=== PATIENT | male | born 1940 | race Two or more races ===

== ENCOUNTER 2017-07-25 16:54 | Inpatient (IN) | payer MEDICARE, MEDICAID ==
[2017-07-25] VITALS (7 sets, daily range): BP systolic 72–118; BP diastolic 25–70
[~2017-07-25] VITALS: Ht 170.2 cm; Wt 97.1 kg
[2017-07-25] MEDS ORDERED: Vancomycin 1 GM in NS 275 ML IV ONE (17:15)
[2017-07-25] MEDS ORDERED: NS 1000ml 2,200 ML IVLG ONE (17:15)
[2017-07-25] MEDS ORDERED: Cefepime HCl 1 GM in NS 55 ML IV SCH (17:15)
[2017-07-25 17:41] LABS: BASOPHILS % (AUTO) 0.5 % (0.0-2.0); EOSINOPHILS % (AUTO) 5.3 % (0.0-3.0); HEMOGLOBIN 10.1 G/DL (14.2-18.0); LYMPHOCYTES % (AUTO) 15.5 % (20.0-45.0); MEAN CORPUSCULAR VOLUME 90 FL (80-99); MONOCYTES % (AUTO) 3.4 % (1.0-10.0); NEUTROPHILS % (AUTO) 75.3 % (45.0-75.0); PLATELET COUNT 194 K/UL (150-450); RED BLOOD COUNT 3.57 M/UL (4.70-6.10); RED CELL DISTRIBUTION WIDTH 17.4 % (11.6-14.8); WHITE BLOOD COUNT 7.6 K/UL (4.8-10.8)
[2017-07-25 17:58] LABS: ANION GAP 17 mmol/L (5-15); BLOOD UREA NITROGEN 67 mg/dL (7-18); CALCIUM 7.7 MG/DL (8.5-10.1); CARBON DIOXIDE 13 MMOL/L (21-32); CHLORIDE 112 MMOL/L (98-107); CREATININE 1.4 MG/DL (0.55-1.30); POTASSIUM 4.7 MMOL/L (3.5-5.1); SODIUM 142 MMOL/L (136-145)
[2017-07-25 18:11] LABS: ALANINE AMINOTRANSFERASE 26 U/L (12-78); ALBUMIN/GLOBULIN RATIO 0.2 (1.0-2.7); ALKALINE PHOSPHATASE 86 U/L (46-116); ASPARTATE AMINO TRANSFERASE 29 U/L (15-37); BILIRUBIN,TOTAL 0.2 MG/DL (0.2-1.0); CKMB 4.5 NG/ML (0.0-3.6); CREATINE KINASE 34 U/L (26-308)
[2017-07-25] MEDS ORDERED: HEPARIN SO5000 UNIT2 SUBQ (18:48)
[2017-07-25] MEDS ORDERED: PRAVASTATIN SOD20 M1 GT (18:48)
[2017-07-25] MEDS ORDERED: ALBUTEROL2.5 MG/3 M INH (18:48)
[2017-07-25] MEDS ORDERED: PROMOD946 ML GT (18:48)
[2017-07-25] MEDS ORDERED: ACETAMINOP160 MG/54 GT (18:48)
[2017-07-25] MEDS ORDERED: MIDODRINE HCL5 MG GT (18:48)
[2017-07-25] MEDS ORDERED: PROTONIX40 MG GT (18:48)
--- NOTE | 2017-07-25 19:11 | Emergency Room Report ---
History of Present Illness General Chief Complaint: Abnormal Labs Source: Medical Record Present Illness HPI This [facility]. He has a tracheostomy and is ventilator dependent. He is aphasic at baseline. He has a history of cardiac arrest and acute respiratory arrest. He is ventilator dependent. He presents from a [facility] facility for concern of low blood pressure and low heart rate. There is no other history is available. Allergies: Coded Allergies: No Known Allergies (Unverified , 07/25/17) Patient History Past Medical History: see triage record, DM, HTN, CA, CAD, dementia Social History: Denies: smoking, alcohol use, drug use Reviewed Nursing Documentation: PMH: Agreed; PSxH: Agreed Nursing Documentation-PMH Past Medical History: No History, Except For Hx Hypertension: Yes Hx Diabetes: Yes Hx Gastrointestinal Problems: Yes - G-tube History Of Psychiatric Problem: Yes - Dementia Review of Systems All Other Systems: limited Physical Exam Vital Signs Date Time Temp Pulse Resp B/P (MAP) Pulse Ox O2 Delivery O2 Flow Rate FiO2 07/25/17 17:05 70 16 98/58 98 Mechanical Ventilator 07/25/17 17:20 50 Sp02 EP Interpretation: reviewed, normal General Appearance: no apparent distress, GCS 15, cachetic, Chronically Ill Head: normocephalic, atraumatic ENT: other - Tracheostomy in place. Neck: full range of motion, other - See above in ENT Respiratory: no respiratory distress, rales - R. lung, rhonchi - R. lung Cardiovascular #1: no edema, bradycardia Gastrointestinal: soft, non-distended, other - PEG Rectal: deferred Musculoskeletal: back normal, other - at baseline Neurologic: alert, other - At baseline. aphasic, unresponsive Skin: warm/dry, other - See RN skin exam. Medical Decision Making Diagnostic Impression: Primary Impression: Sepsis Additional Impressions: Pneumonia Renal failure Hypoglycemia Hypothermia Bradycardia Hypotension UTI (urinary tract infection) ER Course This patient that is severely and chronically ill presents with sepsis. He also has a pneumonia. He is in renal failure. He is hypoglycemic, hypothermic , bradycardic and hypotensive. Possibly this patient has adrenal insufficiency. Another consideration is profound hypothyroid. The patient was placed on a bear hugger to bring up his temperature. He was given aggressive IV fluids and broad-spectrum antibiotics. He was given D50 and placed on D5 half-normal saline. He was given hydrocortisone IV to treat for possible adrenal insufficiency. He is started on levothyroid for hypotension. The patient is critically ill and has a very poor prognosis. He is admitted to the ICU. This patient is critically ill. This patient required complex medical decision- making, aggressive intervention, extensive laboratory workup and monitoring. Critical care time: 40 minutes. Laboratory Tests Test 07/25/17 17:28 07/25/17 20:20 White Blood Count 7.6 K/UL (4.8-10.8) Red Blood Count 3.57 M/UL (4.70-6.10) L Hemoglobin 10.1 G/DL (14.2-18.0) L Hematocrit 32.0 % (42.0-52.0) L Mean Corpuscular Volume 90 FL (80-99) Mean Corpuscular Hemoglobin 28.3 PG (27.0-31.0) Mean Corpuscular Hemoglobin Concent 31.5 G/DL (32.0-36.0) L Red Cell Distribution Width 17.4 % (11.6-14.8) H Platelet Count 194 K/UL (150-450) Mean Platelet Volume 6.5 FL (6.5-10.1) Neutrophils (%) (Auto) 75.3 % (45.0-75.0) H Lymphocytes (%) (Auto) 15.5 % (20.0-45.0) L Monocytes (%) (Auto) 3.4 % (1.0-10.0) Eosinophils (%) (Auto) 5.3 % (0.0-3.0) H Basophils (%) (Auto) 0.5 % (0.0-2.0) Sodium Level 142 MMOL/L (136-145) Potassium Level 4.7 MMOL/L (3.5-5.1) Chloride Level 112 MMOL/L (98-107) H Carbon Dioxide Level 13 MMOL/L (21-32) L Anion Gap 17 mmol/L (5-15) H Blood Urea Nitrogen 67 mg/dL (7-18) H Creatinine 1.4 MG/DL (0.55-1.30) H Estimate Glomerular Filtration Rate mL/min (>60) Glucose Level 65 MG/DL (74-106) L Lactic Acid Level 1.90 mmol/L (0.66-2.22) Calcium Level 7.7 MG/DL (8.5-10.1) L Total Bilirubin 0.2 MG/DL (0.2-1.0) Aspartate Amino Transferase (AST) 29 U/L (15-37) Alanine Aminotransferase (ALT) 26 U/L (12-78) Alkaline Phosphatase 86 U/L (46-116) Total Creatine Kinase 34 U/L (26-308) Creatine Kinase MB 4.5 NG/ML (0.0-3.6) H Creatine Kinase MB Relative Index 13.2 Troponin I 0.014 ng/mL (0.000-0.056) Total Protein 6.2 G/DL (6.4-8.2) L Albumin 1.0 G/DL (3.4-5.0) L Globulin 5.2 g/dL Albumin/Globulin Ratio 0.2 (1.0-2.7) L Thyroid Stimulating Hormone (TSH) 5.690 uiU/mL (0.358-3.740) Free Thyroxine 0.79 NG/DL (0.76-1.46) Free Triiodothyronine 0.7 pg/mL (2.3-4.2) L Urine Color Yellow Urine Appearance Very cloudy Urine pH 5 (4.5-8.0) Urine Specific Tyler 1.010 (1.005-1.035) Urine Protein 3+ (NEGATIVE) H Urine Glucose (UA) Negative (NEGATIVE) Urine Ketones Negative (NEGATIVE) Urine Occult Blood 3+ (NEGATIVE) H Urine Nitrite Negative (NEGATIVE) Urine Bilirubin Negative (NEGATIVE) Urine Urobilinogen Normal MG/DL (0.0-1.0) Urine Leukocyte Esterase 3+ (NEGATIVE) H Urine RBC 10-15 /HPF (0 - 0) H Urine WBC 15-20 /HPF (0 - 0) H Urine Squamous Epithelial Cells None /LPF (NONE/OCC) Urine Amorphous Sediment Many /LPF (NONE) H Urine Bacteria Many /HPF (NONE) H Microbiology Date/Time Source Procedure Growth Status 07/25/17 19:30 Nasal Nares Influenza Types A,B Antigen (VERO) - Final Complete EKG Diagnostic Results Rate: bradycardiac Rhythm: other - S.manju ST Segments: no acute changes Rhythm Strip Diag. Results EP Interpretation: yes Rate: 40's Rhythm: no PVC's, no ectopy, other - S.manju Chest X-Ray Diagnostic Results Chest X-Ray Diagnostic Results : Chest X-Ray Ordered: Yes # of Views/Limited/Complete: 1 View Indication: Other Interpretation: other - Large pleural effusion R. lung. 75% opacification on R. lung. Impression: Other Electronically Signed by: Adelina Last Vital Signs Date Time Temp Pulse Resp B/P (MAP) Pulse Ox O2 Delivery O2 Flow Rate FiO2 07/25/17 18:55 49 24 83/45 96 Trach Collar 07/25/17 17:20 50 Disposition: ADMITTED INPATIENT Condition: Critical LAWRENCE MCELROY D.O. Jul 25, 2017 19:10
[2017-07-25] MEDS ORDERED: IMODIUM A-D2 M2 PO (19:59)
[2017-07-25] MEDS ORDERED: PRAVASTATIN SOD40 M1 ORAL (19:59)
[2017-07-25] MEDS ORDERED: D5 1/2NS 1,000 ML IV SCH (20:45)
[2017-07-25 20:47] LABS: APPEARANCE,URINE VERY CLOUDY; BILIRUBIN, URINE NEGATIVE (NEGATIVE); GLUCOSE, URINE (UA) NEGATIVE (NEGATIVE); KETONES,URINE NEGATIVE (NEGATIVE); LEUKOCYTE ESTERASE ,URINE 3+ (NEGATIVE); NITRITE,URINE NEGATIVE (NEGATIVE); PH,URINE 5 (4.5-8.0); PROTEIN,URINE 3+ (NEGATIVE); UROBILINOGEN,URINE NORMAL MG/DL (0.0-1.0)
[2017-07-25 20:51] LABS: COLOR,URINE YELLOW
[2017-07-25] MEDS ORDERED: Hydrocortisone 100mg Inj IV ONE (21:00)
[2017-07-25] MEDS ORDERED: Vancomycin 1gm inj IVPB ONE (21:29)
[2017-07-25] MEDS ORDERED: Acetaminophen Soln 160mg/5ml ORAL PRN (21:45)
[2017-07-25] MEDS ORDERED: Albuterol ud Inhalation IN-LINE PRN (21:48)
[2017-07-25] MEDS: Hydrocortisone 100mg Inj IV SCH (22:00)
[2017-07-25] MEDS: Sodium Bicarbonate 50 ML in D5 1/2NS 1,000 ML IV SCH (23:16)
[2017-07-25] MEDS: Piperacillin/Tazobactam 3.375 GM in D5W 110 ML IVPB SCH (23:17)
[2017-07-26] VITALS (65 sets, daily range): BP systolic 71–133; BP diastolic 34–65
[2017-07-26] MEDS: Piperacillin/Tazobactam 3.375 GM in D5W 110 ML IVPB SCH ×3 (05:56→21:59)
[2017-07-26] MEDS: Hydrocortisone 100mg Inj IV SCH ×3 (05:56→22:01)
[2017-07-26 06:18] LABS: HEMATOCRIT 34.1 % (42.0-52.0); MEAN CORPUSCULAR VOLUME 91 FL (80-99); PLATELET COUNT 264 K/UL (150-450); RED BLOOD COUNT 3.77 M/UL (4.70-6.10); RED CELL DISTRIBUTION WIDTH 17.1 % (11.6-14.8); WHITE BLOOD COUNT 14.6 K/UL (4.8-10.8)
[2017-07-26 06:30] LABS: ALANINE AMINOTRANSFERASE 26 U/L (12-78); ALBUMIN/GLOBULIN RATIO 0.2 (1.0-2.7); ALKALINE PHOSPHATASE 84 U/L (46-116); ANION GAP 18 mmol/L (5-15); ASPARTATE AMINO TRANSFERASE 29 U/L (15-37); BILIRUBIN,TOTAL 0.3 MG/DL (0.2-1.0); BLOOD UREA NITROGEN 62 mg/dL (7-18); CALCIUM 7.4 MG/DL (8.5-10.1); CARBON DIOXIDE 11 MMOL/L (21-32); CHLORIDE 109 MMOL/L (98-107); CREATININE 1.5 MG/DL (0.55-1.30); POTASSIUM 5.3 MMOL/L (3.5-5.1); SODIUM 138 MMOL/L (136-145)
[2017-07-26] MEDS ORDERED: Sodium Polystyrene Sulfonate 15gm Powder ORAL SCH (07:30)
[2017-07-26] MEDS: Sodium Bicarbonate 50 ML in D5 1/2NS 1,000 ML IV SCH ×2 (07:49→18:13)
--- NOTE | 2017-07-26 11:46 | Diagnostic Imaging Report ---
Indication: Dyspnea Comparison: None A single view chest radiograph was obtained. Findings: Left PICC line is noted. The distal tip projects into the base of the left jugular vein and ideally may be pulled back slightly. Tracheostomy is noted. There is suspected right pleural effusion. Infiltrate and/or pulmonary edema may be present at the lung bases. Correlate clinically. IMPRESSION: Suspected pulmonary edema. Superimposed pneumonia especially at the right lung base not excluded. Suspected right pleural effusion. PICC line tip ideally should be pulled back 3 cm
[2017-07-26] MEDS ORDERED: Sodium Bicarbonate 50ml Carp IV PRN (14:00)
[2017-07-26] MEDS ORDERED: Vancomycin 1gm in D5W 275ml IVPB SCH (16:00)
[2017-07-26] MEDS ORDERED: Sodium Bicarbonate 50ml Carp IV SCH (16:30)
[2017-07-26] MEDS: Dyna-Hex 2% Top Sol 2oz TOPIC SCH (20:01)
--- NOTE | 2017-07-26 20:30 | History and Physical Report ---
DATE OF ADMISSION: 07/25/2017 CHIEF COMPLAINT: Septic shock. HISTORY OF PRESENT ILLNESS: The patient is an unfortunate 77-year-old male. He has a history of anoxic encephalopathy, anemia, chronic respiratory failure, and sacral osteomyelitis. He was transferred from a custodial facility with complaints of shortness of breath and fevers. He was hypotensive in the emergency room. He was started on IV hydration, broad-spectrum IV antibiotics, and pressors and is now admitted for further evaluation and care. He is unable to provide any history. He was recently hospitalized at an outside hospital. At that time, he had a cardiac arrest. He was eventually stabilized made the patient DNR. PAST MEDICAL HISTORY: As above. PAST SURGICAL HISTORY: Includes a trach and a G-tube. CURRENT MEDICATIONS: Reconciled and reviewed. ALLERGIES: None. SOCIAL HISTORY: Negative for alcohol or drugs. FAMILY HISTORY: None. REVIEW OF SYSTEMS: From the patient is unobtainable. PHYSICAL EXAMINATION: VITAL SIGNS: Temperature 98 degrees, pulse 72, respirations 40, and blood pressure 91/55. GENERAL: The patient is a well-developed, chronically ill male, in no apparent distress. He is poorly responsive. NECK: Supple. No jugular venous distention. HEART: Tachycardiac. LUNGS: Significant for bilateral rhonchi and rales. ABDOMEN: Soft, nontender, and nondistended. EXTREMITIES: Without clubbing or cyanosis. The patient has multiple wounds noted. LABORATORY DATA: Sodium 138, potassium 5.3, chloride 109, bicarbonate 11, BUN 62, and creatinine is 1.5. White count was 14,000, hemoglobin 11, hematocrit 34, and platelet count 264,000. ASSESSMENT: This is an unfortunate male, admitted with complaints of septic shock. 1. Septic shock. 2. Respiratory failure. 3. Pneumonia. 4. Sacral osteomyelitis. 5. Acute renal failure. 6. Severe metabolic acidosis. PLAN: IV hydration, IV pressors. Check renal ultrasound. Pulmonary, Cardiology, and Infectious Disease consultations to be obtained. The patient's status is critical and guarded. His overall prognosis is poor. As per the paramedics meeting done at the outside hospital, the patient will be DNR. South Acosta M.D. DR: Megan JOB#: [id number] CC:
--- NOTE | 2017-07-26 22:00 | Consultation ---
DATE OF CONSULTATION: 07/26/2017 INFECTIOUS DISEASES CONSULTATION CONSULTING PHYSICIAN: Abhishek Boyd M.D. REFERRING PHYSICIAN: [place] M.D. REASON FOR CONSULTATION: Pneumonia. HISTORY OF PRESENT ILLNESS: This is a 77-year-old gentleman with history of respiratory failure, status post tracheostomy as well as cardiac arrest, who comes in from a custodial facility with hypotension and low heart rate. He was seen in [place] emergency room where he was found to have a pleural effusion and a possible pneumonia and an Infectious Diseases consultation has been obtained for antibiotics. PAST MEDICAL HISTORY: 1. History of diabetes. 2. Hypertension. 3. Myocardial infarction. 4. Coronary artery disease. 5. Dementia. 6. History of cardiac arrest. 7. Respiratory failure, status post tracheostomy. 8. Status post G-tube placement. MEDICATIONS: As an inpatient, the patient is on chlorhexidine gluconate, IV vancomycin, Protonix, levothyroxine, Zosyn, sodium bicarbonate, norepinephrine, hydrocortisone, albuterol, Tylenol, and midodrine. ALLERGIES: No known drug allergies. SOCIAL HISTORY: Unknown. FAMILY HISTORY: Unknown. REVIEW OF SYSTEMS: Unable to obtain currently. PHYSICAL EXAMINATION: VITAL SIGNS: T-max of 94.4 degrees, pulse of 76, respiratory rate of 43, blood pressure 91/55, and O2 saturation of 99%. HEENT: Pupils equally reactive to light and accommodation. Mouth appears clean without thrush. NECK: Supple. No adenopathy. No JVD. Tracheostomy site appears clean. CARDIOVASCULAR: Regular rate and rhythm. No murmurs. LUNGS: Clear to auscultation bilaterally. No crackles. No wheezes. ABDOMEN: Soft and nontender. No organomegaly. G-tube site appears clean. EXTREMITIES: No cyanosis. No clubbing. Edema noted bilaterally. Left arm PICC line noted. LABORATORY AND DIAGNOSTIC DATA: White count of 14.6, hemoglobin 11, hematocrit 34.1, MCV 91, and platelet count of 264,000 with neutrophils of 92%. Sodium 138, potassium 5.3, chloride 109, bicarbonate 11, BUN 62, creatinine 1.5, glucose 168, and calcium 7.4. Total bilirubin 0.3. AST 29, ALT 26, and alkaline phosphatase 84. Total protein 6.5. Albumin of 1. UA showing 15 to 20 white cells. Nasal swab was negative for influenza A and B. Blood cultures are pending. Chest x-ray is showing right-sided large pleural effusion with opacification of the right lung. ASSESSMENT: This is a 77-year-old gentleman with history of cardiac arrest, respiratory failure, status post tracheostomy, who comes in with: 1. Possible pneumonia with pleural effusion. 2. We would like to rule out line sepsis as the possibility. 3. We would like to rule out urinary tract infection as the possibility. 4. Leukocytosis. 5. Septic shock. PLAN: 1. Continue vancomycin and Zosyn. 2. We will order urine cultures. 3. We will order sputum for Gram stain and culture. 4. We will follow up cultures and adjust antibiotics accordingly. I would like to thank, Dr. Acosta, for this consultation. Abhishek Boyd M.D. DR: Marlene JOB#: [id number] CC: [place] M.D.
--- NOTE | 2017-07-26 22:15 | Consultation ---
DATE OF CONSULTATION: 07/26/2017 PULMONARY CONSULTATION CONSULTING PHYSICIAN: Kj Blackman M.D. REFERRING PHYSICIAN: [place] M.D. REASON FOR CONSULTATION: Respiratory failure. REASON FOR ADMISSION: Sepsis shock. HISTORY OF PRESENT ILLNESS: This is an unfortunate 77-year-old male, recently discharged from [facility] for possible acute myocardial infarction, status post cardiopulmonary arrest. The patient is poorly responsive at baseline. The patient presented with significant hypotension, respiratory failure, and associated bradycardia. The patient was seen and evaluated in the emergency room requiring ICU admission. The patient is presently on pressors. The patient is still presently bradycardic, unable to give any history. The patient is on a ventilator and also noted to have significant pneumonia on x-ray. The patient admitted and halfway care was reviewed. Chart notes were reviewed. Care discussed with primary physician. [facility] notes reviewed as well from prior recent discharge. The patient is critically ill at present, unable to give any history. The patient is tachypneic to some extent also on the ventilator. PAST MEDICAL HISTORY: Notable for diabetes, hypertension, FL, CAD, dementia, recent cardiopulmonary arrest, G-tube, and tracheostomy. SOCIAL HISTORY: [facility] facility. Nonsmoker and nondrinker at present. FAMILY HISTORY: Unobtainable. There is no family available as well. REVIEW OF SYSTEMS: Unobtainable. PHYSICAL EXAMINATION: GENERAL: This is an ill-appearing male, overall poorly responsive. VITAL SIGNS: Blood pressure 91/55, respiratory rate is 40, and heart rate 73, and saturation is 99%. The patient is currently with temperature 94.4. HEENT: Negative. NECK: Supple. No adenopathy. The patient is difficult to fully assess. Otherwise, the patient's carotids are 2+. LUNGS: Moderate breath sounds. Rhonchi diffusely, greater on the left. CARDIAC: S1 and S2. Regular rate and rhythm without murmurs, rubs, or gallops. ABDOMEN: Soft, nontender, and nondistended. G-tube in place. EXTREMITIES: No cyanosis or clubbing. There is significant mottling. NEUROLOGIC: Poorly responsive at present. SKIN: Noted and reviewed. LABORATORY AND DIAGNOSTIC DATA: Laboratory data reviewed. White count 14.6, hemoglobin 11, hematocrit 34, and platelets 264,000. Chemistries noted and reviewed. Potassium 5.3, BUN 62, creatinine 1.5. Lactic acid 2.3. Albumin is only 1. Blood gases not available at this time. Micro is pending at this time. X-ray noted and notable for evidence of pneumonia. IMPRESSION: 1. Respiratory failure. 2. Probable sepsis. 3. Extensive pneumonia. 4. Tracheostomy and gastrostomy tube. 5. History of cardiopulmonary arrest. 6. Evidence of anoxia. 7. Hypothyroidism. 8. Aspiration. 9. Dementia. RECOMMENDATIONS: Supportive care. Pressors. IV antibiotics. IV hydration. Arterial blood gases to assess acid-base. Monitor respiratory rate and adjust ventilator as needed. Infectious Disease evaluation strongly recommended observation in ICU care. The patient is critical and guarded at this time. We will follow clinically for further changes and assist with ventilatory support. The patient is chronically ventilated and at present would not wean. Kj Blackman M.D. DR: Aurora JOB#: [id number] CC: DANNA
[2017-07-27] VITALS (41 sets, daily range): BP systolic 89–140; BP diastolic 43–65
[2017-07-27] MEDS: Sodium Bicarbonate 50 ML in D5 1/2NS 1,000 ML IV SCH ×3 (00:19→13:12)
--- NOTE | 2017-07-27 04:15 | Consultation ---
DATE OF CONSULTATION: 07/27/2017 CARDIOLOGY CONSULT CONSULTING PHYSICIAN: Keith Reeves M.D. REQUESTING PHYSICIAN: [place] M.D. REASON: Hypotension and relative bradycardia. HISTORY OF PRESENT ILLNESS: This 77-year-old male resides at a [facility] facility and is severely debilitated at baseline due to prior cardiopulmonary arrest with associated anoxic encephalopathy. He has a tracheostomy and is ventilator dependent with baseline aphasia. He was noted to be hypotensive with a low heart rate and transported to the emergency room. Workup was completed and hospitalization in the intensive care unit initiated. I have been asked to assist with hemodynamic care. PAST MEDICAL HISTORY: His past medical history from records include cardiopulmonary arrest, anoxic encephalopathy, advanced dementia, dysphagia with G-tube, tracheostomy with ventilator-dependent respiratory failure, type 2 diabetes mellitus, hypertensive heart disease, coronary atherosclerosis, and history of myocardial infarction. ALLERGIES: None known. MEDICATIONS: At the nursing facility reviewed and reconciled. SOCIAL HISTORY: Cannot be confirmed, but the records do not note any prior smoking, alcohol, or substance abuse. REVIEW OF SYSTEMS: Not obtainable. Pertinent data from records is outlined above. PHYSICAL EXAMINATION: VITAL SIGNS: Blood pressure is 72/40, heart rate 45, respiratory rate 31, and temperature 88 rectally. GENERAL: Ill-appearing. Temporal wasting. Poorly responsive. NECK: Thin trach secretions. LUNGS: Bilateral breath sounds with rhonchi. HEART: Regular rhythm. Slow rate. Normal S1, S2. ABDOMEN: Soft. G-tube intact. EXTREMITIES: Without edema. Muscle atrophy is noted. Poor capillary refill is seen. SKIN: Notable for multiple advanced decubiti as pictured in the chart with bilateral hip stage IV. LABORATORY AND DIAGNOSTIC DATA: White count 7.6, hemoglobin 10. Sodium 142, potassium 4.7, bicarbonate 13, lactic acid 1.9, BUN 67, and creatinine 1.4. Albumin 1.0. Troponin 0.014. Urinalysis with 15 to 20 white cells and many bacteria. IMPRESSION: 1. Hypothermia. 2. Shock. 3. Sepsis. 4. Hypovolemia. 5. Urinary tract infection. 6. Decubiti with secondary cellulitis and possible osteomyelitis. 7. Acute myocardial ischemia. 8. Bradyarrhythmia due to hypothermic state and severe sepsis. 9. Ventilator-dependent respiratory failure. 10. History of diabetes mellitus. 11. History of hypertension. 12. History of coronary artery disease with prior myocardial infarction. 13. Condition is critical and prognosis is guarded. 14. Metabolic acidosis. 15. Acute renal failure. PLAN: 1. Recommend discussion regarding advanced directives. 2. Panculture. 3. Broad-spectrum antibiotics. 4. Volume resuscitation. 5. Pressors if inadequate response to above. 6. Bait hugger for warming measures. 7. Skin care. 8. Comfort measures. Keith Reeves M.D. DR: PILLO JOB#: [id number] CC:
--- NOTE | 2017-07-27 04:15 | Progress Note ---
DATE: 07/26/2017 CARDIOLOGY PROGRESS NOTE SUBJECTIVE: The patient remains in the intensive care unit. Condition remains critical with guarded prognosis. The patient remains on pressor support with marginal blood pressure. He is on ventilator support via tracheostomy. The case was discussed with the ICU staff including wound care. OBJECTIVE: VITAL SIGNS: Blood pressure 107/55, pulse 74, respirations 43, afebrile, and temperature now 98.9. HEENT: Temporal wasting. Dry mucous membranes. LUNGS: Bilateral rhonchi. Thin trach secretions. HEART: Regular rhythm and rate. Normal S1, S2. ABDOMEN: Soft. G-tube intact. EXTREMITIES: Contractures. No edema. Decreased capillary refill. Wounds are dressed and described yesterday in my evaluation. LABORATORY DATA: Labs, ABG, 7.21, 27, and 107. White count 14.6, hemoglobin 11. Lactic acid 2.3. BUN 62, creatinine 1.5. Sodium 138, potassium 5.3, and bicarbonate 11. Albumin 1. TSH 5.6. IMPRESSION: 1. Sepsis with shock. 2. Hypothermia, resolved. 3. Lactic acidosis. 4. Decubiti with cellulitis and possible osteomyelitis. 5. Postanoxic encephalopathy. 6. History of cardiopulmonary arrest. 7. Ischemic and hypertensive heart disease. 8. Severe protein-calorie malnutrition. 9. Hypothyroidism. 10. Probable adrenocortical insufficiency. 11. Condition critical, prognosis guarded. PLAN: 1. Volume resuscitation. 2. Pressor support as able. 3. Ventilator support with hyperventilation. 4. Broad-spectrum antibiotics. 5. Skin care. 6. Protein supplement by feeding tube. 7. Check cortisol level. 8. DVT and stress ulcer prophylaxes. Keith Reeves M.D. DR: PILLO JOB#: [id number] CC:
[2017-07-27 05:38] LABS: HEMATOCRIT 25.1 % (42.0-52.0); HEMOGLOBIN 8.3 G/DL (14.2-18.0); MEAN CORPUSCULAR VOLUME 88 FL (80-99); PLATELET COUNT 188 K/UL (150-450); RED BLOOD COUNT 2.85 M/UL (4.70-6.10); RED CELL DISTRIBUTION WIDTH 17.1 % (11.6-14.8); WHITE BLOOD COUNT 11.7 K/UL (4.8-10.8)
[2017-07-27] MEDS: Hydrocortisone 100mg Inj IV SCH ×3 (05:45→21:56)
[2017-07-27] MEDS: Piperacillin/Tazobactam 3.375 GM in D5W 110 ML IVPB SCH ×3 (05:45→21:56)
[2017-07-27 05:54] LABS: ALANINE AMINOTRANSFERASE 22 U/L (12-78); ALBUMIN 0.9 G/DL (3.4-5.0); ALBUMIN/GLOBULIN RATIO 0.2 (1.0-2.7); ALKALINE PHOSPHATASE 80 U/L (46-116); ANION GAP 15 mmol/L (5-15); ASPARTATE AMINO TRANSFERASE 24 U/L (15-37); BILIRUBIN,TOTAL 0.2 MG/DL (0.2-1.0); BLOOD UREA NITROGEN 64 mg/dL (7-18); CALCIUM 6.7 MG/DL (8.5-10.1); CARBON DIOXIDE 16 MMOL/L (21-32); CHLORIDE 110 MMOL/L (98-107); CREATININE 1.7 MG/DL (0.55-1.30); SODIUM 141 MMOL/L (136-145)
[2017-07-27] MEDS ORDERED: Acetaminophen 650mg/20.3ml ORAL PRN (07:30)
--- NOTE | 2017-07-27 07:38 | Critical Care Progress Note ---
Assessment/Plan Assessment/Plan IMPRESSION: 1. Respiratory failure. 2. Probable sepsis. 3. Extensive pneumonia. 4. Tracheostomy and gastrostomy tube. 5. History of cardiopulmonary arrest. 6. Evidence of anoxia. 7. Hypothyroidism. 8. Aspiration. 9. Dementia. 10. acute renal failure 11. anemia 12. chronic encephalopathy 13. anoxia 14. CAD PLAN care noted IV antibiotics reviewed respiratory care as is Ventilatory support as is SNF meds supportive care and monitor suction as needed no wean planned oxygen therapy reviewed and taper prognosis poor for recovery nutrition position change monitor for skin breakdown pressors as needed medications/laboratory data/nursing notes/ICU care reviewed in detail note reviewed and edited care discussed with RN and RT ICU time spent 40 minutes Critical Care - Subjective Interval Events: poor LOC events noted orders reviewed in detail ICU care reviewed Condition: critical EKG Rhythm: Sinus Rhythm Residuals: minimal Tube Feeding Tolerated: yes I&O: Intake and Output 07/26/17 07/27/17 19:00 07:00 Intake Total 2753.125 ml 1852.4 ml Output Total 715 ml 585 ml Balance 2038.125 ml 1267.4 ml Intake Free Water 150 ml IV Total 2178.125 ml 1567.4 ml Tube Feeding 325 ml 285 ml Other 100 ml Output Urine Total 715 ml 585 ml Critical Care - Objective Last 24 Hour Vital Signs Date Time Temp Pulse Resp B/P (MAP) Pulse Ox O2 Delivery O2 Flow Rate FiO2 07/27/17 07:00 63 30 98/43 100 Mechanical Ventilator 40 07/27/17 06:00 65 30 104/54 100 Mechanical Ventilator 40 07/27/17 05:45 63 31 103/43 100 Mechanical Ventilator 40 07/27/17 05:30 63 33 109/47 100 Mechanical Ventilator 40 07/27/17 05:15 63 34 103/55 100 Mechanical Ventilator 40 07/27/17 05:00 66 35 103/46 99 Mechanical Ventilator 40 07/27/17 04:55 71 37 40 07/27/17 04:30 59 28 99/50 Mechanical Ventilator 07/27/17 04:15 58 35 105/52 Mechanical Ventilator 07/27/17 04:00 99.2 58 34 103/49 Mechanical Ventilator 99.2 07/27/17 04:00 60 07/27/17 04:00 40 07/27/17 03:45 60 29 99/50 Mechanical Ventilator 07/27/17 03:30 67 34 40 07/27/17 03:30 66 27 105/57 Mechanical Ventilator 07/27/17 03:15 65 24 101/53 Mechanical Ventilator 07/27/17 03:00 66 27 105/48 Mechanical Ventilator 07/27/17 02:45 63 30 95/49 Mechanical Ventilator 40 07/27/17 02:30 64 29 89/49 Mechanical Ventilator 40 07/27/17 02:15 63 19 91/45 Mechanical Ventilator 40 07/27/17 02:00 67 30 140/58 07/27/17 02:00 67 30 140/58 Mechanical Ventilator 40 07/27/17 01:45 63 28 120/48 07/27/17 01:45 63 28 120/48 Mechanical Ventilator 40 07/27/17 01:30 64 29 119/60 07/27/17 01:30 64 29 119/60 Mechanical Ventilator 40 07/27/17 01:17 64 33 40 07/27/17 01:15 63 33 119/51 Mechanical Ventilator 40 07/27/17 01:15 63 33 119/51 07/27/17 01:00 63 35 118/47 Mechanical Ventilator 40 07/27/17 01:00 63 35 118/47 07/27/17 00:45 63 34 118/51 Mechanical Ventilator 40 07/27/17 00:45 63 34 118/51 07/27/17 00:30 64 31 121/54 07/27/17 00:30 64 31 121/54 Mechanical Ventilator 40 07/27/17 00:15 64 27 122/54 07/27/17 00:15 64 27 122/54 Mechanical Ventilator 40 07/27/17 00:00 63 29 118/46 Mechanical Ventilator 40 07/27/17 00:00 40 07/27/17 00:00 64 07/27/17 00:00 63 29 118/46 07/26/17 23:45 64 28 115/60 Mechanical Ventilator 40 07/26/17 23:30 65 29 114/61 Mechanical Ventilator 07/26/17 23:15 65 27 112/53 Mechanical Ventilator 07/26/17 23:05 65 31 40 07/26/17 23:00 65 25 102/50 Mechanical Ventilator 07/26/17 22:45 66 29 91/43 Mechanical Ventilator 07/26/17 22:31 71/40 07/26/17 22:30 70 27 71/40 Mechanical Ventilator 07/26/17 22:15 69 31 96/52 Mechanical Ventilator 07/26/17 22:00 71 25 116/45 Mechanical Ventilator 07/26/17 21:45 68 28 120/55 Mechanical Ventilator 07/26/17 21:30 69 25 118/57 Mechanical Ventilator 07/26/17 21:28 68 29 40 07/26/17 21:15 68 30 121/65 Mechanical Ventilator 07/26/17 21:00 71 31 118/56 Mechanical Ventilator 07/26/17 20:45 67 30 117/57 Mechanical Ventilator 07/26/17 20:30 67 30 119/50 98 Mechanical Ventilator 40 07/26/17 20:15 68 34 119/41 98 Mechanical Ventilator 40 07/26/17 20:00 40 07/26/17 20:00 69 07/26/17 20:00 69 31 117/44 98 Mechanical Ventilator 40 07/26/17 19:56 71 31 40 07/26/17 19:45 68 28 111/47 98 Mechanical Ventilator 40 07/26/17 19:30 68 32 107/50 98 Mechanical Ventilator 40 07/26/17 19:15 69 30 100/57 98 Mechanical Ventilator 40 07/26/17 19:00 68 37 102/49 98 Mechanical Ventilator 40 07/26/17 18:45 69 36 95/55 98 Mechanical Ventilator 40 07/26/17 18:30 70 37 106/43 98 Mechanical Ventilator 40 07/26/17 18:15 71 38 111/57 98 Mechanical Ventilator 40 07/26/17 18:00 74 36 119/60 98 Mechanical Ventilator 40 07/26/17 18:00 119/60 07/26/17 17:45 75 39 121/60 99 Mechanical Ventilator 40 07/26/17 17:30 75 39 123/63 99 Mechanical Ventilator 40 07/26/17 17:15 79 39 121/59 99 Mechanical Ventilator 40 07/26/17 17:01 71 38 40 07/26/17 17:00 72 28 121/60 99 Mechanical Ventilator 40 07/26/17 16:45 73 28 121/61 99 Mechanical Ventilator 40 07/26/17 16:30 124/63 07/26/17 16:30 73 39 124/63 98 Mechanical Ventilator 40 07/26/17 16:00 40 07/26/17 16:00 74 07/26/17 16:00 98.6 72 38 116/52 99 Mechanical Ventilator 40 98.6 07/26/17 15:30 73 42 111/57 98 Mechanical Ventilator 40 07/26/17 15:00 74 45 110/59 98 Mechanical Ventilator 40 07/26/17 14:35 78 45 40 07/26/17 14:30 73 43 106/56 98 Mechanical Ventilator 40 07/26/17 14:00 74 43 107/55 98 Mechanical Ventilator 40 07/26/17 13:30 75 41 106/55 98 Mechanical Ventilator 40 07/26/17 13:05 100/55 07/26/17 13:00 78 43 100/55 100 Mechanical Ventilator 40 07/26/17 12:40 76 43 40 07/26/17 12:30 76 42 110/62 100 Mechanical Ventilator 40 07/26/17 12:00 98.9 79 43 96/56 100 Mechanical Ventilator 40 98.9 07/26/17 12:00 76 07/26/17 12:00 40 07/26/17 11:30 73 40 100/53 100 Mechanical Ventilator 40 07/26/17 11:00 74 40 96/36 98 Mechanical Ventilator 40 07/26/17 10:44 74 40 40 07/26/17 10:30 74 40 95/47 98 Mechanical Ventilator 40 07/26/17 10:21 40 07/26/17 10:00 78 40 94/49 99 Mechanical Ventilator 50 07/26/17 09:30 74 38 97/53 99 Mechanical Ventilator 50 07/26/17 09:00 76 41 96/52 99 Mechanical Ventilator 50 07/26/17 08:45 75 40 93/38 99 Mechanical Ventilator 50 07/26/17 08:43 76 43 50 07/26/17 08:30 98.5 74 41 93/37 99 Mechanical Ventilator 50 98.5 07/26/17 08:15 73 40 91/55 99 Mechanical Ventilator 50 07/26/17 08:00 72 07/26/17 08:00 50 07/26/17 08:00 73 41 89/54 99 Mechanical Ventilator 50 07/26/17 07:45 73 40 91/50 99 Mechanical Ventilator 50 Labs: Labs Test 07/25/17 17:28 07/25/17 20:20 07/26/17 05:30 07/26/17 09:51 White Blood Count 7.6 K/UL (4.8-10.8) 14.6 K/UL (4.8-10.8) Red Blood Count 3.57 M/UL (4.70-6.10) 3.77 M/UL (4.70-6.10) Hemoglobin 10.1 G/DL (14.2-18.0) 11.0 G/DL (14.2-18.0) Hematocrit 32.0 % (42.0-52.0) 34.1 % (42.0-52.0) Mean Corpuscular Volume 90 FL (80-99) 91 FL (80-99) Mean Corpuscular Hemoglobin 28.3 PG (27.0-31.0) 29.3 PG (27.0-31.0) Mean Corpuscular Hemoglobin Concent 31.5 G/DL (32.0-36.0) 32.3 G/DL (32.0-36.0) Red Cell Distribution Width 17.4 % (11.6-14.8) 17.1 % (11.6-14.8) Platelet Count 194 K/UL (150-450) 264 K/UL (150-450) Mean Platelet Volume 6.5 FL (6.5-10.1) 7.2 FL (6.5-10.1) Neutrophils (%) (Auto) 75.3 % (45.0-75.0) % (45.0-75.0) Lymphocytes (%) (Auto) 15.5 % (20.0-45.0) % (20.0-45.0) Monocytes (%) (Auto) 3.4 % (1.0-10.0) % (1.0-10.0) Eosinophils (%) (Auto) 5.3 % (0.0-3.0) % (0.0-3.0) Basophils (%) (Auto) 0.5 % (0.0-2.0) % (0.0-2.0) Sodium Level 142 MMOL/L (136-145) 138 MMOL/L (136-145) Potassium Level 4.7 MMOL/L (3.5-5.1) 5.3 MMOL/L (3.5-5.1) Chloride Level 112 MMOL/L (98-107) 109 MMOL/L (98-107) Carbon Dioxide Level 13 MMOL/L (21-32) 11 MMOL/L (21-32) Anion Gap 17 mmol/L (5-15) 18 mmol/L (5-15) Blood Urea Nitrogen 67 mg/dL (7-18) 62 mg/dL (7-18) Creatinine 1.4 MG/DL (0.55-1.30) 1.5 MG/DL (0.55-1.30) Estimat Glomerular Filtration Rate mL/min (>60) mL/min (>60) Glucose Level 65 MG/DL (74-106) 168 MG/DL (74-106) Lactic Acid Level 1.90 mmol/L (0.66-2.22) 2.30 mmol/L (0.66-2.22) Calcium Level 7.7 MG/DL (8.5-10.1) 7.4 MG/DL (8.5-10.1) Total Bilirubin 0.2 MG/DL (0.2-1.0) 0.3 MG/DL (0.2-1.0) Aspartate Amino Transf (AST/SGOT) 29 U/L (15-37) 29 U/L (15-37) Alanine Aminotransferase (ALT/SGPT) 26 U/L (12-78) 26 U/L (12-78) Alkaline Phosphatase 86 U/L (46-116) 84 U/L (46-116) Total Creatine Kinase 34 U/L (26-308) Creatine Kinase MB 4.5 NG/ML (0.0-3.6) Creatine Kinase MB Relative Index 13.2 Troponin I 0.014 ng/mL (0.000-0.056) Total Protein 6.2 G/DL (6.4-8.2) 6.5 G/DL (6.4-8.2) Albumin 1.0 G/DL (3.4-5.0) 1.0 G/DL (3.4-5.0) Globulin 5.2 g/dL 5.5 g/dL Albumin/Globulin Ratio 0.2 (1.0-2.7) 0.2 (1.0-2.7) Thyroid Stimulating Hormone (TSH) 5.690 uiU/mL (0.358-3.740) Free Thyroxine 0.79 NG/DL (0.76-1.46) Free Triiodothyronine 0.7 pg/mL (2.3-4.2) Urine Color Yellow Urine Appearance Very cloudy Urine pH 5 (4.5-8.0) Urine Specific [place] 1.010 (1.005-1.035) Urine Protein 3+ (NEGATIVE) Urine Glucose (UA) Negative (NEGATIVE) Urine Ketones Negative (NEGATIVE) Urine Occult Blood 3+ (NEGATIVE) Urine Nitrite Negative (NEGATIVE) Urine Bilirubin Negative (NEGATIVE) Urine Urobilinogen Normal MG/DL (0.0-1.0) Urine Leukocyte Esterase 3+ (NEGATIVE) Urine RBC 10-15 /HPF (0 - 0) Urine WBC 15-20 /HPF (0 - 0) Urine Squamous Epithelial Cells None /LPF (NONE/OCC) Urine Amorphous Sediment Many /LPF (NONE) Urine Bacteria Many /HPF (NONE) Differential Total Cells Counted 100 Neutrophils % (Manual) 92 % (45-75) Lymphocytes % (Manual) 4 % (20-45) Monocytes % (Manual) 4 % (1-10) Eosinophils % (Manual) 0 % (0-3) Basophils % (Manual) 0 % (0-2) Band Neutrophils 0 % (0-8) Platelet Estimate Adequate Platelet Morphology Normal Hypochromasia 1+ Anisocytosis 1+ Spherocytes 1+ Arterial Blood pH 7.210 (7.350-7.450) Arterial Blood Partial Pressure CO2 27.1 mmHg (35.0-45.0) Arterial Blood Partial Pressure O2 107.6 mmHg (75.0-100.0) Arterial Blood HCO3 10.6 mmol/L (22.0-26.0) Arterial Blood Oxygen Saturation 97.5 % (92.0-98.0) Arterial Blood Base Excess -15.8 Mina Test Positive Test 07/26/17 10:00 07/26/17 12:00 07/27/17 05:20 Lactic Acid Level 2.20 mmol/L (0.66-2.22) 2.10 mmol/L (0.66-2.22) White Blood Count 11.7 K/UL (4.8-10.8) Red Blood Count 2.85 M/UL (4.70-6.10) Hemoglobin 8.3 G/DL (14.2-18.0) Hematocrit 25.1 % (42.0-52.0) Mean Corpuscular Volume 88 FL (80-99) Mean Corpuscular Hemoglobin 29.2 PG (27.0-31.0) Mean Corpuscular Hemoglobin Concent 33.2 G/DL (32.0-36.0) Red Cell Distribution Width 17.1 % (11.6-14.8) Platelet Count 188 K/UL (150-450) Mean Platelet Volume 5.9 FL (6.5-10.1) Neutrophils (%) (Auto) % (45.0-75.0) Lymphocytes (%) (Auto) % (20.0-45.0) Monocytes (%) (Auto) % (1.0-10.0) Eosinophils (%) (Auto) % (0.0-3.0) Basophils (%) (Auto) % (0.0-2.0) Sodium Level 141 MMOL/L (136-145) Potassium Level 4.0 MMOL/L (3.5-5.1) Chloride Level 110 MMOL/L (98-107) Carbon Dioxide Level 16 MMOL/L (21-32) Anion Gap 15 mmol/L (5-15) Blood Urea Nitrogen 64 mg/dL (7-18) Creatinine 1.7 MG/DL (0.55-1.30) Estimat Glomerular Filtration Rate mL/min (>60) Glucose Level 154 MG/DL (74-106) Calcium Level 6.7 MG/DL (8.5-10.1) Total Bilirubin 0.2 MG/DL (0.2-1.0) Aspartate Amino Transf (AST/SGOT) 24 U/L (15-37) Alanine Aminotransferase (ALT/SGPT) 22 U/L (12-78) Alkaline Phosphatase 80 U/L (46-116) Total Protein 6.0 G/DL (6.4-8.2) Albumin 0.9 G/DL (3.4-5.0) Globulin 5.1 g/dL Albumin/Globulin Ratio 0.2 (1.0-2.7) Objective: HEENT: Negative. NECK: Supple. No adenopathy. The patient is difficult to fully assess. Otherwise, the patient's carotids are 2+. trach in place LUNGS: Moderate breath sounds. Rhonchi improved, greater on the left. CARDIAC: S1 and S2. Regular rate and rhythm without murmurs, rubs, or gallops. ABDOMEN: Soft, nontender, and nondistended. G-tube in place. no HSM EXTREMITIES: No cyanosis or clubbing. There is significant mottling. NEUROLOGIC: Poorly responsive at present. SKIN: Noted and reviewed. Micro: Microbiology Date/Time Source Procedure Growth Status 07/25/17 17:40 Blood Blood Culture - Preliminary NO GROWTH AFTER 24 HOURS Resulted 07/25/17 17:28 Blood Blood Culture - Preliminary NO GROWTH AFTER 24 HOURS Resulted 07/25/17 19:30 Nasal Nares Influenza Types A,B Antigen (VERO) - Final Complete 07/25/17 20:20 Urine,Clean Catch Urine Culture - Preliminary Resulted 07/25/17 23:00 Sacral Other Gram Stain - Final Resulted 07/25/17 23:00 Sacral Other Wound Culture Pending Resulted Accucheck: 74 ISHAAN FARRELL Jul 27, 2017 07:38
--- NOTE | 2017-07-27 10:15 | Consultation ---
DATE OF CONSULTATION: 07/27/2017 NEPHROLOGY CONSULTATION CONSULTING PHYSICIAN: Marga Bustos M.D. ATTENDING PHYSICIAN: Kj Blackman M.D. REASON FOR CONSULTATION: Elevated BUN and creatinine. HISTORY OF PRESENT ILLNESS: This is a 77-year-old male from [facility]. The patient was transferred to the hospital due to respiratory distress and altered level of consciousness. The patient is an elderly male, who is a ventilator dependent. I am asked to see the patient for elevation of BUN and creatinine. The patient is nonverbal due to being ventilator dependent and due to organic brain syndrome. PAST MEDICAL HISTORY: 1. 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 3. Hypertensive cardiovascular disease. 4. Type 2 diabetes mellitus. 5. Chronic kidney disease, unclear what stage. MEDICATIONS: detention medications, Tylenol p.r.n., albuterol inhalation, subcutaneous heparin, midodrine p.r.n., Protonix via G tube, pravastatin, and protein supplement liquid. ALLERGIES: None reported. FAMILY HISTORY: Unable to obtain due to mental status. SOCIAL HISTORY: Unable to obtain due to mental status. REVIEW OF SYSTEMS: Unable to obtain due to mental status. PHYSICAL EXAMINATION: GENERAL: This is an elderly male, who is on a ventilator. VITAL SIGNS: Blood pressure 98/43, pulse 63, respirations 30, O2 saturation 100% on FiO2 40, and temperature is 99.2. HEENT: Head is normocephalic and atraumatic. Pupils are equal, round, and reactive to light. NECK: Supple. Trachea midline. There is no lymphadenopathy or thyromegaly. He has a midline tracheostomy. LUNGS: Bilateral rhonchi. HEART: Regular rate and rhythm without rubs, murmurs, or gallops. ABDOMEN: Soft and nontender. Bowel sounds were active. He has a G-tube. EXTREMITIES: No clubbing, cyanosis, or edema. NEUROLOGICAL: He is confused. There were no gross focal findings. LABORATORY AND ANCILLARY DATA: On admission, hematocrit 32, today 25.1. On admission, white count was 7.6, today 11.7, and platelet count 188,000. Chemistry, sodium 141, potassium 4, BUN 64, creatinine 1.7, glucose 154. Urinalysis, urine pH of 5, specific gravity 1.01, 3+ urine protein, sediment shows 10 to 15 rbc's and 15 to 20 white blood cells. Chest x-ray, pulmonary edema with superimposed pneumonia. ASSESSMENT: 1. Most likely pneumonia. 2. Hypotension due to the above. 3. Chronic kidney disease, most likely stage 3 secondary to diabetic nephropathy. PLAN: 1. Continue current therapy. 2. Check renal ultrasound. Thank you, Dr. Blackman, for letting me to participate in the care of this patient. Marga Bustos M.D. DR: TALIA JOB#: [id number] CC: DANNA
--- NOTE | 2017-07-27 10:30 | Infectious Diseases Prog Note ---
Assessment/Plan Assessment/Plan A: Sepsis, shock is resolved Pneumonia Acute renal failure Pressure ulcers Dementia P; Continue Vancomycin & Zosyn will f/u cultures Subjective ROS Limited/Unobtainable: Yes Cardiovascular: Reports: other - off pressor since morning Allergies: Coded Allergies: No Known Allergies (Unverified , 07/25/17) Objective Vital Signs Last 24 Hour Vital Signs Date Time Temp Pulse Resp B/P (MAP) Pulse Ox O2 Delivery O2 Flow Rate FiO2 07/27/17 09:21 67 23 40 07/27/17 08:00 97.6 69 24 95/56 100 Mechanical Ventilator 40 97.6 07/27/17 08:00 40 07/27/17 07:00 63 30 98/43 100 Mechanical Ventilator 40 07/27/17 06:35 67 31 40 07/27/17 06:00 65 30 104/54 100 Mechanical Ventilator 40 07/27/17 05:45 63 31 103/43 100 Mechanical Ventilator 40 07/27/17 05:30 63 33 109/47 100 Mechanical Ventilator 40 07/27/17 05:15 63 34 103/55 100 Mechanical Ventilator 40 07/27/17 05:00 66 35 103/46 99 Mechanical Ventilator 40 07/27/17 04:55 71 37 40 07/27/17 04:30 59 28 99/50 Mechanical Ventilator 07/27/17 04:15 58 35 105/52 Mechanical Ventilator 07/27/17 04:00 99.2 58 34 103/49 Mechanical Ventilator 99.2 07/27/17 04:00 60 07/27/17 04:00 40 07/27/17 03:45 60 29 99/50 Mechanical Ventilator 07/27/17 03:30 67 34 40 07/27/17 03:30 66 27 105/57 Mechanical Ventilator 07/27/17 03:15 65 24 101/53 Mechanical Ventilator 07/27/17 03:00 66 27 105/48 Mechanical Ventilator 07/27/17 02:45 63 30 95/49 Mechanical Ventilator 40 07/27/17 02:30 64 29 89/49 Mechanical Ventilator 40 07/27/17 02:15 63 19 91/45 Mechanical Ventilator 40 07/27/17 02:00 67 30 140/58 07/27/17 02:00 67 30 140/58 Mechanical Ventilator 40 07/27/17 01:45 63 28 120/48 07/27/17 01:45 63 28 120/48 Mechanical Ventilator 40 07/27/17 01:30 64 29 119/60 07/27/17 01:30 64 29 119/60 Mechanical Ventilator 40 07/27/17 01:17 64 33 40 07/27/17 01:15 63 33 119/51 Mechanical Ventilator 40 07/27/17 01:15 63 33 119/51 07/27/17 01:00 63 35 118/47 Mechanical Ventilator 40 07/27/17 01:00 63 35 118/47 07/27/17 00:45 63 34 118/51 Mechanical Ventilator 40 07/27/17 00:45 63 34 118/51 07/27/17 00:30 64 31 121/54 07/27/17 00:30 64 31 121/54 Mechanical Ventilator 40 07/27/17 00:15 64 27 122/54 07/27/17 00:15 64 27 122/54 Mechanical Ventilator 40 07/27/17 00:00 63 29 118/46 Mechanical Ventilator 40 07/27/17 00:00 40 07/27/17 00:00 64 07/27/17 00:00 63 29 118/46 07/26/17 23:45 64 28 115/60 Mechanical Ventilator 40 07/26/17 23:30 65 29 114/61 Mechanical Ventilator 07/26/17 23:15 65 27 112/53 Mechanical Ventilator 07/26/17 23:05 65 31 40 07/26/17 23:00 65 25 102/50 Mechanical Ventilator 07/26/17 22:45 66 29 91/43 Mechanical Ventilator 07/26/17 22:31 71/40 07/26/17 22:30 70 27 71/40 Mechanical Ventilator 07/26/17 22:15 69 31 96/52 Mechanical Ventilator 07/26/17 22:00 71 25 116/45 Mechanical Ventilator 07/26/17 21:45 68 28 120/55 Mechanical Ventilator 07/26/17 21:30 69 25 118/57 Mechanical Ventilator 07/26/17 21:28 68 29 40 07/26/17 21:15 68 30 121/65 Mechanical Ventilator 07/26/17 21:00 71 31 118/56 Mechanical Ventilator 07/26/17 20:45 67 30 117/57 Mechanical Ventilator 07/26/17 20:30 67 30 119/50 98 Mechanical Ventilator 40 07/26/17 20:15 68 34 119/41 98 Mechanical Ventilator 40 07/26/17 20:00 40 07/26/17 20:00 69 07/26/17 20:00 69 31 117/44 98 Mechanical Ventilator 40 07/26/17 19:56 71 31 40 07/26/17 19:45 68 28 111/47 98 Mechanical Ventilator 40 07/26/17 19:30 68 32 107/50 98 Mechanical Ventilator 40 07/26/17 19:15 69 30 100/57 98 Mechanical Ventilator 40 07/26/17 19:00 68 37 102/49 98 Mechanical Ventilator 40 07/26/17 18:45 69 36 95/55 98 Mechanical Ventilator 40 07/26/17 18:30 70 37 106/43 98 Mechanical Ventilator 40 07/26/17 18:15 71 38 111/57 98 Mechanical Ventilator 40 07/26/17 18:00 74 36 119/60 98 Mechanical Ventilator 40 07/26/17 18:00 119/60 07/26/17 17:45 75 39 121/60 99 Mechanical Ventilator 40 07/26/17 17:30 75 39 123/63 99 Mechanical Ventilator 40 07/26/17 17:15 79 39 121/59 99 Mechanical Ventilator 40 07/26/17 17:01 71 38 40 07/26/17 17:00 72 28 121/60 99 Mechanical Ventilator 40 07/26/17 16:45 73 28 121/61 99 Mechanical Ventilator 40 07/26/17 16:30 124/63 07/26/17 16:30 73 39 124/63 98 Mechanical Ventilator 40 07/26/17 16:00 40 07/26/17 16:00 74 07/26/17 16:00 98.6 72 38 116/52 99 Mechanical Ventilator 40 98.6 07/26/17 15:30 73 42 111/57 98 Mechanical Ventilator 40 07/26/17 15:00 74 45 110/59 98 Mechanical Ventilator 40 07/26/17 14:35 78 45 40 07/26/17 14:30 73 43 106/56 98 Mechanical Ventilator 40 07/26/17 14:00 74 43 107/55 98 Mechanical Ventilator 40 07/26/17 13:30 75 41 106/55 98 Mechanical Ventilator 40 07/26/17 13:05 100/55 07/26/17 13:00 78 43 100/55 100 Mechanical Ventilator 40 07/26/17 12:40 76 43 40 07/26/17 12:30 76 42 110/62 100 Mechanical Ventilator 40 07/26/17 12:00 98.9 79 43 96/56 100 Mechanical Ventilator 40 98.9 07/26/17 12:00 76 07/26/17 12:00 40 07/26/17 11:30 73 40 100/53 100 Mechanical Ventilator 40 07/26/17 11:00 74 40 96/36 98 Mechanical Ventilator 40 07/26/17 10:44 74 40 40 07/26/17 10:30 74 40 95/47 98 Mechanical Ventilator 40 Height (Feet): 5 Height (Inches): 7.00 Weight (Pounds): 170 HEENT: normocephalic, status post trach Respiratory/Chest: lungs clear, other - on vrntilator Cardiovascular: normal rate, other - left arm PICC line Abdomen: soft, non tender, other - GT feeding Extremities: no edema Skin: ulcers, other - multiple ulcers wose in sacrum & hips Neurologic/Psychiatric: unresponsiveness Microbiology Date/Time Source Procedure Growth Status 07/25/17 17:40 Blood Blood Culture - Preliminary NO GROWTH AFTER 24 HOURS Resulted 07/25/17 17:28 Blood Blood Culture - Preliminary NO GROWTH AFTER 24 HOURS Resulted 07/25/17 19:30 Nasal Nares Influenza Types A,B Antigen (VERO) - Final Complete 07/25/17 20:20 Urine,Clean Catch Urine Culture - Preliminary Yeast Species Resulted 07/25/17 23:00 Sacral Other Gram Stain - Final Resulted 07/25/17 23:00 Sacral Other Wound Culture Pending Resulted Laboratory Tests Test 07/26/17 12:00 07/27/17 05:20 Lactic Acid Level 2.10 mmol/L (0.66-2.22) White Blood Count 11.7 K/UL (4.8-10.8) H Red Blood Count 2.85 M/UL (4.70-6.10) L Hemoglobin 8.3 G/DL (14.2-18.0) L Hematocrit 25.1 % (42.0-52.0) L Mean Corpuscular Volume 88 FL (80-99) Mean Corpuscular Hemoglobin 29.2 PG (27.0-31.0) Mean Corpuscular Hemoglobin Concent 33.2 G/DL (32.0-36.0) Red Cell Distribution Width 17.1 % (11.6-14.8) H Platelet Count 188 K/UL (150-450) Mean Platelet Volume 5.9 FL (6.5-10.1) L Neutrophils (%) (Auto) % (45.0-75.0) Lymphocytes (%) (Auto) % (20.0-45.0) Monocytes (%) (Auto) % (1.0-10.0) Eosinophils (%) (Auto) % (0.0-3.0) Basophils (%) (Auto) % (0.0-2.0) Differential Total Cells Counted 100 Neutrophils % (Manual) 84 % (45-75) H Lymphocytes % (Manual) 14 % (20-45) L Monocytes % (Manual) 2 % (1-10) Eosinophils % (Manual) 0 % (0-3) Basophils % (Manual) 0 % (0-2) Band Neutrophils 0 % (0-8) Platelet Estimate Adequate Platelet Morphology Normal Anisocytosis 1+ Sodium Level 141 MMOL/L (136-145) Potassium Level 4.0 MMOL/L (3.5-5.1) Chloride Level 110 MMOL/L (98-107) H Carbon Dioxide Level 16 MMOL/L (21-32) L Anion Gap 15 mmol/L (5-15) Blood Urea Nitrogen 64 mg/dL (7-18) H Creatinine 1.7 MG/DL (0.55-1.30) H Estimat Glomerular Filtration Rate mL/min (>60) Glucose Level 154 MG/DL (74-106) H Calcium Level 6.7 MG/DL (8.5-10.1) L Total Bilirubin 0.2 MG/DL (0.2-1.0) Aspartate Amino Transf (AST/SGOT) 24 U/L (15-37) Alanine Aminotransferase (ALT/SGPT) 22 U/L (12-78) Alkaline Phosphatase 80 U/L (46-116) Total Protein 6.0 G/DL (6.4-8.2) L Albumin 0.9 G/DL (3.4-5.0) L Globulin 5.1 g/dL Albumin/Globulin Ratio 0.2 (1.0-2.7) L Cortisol AM Sample Pending Current Medications Medications (Trade) Dose Ordered Sig/Tal Route PRN Reason Start Time Stop Time Status Last Admin Dose Admin Acetaminophen (Tylenol) 650 mg Q6H PRN ORAL Mild Pain/Temp > 100.5 07/27/17 07:30 08/24/17 21:44 Albuterol Sulfate (Proventil) 2.5 mg Q6H PRN IN-LINE Shortness of Breath 07/25/17 21:48 07/30/17 21:47 Chlorhexidine Gluconate (Consuelo-Hex 2%) 1 applic DAILY@2000 TOPIC 07/26/17 20:00 08/25/17 19:59 07/26/17 20:01 Hydrocortisone (Solu-CORTEF) 100 mg EVERY 8 HOURS IV 07/25/17 22:00 08/24/17 21:59 07/27/17 05:45 Levothyroxine Sodium (Synthroid) 100 mcg DAILY@0630 ORAL 07/26/17 06:30 08/25/17 06:29 07/27/17 05:45 Midodrine (Pro-Amatine) 5 mg THREE TIMES A DAY GT 07/25/17 21:45 08/24/17 21:44 07/26/17 17:45 Norepinephrine Bitartrate 8 mg/ Dextrose 250 ml @ 0 mls/hr Q24H IV 07/25/17 22:00 08/24/17 21:59 07/26/17 22:31 Pantoprazole (Protonix) 40 mg DAILY ORAL 07/26/17 09:00 08/25/17 08:59 07/26/17 08:40 Piperacillin Sod/ Tazobactam Sod 3.375 gm/Dextrose 110 ml @ 27.5 mls/hr EVERY 8 HOURS IVPB 07/25/17 23:00 07/30/17 22:59 07/27/17 05:45 Sodium Bicarbonate 50 ml/ Dextrose/Sodium Chloride 1,050 ml @ 125 mls/hr Q8H24M IV 07/25/17 23:00 08/24/17 22:59 07/27/17 00:19 Vancomycin HCl (Vanco rx to dose) 1 ea DAILY PRN MISC Per rx protocol 07/25/17 21:45 08/24/17 21:44 Vancomycin HCl 1 gm/Dextrose 275 ml @ 183.708 mls/hr Q24H IVPB 07/26/17 16:00 07/31/17 15:59 07/26/17 16:08 VANIA DAVIES Jul 27, 2017 10:30
--- NOTE | 2017-07-27 11:44 | General Progress Note ---
Assessment/Plan Problem List: (1) Renal failure ICD Codes: N19 - Unspecified kidney failure SNOMED: 17008723 (2) Sepsis ICD Codes: A41.9 - Sepsis, unspecified organism SNOMED: 59089486 (3) UTI (urinary tract infection) ICD Codes: N39.0 - Urinary tract infection, site not specified SNOMED: 05597277 (4) Hypotension ICD Codes: I95.9 - Hypotension, unspecified SNOMED: 82953045 (5) Pneumonia ICD Codes: J18.9 - Pneumonia, unspecified organism SNOMED: 268834470 (6) GI bleed ICD Codes: K92.2 - Gastrointestinal hemorrhage, unspecified SNOMED: 68196737 Status: stable, progressing Assessment/Plan ivf iv abx follow up cultures gt feeds wound care critical and guarded poor prognosis dnr Subjective ROS Limited/Unobtainable: Yes Constitutional: Reports: malaise, weakness HEENT: Reports: no symptoms Cardiovascular: Reports: no symptoms Respiratory: Reports: cough, sputum Gastrointestinal/Abdominal: Reports: difficulty swallowing Genitourinary: Reports: no symptoms Neurologic/Psychiatric: Reports: pre-existing deficit Endocrine: Reports: no symptoms Hematologic/Lymphatic: Reports: anemia Allergies: Coded Allergies: No Known Allergies (Unverified , 07/25/17) All Systems: reviewed and negative except above Subjective better today. off pressors. improved uop. still on the vent. still with sputum/ secretions. Objective Last 24 Hour Vital Signs Date Time Temp Pulse Resp B/P (MAP) Pulse Ox O2 Delivery O2 Flow Rate FiO2 07/27/17 11:18 61 07/27/17 11:00 30 97/56 100 Mechanical Ventilator 40 07/27/17 10:37 61 27 40 07/27/17 10:00 63 30 94/48 100 Mechanical Ventilator 40 07/27/17 09:21 67 23 40 07/27/17 09:00 62 30 101/43 100 Mechanical Ventilator 40 07/27/17 08:00 97.6 69 24 95/56 100 Mechanical Ventilator 40 97.6 07/27/17 08:00 40 07/27/17 07:00 63 30 98/43 100 Mechanical Ventilator 40 07/27/17 06:35 67 31 40 07/27/17 06:00 65 30 104/54 100 Mechanical Ventilator 40 07/27/17 05:45 63 31 103/43 100 Mechanical Ventilator 40 07/27/17 05:30 63 33 109/47 100 Mechanical Ventilator 40 07/27/17 05:15 63 34 103/55 100 Mechanical Ventilator 40 07/27/17 05:00 66 35 103/46 99 Mechanical Ventilator 40 07/27/17 04:55 71 37 40 07/27/17 04:30 59 28 99/50 Mechanical Ventilator 07/27/17 04:15 58 35 105/52 Mechanical Ventilator 07/27/17 04:00 99.2 58 34 103/49 Mechanical Ventilator 99.2 07/27/17 04:00 60 07/27/17 04:00 40 07/27/17 03:45 60 29 99/50 Mechanical Ventilator 07/27/17 03:30 67 34 40 07/27/17 03:30 66 27 105/57 Mechanical Ventilator 07/27/17 03:15 65 24 101/53 Mechanical Ventilator 07/27/17 03:00 66 27 105/48 Mechanical Ventilator 07/27/17 02:45 63 30 95/49 Mechanical Ventilator 40 07/27/17 02:30 64 29 89/49 Mechanical Ventilator 40 07/27/17 02:15 63 19 91/45 Mechanical Ventilator 40 07/27/17 02:00 67 30 140/58 07/27/17 02:00 67 30 140/58 Mechanical Ventilator 40 07/27/17 01:45 63 28 120/48 07/27/17 01:45 63 28 120/48 Mechanical Ventilator 40 07/27/17 01:30 64 29 119/60 07/27/17 01:30 64 29 119/60 Mechanical Ventilator 40 07/27/17 01:17 64 33 40 07/27/17 01:15 63 33 119/51 Mechanical Ventilator 40 07/27/17 01:15 63 33 119/51 07/27/17 01:00 63 35 118/47 Mechanical Ventilator 40 07/27/17 01:00 63 35 118/47 07/27/17 00:45 63 34 118/51 Mechanical Ventilator 40 07/27/17 00:45 63 34 118/51 07/27/17 00:30 64 31 121/54 07/27/17 00:30 64 31 121/54 Mechanical Ventilator 40 07/27/17 00:15 64 27 122/54 07/27/17 00:15 64 27 122/54 Mechanical Ventilator 40 07/27/17 00:00 63 29 118/46 Mechanical Ventilator 40 07/27/17 00:00 40 07/27/17 00:00 64 07/27/17 00:00 63 29 118/46 07/26/17 23:45 64 28 115/60 Mechanical Ventilator 40 07/26/17 23:30 65 29 114/61 Mechanical Ventilator 07/26/17 23:15 65 27 112/53 Mechanical Ventilator 07/26/17 23:05 65 31 40 07/26/17 23:00 65 25 102/50 Mechanical Ventilator 07/26/17 22:45 66 29 91/43 Mechanical Ventilator 07/26/17 22:31 71/40 07/26/17 22:30 70 27 71/40 Mechanical Ventilator 07/26/17 22:15 69 31 96/52 Mechanical Ventilator 07/26/17 22:00 71 25 116/45 Mechanical Ventilator 07/26/17 21:45 68 28 120/55 Mechanical Ventilator 07/26/17 21:30 69 25 118/57 Mechanical Ventilator 07/26/17 21:28 68 29 40 07/26/17 21:15 68 30 121/65 Mechanical Ventilator 07/26/17 21:00 71 31 118/56 Mechanical Ventilator 07/26/17 20:45 67 30 117/57 Mechanical Ventilator 07/26/17 20:30 67 30 119/50 98 Mechanical Ventilator 40 07/26/17 20:15 68 34 119/41 98 Mechanical Ventilator 40 07/26/17 20:00 40 07/26/17 20:00 69 07/26/17 20:00 69 31 117/44 98 Mechanical Ventilator 40 07/26/17 19:56 71 31 40 07/26/17 19:45 68 28 111/47 98 Mechanical Ventilator 40 07/26/17 19:30 68 32 107/50 98 Mechanical Ventilator 40 07/26/17 19:15 69 30 100/57 98 Mechanical Ventilator 40 07/26/17 19:00 68 37 102/49 98 Mechanical Ventilator 40 07/26/17 18:45 69 36 95/55 98 Mechanical Ventilator 40 07/26/17 18:30 70 37 106/43 98 Mechanical Ventilator 40 07/26/17 18:15 71 38 111/57 98 Mechanical Ventilator 40 07/26/17 18:00 74 36 119/60 98 Mechanical Ventilator 40 07/26/17 18:00 119/60 07/26/17 17:45 75 39 121/60 99 Mechanical Ventilator 40 07/26/17 17:30 75 39 123/63 99 Mechanical Ventilator 40 07/26/17 17:15 79 39 121/59 99 Mechanical Ventilator 40 07/26/17 17:01 71 38 40 07/26/17 17:00 72 28 121/60 99 Mechanical Ventilator 40 07/26/17 16:45 73 28 121/61 99 Mechanical Ventilator 40 07/26/17 16:30 124/63 07/26/17 16:30 73 39 124/63 98 Mechanical Ventilator 40 07/26/17 16:00 40 07/26/17 16:00 74 07/26/17 16:00 98.6 72 38 116/52 99 Mechanical Ventilator 40 98.6 07/26/17 15:30 73 42 111/57 98 Mechanical Ventilator 40 07/26/17 15:00 74 45 110/59 98 Mechanical Ventilator 40 07/26/17 14:35 78 45 40 07/26/17 14:30 73 43 106/56 98 Mechanical Ventilator 40 07/26/17 14:00 74 43 107/55 98 Mechanical Ventilator 40 07/26/17 13:30 75 41 106/55 98 Mechanical Ventilator 40 07/26/17 13:05 100/55 07/26/17 13:00 78 43 100/55 100 Mechanical Ventilator 40 07/26/17 12:40 76 43 40 07/26/17 12:30 76 42 110/62 100 Mechanical Ventilator 40 07/26/17 12:00 98.9 79 43 96/56 100 Mechanical Ventilator 40 98.9 07/26/17 12:00 76 07/26/17 12:00 40 Intake and Output 07/26/17 07/27/17 19:00 07:00 Intake Total 2753.125 ml 1852.4 ml Output Total 715 ml 585 ml Balance 2038.125 ml 1267.4 ml Intake Free Water 150 ml IV Total 2178.125 ml 1567.4 ml Tube Feeding 325 ml 285 ml Other 100 ml Output Urine Total 715 ml 585 ml Laboratory Tests 07/26/17 12:00: Lactic Acid Level 2.10 07/27/17 05:20: White Blood Count 11.7H, Red Blood Count 2.85L, Hemoglobin 8.3L, Hematocrit 25.1L, Mean Corpuscular Volume 88, Mean Corpuscular Hemoglobin 29.2, Mean Corpuscular Hemoglobin Concent 33.2, Red Cell Distribution Width 17.1H, Platelet Count 188, Mean Platelet Volume 5.9L, Neutrophils (%) (Auto) , Lymphocytes (%) (Auto) , Monocytes (%) (Auto) , Eosinophils (%) (Auto) , Basophils (%) (Auto) , Differential Total Cells Counted 100, Neutrophils % ( Manual) 84H, Lymphocytes % (Manual) 14L, Monocytes % (Manual) 2, Eosinophils % ( Manual) 0, Basophils % (Manual) 0, Band Neutrophils 0, Platelet Estimate Adequate, Platelet Morphology Normal, Anisocytosis 1+, Sodium Level 141, Potassium Level 4.0, Chloride Level 110H, Carbon Dioxide Level 16L, Anion Gap 15 , Blood Urea Nitrogen 64H, Creatinine 1.7H, Estimat Glomerular Filtration Rate , Glucose Level 154H, Calcium Level 6.7L, Total Bilirubin 0.2, Aspartate Amino Transf (AST/SGOT) 24, Alanine Aminotransferase (ALT/SGPT) 22, Alkaline Phosphatase 80, Total Protein 6.0L, Albumin 0.9L, Globulin 5.1, Albumin/ Globulin Ratio 0.2L, Cortisol AM Sample [Pending] Height (Feet): 5 Height (Inches): 7.00 Weight (Pounds): 170 General Appearance: WD/WN, alert, confused Neck: supple Cardiovascular: normal peripheral pulses, normal rate Respiratory/Chest: chest wall non-tender, lungs clear, normal breath sounds Abdomen: normal bowel sounds, non tender, soft, no organomegaly Edema: no edema noted Arm (L), no edema noted Arm (R), no edema noted Leg (L), no edema noted Leg (R), no edema noted Pedal (L), no edema noted Pedal (R), no edema noted Generalized YOLIS HARRELL Jul 27, 2017 11:44
[2017-07-27] MEDS ORDERED: Vancomycin 750mg/NS 250ml IVPB SCH (17:00)
[2017-07-27] MEDS: Dyna-Hex 2% Top Sol 2oz TOPIC SCH (20:03)
[2017-07-28] VITALS (17 sets, daily range): BP systolic 110–147; BP diastolic 45–97
[2017-07-28] MEDS: Sodium Bicarbonate 50 ML in D5 1/2NS 1,000 ML IV SCH ×5 (00:45→21:58)
[2017-07-28] MEDS ORDERED: Fluconazole 100mg tab ORAL ONE ×2 (02:15→04:45)
[2017-07-28 04:36] LABS: HEMATOCRIT 24.7 % (42.0-52.0); HEMOGLOBIN 8.3 G/DL (14.2-18.0); MEAN CORPUSCULAR VOLUME 87 FL (80-99); PLATELET COUNT 162 K/UL (150-450); RED BLOOD COUNT 2.85 M/UL (4.70-6.10); RED CELL DISTRIBUTION WIDTH 17.2 % (11.6-14.8); WHITE BLOOD COUNT 10.2 K/UL (4.8-10.8)
[2017-07-28 05:02] LABS: ALANINE AMINOTRANSFERASE 22 U/L (12-78); ALBUMIN 0.9 G/DL (3.4-5.0); ALBUMIN/GLOBULIN RATIO 0.2 (1.0-2.7); ALKALINE PHOSPHATASE 94 U/L (46-116); ANION GAP 14 mmol/L (5-15); ASPARTATE AMINO TRANSFERASE 26 U/L (15-37); BILIRUBIN,TOTAL 0.2 MG/DL (0.2-1.0); BLOOD UREA NITROGEN 66 mg/dL (7-18); CALCIUM 6.5 MG/DL (8.5-10.1); CARBON DIOXIDE 20 MMOL/L (21-32); CHLORIDE 109 MMOL/L (98-107); CREATININE 1.9 MG/DL (0.55-1.30); POTASSIUM 3.3 MMOL/L (3.5-5.1); SODIUM 143 MMOL/L (136-145)
[2017-07-28] MEDS: Piperacillin/Tazobactam 3.375 GM in D5W 110 ML IVPB SCH ×4 (05:42→21:59)
[2017-07-28] MEDS: Hydrocortisone 100mg Inj IV SCH (05:43)
--- NOTE | 2017-07-28 07:00 | Progress Note ---
DATE: 07/27/2017 CARDIOLOGY PROGRESS NOTE SUBJECTIVE: The patient's condition remains critical. Prognosis guarded. He is in the intensive care unit on pressor support. OBJECTIVE: VITAL SIGNS: Blood pressure 97/56, heart rate 61, respiratory rate 30, and temperature max 99.2. LUNGS: Bilateral breath sounds with few rhonchi. HEART: Regular rhythm and rate. Normal S1, S2. ABDOMEN: Soft. G-tube intact. EXTREMITIES: No edema. Contractures noted and wound site with dressing in place. LABORATORY DATA: White count 11.7 and hemoglobin 8.3. BUN 64, creatinine 1.7, and potassium 4. Albumin 0.9. Urine culture positive for yeast. IMPRESSION: 1. Sepsis with shock. 2. Hypothermia, resolving. 3. Urinary tract infection. 4. Pneumonia. 5. Severe protein-calorie malnutrition. 6. History of cardiopulmonary arrest. PLAN: 1. Volume support. 2. Taper off pressors. 3. Continue ventilator. 4. Protein supplement by feeding tube. 5. Follow up results of cortisol level. 6. DVT and stress ulcer prophylaxis. 7. Antimicrobials per Infectious Disease wig sales consultant. Keith Reeves M.D. DR: FAWN JOB#: [id number] CC:
--- NOTE | 2017-07-28 07:55 | Nephrology Progress Note ---
Assessment/Plan Plan CKD stable Sepsis - IV Abx Subjective Subjective Obtunded Objective Objective Last 24 Hour Vital Signs Date Time Temp Pulse Resp B/P (MAP) Pulse Ox O2 Delivery O2 Flow Rate FiO2 07/28/17 07:26 54 32 40 07/28/17 07:00 52 32 118/49 100 Mechanical Ventilator 40 07/28/17 06:00 57 32 118/45 100 Mechanical Ventilator 40 07/28/17 05:16 65 28 40 07/28/17 05:00 66 32 117/45 100 Mechanical Ventilator 40 07/28/17 04:00 97.8 69 38 119/57 99 Mechanical Ventilator 40 97.8 07/28/17 04:00 40 07/28/17 04:00 69 07/28/17 03:00 69 38 119/57 99 Mechanical Ventilator 40 07/28/17 02:58 75 32 40 07/28/17 02:00 69 36 114/63 99 Mechanical Ventilator 40 07/28/17 01:00 70 36 110/58 99 Mechanical Ventilator 40 07/28/17 00:54 67 30 40 07/28/17 00:00 67 07/28/17 00:00 97.2 67 30 110/56 99 Mechanical Ventilator 40 97.2 07/28/17 00:00 40 07/27/17 23:06 69 30 40 07/27/17 23:00 67 32 108/54 99 Mechanical Ventilator 40 07/27/17 22:00 65 32 109/55 99 Mechanical Ventilator 40 07/27/17 21:10 64 32 40 07/27/17 21:00 63 31 108/63 99 Mechanical Ventilator 40 07/27/17 20:00 40 07/27/17 20:00 60 07/27/17 20:00 97.4 60 22 106/52 100 Mechanical Ventilator 40 97.4 07/27/17 19:05 59 27 40 07/27/17 19:00 59 22 114/59 100 Mechanical Ventilator 40 07/27/17 18:00 56 23 109/61 100 Mechanical Ventilator 40 07/27/17 17:00 59 23 40 07/27/17 17:00 67 30 104/57 100 Mechanical Ventilator 40 07/27/17 16:37 67 07/27/17 16:00 40 07/27/17 16:00 97.5 63 30 97/52 100 Mechanical Ventilator 40 97.5 07/27/17 15:00 71 30 97/52 100 Mechanical Ventilator 40 07/27/17 15:00 63 24 40 07/27/17 14:00 65 30 103/59 100 Mechanical Ventilator 40 07/27/17 13:00 97.5 60 30 102/65 100 Mechanical Ventilator 40 97.5 07/27/17 12:40 62 27 40 07/27/17 12:00 67 07/27/17 12:00 40 07/27/17 12:00 67 24 102/57 100 Mechanical Ventilator 40 07/27/17 11:18 61 07/27/17 11:00 30 97/56 100 Mechanical Ventilator 40 07/27/17 10:37 61 27 40 07/27/17 10:00 63 30 94/48 100 Mechanical Ventilator 40 07/27/17 09:21 67 23 40 07/27/17 09:00 62 30 101/43 100 Mechanical Ventilator 40 07/27/17 08:00 97.6 69 24 95/56 100 Mechanical Ventilator 40 97.6 07/27/17 08:00 40 07/27/17 08:00 64 Intake and Output 07/27/17 07/28/17 19:00 07:00 Intake Total 1828.334 ml 1880 ml Output Total 1165 ml 830 ml Balance 663.334 ml 1050 ml Intake Free Water 30 ml IV Total 1098.334 ml 1100 ml Tube Feeding 580 ml 660 ml Blood Product 90 ml Other 150 ml Output Urine Total 1165 ml 830 ml # Bowel Movements 3 4 Laboratory Tests 07/27/17 15:51: Stool Occult Blood [Pending] 07/27/17 16:00: Vancomycin Level Trough 19.2H 07/28/17 04:20: White Blood Count 10.2, Red Blood Count 2.85L, Hemoglobin 8.3L, Hematocrit 24.7L , Mean Corpuscular Volume 87, Mean Corpuscular Hemoglobin 29.0, Mean Corpuscular Hemoglobin Concent 33.5, Red Cell Distribution Width 17.2H, Platelet Count 162, Mean Platelet Volume 6.8, Neutrophils (%) (Auto) , Lymphocytes (%) (Auto) , Monocytes (%) (Auto) , Eosinophils (%) (Auto) , Basophils (%) (Auto) , Neutrophils % (Manual) [Pending], Lymphocytes % (Manual) [Pending], Platelet Estimate [Pending], Platelet Morphology [Pending], Sodium Level 143, Potassium Level 3.3L, Chloride Level 109H, Carbon Dioxide Level 20L, Anion Gap 14, Blood Urea Nitrogen 66H, Creatinine 1.9H, Estimat Glomerular Filtration Rate , Glucose Level 223H, Lactic Acid Level 2.60H, Calcium Level 6.5L, Magnesium Level 1.3L, Total Bilirubin 0.2, Aspartate Amino Transf (AST/ SGOT) 26, Alanine Aminotransferase (ALT/SGPT) 22, Alkaline Phosphatase 94, Total Protein 5.6L, Albumin 0.9L, Globulin 4.7, Albumin/Globulin Ratio 0.2L Height (Feet): 5 Height (Inches): 7.00 Weight (Pounds): 174 Objective CV RR LUngs B ronchi Abd SNT. BS + E no CCE Marga Bustos MD Jul 28, 2017 07:55
--- NOTE | 2017-07-28 08:08 | General Progress Note ---
Assessment/Plan Problem List: (1) Renal failure ICD Codes: N19 - Unspecified kidney failure SNOMED: 25596622 (2) Sepsis ICD Codes: A41.9 - Sepsis, unspecified organism SNOMED: 17255703 (3) UTI (urinary tract infection) ICD Codes: N39.0 - Urinary tract infection, site not specified SNOMED: 49740018 (4) Hypotension ICD Codes: I95.9 - Hypotension, unspecified SNOMED: 42220533 (5) Pneumonia ICD Codes: J18.9 - Pneumonia, unspecified organism SNOMED: 786708441 (6) GI bleed ICD Codes: K92.2 - Gastrointestinal hemorrhage, unspecified SNOMED: 68976436 Status: stable Assessment/Plan ivf iv abx follow up cultures replace lytes GI eval gt feeds wound care critical and guarded poor prognosis dnr Subjective ROS Limited/Unobtainable: Yes Constitutional: Reports: malaise, weakness HEENT: Reports: no symptoms Cardiovascular: Reports: no symptoms Respiratory: Reports: shortness of breath, SOB at rest, sputum Gastrointestinal/Abdominal: Reports: difficulty swallowing Genitourinary: Reports: no symptoms Neurologic/Psychiatric: Reports: pre-existing deficit Endocrine: Reports: no symptoms Hematologic/Lymphatic: Reports: anemia Allergies: Coded Allergies: No Known Allergies (Unverified , 07/25/17) All Systems: reviewed and negative except above Subjective remains off pressors. secretion from trach site and discharge from gt site. no fevers. good uop. labs noted. Objective Last 24 Hour Vital Signs Date Time Temp Pulse Resp B/P (MAP) Pulse Ox O2 Delivery O2 Flow Rate FiO2 07/28/17 07:26 54 32 40 07/28/17 07:00 52 32 118/49 100 Mechanical Ventilator 40 07/28/17 06:00 57 32 118/45 100 Mechanical Ventilator 40 07/28/17 05:16 65 28 40 07/28/17 05:00 66 32 117/45 100 Mechanical Ventilator 40 07/28/17 04:00 97.8 69 38 119/57 99 Mechanical Ventilator 40 97.8 07/28/17 04:00 40 07/28/17 04:00 69 07/28/17 03:00 69 38 119/57 99 Mechanical Ventilator 40 07/28/17 02:58 75 32 40 07/28/17 02:00 69 36 114/63 99 Mechanical Ventilator 40 07/28/17 01:00 70 36 110/58 99 Mechanical Ventilator 40 07/28/17 00:54 67 30 40 07/28/17 00:00 67 07/28/17 00:00 97.2 67 30 110/56 99 Mechanical Ventilator 40 97.2 07/28/17 00:00 40 07/27/17 23:06 69 30 40 07/27/17 23:00 67 32 108/54 99 Mechanical Ventilator 40 07/27/17 22:00 65 32 109/55 99 Mechanical Ventilator 40 07/27/17 21:10 64 32 40 07/27/17 21:00 63 31 108/63 99 Mechanical Ventilator 40 07/27/17 20:00 40 07/27/17 20:00 60 07/27/17 20:00 97.4 60 22 106/52 100 Mechanical Ventilator 40 97.4 07/27/17 19:05 59 27 40 07/27/17 19:00 59 22 114/59 100 Mechanical Ventilator 40 07/27/17 18:00 56 23 109/61 100 Mechanical Ventilator 40 07/27/17 17:00 59 23 40 07/27/17 17:00 67 30 104/57 100 Mechanical Ventilator 40 07/27/17 16:37 67 07/27/17 16:00 40 07/27/17 16:00 97.5 63 30 97/52 100 Mechanical Ventilator 40 97.5 07/27/17 15:00 71 30 97/52 100 Mechanical Ventilator 40 07/27/17 15:00 63 24 40 07/27/17 14:00 65 30 103/59 100 Mechanical Ventilator 40 07/27/17 13:00 97.5 60 30 102/65 100 Mechanical Ventilator 40 97.5 07/27/17 12:40 62 27 40 07/27/17 12:00 67 07/27/17 12:00 40 07/27/17 12:00 67 24 102/57 100 Mechanical Ventilator 40 07/27/17 11:18 61 07/27/17 11:00 30 97/56 100 Mechanical Ventilator 40 07/27/17 10:37 61 27 40 07/27/17 10:00 63 30 94/48 100 Mechanical Ventilator 40 07/27/17 09:21 67 23 40 07/27/17 09:00 62 30 101/43 100 Mechanical Ventilator 40 Intake and Output 07/27/17 07/28/17 19:00 07:00 Intake Total 1828.334 ml 1880 ml Output Total 1165 ml 830 ml Balance 663.334 ml 1050 ml Intake Free Water 30 ml IV Total 1098.334 ml 1100 ml Tube Feeding 580 ml 660 ml Blood Product 90 ml Other 150 ml Output Urine Total 1165 ml 830 ml # Bowel Movements 3 4 Laboratory Tests 07/27/17 15:51: Stool Occult Blood [Pending] 07/27/17 16:00: Vancomycin Level Trough 19.2H 07/28/17 04:20: White Blood Count 10.2, Red Blood Count 2.85L, Hemoglobin 8.3L, Hematocrit 24.7L , Mean Corpuscular Volume 87, Mean Corpuscular Hemoglobin 29.0, Mean Corpuscular Hemoglobin Concent 33.5, Red Cell Distribution Width 17.2H, Platelet Count 162, Mean Platelet Volume 6.8, Neutrophils (%) (Auto) , Lymphocytes (%) (Auto) , Monocytes (%) (Auto) , Eosinophils (%) (Auto) , Basophils (%) (Auto) , Neutrophils % (Manual) [Pending], Lymphocytes % (Manual) [Pending], Platelet Estimate [Pending], Platelet Morphology [Pending], Sodium Level 143, Potassium Level 3.3L, Chloride Level 109H, Carbon Dioxide Level 20L, Anion Gap 14, Blood Urea Nitrogen 66H, Creatinine 1.9H, Estimat Glomerular Filtration Rate , Glucose Level 223H, Lactic Acid Level 2.60H, Calcium Level 6.5L, Magnesium Level 1.3L, Total Bilirubin 0.2, Aspartate Amino Transf (AST/ SGOT) 26, Alanine Aminotransferase (ALT/SGPT) 22, Alkaline Phosphatase 94, Total Protein 5.6L, Albumin 0.9L, Globulin 4.7, Albumin/Globulin Ratio 0.2L Height (Feet): 5 Height (Inches): 7.00 Weight (Pounds): 174 General Appearance: WD/WN, confused Neck: supple Cardiovascular: normal peripheral pulses, normal rate, regular rhythm Respiratory/Chest: chest wall non-tender, rhonchi - bilaterally Abdomen: normal bowel sounds, non tender, soft, no organomegaly Neurologic: unresponsive, aphasia YOLIS HARRELL Jul 28, 2017 08:08
--- NOTE | 2017-07-28 08:39 | Critical Care Progress Note ---
Assessment/Plan Assessment/Plan IMPRESSION: 1. Respiratory failure. 2. Probable sepsis. 3. Extensive pneumonia. 4. Tracheostomy and gastrostomy tube. 5. History of cardiopulmonary arrest. 6. Evidence of anoxia. 7. Hypothyroidism. 8. Aspiration. 9. Dementia. 10. acute renal failure 11. anemia 12. chronic encephalopathy 13. anoxia 14. CAD PLAN care noted IV antibiotics noted respiratory care as is Ventilatory support as is SNF meds supportive care and monitor suction and monitor frequency no wean planned presently oxygen therapy reviewed and taper prognosis poor for recovery nutrition tolerated position change monitor for skin breakdown pressors as needed and monitor hemodynamics medications/laboratory data/nursing notes/ICU care reviewed in detail note reviewed and edited care discussed with RN and RT ICU time spent 38 minutes Critical Care - Subjective Interval Events: unable on vent poor LOC all MD notes reviewed and discussed overnight events discussed ROS Limited/Unobtainable: Yes Condition: critical EKG Rhythm: Sinus Rhythm Residuals: minimal Tube Feeding Tolerated: yes I&O: Intake and Output 07/27/17 07/28/17 19:00 07:00 Intake Total 1828.334 ml 1880 ml Output Total 1165 ml 830 ml Balance 663.334 ml 1050 ml Intake Free Water 30 ml IV Total 1098.334 ml 1100 ml Tube Feeding 580 ml 660 ml Blood Product 90 ml Other 150 ml Output Urine Total 1165 ml 830 ml # Bowel Movements 3 4 Critical Care - Objective Last 24 Hour Vital Signs Date Time Temp Pulse Resp B/P (MAP) Pulse Ox O2 Delivery O2 Flow Rate FiO2 07/28/17 07:26 54 32 40 07/28/17 07:00 52 32 118/49 100 Mechanical Ventilator 40 07/28/17 06:00 57 32 118/45 100 Mechanical Ventilator 40 07/28/17 05:16 65 28 40 07/28/17 05:00 66 32 117/45 100 Mechanical Ventilator 40 07/28/17 04:00 97.8 69 38 119/57 99 Mechanical Ventilator 40 97.8 07/28/17 04:00 40 07/28/17 04:00 69 07/28/17 03:00 69 38 119/57 99 Mechanical Ventilator 40 07/28/17 02:58 75 32 40 07/28/17 02:00 69 36 114/63 99 Mechanical Ventilator 40 07/28/17 01:00 70 36 110/58 99 Mechanical Ventilator 40 07/28/17 00:54 67 30 40 07/28/17 00:00 67 07/28/17 00:00 97.2 67 30 110/56 99 Mechanical Ventilator 40 97.2 07/28/17 00:00 40 07/27/17 23:06 69 30 40 07/27/17 23:00 67 32 108/54 99 Mechanical Ventilator 40 07/27/17 22:00 65 32 109/55 99 Mechanical Ventilator 40 07/27/17 21:10 64 32 40 07/27/17 21:00 63 31 108/63 99 Mechanical Ventilator 40 07/27/17 20:00 40 07/27/17 20:00 60 07/27/17 20:00 97.4 60 22 106/52 100 Mechanical Ventilator 40 97.4 07/27/17 19:05 59 27 40 07/27/17 19:00 59 22 114/59 100 Mechanical Ventilator 40 07/27/17 18:00 56 23 109/61 100 Mechanical Ventilator 40 07/27/17 17:00 59 23 40 07/27/17 17:00 67 30 104/57 100 Mechanical Ventilator 40 07/27/17 16:37 67 07/27/17 16:00 40 07/27/17 16:00 97.5 63 30 97/52 100 Mechanical Ventilator 40 97.5 07/27/17 15:00 71 30 97/52 100 Mechanical Ventilator 40 07/27/17 15:00 63 24 40 07/27/17 14:00 65 30 103/59 100 Mechanical Ventilator 40 07/27/17 13:00 97.5 60 30 102/65 100 Mechanical Ventilator 40 97.5 07/27/17 12:40 62 27 40 07/27/17 12:00 67 07/27/17 12:00 40 07/27/17 12:00 67 24 102/57 100 Mechanical Ventilator 40 07/27/17 11:18 61 07/27/17 11:00 30 97/56 100 Mechanical Ventilator 40 07/27/17 10:37 61 27 40 07/27/17 10:00 63 30 94/48 100 Mechanical Ventilator 40 07/27/17 09:21 67 23 40 07/27/17 09:00 62 30 101/43 100 Mechanical Ventilator 40 Labs: Laboratory Tests Test 07/27/17 15:51 07/27/17 16:00 07/28/17 04:20 Stool Occult Blood Pending Vancomycin Level Trough 19.2 ug/mL (5.0-12.0) H White Blood Count 10.2 K/UL (4.8-10.8) Red Blood Count 2.85 M/UL (4.70-6.10) L Hemoglobin 8.3 G/DL (14.2-18.0) L Hematocrit 24.7 % (42.0-52.0) L Mean Corpuscular Volume 87 FL (80-99) Mean Corpuscular Hemoglobin 29.0 PG (27.0-31.0) Mean Corpuscular Hemoglobin Concent 33.5 G/DL (32.0-36.0) Red Cell Distribution Width 17.2 % (11.6-14.8) H Platelet Count 162 K/UL (150-450) Mean Platelet Volume 6.8 FL (6.5-10.1) Neutrophils (%) (Auto) % (45.0-75.0) Lymphocytes (%) (Auto) % (20.0-45.0) Monocytes (%) (Auto) % (1.0-10.0) Eosinophils (%) (Auto) % (0.0-3.0) Basophils (%) (Auto) % (0.0-2.0) Neutrophils % (Manual) Pending Lymphocytes % (Manual) Pending Platelet Estimate Pending Platelet Morphology Pending Sodium Level 143 MMOL/L (136-145) Potassium Level 3.3 MMOL/L (3.5-5.1) L Chloride Level 109 MMOL/L (98-107) H Carbon Dioxide Level 20 MMOL/L (21-32) L Anion Gap 14 mmol/L (5-15) Blood Urea Nitrogen 66 mg/dL (7-18) H Creatinine 1.9 MG/DL (0.55-1.30) H Estimat Glomerular Filtration Rate mL/min (>60) Glucose Level 223 MG/DL (74-106) H Lactic Acid Level 2.60 mmol/L (0.66-2.22) H Calcium Level 6.5 MG/DL (8.5-10.1) L Magnesium Level 1.3 MG/DL (1.8-2.4) L Total Bilirubin 0.2 MG/DL (0.2-1.0) Aspartate Amino Transf (AST/SGOT) 26 U/L (15-37) Alanine Aminotransferase (ALT/SGPT) 22 U/L (12-78) Alkaline Phosphatase 94 U/L (46-116) Total Protein 5.6 G/DL (6.4-8.2) L Albumin 0.9 G/DL (3.4-5.0) L Globulin 4.7 g/dL Albumin/Globulin Ratio 0.2 (1.0-2.7) L Objective: HEENT: Negative. NECK: Supple. No adenopathy. no JVD Otherwise, the patient's carotids are 2+. trach in place LUNGS: Moderate breath sounds. Rhonchi some CARDIAC: S1 and S2. Regular rate and rhythm without murmurs, rubs, or gallops. ABDOMEN: Soft, nontender, and nondistended. G-tube in place. no HSM EXTREMITIES: No cyanosis or clubbing. There is significant mottling. NEUROLOGIC: Poorly responsive at present. SKIN: Noted and reviewed. reviewed and edited Micro: Microbiology Date/Time Source Procedure Growth Status 07/25/17 17:40 Blood Blood Culture - Preliminary NO GROWTH AFTER 48 HOURS Resulted 07/25/17 17:28 Blood Blood Culture - Preliminary NO GROWTH AFTER 48 HOURS Resulted 07/26/17 14:00 Sputum Gram Stain Pending Resulted 07/26/17 14:00 Sputum Culture - Preliminary Gram Negative Bacillus 1 Resulted 07/25/17 20:20 Nasal Nares MRSA Culture - Final NO METHICILLIN RESISTANT STAPH AUREUS... Complete 07/25/17 19:30 Nasal Nares Influenza Types A,B Antigen (VERO) - Final Complete 07/25/17 20:20 Urine,Clean Catch Urine Culture - Final Tabatha Albicans Complete 07/25/17 23:00 Sacral Other Gram Stain - Final Resulted 07/25/17 23:00 Sacral Other Wound Culture Pending Resulted Accucheck: 74 ISHAAN FARRELL Jul 28, 2017 08:39
[2017-07-28] MEDS ORDERED: Pantoprazole Inj IVP SCH (09:00)
--- NOTE | 2017-07-28 09:25 | General Progress Note ---
Assessment/Plan Assessment/Plan Assessment - Anemia - Likely minor GT site bleeding - Resp failure, s/p trach - sepsis Recommendations - continue TF - Monitor CBC - transfuse PRN - elevagte HOB - abx per ID - GI site care Subjective ROS Limited/Unobtainable: No Allergies: Coded Allergies: No Known Allergies (Unverified , 07/25/17) Objective Last 24 Hour Vital Signs Date Time Temp Pulse Resp B/P (MAP) Pulse Ox O2 Delivery O2 Flow Rate FiO2 07/28/17 07:26 54 32 40 07/28/17 07:00 52 32 118/49 100 Mechanical Ventilator 40 07/28/17 06:00 57 32 118/45 100 Mechanical Ventilator 40 07/28/17 05:16 65 28 40 07/28/17 05:00 66 32 117/45 100 Mechanical Ventilator 40 07/28/17 04:00 97.8 69 38 119/57 99 Mechanical Ventilator 40 97.8 07/28/17 04:00 40 07/28/17 04:00 69 07/28/17 03:00 69 38 119/57 99 Mechanical Ventilator 40 07/28/17 02:58 75 32 40 07/28/17 02:00 69 36 114/63 99 Mechanical Ventilator 40 07/28/17 01:00 70 36 110/58 99 Mechanical Ventilator 40 07/28/17 00:54 67 30 40 07/28/17 00:00 67 07/28/17 00:00 97.2 67 30 110/56 99 Mechanical Ventilator 40 97.2 07/28/17 00:00 40 07/27/17 23:06 69 30 40 07/27/17 23:00 67 32 108/54 99 Mechanical Ventilator 40 07/27/17 22:00 65 32 109/55 99 Mechanical Ventilator 40 07/27/17 21:10 64 32 40 07/27/17 21:00 63 31 108/63 99 Mechanical Ventilator 40 07/27/17 20:00 40 07/27/17 20:00 60 07/27/17 20:00 97.4 60 22 106/52 100 Mechanical Ventilator 40 97.4 07/27/17 19:05 59 27 40 07/27/17 19:00 59 22 114/59 100 Mechanical Ventilator 40 07/27/17 18:00 56 23 109/61 100 Mechanical Ventilator 40 07/27/17 17:00 59 23 40 07/27/17 17:00 67 30 104/57 100 Mechanical Ventilator 40 07/27/17 16:37 67 07/27/17 16:00 40 07/27/17 16:00 97.5 63 30 97/52 100 Mechanical Ventilator 40 97.5 07/27/17 15:00 71 30 97/52 100 Mechanical Ventilator 40 07/27/17 15:00 63 24 40 07/27/17 14:00 65 30 103/59 100 Mechanical Ventilator 40 07/27/17 13:00 97.5 60 30 102/65 100 Mechanical Ventilator 40 97.5 07/27/17 12:40 62 27 40 07/27/17 12:00 67 07/27/17 12:00 40 07/27/17 12:00 67 24 102/57 100 Mechanical Ventilator 40 07/27/17 11:18 61 07/27/17 11:00 30 97/56 100 Mechanical Ventilator 40 07/27/17 10:37 61 27 40 07/27/17 10:00 63 30 94/48 100 Mechanical Ventilator 40 07/27/17 09:21 67 23 40 Intake and Output 07/27/17 07/28/17 19:00 07:00 Intake Total 1828.334 ml 1880 ml Output Total 1165 ml 830 ml Balance 663.334 ml 1050 ml Intake Free Water 30 ml IV Total 1098.334 ml 1100 ml Tube Feeding 580 ml 660 ml Blood Product 90 ml Other 150 ml Output Urine Total 1165 ml 830 ml # Bowel Movements 3 4 Laboratory Tests 07/27/17 15:51: Stool Occult Blood [Pending] 07/27/17 16:00: Vancomycin Level Trough 19.2H 07/28/17 04:20: White Blood Count 10.2, Red Blood Count 2.85L, Hemoglobin 8.3L, Hematocrit 24.7L , Mean Corpuscular Volume 87, Mean Corpuscular Hemoglobin 29.0, Mean Corpuscular Hemoglobin Concent 33.5, Red Cell Distribution Width 17.2H, Platelet Count 162, Mean Platelet Volume 6.8, Neutrophils (%) (Auto) , Lymphocytes (%) (Auto) , Monocytes (%) (Auto) , Eosinophils (%) (Auto) , Basophils (%) (Auto) , Neutrophils % (Manual) [Pending], Lymphocytes % (Manual) [Pending], Platelet Estimate [Pending], Platelet Morphology [Pending], Sodium Level 143, Potassium Level 3.3L, Chloride Level 109H, Carbon Dioxide Level 20L, Anion Gap 14, Blood Urea Nitrogen 66H, Creatinine 1.9H, Estimat Glomerular Filtration Rate , Glucose Level 223H, Lactic Acid Level 2.60H, Calcium Level 6.5L, Magnesium Level 1.3L, Total Bilirubin 0.2, Aspartate Amino Transf (AST/ SGOT) 26, Alanine Aminotransferase (ALT/SGPT) 22, Alkaline Phosphatase 94, Total Protein 5.6L, Albumin 0.9L, Globulin 4.7, Albumin/Globulin Ratio 0.2L Height (Feet): 5 Height (Inches): 7.00 Weight (Pounds): 174 RUIZ GUEVARA Jul 28, 2017 09:25
--- NOTE | 2017-07-28 11:45 | Infectious Diseases Prog Note ---
Assessment/Plan Assessment/Plan antibiotics : vancomycin iv, zosyn A 1. gram negative pneumonia 2. fungal UTI 3. respiratory failure 4. leucocytosis improving 5, renal failure 6. shock resolved 7. decubitus ulcers P 1. continue zosyn 2. d/c iv vancomycin 3. start fluconazole 4. will follow up cultures Subjective ROS Limited/Unobtainable: Yes Allergies: Coded Allergies: No Known Allergies (Unverified , 07/25/17) Objective Vital Signs Last 24 Hour Vital Signs Date Time Temp Pulse Resp B/P (MAP) Pulse Ox O2 Delivery O2 Flow Rate FiO2 07/28/17 11:13 55 33 40 07/28/17 11:00 55 31 124/51 100 Mechanical Ventilator 40 07/28/17 10:00 61 30 123/97 100 Mechanical Ventilator 40 07/28/17 09:29 67 27 40 07/28/17 09:00 51 28 123/48 100 Mechanical Ventilator 40 07/28/17 08:00 40 07/28/17 08:00 97.6 52 28 119/55 100 Mechanical Ventilator 40 97.6 07/28/17 08:00 91 07/28/17 07:26 54 32 40 07/28/17 07:00 52 32 118/49 100 Mechanical Ventilator 40 07/28/17 06:00 57 32 118/45 100 Mechanical Ventilator 40 07/28/17 05:16 65 28 40 07/28/17 05:00 66 32 117/45 100 Mechanical Ventilator 40 07/28/17 04:00 97.8 69 38 119/57 99 Mechanical Ventilator 40 97.8 07/28/17 04:00 40 07/28/17 04:00 69 07/28/17 03:00 69 38 119/57 99 Mechanical Ventilator 40 07/28/17 02:58 75 32 40 07/28/17 02:00 69 36 114/63 99 Mechanical Ventilator 40 07/28/17 01:00 70 36 110/58 99 Mechanical Ventilator 40 07/28/17 00:54 67 30 40 07/28/17 00:00 67 07/28/17 00:00 97.2 67 30 110/56 99 Mechanical Ventilator 40 97.2 07/28/17 00:00 40 07/27/17 23:06 69 30 40 07/27/17 23:00 67 32 108/54 99 Mechanical Ventilator 40 07/27/17 22:00 65 32 109/55 99 Mechanical Ventilator 40 07/27/17 21:10 64 32 40 07/27/17 21:00 63 31 108/63 99 Mechanical Ventilator 40 07/27/17 20:00 40 07/27/17 20:00 60 07/27/17 20:00 97.4 60 22 106/52 100 Mechanical Ventilator 40 97.4 07/27/17 19:05 59 27 40 07/27/17 19:00 59 22 114/59 100 Mechanical Ventilator 40 07/27/17 18:00 56 23 109/61 100 Mechanical Ventilator 40 07/27/17 17:00 59 23 40 07/27/17 17:00 67 30 104/57 100 Mechanical Ventilator 40 07/27/17 16:37 67 07/27/17 16:00 40 07/27/17 16:00 97.5 63 30 97/52 100 Mechanical Ventilator 40 97.5 07/27/17 15:00 71 30 97/52 100 Mechanical Ventilator 40 07/27/17 15:00 63 24 40 07/27/17 14:00 65 30 103/59 100 Mechanical Ventilator 40 07/27/17 13:00 97.5 60 30 102/65 100 Mechanical Ventilator 40 97.5 07/27/17 12:40 62 27 40 07/27/17 12:00 67 07/27/17 12:00 40 07/27/17 12:00 67 24 102/57 100 Mechanical Ventilator 40 Height (Feet): 5 Height (Inches): 7.00 Weight (Pounds): 174 HEENT: status post trach Respiratory/Chest: lungs clear Cardiovascular: normal rate, regular rhythm, no gallop/murmur Abdomen: soft, non tender, other - GT Extremities: other - + edema, left arm PICC Microbiology Date/Time Source Procedure Growth Status 07/25/17 17:40 Blood Blood Culture - Preliminary NO GROWTH AFTER 48 HOURS Resulted 07/25/17 17:28 Blood Blood Culture - Preliminary NO GROWTH AFTER 48 HOURS Resulted 07/26/17 14:00 Sputum Gram Stain - Final Resulted 07/26/17 14:00 Sputum Culture - Preliminary Gram Negative Bacillus 1 Resulted 07/25/17 20:20 Nasal Nares MRSA Culture - Final NO METHICILLIN RESISTANT STAPH AUREUS... Complete 07/25/17 19:30 Nasal Nares Influenza Types A,B Antigen (VERO) - Final Complete 07/25/17 20:20 Urine,Clean Catch Urine Culture - Final Tabatha Albicans Complete 07/25/17 23:00 Sacral Other Gram Stain - Final Resulted 07/25/17 23:00 Wound Culture - Preliminary Gram Negative Bacillus 1 Resulted 07/25/17 20:20 Rectum VRE Culture - Final Enterococcus Faecium - Vre Complete Laboratory Tests Test 07/27/17 15:51 07/27/17 16:00 07/28/17 04:20 07/28/17 09:10 Stool Occult Blood Positive (NEGATIVE) Vancomycin Level Trough 19.2 ug/mL (5.0-12.0) H White Blood Count 10.2 K/UL (4.8-10.8) Red Blood Count 2.85 M/UL (4.70-6.10) L Hemoglobin 8.3 G/DL (14.2-18.0) L Hematocrit 24.7 % (42.0-52.0) L Mean Corpuscular Volume 87 FL (80-99) Mean Corpuscular Hemoglobin 29.0 PG (27.0-31.0) Mean Corpuscular Hemoglobin Concent 33.5 G/DL (32.0-36.0) Red Cell Distribution Width 17.2 % (11.6-14.8) H Platelet Count 162 K/UL (150-450) Mean Platelet Volume 6.8 FL (6.5-10.1) Neutrophils (%) (Auto) % (45.0-75.0) Lymphocytes (%) (Auto) % (20.0-45.0) Monocytes (%) (Auto) % (1.0-10.0) Eosinophils (%) (Auto) % (0.0-3.0) Basophils (%) (Auto) % (0.0-2.0) Differential Total Cells Counted 100 Neutrophils % (Manual) 89 % (45-75) H Lymphocytes % (Manual) 10 % (20-45) L Monocytes % (Manual) 1 % (1-10) Eosinophils % (Manual) 0 % (0-3) Basophils % (Manual) 0 % (0-2) Band Neutrophils 0 % (0-8) Platelet Estimate Adequate Platelet Morphology Normal Hypochromasia 1+ Anisocytosis 1+ Sodium Level 143 MMOL/L (136-145) Potassium Level 3.3 MMOL/L (3.5-5.1) L Chloride Level 109 MMOL/L (98-107) H Carbon Dioxide Level 20 MMOL/L (21-32) L Anion Gap 14 mmol/L (5-15) Blood Urea Nitrogen 66 mg/dL (7-18) H Creatinine 1.9 MG/DL (0.55-1.30) H Estimat Glomerular Filtration Rate mL/min (>60) Glucose Level 223 MG/DL (74-106) H Lactic Acid Level 2.60 mmol/L (0.66-2.22) H Calcium Level 6.5 MG/DL (8.5-10.1) L Magnesium Level 1.3 MG/DL (1.8-2.4) L Total Bilirubin 0.2 MG/DL (0.2-1.0) Aspartate Amino Transf (AST/SGOT) 26 U/L (15-37) Alanine Aminotransferase (ALT/SGPT) 22 U/L (12-78) Alkaline Phosphatase 94 U/L (46-116) Total Protein 5.6 G/DL (6.4-8.2) L Albumin 0.9 G/DL (3.4-5.0) L Globulin 4.7 g/dL Albumin/Globulin Ratio 0.2 (1.0-2.7) L Arterial Blood pH 7.420 (7.350-7.450) Arterial Blood Partial Pressure CO2 33.2 mmHg (35.0-45.0) L Arterial Blood Partial Pressure O2 118.2 mmHg (75.0-100.0) H Arterial Blood HCO3 21.0 mmol/L (22.0-26.0) L Arterial Blood Oxygen Saturation 97.7 % (92.0-98.0) Arterial Blood Base Excess -3.0 Mina Test Positive Current Medications Medications (Trade) Dose Ordered Sig/Tal Route PRN Reason Start Time Stop Time Status Last Admin Dose Admin Acetaminophen (Tylenol) 650 mg Q6H PRN ORAL Mild Pain/Temp > 100.5 07/27/17 07:30 08/24/17 21:44 Albuterol Sulfate (Proventil) 2.5 mg Q6H PRN IN-LINE Shortness of Breath 07/25/17 21:48 07/30/17 21:47 Chlorhexidine Gluconate (Consuelo-Hex 2%) 1 applic DAILY@1999 TOPIC 07/26/17 20:00 08/25/17 19:59 07/27/17 20:03 Hydrocortisone (Solu-CORTEF) 100 mg EVERY 8 HOURS IV 07/25/17 22:00 08/24/17 21:59 07/28/17 05:43 Levothyroxine Sodium (Synthroid) 100 mcg DAILY@0630 ORAL 07/26/17 06:30 08/25/17 06:29 07/28/17 06:13 Midodrine (Pro-Amatine) 5 mg THREE TIMES A DAY GT 07/25/17 21:45 08/24/17 21:44 07/28/17 10:00 Norepinephrine Bitartrate 8 mg/ Dextrose 250 ml @ 0 mls/hr Q24H IV 07/25/17 22:00 08/24/17 21:59 07/26/17 22:31 Pantoprazole (Protonix) 40 mg DAILY IVP 07/28/17 09:00 08/27/17 08:59 07/28/17 10:00 Piperacillin Sod/ Tazobactam Sod 3.375 gm/Dextrose 110 ml @ 27.5 mls/hr EVERY 8 HOURS IVPB 07/25/17 23:00 07/30/17 22:59 07/28/17 05:42 Sodium Bicarbonate 50 ml/ Dextrose/Sodium Chloride 1,050 ml @ 100 mls/hr [id number] IV 07/27/17 12:00 08/26/17 11:59 07/28/17 10:00 Vancomycin HCl (Vanco rx to dose) 1 ea DAILY PRN MISC Per rx protocol 07/25/17 21:45 08/24/17 21:44 Vancomycin/Sodium Chloride 250 ml @ 166.667 mls/hr Q24H IVPB 07/27/17 17:00 08/01/17 16:59 07/27/17 17:44 JOHN REAL Jul 28, 2017 11:45
[2017-07-28] MEDS ORDERED: Fluconazole 100mg tab ORAL SCH (12:30)
[2017-07-28] MEDS ORDERED: Hydrocortisone 100mg Inj IV SCH (14:00)
[2017-07-28] MEDS ORDERED: Acetaminophen 650mg/20.3ml ORAL PRN (14:00)
[2017-07-28] MEDS ORDERED: Albuterol ud Inhalation IN-LINE PRN (14:00)
--- NOTE | 2017-07-28 15:46 | Diagnostic Imaging Report ---
Indication: Abnormal renal function Technique: US Renal Comp Comparison: None Findings: The right kidney measures 11.8 cm in length. The left kidney measures 11.8 cm in length. Both kidneys demonstrate normal parenchymal thickness and echogenicity. Normal color flow to the bilateral kidneys is seen. There is no evidence of hydronephrosis or sonographically appreciable renal stone bilaterally. The bladder is decompressed by Kimbrough catheter, limiting its evaluation. Some mild perihepatic ascites is incidentally identified. IMPRESSION: No evidence of hydronephrosis or sonographically appreciable renal stone. Renal echogenicity within normal limits bilaterally. Mild perihepatic ascites incidentally identified visualized. Correlate clinically. Consider complete abdominal ultrasound.
--- NOTE | 2017-07-28 16:58 | Diagnostic Imaging Report ---
Indication: Dyspnea Technique: XRAY Chest 1v Comparison: 07/25/2017 Findings: Tracheostomy tube again noted. Heart size and mediastinal contours are stable. There is slight improved aeration with slightly decreased hazy opacities in the right mid/upper lung. There is persistent interstitial opacification/edema, bilateral pleural effusions and bibasilar atelectasis/consolidation. There is osteopenia and degenerative change of the spine. IMPRESSION: Persistent interstitial edema, bilateral pleural effusions and bibasilar atelectasis/consolidation. There is slight improved aeration of the right mid lung compared to the prior exam.
--- NOTE | 2017-07-28 17:00 | Consultation ---
DATE OF CONSULTATION: 07/28/2017 GASTROENTEROLOGY CONSULTATION CONSULTING PHYSICIAN: Ambar Choudhary M.D. REFERRING PHYSICIAN: [place] M.D. CHIEF COMPLAINT: I was asked to see this patient by Dr. [place] for evaluation of gastrostomy tube. 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 The patient was admitted to the hospital due to worsening health status with hypotension, respiratory failure, and bradycardia. The patient has been admitted to ICU requiring multidisciplinary care. During the course of his ICU treatment, the nursing staff noted some pink discharge from his gastrostomy in the form of an aspiration. There is also some leakage around his gastrostomy site itself. The stools themselves are loose, mucoid. The patient has received some Kayexalate. The patient himself is unable to provide any history. Most of the information is only available from the chart. PAST MEDICAL HISTORY: History of diabetes, hypertension, coronary artery disease, myocardial infarction, dementia, status cardiopulmonary arrest, status post gastrostomy tube placement, and status post tracheostomy tube placement. FAMILY HISTORY: Unobtainable. SOCIAL HISTORY: The patient resides in a custodial by report and has had no history of smoking or drinking. REVIEW OF SYSTEMS: Otherwise negative. PHYSICAL EXAMINATION: GENERAL: A debilitated elderly white man, seen in ICU. HEENT: Normocephalic and atraumatic. Tracheostomy catheter is in place. CHEST: Exam revealed coarse breath sounds. CARDIOVASCULAR: Revealed a regular rate. ABDOMEN: Soft. Mildly obese with good bowel sounds. There is some clear discharge around the gastrostomy site with some mild erythema, but no actual purulence or fluctuance. EXTREMITIES: Revealed trace edema. NEUROLOGIC: Notable for obtundation. LABORATORY DATA: Laboratory data were noted. ASSESSMENT: This patient presents with multiorgan dysfunction, including respiratory failure and sepsis. The patient does have a significant degree of anemia of unclear etiology. This is due to nonproductive state but some may also be due to gastrointestinal bleeding. The patient has had a significant drop over the last few days in his level, but he has had no melena and I suspect some of this may be due to volume resuscitation and hydration. The patient has very poor health and not a good candidate for aggressive endoscopic intervention. However, should there be a significant upper gastrointestinal bleed, that can be considered. In the meantime, the patient will be monitored closely and transfuse as needed. I will review the gastrostomy tube care with the nursing staff for the time being. Proton pump inhibitors can be given and needs to be be checked for Clostridium difficile given his mucoid stool. RECOMMENDATIONS: Per above discussion and per orders written in the chart. Thank you for asking me to participate in the care of this patient. Ambar Choudhary M.D. DR: THANG JOB#: [id number] CC: DANNA
[2017-07-28] MEDS: Dyna-Hex 2% Top Sol 2oz TOPIC SCH (20:08)
--- NOTE | 2017-07-28 21:20 | Wound Care Consultation ---
Wound Assessment Wound Assessment #1: Wound Number: 1 Wound Present on Admission: Yes New Wound: No Status Change of Wound: No Wound Location Body Site Modif: right Wound Location Body Site: trochanter Wound Type: pressure ulcer Maeve Test: Does not Maeve Pressure Ulcer Stage: Unstageable - IV Wound Thickness: Full Thickness Wound Length: 4.5 Wound Width: 3.0 Wound Depth: utd Percent of Wound Bed Yellow/Wh: 50 Percent of Wound Black/Brown: 50 Wound Drainage Description: Serosanguineous Wound Drainage Amount: Moderate Wound Drainage Odor: None/Absent Tissue Surrounding Wound: Indurated Wound General Appearance: Reddened - yellow,brown, Draining, Necrotic Wound Assessment #2: Wound Number: 2 Wound Present on Admission: Yes New Wound: No Status Change of Wound: No Wound Location Body Site Modif: left Wound Location Body Site: trochanter Wound Type: pressure ulcer Maeve Test: Does not Maeve Pressure Ulcer Stage: Unstageable - IV Wound Thickness: Full Thickness Wound Length: 4.0 Wound Width: 4.0 Wound Depth: utd Percent of Wound [place]/Red: 40 Percent of Wound Bed Yellow/Wh: 60 Wound Drainage Description: Serosanguineous Wound Drainage Amount: Moderate Wound Drainage Odor: None/Absent Tissue Surrounding Wound: Indurated Wound General Appearance: Reddened - yellow, Draining, Bone Palpable, Muscle Visible Wound Assessment #3: Wound Number: 3 Wound Present on Admission: Yes New Wound: No Status Change of Wound: No Wound Location Body Site Modif: mid Wound Location Body Site: other - Sacrococcygeal Wound Type: pressure ulcer Maeve Test: Does not Maeve Pressure Ulcer Stage: Unstageable - IV Wound Thickness: Full Thickness Wound Length: 9.5 Wound Width: 8.0 Wound Depth: utd Percent of Wound Bed Yellow/Wh: 20 Percent of Wound Black/Brown: 80 Wound Drainage Description: Serosanguineous Wound Drainage Amount: Moderate Wound Drainage Odor: None/Absent Tissue Surrounding Wound: Macerated Wound General Appearance: Reddened - yellow/brown, Draining, Necrotic Wound Assessment #4: Wound Number: 4 Wound Present on Admission: Yes New Wound: No Status Change of Wound: No Wound Location Body Site Modif: right Wound Location Body Site: buttocks Wound Type: pressure ulcer Maeve Test: Does not Maeve Pressure Ulcer Stage: Unstageable Wound Thickness: Full Thickness Wound Length: 2.5 Wound Width: 2.0 Wound Depth: utd Percent of Wound Bed Yellow/Wh: 40 Percent of Wound Black/Brown: 60 Wound Drainage Description: Serosanguineous Wound Drainage Amount: Scant Tissue Surrounding Wound: Macerated Wound General Appearance: Reddened - brown,yellow, Draining, Necrotic Wound Assessment #5: Wound Number: 5 Wound Present on Admission: Yes New Wound: No Status Change of Wound: No Wound Location Body Site Modif: left Wound Location Body Site: heel Wound Type: pressure ulcer Maeve Test: Does not Maeve Pressure Ulcer Stage: Deep Tissue Injury Wound Thickness: Full Thickness Wound Length: 2.0 Wound Width: 2.0 Wound Depth: utd Percent of Wound Purple/Maroon: 100 Wound Drainage Amount: None Wound Drainage Odor: None/Absent Tissue Surrounding Wound: Intact Wound General Appearance: Reddened - maroon/purple Wound Assessment #6: Wound Number: 6 Wound Present on Admission: Yes New Wound: No Status Change of Wound: No Wound Location Body Site Modif: left, medial Wound Location Body Site: malleolus/ankle Wound Type: pressure ulcer Maeve Test: Does not Maeve Pressure Ulcer Stage: Deep Tissue Injury Wound Thickness: Full Thickness Wound Length: 1.5 Wound Width: 1.0 Wound Depth: utd Percent of Wound Purple/Maroon: 100 Wound Drainage Amount: None Wound Drainage Odor: None/Absent Tissue Surrounding Wound: Erythemic Wound General Appearance: Reddened - purple/maroon Wound Assessment #7: Wound Number: 7 Wound Present on Admission: Yes New Wound: No Status Change of Wound: No Wound Location Body Site Modif: right, medial Wound Location Body Site: heel Wound Type: pressure ulcer Maeve Test: Does not Maeve Pressure Ulcer Stage: Deep Tissue Injury Wound Thickness: Full Thickness Wound Length: 3.5 Wound Width: 3.5 Wound Depth: utd Percent of Wound Purple/Maroon: 100 Wound Drainage Amount: None Wound Drainage Odor: None/Absent Tissue Surrounding Wound: Erythemic Wound General Appearance: Reddened - purple/maroon Wound Assessment #8: Wound Number: 8 Wound Present on Admission: Yes New Wound: No Status Change of Wound: No Wound Location Body Site Modif: right, lateral Wound Location Body Site: malleolus/ankle Wound Type: pressure ulcer Maeve Test: Does not Maeve Pressure Ulcer Stage: Unstageable Wound Thickness: Full Thickness Wound Length: 2.5 Wound Width: 2.5 Wound Depth: utd Percent of Wound Bed Yellow/Wh: 100 Wound Drainage Amount: None Wound Drainage Odor: None/Absent Tissue Surrounding Wound: Erythemic - indurated Wound General Appearance: Reddened - yellow, Draining Wound Assessment #9: Wound Number: 9 Wound Present on Admission: Yes New Wound: No Status Change of Wound: No Wound Location Body Site Modif: right, lateral Wound Location Body Site: heel Wound Type: pressure ulcer Maeve Test: Does not Maeve Pressure Ulcer Stage: Deep Tissue Injury Wound Thickness: Full Thickness Wound Length: 2.0 Wound Width: 2.0 Wound Depth: utd Percent of Wound Purple/Maroon: 100 Wound Drainage Amount: None Wound Drainage Odor: None/Absent Tissue Surrounding Wound: Erythemic Wound General Appearance: Reddened Wound Assessment #10: Wound Number: 10 Wound Present on Admission: Yes New Wound: No Status Change of Wound: No Wound Location Body Site Modif: right, lateral Wound Location Body Site: metatarsal head - 5th Wound Type: pressure ulcer Maeve Test: Does not Maeve Pressure Ulcer Stage: Deep Tissue Injury Wound Thickness: Full Thickness Wound Length: 1.5 Wound Width: 1.0 Wound Depth: utd Percent of Wound Purple/Maroon: 100 Wound Drainage Amount: None Wound Drainage Odor: None/Absent Tissue Surrounding Wound: Erythemic Wound General Appearance: Reddened - purple/maroon Wound Comment #1 Right trochanter unstageable/IV pressure ulcer #2 Left trochanter IV pressure ulcer #3 Sacrococcygeal unstageable/IV pressure ulcer #4 Right buttock unstageable pressure ulcer #5 Left heel DTI pressure ulcer #6 Left medial malleolus DTI pressure ulcer #7 Right medial heel DTI pressure ulcer #8 Right lateral malleolus unstageable pressure ulcer #9 Right lateral heel DTI pressure ulcer #10 Right lateral 5th metatarsal head DTI pressure ulcer Recommendation -Local wound care per protocol -Keep clean and dry -Optimize nutrition -Turn and reposition -Low air loss mattress -Heel protector on both heels -Offload both heels -Assess and f/u accordingly for any changes TURNER SHEPHERD RN Jul 28, 2017 21:20
[2017-07-28] MEDS ORDERED: Acetaminophen 650mg/20.3ml GT PRN (22:00)
--- NOTE | 2017-07-28 22:15 | Progress Note ---
DATE: 07/28/2017 CARDIOLOGY PROGRESS NOTE SUBJECTIVE: The patient remains in the intensive care unit. Condition remains critical with guarded prognosis. The patient is ventilated via tracheostomy. OBJECTIVE: VITAL SIGNS: Blood pressure 143/86, heart rate 56, respiratory rate 18, and afebrile. HEENT: Thin trach secretions. LUNG: Coarse breath sounds with rhonchi. HEART: Regular rhythm and rate. Normal S1, S2. ABDOMEN: Soft. EXTREMITIES: With trace edema. LABORATORY DATA: White count 10, hemoglobin 8.3. Sodium 143, potassium 3.3, bicarbonate 20, BUN 66, creatinine 1.9. Lactic acid 2.6. Magnesium 1.3. Albumin 0.9. ABG 7.42, 33, 118. Cortisol level is 110. IMPRESSION: 1. Decubiti with sepsis. 2. Recovered shock. 3. Severe protein-calorie malnutrition. 4. Hypomagnesemia. 5. Acute on chronic renal failure. 6. Hypothermia, resolved. 7. Respiratory failure. 8. History of cardiopulmonary arrest. PLAN: 1. No pressors at this time. 2. Adjust IV fluids. 3. Broad-spectrum antibiotics. 4. IV magnesium. 5. Oral potassium. 6. DVT and stress ulcer prophylaxis. 7. Taper off steroids. Keith Reeves M.D. DR: Kayla JOB#: [id number] CC:
[2017-07-29] VITALS (7 sets, daily range): BP systolic 133–156; BP diastolic 72–78
[2017-07-29 05:25] LABS: BASOPHILS % (AUTO) 0.3 % (0.0-2.0); HEMATOCRIT 24.7 % (42.0-52.0); HEMOGLOBIN 8.2 G/DL (14.2-18.0); LYMPHOCYTES % (AUTO) 8.9 % (20.0-45.0); MEAN CORPUSCULAR VOLUME 87 FL (80-99); MONOCYTES % (AUTO) 6.5 % (1.0-10.0); NEUTROPHILS % (AUTO) 84.3 % (45.0-75.0); PLATELET COUNT 152 K/UL (150-450); RED BLOOD COUNT 2.85 M/UL (4.70-6.10); RED CELL DISTRIBUTION WIDTH 17.2 % (11.6-14.8); WHITE BLOOD COUNT 9.4 K/UL (4.8-10.8)
[2017-07-29 05:30] LABS: ANION GAP 15 mmol/L (5-15); BLOOD UREA NITROGEN 68 mg/dL (7-18); CALCIUM 6.6 MG/DL (8.5-10.1); CARBON DIOXIDE 21 MMOL/L (21-32); CHLORIDE 108 MMOL/L (98-107); CREATININE 1.8 MG/DL (0.55-1.30); SODIUM 144 MMOL/L (136-145)
[2017-07-29] MEDS: Piperacillin/Tazobactam 3.375 GM in D5W 110 ML IVPB SCH ×3 (05:58→22:15)
[2017-07-29 06:19] LABS: POTASSIUM 2.7 MMOL/L (3.5-5.1)
--- NOTE | 2017-07-29 08:24 | General Progress Note ---
Assessment/Plan Problem List: (1) Renal failure ICD Codes: N19 - Unspecified kidney failure SNOMED: 09690254 (2) Sepsis ICD Codes: A41.9 - Sepsis, unspecified organism SNOMED: 80891958 (3) UTI (urinary tract infection) ICD Codes: N39.0 - Urinary tract infection, site not specified SNOMED: 24400208 (4) Hypotension ICD Codes: I95.9 - Hypotension, unspecified SNOMED: 44188300 (5) Pneumonia ICD Codes: J18.9 - Pneumonia, unspecified organism SNOMED: 216422759 (6) GI bleed ICD Codes: K92.2 - Gastrointestinal hemorrhage, unspecified SNOMED: 67519200 Status: stable, progressing Assessment/Plan ivf replace lytes iv abx follow up cultures gt feeds wound care monitor h/h critical and guarded poor prognosis dnr Subjective ROS Limited/Unobtainable: Yes Constitutional: Reports: malaise, weakness HEENT: Reports: no symptoms Cardiovascular: Reports: no symptoms Respiratory: Reports: shortness of breath, sputum Gastrointestinal/Abdominal: Reports: difficulty swallowing Genitourinary: Reports: no symptoms Neurologic/Psychiatric: Reports: pre-existing deficit Endocrine: Reports: no symptoms Hematologic/Lymphatic: Reports: no symptoms Allergies: Coded Allergies: No Known Allergies (Unverified , 07/25/17) All Systems: reviewed and negative except above Subjective off pressors. still with some congestion. on the vent. poorly responsive at baseline. fevers better. labs reviewed. no bleeding noted. Objective Last 24 Hour Vital Signs Date Time Temp Pulse Resp B/P (MAP) Pulse Ox O2 Delivery O2 Flow Rate FiO2 07/29/17 06:55 66 34 40 07/29/17 05:10 53 28 40 07/29/17 04:00 97.7 51 18 144/76 99 Mechanical Ventilator 40 97.7 07/29/17 04:00 53 07/29/17 04:00 40 07/29/17 03:02 54 30 40 07/29/17 01:02 52 28 40 07/29/17 00:00 97.6 62 18 140/75 100 Mechanical Ventilator 40 97.6 07/29/17 00:00 52 07/29/17 00:00 40 07/28/17 23:06 65 36 40 07/28/17 21:18 50 29 40 07/28/17 20:00 97.3 55 18 110/86 100 Mechanical Ventilator 40 97.3 07/28/17 20:00 57 07/28/17 20:00 40 07/28/17 19:26 56 31 40 07/28/17 17:11 53 28 40 07/28/17 16:05 55 07/28/17 16:00 97.0 56 18 143/86 98 Mechanical Ventilator 40 97.0 07/28/17 16:00 40 07/28/17 15:20 55 33 40 07/28/17 13:30 97.7 55 20 147/87 100 Mechanical Ventilator 40 97.7 07/28/17 13:00 56 30 125/50 100 Mechanical Ventilator 40 07/28/17 12:53 53 30 40 07/28/17 12:00 97.8 59 25 125/47 100 Mechanical Ventilator 40 97.8 07/28/17 12:00 55 07/28/17 12:00 40 07/28/17 11:13 55 33 40 07/28/17 11:00 55 31 124/51 100 Mechanical Ventilator 40 07/28/17 10:00 61 30 123/97 100 Mechanical Ventilator 40 07/28/17 09:29 67 27 40 07/28/17 09:00 51 28 123/48 100 Mechanical Ventilator 40 Intake and Output 07/28/17 07/29/17 19:00 07:00 Intake Total 1480.0 ml 1642.5 ml Output Total 1470 ml 1750 ml Balance 10.0 ml -107.5 ml Intake Free Water 60 ml IV Total 610.0 ml 1037.5 ml Tube Feeding 660 ml 605 ml Other 150 ml Output Urine Total 1470 ml 1750 ml # Bowel Movements 3 4 Laboratory Tests 07/28/17 09:10: Arterial Blood pH 7.420, Arterial Blood Partial Pressure CO2 33.2L, Arterial Blood Partial Pressure O2 118.2H, Arterial Blood HCO3 21.0L, Arterial Blood Oxygen Saturation 97.7, Arterial Blood Base Excess -3.0, Mina Test Positive 07/29/17 04:00: White Blood Count 9.4, Red Blood Count 2.85L, Hemoglobin 8.2L, Hematocrit 24.7L , Mean Corpuscular Volume 87, Mean Corpuscular Hemoglobin 28.7, Mean Corpuscular Hemoglobin Concent 33.1, Red Cell Distribution Width 17.2H, Platelet Count 152, Mean Platelet Volume 7.4, Neutrophils (%) (Auto) 84.3H, Lymphocytes (%) (Auto) 8.9L, Monocytes (%) (Auto) 6.5, Eosinophils (%) (Auto) 0.0, Basophils (%) (Auto) 0.3, Sodium Level 144, Potassium Level 2.7*L, Chloride Level 108H, Carbon Dioxide Level 21, Anion Gap 15, Blood Urea Nitrogen 68H, Creatinine 1.8H, Estimat Glomerular Filtration Rate , Glucose Level 267H, Calcium Level 6.6L, Magnesium Level 1.6L Height (Feet): 5 Height (Inches): 7.00 Weight (Pounds): 180 Objective General Appearance: WD/WN, confused Neck: supple Cardiovascular: normal peripheral pulses, normal rate, regular rhythm Respiratory/Chest: chest wall non-tender, rhonchi - bilaterally Abdomen: normal bowel sounds, non tender, soft, no organomegaly Neurologic: unresponsive, aphasia YOLIS HARRELL July 29, 2017 08:23
[2017-07-29] MEDS: Hydrocortisone 100mg Inj IV SCH (09:14)
[2017-07-29] MEDS: Fluconazole 100mg tab ORAL SCH (09:15)
[2017-07-29] MEDS: Pantoprazole Inj IVP SCH (09:15)
[2017-07-29] MEDS ORDERED: NS 275ml ONE (09:25)
[2017-07-29] MEDS ORDERED: NS 500ML ONE (09:25)
--- NOTE | 2017-07-29 09:27 | Cardiology Report ---
APPROVED REPORT EXAM: Two-dimensional and M-mode echocardiogram with Doppler and color Doppler. INDICATION Arrhythmia M-Mode DIMENSIONS IVSd1.1 (0.7-1.1cm)Left Atrium (MM)4.0 (1.6-4.0cm) LVDd4.9 (3.5-5.6cm)Aortic Root3.1 (2.0-3.7cm) PWd0.9 (0.7-1.1cm)Aortic Cusp Exc.1.9 (1.5-2.0cm) LVDs2.1 (2.5-4.0cm) PWs1.5 cm Normal left ventricular chamber size, systolic function and wall motion. Left ventricular ejection fraction estimated to be 60 %. Borderline left ventricular hypertrophy. Trace pericardial effusion. All other cardiac chamber sizes are within normal limits. Mild focal aortic valve sclerosis with adequate cusp excursion. Mildly thickened mitral valve leaflets with normal excursion. Mild mitral annulus and aortic root calcification. Pulmonic valve not well visualized. Normal tricuspid valve structure. Subcostal views not obtained due to GI tube. A color flow and spectral Doppler study was performed and revealed: No aortic insufficiency. Moderate mitral regurgitation. reduced left ventricular relaxation c/w impaired relaxation diastolic dysfunction Mild tricuspid regurgitation. Tricuspid systolic velocities suggests peak right ventricular systolic pressure of 40 mmHg, consistent with mild pulmonary hypertension. No pulmonic regurgitation present.
--- NOTE | 2017-07-29 10:32 | Infectious Diseases Prog Note ---
"Assessment/Plan Assessment/Plan antibiotics : zosyn, fluconazole A 1. klebsiella | gram negative pneumonia 2. fungal UTI 3. respiratory failure 4. leucocytosis resolved 5, renal failure 6. shock resolved 7. decubitus ulcers P 1. continue zosyn 2. start inhaled colistin 3. continue fluconazole 5 more days 4. will follow up cultures Subjective ROS Limited/Unobtainable: Yes Allergies: Coded Allergies: No Known Allergies (Unverified , 07/25/17) Objective Vital Signs Last 24 Hour Vital Signs Date Time Temp Pulse Resp B/P (MAP) Pulse Ox O2 Delivery O2 Flow Rate FiO2 07/29/17 09:03 53 28 40 07/29/17 08:00 97.7 53 28 154/72 98 Mechanical Ventilator 40 97.7 07/29/17 07:44 50 07/29/17 06:55 66 34 40 07/29/17 05:10 53 28 40 07/29/17 04:00 97.7 51 18 144/76 99 Mechanical Ventilator 40 97.7 07/29/17 04:00 53 07/29/17 04:00 40 07/29/17 03:02 54 30 40 07/29/17 01:02 52 28 40 07/29/17 00:00 97.6 62 18 140/75 100 Mechanical Ventilator 40 97.6 07/29/17 00:00 52 07/29/17 00:00 40 07/28/17 23:06 65 36 40 07/28/17 21:18 50 29 40 07/28/17 20:00 97.3 55 18 110/86 100 Mechanical Ventilator 40 97.3 07/28/17 20:00 57 07/28/17 20:00 40 07/28/17 19:26 56 31 40 07/28/17 17:11 53 28 40 07/28/17 16:05 55 07/28/17 16:00 97.0 56 18 143/86 98 Mechanical Ventilator 40 97.0 07/28/17 16:00 40 07/28/17 15:20 55 33 40 07/28/17 13:30 97.7 55 20 147/87 100 Mechanical Ventilator 40 97.7 07/28/17 13:00 56 30 125/50 100 Mechanical Ventilator 40 07/28/17 12:53 53 30 40 07/28/17 12:00 97.8 59 25 125/47 100 Mechanical Ventilator 40 97.8 07/28/17 12:00 55 07/28/17 12:00 40 07/28/17 11:13 55 33 40 07/28/17 11:00 55 31 124/51 100 Mechanical Ventilator 40 Height (Feet): 5 Height (Inches): 7.00 Weight (Pounds): 180 HEENT: status post trach Respiratory/Chest: lungs clear Cardiovascular: normal rate, regular rhythm, no gallop/murmur Abdomen: soft, non tender, other - GT Extremities: other - + edema, left arm PICC Microbiology Date/Time Source Procedure Growth Status 07/26/17 14:00 Sputum Gram Stain - Final Resulted 07/26/17 14:00 Sputum Culture - Preliminary Klebsiella Pneumoniae Gram Negative Bacillus 2 Resulted 07/28/17 12:00 Stool Clostridium difficile Toxin Assay - Final Complete Laboratory Tests Test 07/29/17 04:00 White Blood Count 9.4 K/UL (4.8-10.8) Red Blood Count 2.85 M/UL (4.70-6.10) L Hemoglobin 8.2 G/DL (14.2-18.0) L Hematocrit 24.7 % (42.0-52.0) L Mean Corpuscular Volume 87 FL (80-99) Mean Corpuscular Hemoglobin 28.7 PG (27.0-31.0) Mean Corpuscular Hemoglobin Concent 33.1 G/DL (32.0-36.0) Red Cell Distribution Width 17.2 % (11.6-14.8) H Platelet Count 152 K/UL (150-450) Mean Platelet Volume 7.4 FL (6.5-10.1) Neutrophils (%) (Auto) 84.3 % (45.0-75.0) H Lymphocytes (%) (Auto) 8.9 % (20.0-45.0) L Monocytes (%) (Auto) 6.5 % (1.0-10.0) Eosinophils (%) (Auto) 0.0 % (0.0-3.0) Basophils (%) (Auto) 0.3 % (0.0-2.0) Sodium Level 144 MMOL/L (136-145) Potassium Level 2.7 MMOL/L (3.5-5.1) *L Chloride Level 108 MMOL/L (98-107) H Carbon Dioxide Level 21 MMOL/L (21-32) Anion Gap 15 mmol/L (5-15) Blood Urea Nitrogen 68 mg/dL (7-18) H Creatinine 1.8 MG/DL (0.55-1.30) H Estimat Glomerular Filtration Rate mL/min (>60) Glucose Level 267 MG/DL (74-106) H Calcium Level 6.6 MG/DL (8.5-10.1) L Magnesium Level 1.6 MG/DL (1.8-2.4) L Current Medications Medications (Trade) Dose Ordered Sig/Tal Route PRN Reason Start Time Stop Time Status Last Admin Dose Admin Acetaminophen (Tylenol) 650 mg Q6H PRN GT Mild Pain/Temp > 100.5 07/28/17 22:00 08/27/17 21:59 Albuterol Sulfate (Proventil) 2.5 mg Q6H PRN IN-LINE Shortness of Breath 07/28/17 14:00 07/30/17 13:59 Chlorhexidine Gluconate (Consuelo-Hex 2%) 1 applic DAILY@2000 TOPIC 07/28/17 20:00 08/25/17 19:59 07/28/17 20:08 Fluconazole (Diflucan) 100 mg DAILY ORAL 07/29/17 09:00 08/04/17 12:29 07/29/17 09:15 Hydrocortisone (Solu-CORTEF) 100 mg DAILY IV 07/29/17 09:00 08/28/17 08:59 07/29/17 09:14 Levothyroxine Sodium (Synthroid) 100 mcg DAILY@0630 ORAL 07/29/17 06:30 08/25/17 06:29 07/29/17 06:00 Magnesium Sulfate 100 ml @ 100 mls/hr Q1H IVPB 07/29/17 09:00 07/29/17 10:59 07/29/17 09:14 Midodrine (Pro-Amatine) 5 mg THREE TIMES A DAY GT 07/28/17 18:00 08/24/17 21:44 07/29/17 09:14 Pantoprazole (Protonix) 40 mg DAILY IVP 07/29/17 09:00 08/27/17 08:59 07/29/17 09:15 Piperacillin Sod/ Tazobactam Sod 3.375 gm/Dextrose 110 ml @ 27.5 mls/hr EVERY 8 HOURS IVPB 07/28/17 14:30 07/30/17 14:29 07/29/17 05:58 Sodium Bicarbonate 50 ml/ Dextrose/Sodium Chloride 1,050 ml @ 100 mls/hr [id number] IV 07/28/17 18:00 08/26/17 17:59 07/28/17 21:58 JOHN REAL July 29, 2017 10:32"
[2017-07-29 11:21] LABS: % IRON SATURATION 77 % (15-50); IRON 64 ug/dL (50-175); TOTAL IRON BINDING CAPACITY 83 ug/dL (250-450)
[2017-07-29] MEDS: Sodium Bicarbonate 50 ML in D5 1/2NS 1,000 ML IV SCH (12:01)
--- NOTE | 2017-07-29 16:21 | Nephrology Progress Note ---
Assessment/Plan Plan CKD stable Sepsis - IV Abx Hypo K/Mg correct Subjective Subjective Obtunded Objective Objective Last 24 Hour Vital Signs Date Time Temp Pulse Resp B/P (MAP) Pulse Ox O2 Delivery O2 Flow Rate FiO2 07/29/17 16:00 40 07/29/17 15:56 97.5 59 30 151/78 100 Mechanical Ventilator 40 97.5 07/29/17 15:28 50 07/29/17 14:48 57 30 40 07/29/17 12:57 50 31 40 07/29/17 12:00 97.7 54 28 156/78 99 Mechanical Ventilator 40 97.7 07/29/17 12:00 40 07/29/17 11:40 56 07/29/17 11:07 53 27 40 07/29/17 09:03 53 28 40 07/29/17 08:00 97.7 53 28 154/72 98 Mechanical Ventilator 40 97.7 07/29/17 08:00 40 07/29/17 07:44 50 07/29/17 06:55 66 34 40 07/29/17 05:10 53 28 40 07/29/17 04:00 97.7 51 18 144/76 99 Mechanical Ventilator 40 97.7 07/29/17 04:00 53 07/29/17 04:00 40 07/29/17 03:02 54 30 40 07/29/17 01:02 52 28 40 07/29/17 00:00 97.6 62 18 140/75 100 Mechanical Ventilator 40 97.6 07/29/17 00:00 52 07/29/17 00:00 40 07/28/17 23:06 65 36 40 07/28/17 21:18 50 29 40 07/28/17 20:00 97.3 55 18 110/86 100 Mechanical Ventilator 40 97.3 07/28/17 20:00 57 07/28/17 20:00 40 07/28/17 19:26 56 31 40 07/28/17 17:11 53 28 40 Intake and Output 07/28/17 07/29/17 19:00 07:00 Intake Total 1562.5 ml 1642.5 ml Output Total 1470 ml 1750 ml Balance 92.5 ml -107.5 ml Intake Free Water 60 ml IV Total 692.5 ml 1037.5 ml Tube Feeding 660 ml 605 ml Other 150 ml Output Urine Total 1470 ml 1750 ml # Bowel Movements 3 4 Laboratory Tests 07/29/17 04:00: White Blood Count 9.4, Red Blood Count 2.85L, Hemoglobin 8.2L, Hematocrit 24.7L , Mean Corpuscular Volume 87, Mean Corpuscular Hemoglobin 28.7, Mean Corpuscular Hemoglobin Concent 33.1, Red Cell Distribution Width 17.2H, Platelet Count 152, Mean Platelet Volume 7.4, Neutrophils (%) (Auto) 84.3H, Lymphocytes (%) (Auto) 8.9L, Monocytes (%) (Auto) 6.5, Eosinophils (%) (Auto) 0.0, Basophils (%) (Auto) 0.3, Sodium Level 144, Potassium Level 2.7*L, Chloride Level 108H, Carbon Dioxide Level 21, Anion Gap 15, Blood Urea Nitrogen 68H, Creatinine 1.8H, Estimat Glomerular Filtration Rate , Glucose Level 267H, Calcium Level 6.6L, Magnesium Level 1.6L 07/29/17 09:10: Iron Level 64, Total Iron Binding Capacity 83L, Percent Iron Saturation 77H, Unsaturated Iron Binding 19L Height (Feet): 5 Height (Inches): 7.00 Weight (Pounds): 180 Objective CV RR LUngs B suhail Roach SNT. BS + E no CCE Marga Bustos MD July 29, 2017 16:21
--- NOTE | 2017-07-29 18:39 | Critical Care Progress Note ---
Assessment/Plan Assessment/Plan IMPRESSION: 1. Respiratory failure. 2. Probable sepsis. 3. Extensive pneumonia. 4. Tracheostomy and gastrostomy tube. 5. History of cardiopulmonary arrest. 6. Evidence of anoxia. 7. Hypothyroidism. 8. Aspiration. 9. Dementia. 10. acute renal failure 11. anemia 12. chronic encephalopathy 13. anoxia 14. CAD PLAN slow improvement IV antibiotics noted respiratory care as is Ventilatory support as is SNF meds noted supportive care and monitor suction and monitor frequency oxygen adequate prognosis poor for recovery nutrition tolerated position change to avoid pressure sores monitor for skin breakdown pressors as needed and monitor hemodynamics medications/laboratory data/nursing notes reviewed in detail note reviewed and edited care discussed with RN and RT Critical Care - Subjective Interval Events: unable no distress moved to SDU ROS Limited/Unobtainable: Yes Condition: improving Residuals: minimal Tube Feeding Tolerated: yes I&O: Intake and Output 07/28/17 07/29/17 19:00 07:00 Intake Total 1562.5 ml 1642.5 ml Output Total 1470 ml 1750 ml Balance 92.5 ml -107.5 ml Intake Free Water 60 ml IV Total 692.5 ml 1037.5 ml Tube Feeding 660 ml 605 ml Other 150 ml Output Urine Total 1470 ml 1750 ml # Bowel Movements 3 4 Critical Care - Objective CXR: cxr with effusions and edema Last 24 Hour Vital Signs Date Time Temp Pulse Resp B/P (MAP) Pulse Ox O2 Delivery O2 Flow Rate FiO2 07/29/17 16:57 51 31 40 07/29/17 16:00 40 07/29/17 15:56 97.5 59 30 151/78 100 Mechanical Ventilator 40 97.5 07/29/17 15:28 50 07/29/17 14:48 57 30 40 07/29/17 12:57 50 31 40 07/29/17 12:00 97.7 54 28 156/78 99 Mechanical Ventilator 40 97.7 07/29/17 12:00 40 07/29/17 11:40 56 07/29/17 11:07 53 27 40 07/29/17 09:03 53 28 40 07/29/17 08:00 97.7 53 28 154/72 98 Mechanical Ventilator 40 97.7 07/29/17 08:00 40 07/29/17 07:44 50 5/1/18 06:55 66 34 40 07/29/17 05:10 53 28 40 07/29/17 04:00 97.7 51 18 144/76 99 Mechanical Ventilator 40 97.7 07/29/17 04:00 53 07/29/17 04:00 40 07/29/17 03:02 54 30 40 07/29/17 01:02 52 28 40 07/29/17 00:00 97.6 62 18 140/75 100 Mechanical Ventilator 40 97.6 07/29/17 00:00 52 07/29/17 00:00 40 07/28/17 23:06 65 36 40 07/28/17 21:18 50 29 40 07/28/17 20:00 97.3 55 18 110/86 100 Mechanical Ventilator 40 97.3 07/28/17 20:00 57 07/28/17 20:00 40 07/28/17 19:26 56 31 40 Objective: HEENT: Negative. NECK: Supple. No adenopathy. no JVD Otherwise, the patient's carotids are 2+. trach in place LUNGS: Moderate breath sounds. Rhonchi some CARDIAC: S1 and S2. Regular rate and rhythm without murmurs, rubs, or gallops. ABDOMEN: Soft, nontender, and nondistended. G-tube in place. no HSM EXTREMITIES: No cyanosis or clubbing. There is significant mottling. NEUROLOGIC: Poorly responsive at present. SKIN: Noted and reviewed. reviewed and edited Micro: Microbiology Date/Time Source Procedure Growth Status 07/28/17 12:00 Stool Clostridium difficile Toxin Assay - Final Complete Accucheck: 74 ISHAAN FARRELL July 29, 2017 18:39
[2017-07-29] MEDS: Dyna-Hex 2% Top Sol 2oz TOPIC SCH (20:38)
[2017-07-29] MEDS: Colistin for inhalation INH SCH (23:13)
[2017-07-30] MEDS: Sodium Bicarbonate 50 ML in D5 1/2NS 1,000 ML IV SCH ×3 (01:15→22:51)
[2017-07-30 04:00] VITALS: BP 144/74
[2017-07-30 05:16] LABS: BASOPHILS % (AUTO) 0.5 % (0.0-2.0); HEMATOCRIT 25.7 % (42.0-52.0); HEMOGLOBIN 8.7 G/DL (14.2-18.0); LYMPHOCYTES % (AUTO) 11.3 % (20.0-45.0); MEAN CORPUSCULAR VOLUME 87 FL (80-99); MONOCYTES % (AUTO) 8.8 % (1.0-10.0); NEUTROPHILS % (AUTO) 79.5 % (45.0-75.0); PLATELET COUNT 154 K/UL (150-450); RED BLOOD COUNT 2.95 M/UL (4.70-6.10); RED CELL DISTRIBUTION WIDTH 17.2 % (11.6-14.8); WHITE BLOOD COUNT 8.4 K/UL (4.8-10.8)
--- NOTE | 2017-07-30 05:45 | Progress Note ---
DATE: 07/29/2017 CARDIOLOGY PROGRESS NOTE SUBJECTIVE: Blood pressure parameters are increasing. The patient remains on midodrine. He had been on pressors. He remains on ventilator support. PHYSICAL EXAMINATION: VITAL SIGNS: Blood pressure 151/78, pulse 59, respiratory rate 30. LUNGS: Bilateral breath sounds. Rhonchi. HEART: Regular rhythm and rate. Normal S1, S2. ABDOMEN: Soft. EXTREMITIES: Dependent edema. LABORATORY DATA: White count 9.4, hemoglobin 8.2. Potassium 3.7, BUN 68, creatinine 1.8, magnesium 1.6. IMPRESSION: 1. Hypokalemia. 2. Hypomagnesemia. 3. Hypertensive heart disease with increasing blood pressure trend. 4. Sepsis with recovered shock. 5. Acute on chronic renal failure. 6. Hypothermia, resolved. 7. Acute myocardial ischemia, recovered. 8. History of cardiopulmonary arrest. THERAPY: 1. Discontinue midodrine. 2. IV magnesium. 3. DVT and stress ulcer prophylaxis. 4. Steroid taper. 5. Ventilator support. Erin Ferro JOB#: [id number] CC:
[2017-07-30 05:51] LABS: ALANINE AMINOTRANSFERASE 38 U/L (12-78); ALBUMIN 1.1 G/DL (3.4-5.0); ALBUMIN/GLOBULIN RATIO 0.2 (1.0-2.7); ALKALINE PHOSPHATASE 126 U/L (46-116); ANION GAP 12 mmol/L (5-15); ASPARTATE AMINO TRANSFERASE 37 U/L (15-37); BILIRUBIN,TOTAL 0.2 MG/DL (0.2-1.0); BLOOD UREA NITROGEN 63 mg/dL (7-18); CALCIUM 6.6 MG/DL (8.5-10.1); CARBON DIOXIDE 24 MMOL/L (21-32); CHLORIDE 107 MMOL/L (98-107); CREATININE 1.8 MG/DL (0.55-1.30); SODIUM 144 MMOL/L (136-145)
[2017-07-30] MEDS: Piperacillin/Tazobactam 3.375 GM in D5W 110 ML IVPB SCH (05:56)
[2017-07-30 06:05] LABS: POTASSIUM 2.7 MMOL/L (3.5-5.1)
--- NOTE | 2017-07-30 07:25 | Nephrology Progress Note ---
Assessment/Plan Plan CKD stable Sepsis - IV Abx Hypo K/Mg correct Subjective Subjective Obtunded Objective Objective Last 24 Hour Vital Signs Date Time Temp Pulse Resp B/P (MAP) Pulse Ox O2 Delivery O2 Flow Rate FiO2 07/30/17 06:44 68 27 40 07/30/17 05:12 60 32 40 07/30/17 04:00 97.8 81 30 144/74 98 Mechanical Ventilator 40 97.8 07/30/17 04:00 66 07/30/17 03:06 61 26 40 07/30/17 01:27 62 30 40 07/30/17 00:04 40 07/30/17 00:00 60 07/29/17 23:57 98.4 63 30 141/78 99 Mechanical Ventilator 40 98.4 07/29/17 23:27 60 19 100 Mechanical Ventilator 40 07/29/17 23:12 60 21 99 Mechanical Ventilator 40 07/29/17 23:12 60 21 40 07/29/17 21:11 55 30 40 07/29/17 20:00 57 07/29/17 20:00 40 07/29/17 20:00 98.0 53 27 133/78 99 Mechanical Ventilator 40 98.0 07/29/17 19:10 58 30 40 07/29/17 16:57 51 31 40 07/29/17 16:00 40 07/29/17 15:56 97.5 59 30 151/78 100 Mechanical Ventilator 40 97.5 07/29/17 15:28 50 07/29/17 14:48 57 30 40 07/29/17 12:57 50 31 40 07/29/17 12:00 97.7 54 28 156/78 99 Mechanical Ventilator 40 97.7 07/29/17 12:00 40 07/29/17 11:40 56 07/29/17 11:07 53 27 40 07/29/17 09:03 53 28 40 07/29/17 08:00 97.7 53 28 154/72 98 Mechanical Ventilator 40 97.7 07/29/17 08:00 40 07/29/17 07:44 50 Intake and Output 07/29/17 07/30/17 19:00 07:00 Intake Total 1615.0 ml 1560.0 ml Output Total 1100 ml 1300 ml Balance 515.0 ml 260.0 ml Intake Free Water 100 ml IV Total 1010.0 ml 910.0 ml Tube Feeding 605 ml 550 ml Output Urine Total 1100 ml 1300 ml # Bowel Movements 2 1 Laboratory Tests 07/29/17 09:10: Iron Level 64, Total Iron Binding Capacity 83L, Percent Iron Saturation 77H, Unsaturated Iron Binding 19L 07/30/17 04:00: White Blood Count 8.4, Red Blood Count 2.95L, Hemoglobin 8.7L, Hematocrit 25.7L , Mean Corpuscular Volume 87, Mean Corpuscular Hemoglobin 29.3, Mean Corpuscular Hemoglobin Concent 33.7, Red Cell Distribution Width 17.2H, Platelet Count 154, Mean Platelet Volume 7.4, Neutrophils (%) (Auto) 79.5H, Lymphocytes (%) (Auto) 11.3L, Monocytes (%) (Auto) 8.8, Eosinophils (%) (Auto) 0.0, Basophils (%) (Auto) 0.5, Sodium Level 144, Potassium Level 2.7*L, Chloride Level 107, Carbon Dioxide Level 24, Anion Gap 12, Blood Urea Nitrogen 63H, Creatinine 1.8H, Estimat Glomerular Filtration Rate , Glucose Level 317H, Calcium Level 6.6L, Total Bilirubin 0.2, Aspartate Amino Transf (AST/SGOT) 37, Alanine Aminotransferase (ALT/SGPT) 38, Alkaline Phosphatase 126H, Total Protein 5.8L, Albumin 1.1L, Globulin 4.7, Albumin/Globulin Ratio 0.2L Height (Feet): 5 Height (Inches): 7.00 Weight (Pounds): 178 Objective CV RR LUngs B suhail Roach SNT. BS + E no CCE Marga Bustos MD July 30, 2017 07:25
[2017-07-30 08:00] VITALS: BP 160/78
--- NOTE | 2017-07-30 08:19 | General Progress Note ---
Assessment/Plan Problem List: (1) Renal failure ICD Codes: N19 - Unspecified kidney failure SNOMED: 78891008 (2) Sepsis ICD Codes: A41.9 - Sepsis, unspecified organism SNOMED: 81029885 (3) UTI (urinary tract infection) ICD Codes: N39.0 - Urinary tract infection, site not specified SNOMED: 24516483 (4) Hypotension ICD Codes: I95.9 - Hypotension, unspecified SNOMED: 01108290 (5) Pneumonia ICD Codes: J18.9 - Pneumonia, unspecified organism SNOMED: 427839920 (6) GI bleed ICD Codes: K92.2 - Gastrointestinal hemorrhage, unspecified SNOMED: 53214072 Status: stable, progressing Assessment/Plan ivf replace lytes iv abx follow up cultures gt feeds wound care monitor h/h critical and guarded poor prognosis dnr Subjective ROS Limited/Unobtainable: Yes Constitutional: Reports: malaise, weakness HEENT: Reports: no symptoms Cardiovascular: Reports: no symptoms Respiratory: Reports: shortness of breath, sputum Gastrointestinal/Abdominal: Reports: difficulty swallowing Genitourinary: Reports: no symptoms Neurologic/Psychiatric: Reports: pre-existing deficit Endocrine: Reports: no symptoms Hematologic/Lymphatic: Reports: anemia Allergies: Coded Allergies: No Known Allergies (Unverified , 07/25/17) All Systems: reviewed and negative except above Subjective off pressors. still with some congestion. on the vent. poorly responsive at baseline. fevers better. labs reviewed. no bleeding noted. low k noted. Objective Last 24 Hour Vital Signs Date Time Temp Pulse Resp B/P (MAP) Pulse Ox O2 Delivery O2 Flow Rate FiO2 07/30/17 06:44 68 27 40 07/30/17 05:12 60 32 40 07/30/17 04:00 97.8 81 30 144/74 98 Mechanical Ventilator 40 97.8 07/30/17 04:00 66 07/30/17 03:06 61 26 40 07/30/17 01:27 62 30 40 07/30/17 00:04 40 07/30/17 00:00 60 07/29/17 23:57 98.4 63 30 141/78 99 Mechanical Ventilator 40 98.4 07/29/17 23:27 60 19 100 Mechanical Ventilator 40 07/29/17 23:12 60 21 99 Mechanical Ventilator 40 07/29/17 23:12 60 21 40 07/29/17 21:11 55 30 40 07/29/17 20:00 57 07/29/17 20:00 40 07/29/17 20:00 98.0 53 27 133/78 99 Mechanical Ventilator 40 98.0 07/29/17 19:10 58 30 40 07/29/17 16:57 51 31 40 07/29/17 16:00 40 07/29/17 15:56 97.5 59 30 151/78 100 Mechanical Ventilator 40 97.5 07/29/17 15:28 50 07/29/17 14:48 57 30 40 07/29/17 12:57 50 31 40 07/29/17 12:00 97.7 54 28 156/78 99 Mechanical Ventilator 40 97.7 07/29/17 12:00 40 07/29/17 11:40 56 07/29/17 11:07 53 27 40 07/29/17 09:03 53 28 40 Intake and Output 07/29/17 07/30/17 19:00 07:00 Intake Total 1615.0 ml 1760.0 ml Output Total 1100 ml 1300 ml Balance 515.0 ml 460.0 ml Intake Free Water 100 ml IV Total 1010.0 ml 1110.0 ml Tube Feeding 605 ml 550 ml Output Urine Total 1100 ml 1300 ml # Bowel Movements 2 1 Laboratory Tests 07/29/17 09:10: Iron Level 64, Total Iron Binding Capacity 83L, Percent Iron Saturation 77H, Unsaturated Iron Binding 19L 07/30/17 04:00: White Blood Count 8.4, Red Blood Count 2.95L, Hemoglobin 8.7L, Hematocrit 25.7L , Mean Corpuscular Volume 87, Mean Corpuscular Hemoglobin 29.3, Mean Corpuscular Hemoglobin Concent 33.7, Red Cell Distribution Width 17.2H, Platelet Count 154, Mean Platelet Volume 7.4, Neutrophils (%) (Auto) 79.5H, Lymphocytes (%) (Auto) 11.3L, Monocytes (%) (Auto) 8.8, Eosinophils (%) (Auto) 0.0, Basophils (%) (Auto) 0.5, Sodium Level 144, Potassium Level 2.7*L, Chloride Level 107, Carbon Dioxide Level 24, Anion Gap 12, Blood Urea Nitrogen 63H, Creatinine 1.8H, Estimat Glomerular Filtration Rate , Glucose Level 317H, Calcium Level 6.6L, Magnesium Level [Pending], Total Bilirubin 0.2, Aspartate Amino Transf (AST/SGOT) 37, Alanine Aminotransferase (ALT/SGPT) 38, Alkaline Phosphatase 126H, Total Protein 5.8L, Albumin 1.1L, Globulin 4.7, Albumin/ Globulin Ratio 0.2L Height (Feet): 5 Height (Inches): 7.00 Weight (Pounds): 178 Objective General Appearance: WD/WN, confused Neck: supple Cardiovascular: normal peripheral pulses, normal rate, regular rhythm Respiratory/Chest: chest wall non-tender, rhonchi - bilaterally Abdomen: normal bowel sounds, non tender, soft, no organomegaly Neurologic: unresponsive, aphasia YOLIS HARRELL July 30, 2017 08:19
[2017-07-30] MEDS: Pantoprazole Inj IVP SCH (08:30)
[2017-07-30] MEDS: Hydrocortisone 100mg Inj IV SCH (08:30)
[2017-07-30] MEDS: Fluconazole 100mg tab ORAL SCH (08:30)
[2017-07-30] MEDS: Colistin for inhalation INH SCH ×2 (09:10→22:59)
--- NOTE | 2017-07-30 10:39 | Critical Care Progress Note ---
Assessment/Plan Assessment/Plan IMPRESSION: 1. Respiratory failure. 2. Probable sepsis. 3. Extensive pneumonia. 4. Tracheostomy and gastrostomy tube. 5. History of cardiopulmonary arrest. 6. Evidence of anoxia. 7. Hypothyroidism. 8. Aspiration. 9. Dementia. 10. acute renal failure 11. anemia 12. chronic encephalopathy 13. anoxia 14. CAD PLAN on vent IV antibiotics noted respiratory care as is Ventilatory support as is SNF meds noted replace lytes and monitor suction and monitor frequency oxygen adequate at present prognosis poor for recovery nutrition tolerated and rate reviewed position change to avoid pressure sores monitor for skin breakdown and assess pressors as needed and monitor hemodynamics medications/laboratory data/nursing notes reviewed in detail note reviewed and edited care discussed with RN and RT Critical Care - Subjective Interval Events: care noted and reviewed K reduced and replaced mag level ordered ROS Limited/Unobtainable: Yes Condition: critical EKG Rhythm: Sinus Bradycardia Residuals: minimal Tube Feeding Tolerated: yes I&O: Intake and Output 07/29/17 07/30/17 19:00 07:00 Intake Total 1615.0 ml 1787.5 ml Output Total 1100 ml 1300 ml Balance 515.0 ml 487.5 ml Intake Free Water 100 ml IV Total 1010.0 ml 1137.5 ml Tube Feeding 605 ml 550 ml Output Urine Total 1100 ml 1300 ml # Bowel Movements 2 1 Critical Care - Objective Last 24 Hour Vital Signs Date Time Temp Pulse Resp B/P (MAP) Pulse Ox O2 Delivery O2 Flow Rate FiO2 07/30/17 09:20 58 20 99 Mechanical Ventilator 40 07/30/17 09:10 58 19 99 Mechanical Ventilator 40 07/30/17 09:10 58 19 40 07/30/17 08:00 40 07/30/17 08:00 97.6 57 28 160/78 99 Mechanical Ventilator 40 97.6 07/30/17 06:44 68 27 40 07/30/17 05:12 60 32 40 07/30/17 04:00 97.8 81 30 144/74 98 Mechanical Ventilator 40 97.8 07/30/17 04:00 66 07/30/17 03:06 61 26 40 07/30/17 01:27 62 30 40 07/30/17 00:04 40 07/30/17 00:00 60 07/29/17 23:57 98.4 63 30 141/78 99 Mechanical Ventilator 40 98.4 07/29/17 23:27 60 19 100 Mechanical Ventilator 40 07/29/17 23:12 60 21 99 Mechanical Ventilator 40 07/29/17 23:12 60 21 40 07/29/17 21:11 55 30 40 07/29/17 20:00 57 07/29/17 20:00 40 07/29/17 20:00 98.0 53 27 133/78 99 Mechanical Ventilator 40 98.0 07/29/17 19:10 58 30 40 07/29/17 16:57 51 31 40 07/29/17 16:00 40 07/29/17 15:56 97.5 59 30 151/78 100 Mechanical Ventilator 40 97.5 07/29/17 15:28 50 07/29/17 14:48 57 30 40 07/29/17 12:57 50 31 40 07/29/17 12:00 97.7 54 28 156/78 99 Mechanical Ventilator 40 97.7 07/29/17 12:00 40 07/29/17 11:40 56 07/29/17 11:07 53 27 40 Labs: Labs Test 07/27/17 15:51 07/27/17 16:00 07/28/17 04:20 07/28/17 09:10 Stool Occult Blood Positive (NEGATIVE) Vancomycin Level Trough 19.2 ug/mL (5.0-12.0) White Blood Count 10.2 K/UL (4.8-10.8) Red Blood Count 2.85 M/UL (4.70-6.10) Hemoglobin 8.3 G/DL (14.2-18.0) Hematocrit 24.7 % (42.0-52.0) Mean Corpuscular Volume 87 FL (80-99) Mean Corpuscular Hemoglobin 29.0 PG (27.0-31.0) Mean Corpuscular Hemoglobin Concent 33.5 G/DL (32.0-36.0) Red Cell Distribution Width 17.2 % (11.6-14.8) Platelet Count 162 K/UL (150-450) Mean Platelet Volume 6.8 FL (6.5-10.1) Neutrophils (%) (Auto) % (45.0-75.0) Lymphocytes (%) (Auto) % (20.0-45.0) Monocytes (%) (Auto) % (1.0-10.0) Eosinophils (%) (Auto) % (0.0-3.0) Basophils (%) (Auto) % (0.0-2.0) Differential Total Cells Counted 100 Neutrophils % (Manual) 89 % (45-75) Lymphocytes % (Manual) 10 % (20-45) Monocytes % (Manual) 1 % (1-10) Eosinophils % (Manual) 0 % (0-3) Basophils % (Manual) 0 % (0-2) Band Neutrophils 0 % (0-8) Platelet Estimate Adequate Platelet Morphology Normal Hypochromasia 1+ Anisocytosis 1+ Sodium Level 143 MMOL/L (136-145) Potassium Level 3.3 MMOL/L (3.5-5.1) Chloride Level 109 MMOL/L (98-107) Carbon Dioxide Level 20 MMOL/L (21-32) Anion Gap 14 mmol/L (5-15) Blood Urea Nitrogen 66 mg/dL (7-18) Creatinine 1.9 MG/DL (0.55-1.30) Estimat Glomerular Filtration Rate mL/min (>60) Glucose Level 223 MG/DL (74-106) Lactic Acid Level 2.60 mmol/L (0.66-2.22) Calcium Level 6.5 MG/DL (8.5-10.1) Magnesium Level 1.3 MG/DL (1.8-2.4) Total Bilirubin 0.2 MG/DL (0.2-1.0) Aspartate Amino Transf (AST/SGOT) 26 U/L (15-37) Alanine Aminotransferase (ALT/SGPT) 22 U/L (12-78) Alkaline Phosphatase 94 U/L (46-116) Total Protein 5.6 G/DL (6.4-8.2) Albumin 0.9 G/DL (3.4-5.0) Globulin 4.7 g/dL Albumin/Globulin Ratio 0.2 (1.0-2.7) Arterial Blood pH 7.420 (7.350-7.450) Arterial Blood Partial Pressure CO2 33.2 mmHg (35.0-45.0) Arterial Blood Partial Pressure O2 118.2 mmHg (75.0-100.0) Arterial Blood HCO3 21.0 mmol/L (22.0-26.0) Arterial Blood Oxygen Saturation 97.7 % (92.0-98.0) Arterial Blood Base Excess -3.0 Mina Test Positive Test 07/29/17 04:00 07/29/17 09:10 07/30/17 04:00 White Blood Count 9.4 K/UL (4.8-10.8) 8.4 K/UL (4.8-10.8) Red Blood Count 2.85 M/UL (4.70-6.10) 2.95 M/UL (4.70-6.10) Hemoglobin 8.2 G/DL (14.2-18.0) 8.7 G/DL (14.2-18.0) Hematocrit 24.7 % (42.0-52.0) 25.7 % (42.0-52.0) Mean Corpuscular Volume 87 FL (80-99) 87 FL (80-99) Mean Corpuscular Hemoglobin 28.7 PG (27.0-31.0) 29.3 PG (27.0-31.0) Mean Corpuscular Hemoglobin Concent 33.1 G/DL (32.0-36.0) 33.7 G/DL (32.0-36.0) Red Cell Distribution Width 17.2 % (11.6-14.8) 17.2 % (11.6-14.8) Platelet Count 152 K/UL (150-450) 154 K/UL (150-450) Mean Platelet Volume 7.4 FL (6.5-10.1) 7.4 FL (6.5-10.1) Neutrophils (%) (Auto) 84.3 % (45.0-75.0) 79.5 % (45.0-75.0) Lymphocytes (%) (Auto) 8.9 % (20.0-45.0) 11.3 % (20.0-45.0) Monocytes (%) (Auto) 6.5 % (1.0-10.0) 8.8 % (1.0-10.0) Eosinophils (%) (Auto) 0.0 % (0.0-3.0) 0.0 % (0.0-3.0) Basophils (%) (Auto) 0.3 % (0.0-2.0) 0.5 % (0.0-2.0) Sodium Level 144 MMOL/L (136-145) 144 MMOL/L (136-145) Potassium Level 2.7 MMOL/L (3.5-5.1) 2.7 MMOL/L (3.5-5.1) Chloride Level 108 MMOL/L (98-107) 107 MMOL/L (98-107) Carbon Dioxide Level 21 MMOL/L (21-32) 24 MMOL/L (21-32) Anion Gap 15 mmol/L (5-15) 12 mmol/L (5-15) Blood Urea Nitrogen 68 mg/dL (7-18) 63 mg/dL (7-18) Creatinine 1.8 MG/DL (0.55-1.30) 1.8 MG/DL (0.55-1.30) Estimat Glomerular Filtration Rate mL/min (>60) mL/min (>60) Glucose Level 267 MG/DL (74-106) 317 MG/DL (74-106) Calcium Level 6.6 MG/DL (8.5-10.1) 6.6 MG/DL (8.5-10.1) Magnesium Level 1.6 MG/DL (1.8-2.4) 1.7 MG/DL (1.8-2.4) Iron Level 64 ug/dL (50-175) Total Iron Binding Capacity 83 ug/dL (250-450) Percent Iron Saturation 77 % (15-50) Unsaturated Iron Binding 19 ug/dL (112-346) Total Bilirubin 0.2 MG/DL (0.2-1.0) Aspartate Amino Transf (AST/SGOT) 37 U/L (15-37) Alanine Aminotransferase (ALT/SGPT) 38 U/L (12-78) Alkaline Phosphatase 126 U/L (46-116) Total Protein 5.8 G/DL (6.4-8.2) Albumin 1.1 G/DL (3.4-5.0) Globulin 4.7 g/dL Albumin/Globulin Ratio 0.2 (1.0-2.7) Objective: HEENT: Negative. NECK: Supple. No adenopathy. no JVD Otherwise, the patient's carotids are 2+. trach in place LUNGS: Moderate breath sounds. Rhonchi some CARDIAC: S1 and S2. Regular rate and rhythm without murmurs, rubs, or gallops. ABDOMEN: Soft, nontender, and nondistended. G-tube in place. no HSM EXTREMITIES: No cyanosis or clubbing. There is significant mottling. NEUROLOGIC: Poorly responsive at present. SKIN: Noted and reviewed. reviewed and edited Micro: Microbiology Date/Time Source Procedure Growth Status 07/28/17 12:00 Stool Clostridium difficile Toxin Assay - Final Complete Accucheck: 74 ISHAAN FARRELL July 30, 2017 10:39
--- NOTE | 2017-07-30 11:51 | Infectious Diseases Prog Note ---
Assessment/Plan Assessment/Plan A: Sepsis, shock is resolved Pneumonia with KPC & Providencia Candidal UTI Acute renal failure, CKD Pressure ulcers Dementia Hypokalemia P; Continue Fluconazole & Colistin inhalation Change Zosyn to Meropenem will f/u cultures Subjective ROS Limited/Unobtainable: Yes Allergies: Coded Allergies: No Known Allergies (Unverified , 07/25/17) Objective Vital Signs Last 24 Hour Vital Signs Date Time Temp Pulse Resp B/P (MAP) Pulse Ox O2 Delivery O2 Flow Rate FiO2 07/30/17 10:30 71 20 40 07/30/17 09:20 58 20 99 Mechanical Ventilator 40 07/30/17 09:10 58 19 99 Mechanical Ventilator 40 07/30/17 09:10 58 19 40 07/30/17 08:00 40 07/30/17 08:00 97.6 57 28 160/78 99 Mechanical Ventilator 40 97.6 07/30/17 06:44 68 27 40 07/30/17 05:12 60 32 40 07/30/17 04:00 97.8 81 30 144/74 98 Mechanical Ventilator 40 97.8 07/30/17 04:00 66 07/30/17 03:06 61 26 40 07/30/17 01:27 62 30 40 07/30/17 00:04 40 07/30/17 00:00 60 07/29/17 23:57 98.4 63 30 141/78 99 Mechanical Ventilator 40 98.4 07/29/17 23:27 60 19 100 Mechanical Ventilator 40 07/29/17 23:12 60 21 99 Mechanical Ventilator 40 07/29/17 23:12 60 21 40 07/29/17 21:11 55 30 40 07/29/17 20:00 57 07/29/17 20:00 40 07/29/17 20:00 98.0 53 27 133/78 99 Mechanical Ventilator 40 98.0 07/29/17 19:10 58 30 40 07/29/17 16:57 51 31 40 07/29/17 16:00 40 07/29/17 15:56 97.5 59 30 151/78 100 Mechanical Ventilator 40 97.5 07/29/17 15:28 50 07/29/17 14:48 57 30 40 07/29/17 12:57 50 31 40 07/29/17 12:00 97.7 54 28 156/78 99 Mechanical Ventilator 40 97.7 07/29/17 12:00 40 Height (Feet): 5 Height (Inches): 7.00 Weight (Pounds): 178 General Appearance: no acute distress HEENT: status post trach Respiratory/Chest: lungs clear, other - on ventilator Cardiovascular: normal rate, other - left arm PICC line Abdomen: soft, non tender, other - GT feeding Extremities: no edema Neurologic/Psychiatric: unresponsiveness Microbiology Date/Time Source Procedure Growth Status 07/28/17 12:00 Stool Clostridium difficile Toxin Assay - Final Complete Laboratory Tests Test 07/30/17 04:00 White Blood Count 8.4 K/UL (4.8-10.8) Red Blood Count 2.95 M/UL (4.70-6.10) L Hemoglobin 8.7 G/DL (14.2-18.0) L Hematocrit 25.7 % (42.0-52.0) L Mean Corpuscular Volume 87 FL (80-99) Mean Corpuscular Hemoglobin 29.3 PG (27.0-31.0) Mean Corpuscular Hemoglobin Concent 33.7 G/DL (32.0-36.0) Red Cell Distribution Width 17.2 % (11.6-14.8) H Platelet Count 154 K/UL (150-450) Mean Platelet Volume 7.4 FL (6.5-10.1) Neutrophils (%) (Auto) 79.5 % (45.0-75.0) H Lymphocytes (%) (Auto) 11.3 % (20.0-45.0) L Monocytes (%) (Auto) 8.8 % (1.0-10.0) Eosinophils (%) (Auto) 0.0 % (0.0-3.0) Basophils (%) (Auto) 0.5 % (0.0-2.0) Sodium Level 144 MMOL/L (136-145) Potassium Level 2.7 MMOL/L (3.5-5.1) *L Chloride Level 107 MMOL/L (98-107) Carbon Dioxide Level 24 MMOL/L (21-32) Anion Gap 12 mmol/L (5-15) Blood Urea Nitrogen 63 mg/dL (7-18) H Creatinine 1.8 MG/DL (0.55-1.30) H Estimat Glomerular Filtration Rate mL/min (>60) Glucose Level 317 MG/DL (74-106) H Calcium Level 6.6 MG/DL (8.5-10.1) L Magnesium Level 1.7 MG/DL (1.8-2.4) L Total Bilirubin 0.2 MG/DL (0.2-1.0) Aspartate Amino Transf (AST/SGOT) 37 U/L (15-37) Alanine Aminotransferase (ALT/SGPT) 38 U/L (12-78) Alkaline Phosphatase 126 U/L (46-116) H Total Protein 5.8 G/DL (6.4-8.2) L Albumin 1.1 G/DL (3.4-5.0) L Globulin 4.7 g/dL Albumin/Globulin Ratio 0.2 (1.0-2.7) L Current Medications Medications (Trade) Dose Ordered Sig/Tal Route PRN Reason Start Time Stop Time Status Last Admin Dose Admin Acetaminophen (Tylenol) 650 mg Q6H PRN GT Mild Pain/Temp > 100.5 07/28/17 22:00 08/27/17 21:59 Albuterol Sulfate (Proventil) 2.5 mg Q6H PRN IN-LINE Shortness of Breath 07/28/17 14:00 07/30/17 13:59 Chlorhexidine Gluconate (Consuelo-Hex 2%) 1 applic DAILY@1999 TOPIC 07/28/17 20:00 08/25/17 19:59 07/29/17 20:38 Colistimethate Sodium (Colistin *inhalation use only*) 75 mg Q12HR@10,22 INH 07/29/17 22:00 08/05/17 23:59 07/30/17 09:10 Fluconazole (Diflucan) 100 mg DAILY ORAL 07/29/17 09:00 08/04/17 12:29 07/30/17 08:30 Hydrocortisone (Solu-CORTEF) 100 mg DAILY IV 07/29/17 09:00 08/28/17 08:59 07/30/17 08:30 Levothyroxine Sodium (Synthroid) 100 mcg DAILY@0630 ORAL 07/29/17 06:30 08/25/17 06:29 07/30/17 05:56 Pantoprazole (Protonix) 40 mg DAILY IVP 07/29/17 09:00 08/27/17 08:59 07/30/17 08:30 Piperacillin Sod/ Tazobactam Sod 3.375 gm/Dextrose 110 ml @ 27.5 mls/hr EVERY 8 HOURS IVPB 07/28/17 14:30 07/30/17 14:29 07/30/17 05:56 Potassium Chloride (K-Dur) 40 meq ONCE ONCE GT 07/30/17 12:00 07/30/17 12:01 07/30/17 11:30 Sodium Bicarbonate 50 ml/ Dextrose/Sodium Chloride 1,050 ml @ 100 mls/hr [id number] IV 07/28/17 18:00 08/26/17 17:59 07/30/17 11:30 VANIA DAVIES July 30, 2017 11:51
[2017-07-30 12:00] VITALS: BP 162/93
[2017-07-30] MEDS: Meropenem 1 GM in NS 55 ML IVPB SCH ×2 (13:05→20:54)
[2017-07-30 16:00] VITALS: BP 175/90
[2017-07-30 18:07] VITALS: BP 148/84
[2017-07-30 20:00] VITALS: BP 142/74
[2017-07-30] MEDS: Dyna-Hex 2% Top Sol 2oz TOPIC SCH (20:55)
--- NOTE | 2017-07-30 21:30 | Progress Note ---
DATE: 07/30/2017 CARDIOLOGY PROGRESS NOTE SUBJECTIVE: The patient remains on ventilator support. Noncommunicative. He remains congested with secretions. He is off pressors. Blood pressure was trending up yesterday and midodrine was discontinued. He has defervesced. OBJECTIVE: VITAL SIGNS: Blood pressure 144/74, pulse 81, respiratory rate 30, and afebrile. LUNGS: Coarse breath sounds. Scattered rhonchi. HEART: Regular rhythm and rate. Normal S1 and S2. ABDOMEN: Soft. G-tube intact. EXTREMITIES: Trace edema. Wounds are pictured. LABORATORY DATA: White count 8.4 and hemoglobin 8.7. Sodium 144, potassium 2.7, magnesium 1.7, BUN 63, creatinine 1.8, and bicarbonate 24. Albumin 1.1. IMPRESSION: 1. Respiratory failure. 2. Sepsis with shock. 3. Hypokalemia. 4. Hypomagnesemia. 5. Healthcare-acquired pneumonia. 6. History of cardiopulmonary arrest and anoxic encephalopathy. 7. Decubiti. PLAN: 1. Replace potassium and magnesium. 2. Continue ventilator support. 3. Antimicrobials. 4. Off pressors. 5. No need for midodrine. 6. Antimicrobials per Infectious Disease technology consultant. 7. Skin care. 8. DVT and stress ulcer prophylaxes. Keith Reeves M.D. DR: OFE JOB#: [id number] CC:
[2017-07-31] VITALS: BP 136/68
[2017-07-31 04:00] VITALS: BP 141/68
[2017-07-31 08:00] VITALS: BP 169/86
--- NOTE | 2017-07-31 08:22 | General Progress Note ---
Assessment/Plan Problem List: (1) Renal failure ICD Codes: N19 - Unspecified kidney failure SNOMED: 02295843 (2) Sepsis ICD Codes: A41.9 - Sepsis, unspecified organism SNOMED: 55716262 (3) UTI (urinary tract infection) ICD Codes: N39.0 - Urinary tract infection, site not specified SNOMED: 26916886 (4) Hypotension ICD Codes: I95.9 - Hypotension, unspecified SNOMED: 17623160 (5) Pneumonia ICD Codes: J18.9 - Pneumonia, unspecified organism SNOMED: 693115753 (6) GI bleed ICD Codes: K92.2 - Gastrointestinal hemorrhage, unspecified SNOMED: 16193040 Status: stable, progressing Assessment/Plan ivf follow up labs replaces lytes as needed iv abx per ID follow up cultures gt feeds wound care monitor h/h guarded poor prognosis dnr Subjective ROS Limited/Unobtainable: Yes Constitutional: Reports: malaise, weakness HEENT: Reports: no symptoms Cardiovascular: Reports: no symptoms Respiratory: Reports: sputum Gastrointestinal/Abdominal: Reports: difficulty swallowing Genitourinary: Reports: no symptoms Neurologic/Psychiatric: Reports: pre-existing deficit Endocrine: Reports: no symptoms Hematologic/Lymphatic: Reports: anemia Allergies: Coded Allergies: No Known Allergies (Unverified , 07/25/17) All Systems: reviewed and negative except above Subjective no change. on the vent. awake but nonverbal. no fevers. tolerating feeds. Objective Last 24 Hour Vital Signs Date Time Temp Pulse Resp B/P (MAP) Pulse Ox O2 Delivery O2 Flow Rate FiO2 07/31/17 07:09 69 28 40 07/31/17 05:13 65 26 40 07/31/17 04:00 40 07/31/17 04:00 68 07/31/17 04:00 97.1 69 20 141/68 98 Mechanical Ventilator 40 97.1 07/31/17 03:35 71 28 40 07/31/17 01:21 72 29 40 07/31/17 00:00 40 07/31/17 00:00 66 07/31/17 00:00 96.9 76 21 136/68 98 Mechanical Ventilator 40 96.9 07/30/17 23:15 72 19 99 Mechanical Ventilator 40 07/30/17 23:07 69 31 40 07/30/17 23:05 61 20 100 Mechanical Ventilator 40 07/30/17 21:30 66 27 40 07/30/17 20:00 40 07/30/17 20:00 96.8 72 22 142/74 100 Mechanical Ventilator 40 96.8 07/30/17 20:00 66 07/30/17 19:03 64 29 40 07/30/17 18:07 148/84 07/30/17 17:15 77 175/90 07/30/17 16:43 77 26 40 07/30/17 16:00 97.7 65 30 175/90 100 Mechanical Ventilator 40 97.7 07/30/17 16:00 66 07/30/17 16:00 40 07/30/17 14:31 63 28 40 07/30/17 13:09 73 22 40 07/30/17 12:00 97.5 52 24 162/93 99 Mechanical Ventilator 40 97.5 07/30/17 12:00 54 07/30/17 12:00 40 07/30/17 10:30 71 20 40 07/30/17 09:20 58 20 99 Mechanical Ventilator 40 07/30/17 09:10 58 19 99 Mechanical Ventilator 40 07/30/17 09:10 58 19 40 Intake and Output 07/30/17 07/31/17 19:00 07:00 Intake Total 2037.5 ml 1720 ml Output Total 2600 ml 1550 ml Balance -562.5 ml 170 ml Intake Free Water 30 ml 50 ml IV Total 1287.5 ml 1120 ml Tube Feeding 660 ml 550 ml Other 60 ml Output Urine Total 2600 ml 1550 ml # Bowel Movements 3 4 Height (Feet): 5 Height (Inches): 7.00 Weight (Pounds): 213 Objective General Appearance: WD/WN, confused Neck: supple Cardiovascular: normal peripheral pulses, normal rate, regular rhythm Respiratory/Chest: chest wall non-tender, rhonchi - bilaterally Abdomen: normal bowel sounds, non tender, soft, no organomegaly Neurologic: unresponsive, aphasia YOLIS HARRELL July 31, 2017 08:22
--- NOTE | 2017-07-31 08:42 | Critical Care Progress Note ---
Assessment/Plan Assessment/Plan IMPRESSION: 1. Respiratory failure. 2. Probable sepsis. 3. Extensive pneumonia. 4. Tracheostomy and gastrostomy tube. 5. History of cardiopulmonary arrest. 6. Evidence of anoxia. 7. Hypothyroidism. 8. Aspiration. 9. Dementia. 10. acute renal failure 11. anemia 12. chronic encephalopathy 13. anoxia 14. CAD PLAN on vent IV antibiotics noted respiratory care as is-no wean Ventilatory support as is SNF meds noted replace lytes and monitor suction and monitor frequency oxygen adequate at present prognosis poor for recovery nutrition tolerated and rate reviewed position change to avoid pressure sores monitor for skin breakdown and assess pressors as needed and monitor hemodynamics medications/laboratory data/nursing notes reviewed in detail note reviewed and edited care discussed with RN and RT Critical Care - Subjective Interval Events: care noted d/w nursing ROS Limited/Unobtainable: Yes Condition: critical EKG Rhythm: Sinus Rhythm Residuals: minimal Tube Feeding Tolerated: yes I&O: Intake and Output 07/30/17 07/31/17 19:00 07:00 Intake Total 2037.5 ml 1720 ml Output Total 2600 ml 1550 ml Balance -562.5 ml 170 ml Intake Free Water 30 ml 50 ml IV Total 1287.5 ml 1120 ml Tube Feeding 660 ml 550 ml Other 60 ml Output Urine Total 2600 ml 1550 ml # Bowel Movements 3 4 Critical Care - Objective Last 24 Hour Vital Signs Date Time Temp Pulse Resp B/P (MAP) Pulse Ox O2 Delivery O2 Flow Rate FiO2 07/31/17 07:09 69 28 40 07/31/17 05:13 65 26 40 07/31/17 04:00 40 07/31/17 04:00 68 07/31/17 04:00 97.1 69 20 141/68 98 Mechanical Ventilator 40 97.1 07/31/17 03:35 71 28 40 07/31/17 01:21 72 29 40 07/31/17 00:00 40 07/31/17 00:00 66 07/31/17 00:00 96.9 76 21 136/68 98 Mechanical Ventilator 40 96.9 07/30/17 23:15 72 19 99 Mechanical Ventilator 40 07/30/17 23:07 69 31 40 07/30/17 23:05 61 20 100 Mechanical Ventilator 40 07/30/17 21:30 66 27 40 07/30/17 20:00 40 07/30/17 20:00 96.8 72 22 142/74 100 Mechanical Ventilator 40 96.8 07/30/17 20:00 66 07/30/17 19:03 64 29 40 07/30/17 18:07 148/84 07/30/17 17:15 77 175/90 07/30/17 16:43 77 26 40 07/30/17 16:00 97.7 65 30 175/90 100 Mechanical Ventilator 40 97.7 07/30/17 16:00 66 07/30/17 16:00 40 07/30/17 14:31 63 28 40 07/30/17 13:09 73 22 40 07/30/17 12:00 97.5 52 24 162/93 99 Mechanical Ventilator 40 97.5 07/30/17 12:00 54 07/30/17 12:00 40 07/30/17 10:30 71 20 40 07/30/17 09:20 58 20 99 Mechanical Ventilator 40 07/30/17 09:10 58 19 99 Mechanical Ventilator 40 07/30/17 09:10 58 19 40 Labs: Labs Test 07/28/17 09:10 07/29/17 04:00 07/29/17 09:10 07/30/17 04:00 Arterial Blood pH 7.420 (7.350-7.450) Arterial Blood Partial Pressure CO2 33.2 mmHg (35.0-45.0) Arterial Blood Partial Pressure O2 118.2 mmHg (75.0-100.0) Arterial Blood HCO3 21.0 mmol/L (22.0-26.0) Arterial Blood Oxygen Saturation 97.7 % (92.0-98.0) Arterial Blood Base Excess -3.0 Mina Test Positive White Blood Count 9.4 K/UL (4.8-10.8) 8.4 K/UL (4.8-10.8) Red Blood Count 2.85 M/UL (4.70-6.10) 2.95 M/UL (4.70-6.10) Hemoglobin 8.2 G/DL (14.2-18.0) 8.7 G/DL (14.2-18.0) Hematocrit 24.7 % (42.0-52.0) 25.7 % (42.0-52.0) Mean Corpuscular Volume 87 FL (80-99) 87 FL (80-99) Mean Corpuscular Hemoglobin 28.7 PG (27.0-31.0) 29.3 PG (27.0-31.0) Mean Corpuscular Hemoglobin Concent 33.1 G/DL (32.0-36.0) 33.7 G/DL (32.0-36.0) Red Cell Distribution Width 17.2 % (11.6-14.8) 17.2 % (11.6-14.8) Platelet Count 152 K/UL (150-450) 154 K/UL (150-450) Mean Platelet Volume 7.4 FL (6.5-10.1) 7.4 FL (6.5-10.1) Neutrophils (%) (Auto) 84.3 % (45.0-75.0) 79.5 % (45.0-75.0) Lymphocytes (%) (Auto) 8.9 % (20.0-45.0) 11.3 % (20.0-45.0) Monocytes (%) (Auto) 6.5 % (1.0-10.0) 8.8 % (1.0-10.0) Eosinophils (%) (Auto) 0.0 % (0.0-3.0) 0.0 % (0.0-3.0) Basophils (%) (Auto) 0.3 % (0.0-2.0) 0.5 % (0.0-2.0) Sodium Level 144 MMOL/L (136-145) 144 MMOL/L (136-145) Potassium Level 2.7 MMOL/L (3.5-5.1) 2.7 MMOL/L (3.5-5.1) Chloride Level 108 MMOL/L (98-107) 107 MMOL/L (98-107) Carbon Dioxide Level 21 MMOL/L (21-32) 24 MMOL/L (21-32) Anion Gap 15 mmol/L (5-15) 12 mmol/L (5-15) Blood Urea Nitrogen 68 mg/dL (7-18) 63 mg/dL (7-18) Creatinine 1.8 MG/DL (0.55-1.30) 1.8 MG/DL (0.55-1.30) Estimat Glomerular Filtration Rate mL/min (>60) mL/min (>60) Glucose Level 267 MG/DL (74-106) 317 MG/DL (74-106) Calcium Level 6.6 MG/DL (8.5-10.1) 6.6 MG/DL (8.5-10.1) Magnesium Level 1.6 MG/DL (1.8-2.4) 1.7 MG/DL (1.8-2.4) Iron Level 64 ug/dL (50-175) Total Iron Binding Capacity 83 ug/dL (250-450) Percent Iron Saturation 77 % (15-50) Unsaturated Iron Binding 19 ug/dL (112-346) Total Bilirubin 0.2 MG/DL (0.2-1.0) Aspartate Amino Transf (AST/SGOT) 37 U/L (15-37) Alanine Aminotransferase (ALT/SGPT) 38 U/L (12-78) Alkaline Phosphatase 126 U/L (46-116) Total Protein 5.8 G/DL (6.4-8.2) Albumin 1.1 G/DL (3.4-5.0) Globulin 4.7 g/dL Albumin/Globulin Ratio 0.2 (1.0-2.7) Objective: HEENT: Negative. NECK: Supple. No adenopathy. no JVD Otherwise, the patient's carotids are 2+. trach in place LUNGS: Moderate breath sounds. no rhonchi or wheeze CARDIAC: S1 and S2. Regular rate and rhythm without murmurs, rubs, or gallops. ABDOMEN: Soft, nontender, and nondistended. G-tube in place. no HSM EXTREMITIES: No cyanosis or clubbing. There is significant mottling. NEUROLOGIC: Poorly responsive at present. SKIN: Noted and reviewed. reviewed and edited Micro: Microbiology Date/Time Source Procedure Growth Status 07/28/17 12:00 Stool Clostridium difficile Toxin Assay - Final Complete Accucheck: 74 ISHAAN FARRELL July 31, 2017 08:42
[2017-07-31] MEDS: Colistin for inhalation INH SCH ×2 (09:28→21:08)
[2017-07-31] MEDS: Sodium Bicarbonate 50 ML in D5 1/2NS 1,000 ML IV SCH (09:47)
[2017-07-31] MEDS: Meropenem 1 GM in NS 55 ML IVPB SCH ×2 (09:52→21:01)
[2017-07-31] MEDS: Hydrocortisone 100mg Inj IV SCH (09:52)
[2017-07-31] MEDS: Pantoprazole Inj IVP SCH (09:53)
[2017-07-31] MEDS: Fluconazole 100mg tab ORAL SCH (09:53)
[2017-07-31] MEDS ORDERED: NS 275ml ONE (10:02)
[2017-07-31] MEDS ORDERED: NS 500ML ONE (10:11)
[2017-07-31] MEDS ORDERED: Tubing IV Secondary IV ONE (10:11)
--- NOTE | 2017-07-31 10:20 | Nephrology Progress Note ---
Assessment/Plan Plan CKD stable Sepsis - IV Abx Hypo K/Mg correct Subjective Subjective Obtunded Objective Objective Last 24 Hour Vital Signs Date Time Temp Pulse Resp B/P (MAP) Pulse Ox O2 Delivery O2 Flow Rate FiO2 07/31/17 09:52 75 169/86 07/31/17 09:34 75 19 98 Mechanical Ventilator 40 07/31/17 09:30 84 26 97 Mechanical Ventilator 40 07/31/17 08:41 69 23 40 07/31/17 08:00 77 07/31/17 08:00 98.3 73 29 169/86 97 Mechanical Ventilator 40 98.3 07/31/17 07:09 69 28 40 07/31/17 05:13 65 26 40 07/31/17 04:00 40 07/31/17 04:00 68 07/31/17 04:00 97.1 69 20 141/68 98 Mechanical Ventilator 40 97.1 07/31/17 03:35 71 28 40 07/31/17 01:21 72 29 40 07/31/17 00:00 40 07/31/17 00:00 66 07/31/17 00:00 96.9 76 21 136/68 98 Mechanical Ventilator 40 96.9 07/30/17 23:15 72 19 99 Mechanical Ventilator 40 07/30/17 23:07 69 31 40 07/30/17 23:05 61 20 100 Mechanical Ventilator 40 07/30/17 21:30 66 27 40 07/30/17 20:00 40 07/30/17 20:00 96.8 72 22 142/74 100 Mechanical Ventilator 40 96.8 07/30/17 20:00 66 07/30/17 19:03 64 29 40 07/30/17 18:07 148/84 07/30/17 17:15 77 175/90 07/30/17 16:43 77 26 40 07/30/17 16:00 97.7 65 30 175/90 100 Mechanical Ventilator 40 97.7 07/30/17 16:00 66 07/30/17 16:00 40 07/30/17 14:31 63 28 40 07/30/17 13:09 73 22 40 07/30/17 12:00 97.5 52 24 162/93 99 Mechanical Ventilator 40 97.5 07/30/17 12:00 54 07/30/17 12:00 40 07/30/17 10:30 71 20 40 Intake and Output 07/30/17 07/31/17 19:00 07:00 Intake Total 2037.5 ml 1720 ml Output Total 2600 ml 1550 ml Balance -562.5 ml 170 ml Intake Free Water 30 ml 50 ml IV Total 1287.5 ml 1120 ml Tube Feeding 660 ml 550 ml Other 60 ml Output Urine Total 2600 ml 1550 ml # Bowel Movements 3 4 Laboratory Tests 07/31/17 10:00: Sodium Level [Pending], Potassium Level [Pending], Chloride Level [Pending], Carbon Dioxide Level [Pending], Blood Urea Nitrogen [Pending], Creatinine [ Pending], Estimat Glomerular Filtration Rate [Pending], Glucose Level [Pending] , Calcium Level [Pending], Total Bilirubin [Pending], Aspartate Amino Transf ( AST/SGOT) [Pending], Alanine Aminotransferase (ALT/SGPT) [Pending], Alkaline Phosphatase [Pending], Total Protein [Pending], Albumin [Pending], Globulin [ Pending] Height (Feet): 5 Height (Inches): 7.00 Weight (Pounds): 213 Objective CV RR LUngs B rajatchi Marley SNT. BS + E no CCE Marga Bustos MD July 31, 2017 10:20
--- NOTE | 2017-07-31 10:25 | Infectious Diseases Prog Note ---
"Assessment/Plan Assessment/Plan antibiotics : meropenem, inhaled colistin, fluconazole A 1. klebsiella | providencia pneumonia 2. fungal UTI 3. respiratory failure 4. leucocytosis resolved 5, renal failure 6. shock resolved 7. decubitus ulcers P 1. continue meropenem 5 more days 2. continue inhaled colistin 4 more days 3. continue fluconazole 3 more days 4. will follow up cultures Subjective ROS Limited/Unobtainable: Yes Allergies: Coded Allergies: No Known Allergies (Unverified , 07/25/17) Objective Vital Signs Last 24 Hour Vital Signs Date Time Temp Pulse Resp B/P (MAP) Pulse Ox O2 Delivery O2 Flow Rate FiO2 07/31/17 09:52 75 169/86 07/31/17 09:34 75 19 98 Mechanical Ventilator 40 07/31/17 09:30 84 26 97 Mechanical Ventilator 40 07/31/17 08:41 69 23 40 07/31/17 08:00 77 07/31/17 08:00 98.3 73 29 169/86 97 Mechanical Ventilator 40 98.3 07/31/17 07:09 69 28 40 07/31/17 05:13 65 26 40 07/31/17 04:00 40 07/31/17 04:00 68 07/31/17 04:00 97.1 69 20 141/68 98 Mechanical Ventilator 40 97.1 07/31/17 03:35 71 28 40 07/31/17 01:21 72 29 40 07/31/17 00:00 40 07/31/17 00:00 66 07/31/17 00:00 96.9 76 21 136/68 98 Mechanical Ventilator 40 96.9 07/30/17 23:15 72 19 99 Mechanical Ventilator 40 07/30/17 23:07 69 31 40 07/30/17 23:05 61 20 100 Mechanical Ventilator 40 07/30/17 21:30 66 27 40 07/30/17 20:00 40 07/30/17 20:00 96.8 72 22 142/74 100 Mechanical Ventilator 40 96.8 07/30/17 20:00 66 07/30/17 19:03 64 29 40 07/30/17 18:07 148/84 07/30/17 17:15 77 175/90 07/30/17 16:43 77 26 40 07/30/17 16:00 97.7 65 30 175/90 100 Mechanical Ventilator 40 97.7 07/30/17 16:00 66 07/30/17 16:00 40 07/30/17 14:31 63 28 40 07/30/17 13:09 73 22 40 07/30/17 12:00 97.5 52 24 162/93 99 Mechanical Ventilator 40 97.5 07/30/17 12:00 54 07/30/17 12:00 40 07/30/17 10:30 71 20 40 Height (Feet): 5 Height (Inches): 7.00 Weight (Pounds): 213 HEENT: status post trach Respiratory/Chest: lungs clear Cardiovascular: normal rate, regular rhythm, no gallop/murmur Abdomen: soft, non tender, other - GT Extremities: other - + edema, left arm PICC Microbiology Date/Time Source Procedure Growth Status 07/28/17 12:00 Stool Clostridium difficile Toxin Assay - Final Complete Laboratory Tests Test 07/31/17 10:00 Sodium Level Pending Potassium Level Pending Chloride Level Pending Carbon Dioxide Level Pending Blood Urea Nitrogen Pending Creatinine Pending Estimat Glomerular Filtration Rate Pending Glucose Level Pending Calcium Level Pending Total Bilirubin Pending Aspartate Amino Transf (AST/SGOT) Pending Alanine Aminotransferase (ALT/SGPT) Pending Alkaline Phosphatase Pending Total Protein Pending Albumin Pending Globulin Pending Current Medications Medications (Trade) Dose Ordered Sig/Tal Route PRN Reason Start Time Stop Time Status Last Admin Dose Admin Acetaminophen (Tylenol) 650 mg Q6H PRN GT Mild Pain/Temp > 100.5 07/28/17 22:00 08/27/17 21:59 Amlodipine Besylate (Norvasc) 5 mg DAILY ORAL 07/30/17 17:00 08/29/17 16:59 07/31/17 09:52 Chlorhexidine Gluconate (Consuelo-Hex 2%) 1 applic DAILY@1999 TOPIC 07/28/17 20:00 08/25/17 19:59 07/30/17 20:55 Colistimethate Sodium (Colistin *inhalation use only*) 75 mg Q12HR@10,22 INH 07/29/17 22:00 08/05/17 23:59 07/31/17 09:28 Fluconazole (Diflucan) 100 mg DAILY ORAL 07/29/17 09:00 08/04/17 12:29 07/31/17 09:53 Hydrocortisone (Solu-CORTEF) 100 mg DAILY IV 07/29/17 09:00 08/28/17 08:59 07/31/17 09:52 Levothyroxine Sodium (Synthroid) 100 mcg DAILY@0630 ORAL 07/29/17 06:30 08/25/17 06:29 07/31/17 06:00 Meropenem 1 gm/ Sodium Chloride 55 ml @ 110 mls/hr Q12HR IVPB 07/30/17 13:00 08/04/17 12:59 07/31/17 09:52 Oxycodone/ Acetaminophen (Percocet 10/325) 1 tab Q4H PRN ORAL Severe Pain (Pain Scale 7-10) 07/31/17 09:00 08/07/17 08:59 Pantoprazole (Protonix) 40 mg DAILY IVP 07/29/17 09:00 08/27/17 08:59 07/31/17 09:53 Sodium Bicarbonate 50 ml/ Dextrose/Sodium Chloride 1,050 ml @ 100 mls/hr [id number] IV 07/28/17 18:00 08/26/17 17:59 07/31/17 09:47 JOHN REAL July 31, 2017 10:25"
[2017-07-31 10:32] LABS: ALANINE AMINOTRANSFERASE 51 U/L (12-78); ALBUMIN 1.1 G/DL (3.4-5.0); ALBUMIN/GLOBULIN RATIO 0.3 (1.0-2.7); ALKALINE PHOSPHATASE 137 U/L (46-116); ANION GAP 6 mmol/L (5-15); ASPARTATE AMINO TRANSFERASE 40 U/L (15-37); BILIRUBIN,TOTAL 0.3 MG/DL (0.2-1.0); BLOOD UREA NITROGEN 57 mg/dL (7-18); CALCIUM 6.5 MG/DL (8.5-10.1); CARBON DIOXIDE 32 MMOL/L (21-32); CHLORIDE 108 MMOL/L (98-107); CREATININE 1.6 MG/DL (0.55-1.30); SODIUM 146 MMOL/L (136-145)
[2017-07-31 10:38] LABS: POTASSIUM 2.5 MMOL/L (3.5-5.1)
[2017-07-31 12:00] VITALS: BP 145/85
[2017-07-31] MEDS ORDERED: Potassium Chloride 60 MEQ in NS 1000ml 1,000 ML IV ONE (12:30)
[2017-07-31 16:00] VITALS: BP 158/80
[2017-07-31 20:00] VITALS: BP 149/87
[2017-07-31] MEDS: Dyna-Hex 2% Top Sol 2oz TOPIC SCH (21:01)
[2017-08-01] VITALS: BP 151/84
[2017-08-01 03:52] LABS: ALANINE AMINOTRANSFERASE 54 U/L (12-78); ALBUMIN 1.2 G/DL (3.4-5.0); ALBUMIN/GLOBULIN RATIO 0.3 (1.0-2.7); ALKALINE PHOSPHATASE 143 U/L (46-116); ANION GAP 9 mmol/L (5-15); ASPARTATE AMINO TRANSFERASE 43 U/L (15-37); BILIRUBIN,TOTAL 0.3 MG/DL (0.2-1.0); BLOOD UREA NITROGEN 56 mg/dL (7-18); CALCIUM 6.8 MG/DL (8.5-10.1); CARBON DIOXIDE 29 MMOL/L (21-32); CHLORIDE 109 MMOL/L (98-107); CREATININE 1.6 MG/DL (0.55-1.30); POTASSIUM 3.1 MMOL/L (3.5-5.1); SODIUM 147 MMOL/L (136-145)
[2017-08-01 04:00] VITALS: BP 174/89
--- NOTE | 2017-08-01 05:00 | Progress Note ---
DATE: 07/31/2017 CARDIOLOGY PROGRESS NOTE SUBJECTIVE: The patient remains on ventilator support. Awake, but nonverbal. He is tolerating feedings. SUBJECTIVE: VITAL SIGNS: His blood pressure is stable 141/68, pulse 69, respirations 20, monitored sinus rhythm, afebrile. LUNGS: Coarse breath sounds. Scattered rhonchi. HEART: Regular rhythm and rate. Normal S1, S2. ABDOMEN: Soft. G-tube intact. EXTREMITIES: A 1+ dependent edema. LABORATORY DATA: Sodium 146, potassium 3.5, bicarbonate 32, BUN 57, and creatinine 1.6. Magnesium yesterday 1.7. Albumin 1.1. Decubiti pictured. IMPRESSION: 1. Sepsis with recovered shock. 2. Multiple decubiti. 3. Hypertensive heart disease. 4. Respiratory failure. 5. Hypothyroidism, on replacement therapy. 6. Dehydration. 7. Hypernatremia. 8. Hypokalemia. 9. Hypomagnesemia. 10. Severe protein-calorie malnutrition. PLAN: 1. Replace electrolytes. 2. Continue ventilator support. 3. Antimicrobials. 4. Titrate antihypertensives. 5. Remains with serious condition and guarded prognosis. Keith Reeves M.D. DR: PILLO JOB#: [id number] CC:
[2017-08-01 08:00] VITALS: BP 149/91
[2017-08-01] MEDS: Hydrocortisone 100mg Inj IV SCH (09:01)
[2017-08-01] MEDS: Pantoprazole Inj IVP SCH (09:02)
[2017-08-01] MEDS: Fluconazole 100mg tab ORAL SCH (09:02)
[2017-08-01] MEDS: Meropenem 1 GM in NS 55 ML IVPB SCH ×2 (09:02→20:34)
--- NOTE | 2017-08-01 10:08 | General Progress Note ---
Assessment/Plan Problem List: (1) Renal failure ICD Codes: N19 - Unspecified kidney failure SNOMED: 91422811 (2) Sepsis ICD Codes: A41.9 - Sepsis, unspecified organism SNOMED: 05801295 (3) UTI (urinary tract infection) ICD Codes: N39.0 - Urinary tract infection, site not specified SNOMED: 26011003 (4) Hypotension ICD Codes: I95.9 - Hypotension, unspecified SNOMED: 02727909 (5) Pneumonia ICD Codes: J18.9 - Pneumonia, unspecified organism SNOMED: 974916696 (6) GI bleed ICD Codes: K92.2 - Gastrointestinal hemorrhage, unspecified SNOMED: 17815599 Status: stable, progressing Assessment/Plan ivf follow up labs replaces lytes as needed iv abx per ID follow up cultures gt feeds wound care monitor h/h guarded poor prognosis dnr Subjective ROS Limited/Unobtainable: No Constitutional: Reports: malaise, weakness HEENT: Reports: no symptoms Cardiovascular: Reports: no symptoms Respiratory: Reports: sputum Gastrointestinal/Abdominal: Reports: no symptoms Genitourinary: Reports: no symptoms Neurologic/Psychiatric: Reports: pre-existing deficit Endocrine: Reports: no symptoms Hematologic/Lymphatic: Reports: anemia Allergies: Coded Allergies: No Known Allergies (Unverified , 07/25/17) All Systems: reviewed and negative except above Subjective no change. on the vent. awake but nonverbal. no fevers. tolerating feeds. multiple iv abx. Objective Last 24 Hour Vital Signs Date Time Temp Pulse Resp B/P (MAP) Pulse Ox O2 Delivery O2 Flow Rate FiO2 08/01/17 09:04 80 149/80 08/01/17 08:00 97.7 80 21 149/91 99 Mechanical Ventilator 40 97.7 08/01/17 08:00 40 08/01/17 05:06 73 21 40 08/01/17 04:00 40 08/01/17 04:00 97.8 19 174/89 99 Mechanical Ventilator 40 97.8 08/01/17 04:00 85 08/01/17 03:13 75 26 40 08/01/17 01:14 75 24 40 08/01/17 00:00 40 08/01/17 00:00 98.1 23 151/84 99 Mechanical Ventilator 40 98.1 07/31/17 23:52 79 07/31/17 22:37 77 25 40 07/31/17 21:09 80 23 100 Mechanical Ventilator 40 07/31/17 20:58 71 23 100 Mechanical Ventilator 40 07/31/17 20:58 72 23 40 07/31/17 20:00 97.8 25 149/87 99 Mechanical Ventilator 40 97.8 07/31/17 20:00 40 07/31/17 19:15 74 24 40 07/31/17 19:14 79 07/31/17 17:14 74 22 40 07/31/17 16:00 98.0 23 158/80 100 Mechanical Ventilator 40 98.0 07/31/17 16:00 40 07/31/17 15:39 76 23 40 07/31/17 15:26 77 07/31/17 12:34 75 25 40 07/31/17 12:00 40 07/31/17 12:00 98.3 83 26 145/85 97 Mechanical Ventilator 40 98.3 07/31/17 11:56 75 07/31/17 10:39 72 24 40 Intake and Output 07/31/17 08/01/17 19:00 07:00 Intake Total 1718.335 ml 815 ml Output Total 1600 ml 1500 ml Balance 118.335 ml -685 ml Intake Free Water 200 ml IV Total 858.335 ml 55 ml Tube Feeding 660 ml 660 ml Other 100 ml Output Urine Total 1600 ml 1500 ml # Bowel Movements 4 4 Laboratory Tests 08/01/17 03:00: Sodium Level 147H, Potassium Level 3.1L, Chloride Level 109H, Carbon Dioxide Level 29, Anion Gap 9, Blood Urea Nitrogen 56H, Creatinine 1.6H, Estimat Glomerular Filtration Rate , Glucose Level 214H, Calcium Level 6.8L, Magnesium Level 1.3L, Total Bilirubin 0.3, Aspartate Amino Transf (AST/SGOT) 43H, Alanine Aminotransferase (ALT/SGPT) 54, Alkaline Phosphatase 143H, Total Protein 5.5L, Albumin 1.2L, Globulin 4.3, Albumin/Globulin Ratio 0.3L Height (Feet): 5 Height (Inches): 7.00 Weight (Pounds): 214 Objective General Appearance: WD/WN, confused Neck: supple Cardiovascular: normal peripheral pulses, normal rate, regular rhythm Respiratory/Chest: chest wall non-tender, rhonchi - bilaterally Abdomen: normal bowel sounds, non tender, soft, no organomegaly Neurologic: unresponsive, aphasia YOLIS HARRELL August 01, 2017 10:08
--- NOTE | 2017-08-01 11:53 | Infectious Diseases Prog Note ---
"Assessment/Plan Assessment/Plan antibiotics : meropenem, inhaled colistin, fluconazole A 1. klebsiella | providencia pneumonia 2. fungal UTI 3. respiratory failure 4. leucocytosis resolved 5, renal failure 6. shock resolved 7. decubitus ulcers P 1. continue meropenem 4 more days 2. continue inhaled colistin 3 more days 3. continue fluconazole 2 more days 4. will follow up cultures Subjective ROS Limited/Unobtainable: Yes Allergies: Coded Allergies: No Known Allergies (Unverified , 07/25/17) Objective Vital Signs Last 24 Hour Vital Signs Date Time Temp Pulse Resp B/P (MAP) Pulse Ox O2 Delivery O2 Flow Rate FiO2 08/01/17 09:24 78 21 40 08/01/17 09:04 80 149/80 08/01/17 08:00 97.7 80 21 149/91 99 Mechanical Ventilator 40 97.7 08/01/17 08:00 40 08/01/17 08:00 77 08/01/17 07:12 77 23 40 08/01/17 05:06 73 21 40 08/01/17 04:00 40 08/01/17 04:00 97.8 19 174/89 99 Mechanical Ventilator 40 97.8 08/01/17 04:00 85 08/01/17 03:13 75 26 40 08/01/17 01:14 75 24 40 08/01/17 00:00 40 08/01/17 00:00 98.1 23 151/84 99 Mechanical Ventilator 40 98.1 07/31/17 23:52 79 07/31/17 22:37 77 25 40 07/31/17 21:09 80 23 100 Mechanical Ventilator 40 07/31/17 20:58 71 23 100 Mechanical Ventilator 40 07/31/17 20:58 72 23 40 07/31/17 20:00 97.8 25 149/87 99 Mechanical Ventilator 40 97.8 07/31/17 20:00 40 07/31/17 19:15 74 24 40 07/31/17 19:14 79 07/31/17 17:14 74 22 40 07/31/17 16:00 98.0 23 158/80 100 Mechanical Ventilator 40 98.0 07/31/17 16:00 40 07/31/17 15:39 76 23 40 07/31/17 15:26 77 07/31/17 12:34 75 25 40 07/31/17 12:00 40 07/31/17 12:00 98.3 83 26 145/85 97 Mechanical Ventilator 40 98.3 07/31/17 11:56 75 Height (Feet): 5 Height (Inches): 7.00 Weight (Pounds): 214 HEENT: status post trach Respiratory/Chest: lungs clear Cardiovascular: normal rate, regular rhythm, no gallop/murmur Abdomen: soft, non tender, other - GT Extremities: other - + edema, left arm PICC Laboratory Tests Test 08/01/17 03:00 Sodium Level 147 MMOL/L (136-145) H Potassium Level 3.1 MMOL/L (3.5-5.1) L Chloride Level 109 MMOL/L (98-107) H Carbon Dioxide Level 29 MMOL/L (21-32) Anion Gap 9 mmol/L (5-15) Blood Urea Nitrogen 56 mg/dL (7-18) H Creatinine 1.6 MG/DL (0.55-1.30) H Estimat Glomerular Filtration Rate mL/min (>60) Glucose Level 214 MG/DL (74-106) H Calcium Level 6.8 MG/DL (8.5-10.1) L Magnesium Level 1.3 MG/DL (1.8-2.4) L Total Bilirubin 0.3 MG/DL (0.2-1.0) Aspartate Amino Transf (AST/SGOT) 43 U/L (15-37) H Alanine Aminotransferase (ALT/SGPT) 54 U/L (12-78) Alkaline Phosphatase 143 U/L (46-116) H Total Protein 5.5 G/DL (6.4-8.2) L Albumin 1.2 G/DL (3.4-5.0) L Globulin 4.3 g/dL Albumin/Globulin Ratio 0.3 (1.0-2.7) L Current Medications Medications (Trade) Dose Ordered Sig/Tal Route PRN Reason Start Time Stop Time Status Last Admin Dose Admin Acetaminophen (Tylenol) 650 mg Q6H PRN GT Mild Pain/Temp > 100.5 07/28/17 22:00 08/27/17 21:59 Amlodipine Besylate (Norvasc) 5 mg DAILY ORAL 07/30/17 17:00 08/29/17 16:59 08/01/17 09:04 Chlorhexidine Gluconate (Consuelo-Hex 2%) 1 applic DAILY@2000 TOPIC 07/28/17 20:00 08/25/17 19:59 07/31/17 21:01 Colistimethate Sodium (Colistin *inhalation use only*) 75 mg Q12HR@10,22 INH 07/29/17 22:00 08/05/17 23:59 07/31/17 21:08 Fluconazole (Diflucan) 100 mg DAILY ORAL 07/29/17 09:00 08/04/17 12:29 08/01/17 09:02 Hydrocortisone (Solu-CORTEF) 100 mg DAILY IV 07/29/17 09:00 08/28/17 08:59 08/01/17 09:01 Levothyroxine Sodium (Synthroid) 100 mcg DAILY@0630 ORAL 07/29/17 06:30 08/25/17 06:29 08/01/17 06:12 Meropenem 1 gm/ Sodium Chloride 55 ml @ 110 mls/hr Q12HR IVPB 07/30/17 13:00 08/04/17 12:59 08/01/17 09:02 Oxycodone/ Acetaminophen (Percocet 10/325) 1 tab Q4H PRN ORAL Severe Pain (Pain Scale 7-10) 07/31/17 09:00 08/07/17 08:59 Pantoprazole (Protonix) 40 mg DAILY IVP 07/29/17 09:00 08/27/17 08:59 08/01/17 09:02 Potassium Chloride (K-Dur) 40 meq Q4H GT 08/01/17 08:45 08/01/17 12:46 08/01/17 09:01 JOHN REAL August 01, 2017 11:52"
[2017-08-01 12:00] VITALS: BP 154/73
--- NOTE | 2017-08-01 12:38 | Nephrology Progress Note ---
Assessment/Plan Plan CKD stable Sepsis - IV Abx Hypo K/Mg correct Subjective Subjective Obtunded Objective Objective Last 24 Hour Vital Signs Date Time Temp Pulse Resp B/P (MAP) Pulse Ox O2 Delivery O2 Flow Rate FiO2 08/01/17 09:24 78 21 40 08/01/17 09:04 80 149/80 08/01/17 08:00 97.7 80 21 149/91 99 Mechanical Ventilator 40 97.7 08/01/17 08:00 40 08/01/17 08:00 77 08/01/17 07:12 77 23 40 08/01/17 05:06 73 21 40 08/01/17 04:00 40 08/01/17 04:00 97.8 19 174/89 99 Mechanical Ventilator 40 97.8 08/01/17 04:00 85 08/01/17 03:13 75 26 40 08/01/17 01:14 75 24 40 08/01/17 00:00 40 08/01/17 00:00 98.1 23 151/84 99 Mechanical Ventilator 40 98.1 07/31/17 23:52 79 07/31/17 22:37 77 25 40 07/31/17 21:09 80 23 100 Mechanical Ventilator 40 07/31/17 20:58 71 23 100 Mechanical Ventilator 40 07/31/17 20:58 72 23 40 07/31/17 20:00 97.8 25 149/87 99 Mechanical Ventilator 40 97.8 07/31/17 20:00 40 07/31/17 19:15 74 24 40 07/31/17 19:14 79 07/31/17 17:14 74 22 40 07/31/17 16:00 98.0 23 158/80 100 Mechanical Ventilator 40 98.0 07/31/17 16:00 40 07/31/17 15:39 76 23 40 07/31/17 15:26 77 Intake and Output 07/31/17 08/01/17 19:00 07:00 Intake Total 1718.335 ml 815 ml Output Total 1600 ml 1500 ml Balance 118.335 ml -685 ml Intake Free Water 200 ml IV Total 858.335 ml 55 ml Tube Feeding 660 ml 660 ml Other 100 ml Output Urine Total 1600 ml 1500 ml # Bowel Movements 4 4 Laboratory Tests 08/01/17 03:00: Sodium Level 147H, Potassium Level 3.1L, Chloride Level 109H, Carbon Dioxide Level 29, Anion Gap 9, Blood Urea Nitrogen 56H, Creatinine 1.6H, Estimat Glomerular Filtration Rate , Glucose Level 214H, Calcium Level 6.8L, Magnesium Level 1.3L, Total Bilirubin 0.3, Aspartate Amino Transf (AST/SGOT) 43H, Alanine Aminotransferase (ALT/SGPT) 54, Alkaline Phosphatase 143H, Total Protein 5.5L, Albumin 1.2L, Globulin 4.3, Albumin/Globulin Ratio 0.3L Height (Feet): 5 Height (Inches): 7.00 Weight (Pounds): 214 Objective CV RR LUngs B suhail Roach SNT. BS + E no CCE Marga Bustos MD August 01, 2017 12:38
[2017-08-01] MEDS: Colistin for inhalation INH SCH ×2 (12:47→22:00)
[2017-08-01 15:24] LABS: HEMOGLOBIN 9.4 G/DL (14.2-18.0); MEAN CORPUSCULAR VOLUME 88 FL (80-99); PLATELET COUNT 170 K/UL (150-450); RED BLOOD COUNT 3.28 M/UL (4.70-6.10); RED CELL DISTRIBUTION WIDTH 17.2 % (11.6-14.8); WHITE BLOOD COUNT 12.1 K/UL (4.8-10.8)
[2017-08-01 15:42] LABS: ANION GAP 10 mmol/L (5-15); BLOOD UREA NITROGEN 54 mg/dL (7-18); CALCIUM 6.8 MG/DL (8.5-10.1); CARBON DIOXIDE 27 MMOL/L (21-32); CHLORIDE 111 MMOL/L (98-107); CREATININE 1.5 MG/DL (0.55-1.30); POTASSIUM 3.8 MMOL/L (3.5-5.1); SODIUM 148 MMOL/L (136-145)
[2017-08-01 15:46] LABS: ALANINE AMINOTRANSFERASE 63 U/L (12-78); ALBUMIN 1.2 G/DL (3.4-5.0); ALBUMIN/GLOBULIN RATIO 0.3 (1.0-2.7); ALKALINE PHOSPHATASE 152 U/L (46-116); ASPARTATE AMINO TRANSFERASE 59 U/L (15-37); BILIRUBIN,TOTAL 0.3 MG/DL (0.2-1.0)
[2017-08-01 16:00] VITALS: BP 151/75
[2017-08-01] MEDS ORDERED: Tubing IV Secondary IV ONE (16:44)
[2017-08-01] MEDS ORDERED: NS 500ML ONE (16:44)
--- NOTE | 2017-08-01 17:45 | Pulmonolgy Critical Care Note ---
Critical Care - Asmt/Plan Assessment/Plan: ssessment/Plan IMPRESSION: 1. Respiratory failure. 2. Probable sepsis. 3. Extensive pneumonia. 4. Tracheostomy and gastrostomy tube. 5. History of cardiopulmonary arrest. 6. Evidence of anoxia. 7. Hypothyroidism. 8. Aspiration. 9. Dementia. 10. acute renal failure 11. anemia 12. chronic encephalopathy 13. anoxia 14. CAD PLAN on vent IV antibiotics noted respiratory care as is-no wean Ventilatory support as is SNF meds noted replace lytes and monitor suction and monitor frequency oxygen adequate at present prognosis poor for recovery nutrition tolerated and rate reviewed position change to avoid pressure sores monitor for skin breakdown and assess pressors as needed and monitor hemodynamics medications/laboratory data/nursing notes reviewed in detail note reviewed and edited care discussed with RN and RT Critical Care - Subjective Interval Events: care noted d/w nursing ROS Limited/Unobtainable: Yes Condition: critical EKG Rhythm: Sinus Rhythm Residuals: minimal Tube Feeding Tolerated: yes I&O: Intake and Output 07/30/17 07/31/17 19:00 07:00 Intake Total 2037.5 ml 1720 ml Output Total 2600 ml 1550 ml Balance -562.5 ml 170 ml Intake Free Water 30 ml 50 ml IV Total 1287.5 ml 1120 ml Tube Feeding 660 ml 550 ml Other 60 ml Output Urine Total 2600 ml 1550 ml # Bowel Movements 3 4 Critical Care - Objective Last 24 Hour Vital Signs Date Time Temp Pulse Resp B/P (MAP) Pulse Ox O2 Delivery O2 Flow Rate FiO2 07/31/17 07:09 69 28 40 07/31/17 05:13 65 26 40 07/31/17 04:00 40 07/31/17 04:00 68 07/31/17 04:00 97.1 69 20 141/68 98 Mechanical Ventilator 40 97.1 07/31/17 03:35 71 28 40 07/31/17 01:21 72 29 40 07/31/17 00:00 40 07/31/17 00:00 66 07/31/17 00:00 96.9 76 21 136/68 98 Mechanical Ventilator 40 96.9 07/30/17 23:15 72 19 99 Mechanical Ventilator 40 07/30/17 23:07 69 31 40 07/30/17 23:05 61 20 100 Mechanical Ventilator 40 5/2/18 21:30 66 27 40 07/30/17 20:00 40 07/30/17 20:00 96.8 72 22 142/74 100 Mechanical Ventilator 40 96.8 07/30/17 20:00 66 07/30/17 19:03 64 29 40 07/30/17 18:07 148/84 07/30/17 17:15 77 175/90 07/30/17 16:43 77 26 40 07/30/17 16:00 97.7 65 30 175/90 100 Mechanical Ventilator 40 97.7 07/30/17 16:00 66 07/30/17 16:00 40 07/30/17 14:31 63 28 40 07/30/17 13:09 73 22 40 07/30/17 12:00 97.5 52 24 162/93 99 Mechanical Ventilator 40 97.5 07/30/17 12:00 54 07/30/17 12:00 40 07/30/17 10:30 71 20 40 07/30/17 09:20 58 20 99 Mechanical Ventilator 40 07/30/17 09:10 58 19 99 Mechanical Ventilator 40 07/30/17 09:10 58 19 40 Labs: Labs Test 07/28/17 09:10 07/29/17 04:00 07/29/17 09:10 07/30/17 04:00 Arterial Blood pH 7.420 (7.350-7.450) Arterial Blood Partial Pressure CO2 33.2 mmHg (35.0-45.0) Arterial Blood Partial Pressure O2 118.2 mmHg (75.0-100.0) Arterial Blood HCO3 21.0 mmol/L (22.0-26.0) Arterial Blood Oxygen Saturation 97.7 % (92.0-98.0) Arterial Blood Base Excess -3.0 Mina Test Positive White Blood Count 9.4 K/UL (4.8-10.8) 8.4 K/UL (4.8-10.8) Red Blood Count 2.85 M/UL (4.70-6.10) 2.95 M/UL (4.70-6.10) Hemoglobin 8.2 G/DL (14.2-18.0) 8.7 G/DL (14.2-18.0) Hematocrit 24.7 % (42.0-52.0) 25.7 % (42.0-52.0) Mean Corpuscular Volume 87 FL (80-99) 87 FL (80-99) Mean Corpuscular Hemoglobin 28.7 PG (27.0-31.0) 29.3 PG (27.0-31.0) Mean Corpuscular Hemoglobin Concent 33.1 G/DL (32.0-36.0) 33.7 G/DL (32.0-36.0) Red Cell Distribution Width 17.2 % (11.6-14.8) 17.2 % (11.6-14.8) Platelet Count 152 K/UL (150-450) 154 K/UL (150-450) Mean Platelet Volume 7.4 FL (6.5-10.1) 7.4 FL (6.5-10.1) Neutrophils (%) (Auto) 84.3 % (45.0-75.0) 79.5 % (45.0-75.0) Lymphocytes (%) (Auto) 8.9 % (20.0-45.0) 11.3 % (20.0-45.0) Monocytes (%) (Auto) 6.5 % (1.0-10.0) 8.8 % (1.0-10.0) Eosinophils (%) (Auto) 0.0 % (0.0-3.0) 0.0 % (0.0-3.0) Basophils (%) (Auto) 0.3 % (0.0-2.0) 0.5 % (0.0-2.0) Sodium Level 144 MMOL/L (136-145) 144 MMOL/L (136-145) Potassium Level 2.7 MMOL/L (3.5-5.1) 2.7 MMOL/L (3.5-5.1) Chloride Level 108 MMOL/L (98-107) 107 MMOL/L (98-107) Carbon Dioxide Level 21 MMOL/L (21-32) 24 MMOL/L (21-32) Anion Gap 15 mmol/L (5-15) 12 mmol/L (5-15) Blood Urea Nitrogen 68 mg/dL (7-18) 63 mg/dL (7-18) Creatinine 1.8 MG/DL (0.55-1.30) 1.8 MG/DL (0.55-1.30) Estimat Glomerular Filtration Rate mL/min (>60) mL/min (>60) Glucose Level 267 MG/DL (74-106) 317 MG/DL (74-106) Calcium Level 6.6 MG/DL (8.5-10.1) 6.6 MG/DL (8.5-10.1) Magnesium Level 1.6 MG/DL (1.8-2.4) 1.7 MG/DL (1.8-2.4) Iron Level 64 ug/dL (50-175) Total Iron Binding Capacity 83 ug/dL (250-450) Percent Iron Saturation 77 % (15-50) Unsaturated Iron Binding 19 ug/dL (112-346) Total Bilirubin 0.2 MG/DL (0.2-1.0) Aspartate Amino Transf (AST/SGOT) 37 U/L (15-37) Alanine Aminotransferase (ALT/SGPT) 38 U/L (12-78) Alkaline Phosphatase 126 U/L (46-116) Total Protein 5.8 G/DL (6.4-8.2) Albumin 1.1 G/DL (3.4-5.0) Globulin 4.7 g/dL Albumin/Globulin Ratio 0.2 (1.0-2.7) Objective: HEENT: Negative. NECK: Supple. No adenopathy. no JVD Otherwise, the patient's carotids are 2+. trach in place LUNGS: Moderate breath sounds. no rhonchi or wheeze CARDIAC: S1 and S2. Regular rate and rhythm without murmurs, rubs, or gallops. ABDOMEN: Soft, nontender, and nondistended. G-tube in place. no HSM EXTREMITIES: No cyanosis or clubbing. There is significant mottling. NEUROLOGIC: Poorly responsive at present. SKIN: Noted and reviewed. reviewed and edited Micro: Microbiology Date/Time Source Procedure Growth Status 07/28/17 12:00 Stool Clostridium difficile Toxin Assay - Final Complete Critical Care - Objective Last 24 Hour Vital Signs Date Time Temp Pulse Resp B/P (MAP) Pulse Ox O2 Delivery O2 Flow Rate FiO2 08/01/17 16:54 83 26 40 08/01/17 16:00 40 08/01/17 16:00 98.4 85 24 151/75 99 Mechanical Ventilator 40 98.4 08/01/17 16:00 85 08/01/17 14:47 80 25 40 08/01/17 12:58 79 19 100 Mechanical Ventilator 40 08/01/17 12:48 79 22 98 Mechanical Ventilator 40 08/01/17 12:39 79 19 40 08/01/17 12:00 97.0 85 23 154/73 96 40 97.0 08/01/17 12:00 81 08/01/17 12:00 40 08/01/17 11:18 86 23 40 08/01/17 09:24 78 21 40 08/01/17 09:04 80 149/80 08/01/17 08:00 97.7 80 21 149/91 99 Mechanical Ventilator 40 97.7 08/01/17 08:00 40 08/01/17 08:00 77 08/01/17 07:12 77 23 40 08/01/17 05:06 73 21 40 08/01/17 04:00 40 08/01/17 04:00 97.8 19 174/89 99 Mechanical Ventilator 40 97.8 08/01/17 04:00 85 08/01/17 03:13 75 26 40 08/01/17 01:14 75 24 40 08/01/17 00:00 40 08/01/17 00:00 98.1 23 151/84 99 Mechanical Ventilator 40 98.1 07/31/17 23:52 79 07/31/17 22:37 77 25 40 07/31/17 21:09 80 23 100 Mechanical Ventilator 40 07/31/17 20:58 71 23 100 Mechanical Ventilator 40 07/31/17 20:58 72 23 40 07/31/17 20:00 97.8 25 149/87 99 Mechanical Ventilator 40 97.8 07/31/17 20:00 40 07/31/17 19:15 74 24 40 07/31/17 19:14 79 Accucheck: 74 Critical Care - Subjective ROS Limited/Unobtainable: Yes Condition: stable EKG Rhythm: Sinus Rhythm FI02: 40 Vent Support Breath Rate: 18 Vent Support Mode: AC Vent Tidal Volume: 450 Sputum Amount: Small PEEP: 5.0 PIP: 26 Tube Feeding Amount: 55 I&O: Intake and Output 07/31/17 08/01/17 19:00 07:00 Intake Total 1718.335 ml 815 ml Output Total 1600 ml 1500 ml Balance 118.335 ml -685 ml Intake Free Water 200 ml IV Total 858.335 ml 55 ml Tube Feeding 660 ml 660 ml Other 100 ml Output Urine Total 1600 ml 1500 ml # Bowel Movements 4 4 Keith Cherry M.D. August 01, 2017 17:45
[2017-08-01 20:00] VITALS: BP 145/87
[2017-08-01] MEDS: Dyna-Hex 2% Top Sol 2oz TOPIC SCH (20:13)
--- NOTE | 2017-08-01 22:10 | General Progress Note ---
Assessment/Plan Assessment/Plan Assessment - Anemia - GT dependent - Resp failure, s/p trach - sepsis Recommendations - continue TF - Monitor CBC - transfuse PRN - elevagte HOB - abx per ID - GI site care - will d/w family re anemia Subjective Allergies: Coded Allergies: No Known Allergies (Unverified , 07/25/17) Subjective non communicative H&H downward trend tolerating TF Objective Last 24 Hour Vital Signs Date Time Temp Pulse Resp B/P (MAP) Pulse Ox O2 Delivery O2 Flow Rate FiO2 08/01/17 20:59 85 23 40 08/01/17 20:00 83 08/01/17 20:00 40 08/01/17 20:00 98.1 88 24 145/87 99 Mechanical Ventilator 40 98.1 08/01/17 19:49 82 25 40 08/01/17 16:54 83 26 40 08/01/17 16:00 40 08/01/17 16:00 98.4 85 24 151/75 99 Mechanical Ventilator 40 98.4 08/01/17 16:00 85 08/01/17 14:47 80 25 40 08/01/17 12:58 79 19 100 Mechanical Ventilator 40 08/01/17 12:48 79 22 98 Mechanical Ventilator 40 08/01/17 12:39 79 19 40 08/01/17 12:00 97.0 85 23 154/73 96 40 97.0 08/01/17 12:00 81 08/01/17 12:00 40 08/01/17 11:18 86 23 40 08/01/17 09:24 78 21 40 08/01/17 09:04 80 149/80 08/01/17 08:00 97.7 80 21 149/91 99 Mechanical Ventilator 40 97.7 08/01/17 08:00 40 08/01/17 08:00 77 08/01/17 07:12 77 23 40 08/01/17 05:06 73 21 40 08/01/17 04:00 40 08/01/17 04:00 97.8 19 174/89 99 Mechanical Ventilator 40 97.8 08/01/17 04:00 85 08/01/17 03:13 75 26 40 08/01/17 01:14 75 24 40 08/01/17 00:00 40 08/01/17 00:00 98.1 23 151/84 99 Mechanical Ventilator 40 98.1 07/31/17 23:52 79 07/31/17 22:37 77 25 40 Intake and Output 07/31/17 08/01/17 19:00 07:00 Intake Total 1718.335 ml 815 ml Output Total 1600 ml 1500 ml Balance 118.335 ml -685 ml Intake Free Water 200 ml IV Total 858.335 ml 55 ml Tube Feeding 660 ml 660 ml Other 100 ml Output Urine Total 1600 ml 1500 ml # Bowel Movements 4 4 Laboratory Tests 08/01/17 03:00: Sodium Level 147H, Potassium Level 3.1L, Chloride Level 109H, Carbon Dioxide Level 29, Anion Gap 9, Blood Urea Nitrogen 56H, Creatinine 1.6H, Estimat Glomerular Filtration Rate , Glucose Level 214H, Calcium Level 6.8L, Magnesium Level 1.3L, Total Bilirubin 0.3, Aspartate Amino Transf (AST/SGOT) 43H, Alanine Aminotransferase (ALT/SGPT) 54, Alkaline Phosphatase 143H, Total Protein 5.5L, Albumin 1.2L, Globulin 4.3, Albumin/Globulin Ratio 0.3L 08/01/17 14:55: Sodium Level 148H, Potassium Level 3.8, Chloride Level 111H, Carbon Dioxide Level 27, Anion Gap 10, Blood Urea Nitrogen 54H, Creatinine 1.5H, Estimat Glomerular Filtration Rate , Glucose Level 269H, Calcium Level 6.8L, Total Bilirubin 0.3, Aspartate Amino Transf (AST/SGOT) 59H, Alanine Aminotransferase ( ALT/SGPT) 63, Alkaline Phosphatase 152H, Total Protein 5.6L, Albumin 1.2L, Globulin 4.4, Albumin/Globulin Ratio 0.3L, White Blood Count 12.1H, Red Blood Count 3.28L, Hemoglobin 9.4L, Hematocrit 29.0L, Mean Corpuscular Volume 88, Mean Corpuscular Hemoglobin 28.5, Mean Corpuscular Hemoglobin Concent 32.3, Red Cell Distribution Width 17.2H, Platelet Count 170, Mean Platelet Volume 8.1, Neutrophils (%) (Auto) , Lymphocytes (%) (Auto) , Monocytes (%) (Auto) , Eosinophils (%) (Auto) , Basophils (%) (Auto) , Differential Total Cells Counted 100, Neutrophils % (Manual) 88H, Lymphocytes % (Manual) 9L, Monocytes % (Manual) 3, Eosinophils % (Manual) 0, Basophils % (Manual) 0, Band Neutrophils 0 , Platelet Estimate Adequate, Platelet Morphology Normal, Hypochromasia 1+, Anisocytosis 1+ Height (Feet): 5 Height (Inches): 7.00 Weight (Pounds): 214 Objective Debilitated WM NCAT supple, (+) trach coarse BS RRR soft / flat abd (+) trace edema RUIZ GUEVARA August 01, 2017 22:10
--- NOTE | 2017-08-01 22:45 | Progress Note ---
DATE: 08/01/2017 CARDIOLOGY PROGRESS NOTE SUBJECTIVE: The patient remains on the ventilator and awake, but nonverbal. He is not weanable at this time. He is on nutrition by feeding tube. He remains on multiple antibiotics. Aggressive wound care is ongoing. OBJECTIVE: VITAL SIGNS: Blood pressure 149/80, heart rate 80, respiratory rate 21, afebrile. Monitored rhythm, sinus. Rare PAC. LUNGS: Coarse breath sounds. No wheezing. HEART: Regular rhythm and rate. Normal S1, S2. There is no murmur. ABDOMEN: Obese, soft, and nontender. G-tube intact. EXTREMITIES: With dependent edema, trace. LABORATORY DATA: Sodium 147, potassium 3.1, bicarbonate 29, BUN 56, creatinine 1.6. Magnesium 1.3. Albumin 1.2. IMPRESSION: 1. Recovered shock due to sepsis. 2. Hypomagnesemia. 3. Hypokalemia. 4. Severe protein-calorie malnutrition. 5. Multiple decubiti. 6. Acute renal failure, improving. 7. Status post respiratory failure. 8. Not weanable at this time. 9. Distant history of anoxic encephalopathy. 10. Full cardiopulmonary arrest. PLAN: 1. Ventilator support. 2. Replace potassium and magnesium. 3. No need for pressors. 4. No need for midodrine. 5. Antimicrobials per Infectious Disease surgical product sales consultant. 6. Adjust IV fluids based on clinical parameters. 7. Continue DVT and stress ulcer prophylaxis. Keith Reeves M.D. DR: Kayla JOB#: [id number] CC:
--- NOTE | 2017-08-04 10:15 | Discharge Summary ---
Discharge Summary Discharge Summary Discharge Summary DATE OF ADMISSION: 07/25/2017 DATE OF DISCHARGE: 08/01/2017 REASON FOR ADMISSION: 77 years old male with a past medical history significant for ventilator dependent respiratory failure, tracheostomy status, CVA, on dysphagia, G-tube, diabetes mellitus, hypothyroidism status post cardiopulmonary arrest, history of [place], dementia multiply pressure ulcer was sent from [facility] for evaluation due to hypotension and bradycardia. Upon evaluation in emergency room initially patient had no leukocytosis on blood pressure 83/45 heartrate of 48, temperature 88.0 BU and 67 creatinine 1.4 troponin was negative hemoglobin 10.1 hematocrit 32.0 urinalysis with evidence of UTI chest x -ray with evidence of extensive pneumonia. Patient was started on warming masher, septic workup initiated, on patient started on the IV fluids and required pressor initially transferred to ICU for further management with diagnosis of septic shock sepsis respiratory failure extensive pneumonia UTI on renal failure multiply dictate ulcers. CONSULTANTS: claims representative pulmonary dr Blackman ID specialist dr Boyd GI specialist dr Choudhary senior technical analyst Dr. Bustos HOSPITAL COURSE: Patient initially admitted to ICU. Patient started on the IV fluids. Patient required pressors for hemodynamic support. Patient started on empiric antibiotic. Casino Floor Supervisor closely followed. Ventilator support and tracheostomy care provided, pulmonary toilet provided. Patient was followed up with ABG , ventilator setting were titrated as needed. Patient's overall prognosis was poor and condition was guarded. Missile Control Pilot status was DNR/DNI. Blood culture were negative, urine culture revealed Tabatha. Sputum culture showed Klebsiella pneumonia, carbapenem resistant; Providencia ESBL, Tabatha. Wound culture revealed Klebsiella pneumonia carbapenem resistant, Proteus ESBL. Influenza screen test was negative, stool for C. difficile was negative. Antibiotic regimen was optimized as per ID recommendations. Pizza Delivery closely followed. Patient initially was on pressor to keep mean arterial blood pressure above 65. As blood pressure stabilized, pressors were discontinued. Patient subsequently was transferred to [facility]. Echocardiogram revealed preserved ejection fraction of 60%, borderline left ventricular hypertrophy, trace pericardial effusion. All other cardiac chamber sizes were within normal limits. Right ventricular systolic pressure of 40 , consistent with a mild pulmonary hypertension. Moderate mitral regurgitation. Per claims representative, bradyarrhythmia was secondary to hypothermic state and severe sepsis . Heart rate and blood pressure eventually stabilized. Patient was started on midodrine for blood pressure support. Patient started on trial of hydrocortisone. Cortisol level was stable. GI prophylaxis provided. Follow-up chest x-ray showed improvement in aeration in the right lung. Buttonhole Facer closely followed. Per senior technical analyst, patient had chronic kidney disease stage IV secondary to diabetic nephropathy. Renal ultrasound with no evidence of hydronephrosis, no evidence of stones, normal bilateral kidney echogenicity. Renal parameters and electrolytes were closely monitored. Electrolytes were corrected as needed, specifically hypokalemia and hypomagnesemia. Nephrotoxics were avoided. Nutritional support provided as per dietary recommendation for severe protein calorie malnutrition. GI specialist closely followed. Tube feeding was started as per dietary commendations. Strict aspiration /reflux precautions were maintained. G-tube site care provided. Anemia workup revealed anemia of chronic disease. Counts were closely monitored with goal to keep hemoglobin above 7, no need for transfusion. Stool for occult blood was positive. Outpatient GI workup if family desire. Thyroid replacement provided. Wound care closely follow patient for multiply pressure ulcer and deep tissue injuries, present on admission. Wound care provided as per wound care nurse recommendations. Patient was stable [facility] FINAL DIAGNOSES: Septic shock, resolved Sepsis Extensive Klebsiella, Providencia pneumonia Fungal UTI Respiratory failure, ventilator dependent History of cardiopulmonary arrest Bradyarrhythmias, resolved Renal failure with chronic kidney disease stage IV secondary to diabetic nephropathy Chronic anoxic encephalopathy Hypothyroidism Electrolyte abnormalities (hypokalemia hypomagnesemia) History of diabetes mellitus History of hypertension with hypertensive heart disease History of coronary artery disease with prior myocardial infarction. Metabolic acidosis Anemia Right trochanter stage IV pressure ulcer present on admission Left trochanter stage IV pressure ulcer present on admission Sacral decubitus stage IV pressure ulcer present on admission Right buttock un-stageable pressure ulcer present on admission Multiply deep tissue injuries present on admission DISCHARGE MEDICATIONS: See Medication Reconciliation list. DISCHARGE INSTRUCTIONS: [facility] facility[facility] Follow up with the medical doctor and supplemental manager at the facility. I have been assigned to dictate discharge summary for this account. I was not involved in the patient's management. Jenna Leal NP ([place]) August 04, 2017 10:15
== END 2017-08-01 22:20 | DRG 870 ==
LOC: EDBD 16:54 → EMR 19:11 → ICU 19:16 → EDBEDREQ 19:57 → 2W 07-28 13:58
PROC: 5A1955Z Respiratory Ventilation, Greater than 96 Consecutive Hours (ICD-10-PCS; principal; 2017-07-25)
DX: A41.9 Sepsis, unspecified organism (principal); L89.154 Pressure ulcer of sacral region, stage 4; L89.224 Pressure ulcer of left hip, stage 4; L89.214 Pressure ulcer of right hip, stage 4; J96.90 Respiratory failure, unspecified, unspecified whether with hypoxia or hypercapnia; R65.21 Severe sepsis with septic shock; E43 Unspecified severe protein-calorie malnutrition; J15.0 Pneumonia due to Klebsiella pneumoniae; N17.9 Acute kidney failure, unspecified; N39.0 Urinary tract infection, site not specified; K92.2 Gastrointestinal hemorrhage, unspecified; G93.1 Anoxic brain damage, not elsewhere classified; J96.10 Chronic respiratory failure, unspecified whether with hypoxia or hypercapnia; M86.9 Osteomyelitis, unspecified; E87.2 Acidosis; N18.4 Chronic kidney disease, stage 4 (severe); J90 Pleural effusion, not elsewhere classified; B49 Unspecified mycosis; E87.0 Hyperosmolality and hypernatremia; E27.40 Unspecified adrenocortical insufficiency; Z99.11 Dependence on respirator [ventilator] status; L89.310 Pressure ulcer of right buttock, unstageable; Z66 Do not resuscitate; Z93.0 Tracheostomy status; Z93.1 Gastrostomy status; I13.10 Hypertensive heart and chronic kidney disease without heart failure, with stage 1 through stage 4 chronic kidney disease, or unspecified chronic kidney disease; E11.22 Type 2 diabetes mellitus with diabetic chronic kidney disease; I25.2 Old myocardial infarction; I25.10 Atherosclerotic heart disease of native coronary artery without angina pectoris; E03.9 Hypothyroidism, unspecified; E86.1 Hypovolemia; E87.6 Hypokalemia; E83.42 Hypomagnesemia; R13.10 Dysphagia, unspecified
CPT/HCPCS: 36415; 36600; 71045; 76770; 80048; 80053; 80202; 81003; 82270; 82533; 82550; 82553; 82803; 82962; 83540; 83550; 83605; 83735; 84439; 84443; 84481; 84484; 85007; 85025; 86710; 87040; 87070; 87081; 87086; 87181; 87205; 87324; 93005; 93306; 94002; 94003; 94640; 99291; J8499

== ENCOUNTER 2017-08-11 20:37 | Inpatient (IN) | payer MEDICARE, MEDICAID ==
[~2017-08-11] VITALS: Ht 160 cm; Wt 72.6 kg
[~2017-08-11 20:37] MED LIST: ACETAMINOP160 MG/54 GT; ALBUTEROL2.5 MG/3 M INH; HEPARIN SO5000 UNIT2 SUBQ; IMODIUM A-D2 M2 PO; MIDODRINE HCL5 MG GT; PRAVASTATIN SOD20 M1 GT; PRAVASTATIN SOD40 M1 ORAL; PROMOD946 ML GT; PROTONIX40 MG GT
[2017-08-11 21:00] VITALS: BP 129/70
[2017-08-11 21:57] LABS: HEMATOCRIT 20.7 % (42.0-52.0); MEAN CORPUSCULAR VOLUME 87 FL (80-99); PLATELET COUNT 189 K/UL (150-450); RED BLOOD COUNT 2.39 M/UL (4.70-6.10); WHITE BLOOD COUNT 8.8 K/UL (4.8-10.8)
[2017-08-11 22:16] LABS: HEMOGLOBIN 6.9 G/DL (14.2-18.0)
[2017-08-11 22:38] LABS: ALANINE AMINOTRANSFERASE 20 U/L (12-78); ALBUMIN 1.1 G/DL (3.4-5.0); ALBUMIN/GLOBULIN RATIO 0.2 (1.0-2.7); ALKALINE PHOSPHATASE 129 U/L (46-116); ANION GAP 9 mmol/L (5-15); ASPARTATE AMINO TRANSFERASE 25 U/L (15-37); BILIRUBIN,TOTAL 0.3 MG/DL (0.2-1.0); BLOOD UREA NITROGEN 90 mg/dL (7-18); CALCIUM 7.7 MG/DL (8.5-10.1); CARBON DIOXIDE 24 MMOL/L (21-32); CHLORIDE 100 MMOL/L (98-107); CKMB 1.2 NG/ML (0.0-3.6); CREATINE KINASE 24 U/L (26-308); CREATININE 2.3 MG/DL (0.55-1.30); SODIUM 133 MMOL/L (136-145)
[2017-08-11 22:41] LABS: POTASSIUM 6.2 MMOL/L (3.5-5.1)
[2017-08-11 23:06] VITALS: BP 127/57
[2017-08-12] VITALS (7 sets, daily range): BP systolic 105–132; BP diastolic 56–98
[2017-08-12] MEDS ORDERED: SYNTHROID100 MCG ORAL (00:50)
[2017-08-12] MEDS ORDERED: FLUCONAZOLE100 MG ORAL ×2 (00:50→01:38)
[2017-08-12] MEDS ORDERED: COLISTIN150 MG HHN (00:50)
[2017-08-12] MEDS ORDERED: AMLODIPINE BESYL5 MG ORAL (00:50)
--- NOTE | 2017-08-12 01:20 | Emergency Room Report ---
History of Present Illness General Chief Complaint: Abnormal Labs Source: Medical Record, EMS Present Illness HPI Patient presents with significant anemia Patient has tracheostomy and dependent Patient himself is nonverbal There was no reports of vomiting or diarrhea No change in medications There was no reports of any recent blood in the stool or vomiting of blood Patient has a feeding tube in place Allergies: Coded Allergies: No Known Allergies (Unverified , 07/25/17) Patient History Limited by: medical condition Past Medical History: see triage record Pertinent Family History: unable to obtain Reviewed Nursing Documentation: PMH: Agreed; PSxH: Agreed Nursing Documentation-PMH Past Medical History: No History, Except For Hx Hypertension: Yes Hx Diabetes: Yes 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, VRE, CRE isolation Hx Gastrointestinal Problems: Yes - dysphagia, gtube Hx Cerebrovascular Accident: Yes Hx Dementia: Yes Review of Systems All Other Systems: limited - Other than the ones mentioned in the history of present illness all others are reviewed however they do stay limited due to the patient's mental status Physical Exam Vital Signs Date Time Temp Pulse Resp B/P (MAP) Pulse Ox O2 Delivery O2 Flow Rate FiO2 08/11/17 20:32 98.7 96 23 129/70 97 Mechanical Ventilator 98.8 08/11/17 22:18 50 Sp02 EP Interpretation: reviewed, normal General Appearance: no apparent distress Head: normocephalic, atraumatic Eyes: bilateral eye PERRL, bilateral eye EOMI ENT: normal pharynx, no angioedema Neck: supple, other - Tracheostomy in place Respiratory: lungs clear, no retraction, no accessory muscle use Cardiovascular #1: regular rate, rhythm Gastrointestinal: non tender, soft Musculoskeletal: other - Patient is contracted and contorted, chronic illness muscle exam is not able to be obtained, Neurologic: responsive - To physical stimuli Skin: other - decubitus ulcers Lymphatic: no adenopathy Medical Decision Making Diagnostic Impression: Primary Impression: Symptomatic anemia Additional Impression: Hyperkalemia ER Course Patient is complex with multiple differentials considered Blood work reveals significant anemia with hemoglobin less than 7.0 Patient has type and cross initiated Blood products being given Unclear source of the anemia patient does have kidney disease with potential source No obvious GI bleeding at this time Patient admitted for further care in improved yet serious condition Labs Test 08/11/17 21:15 White Blood Count 8.8 K/UL (4.8-10.8) Red Blood Count 2.39 M/UL (4.70-6.10) Hemoglobin 6.9 G/DL (14.2-18.0) Hematocrit 20.7 % (42.0-52.0) Mean Corpuscular Volume 87 FL (80-99) Mean Corpuscular Hemoglobin 28.8 PG (27.0-31.0) Mean Corpuscular Hemoglobin Concent 33.3 G/DL (32.0-36.0) Red Cell Distribution Width 16.0 % (11.6-14.8) Platelet Count 189 K/UL (150-450) Mean Platelet Volume 5.4 FL (6.5-10.1) Neutrophils (%) (Auto) % (45.0-75.0) Lymphocytes (%) (Auto) % (20.0-45.0) Monocytes (%) (Auto) % (1.0-10.0) Eosinophils (%) (Auto) % (0.0-3.0) Basophils (%) (Auto) % (0.0-2.0) Differential Total Cells Counted 100 Neutrophils % (Manual) 64 % (45-75) Lymphocytes % (Manual) 29 % (20-45) Monocytes % (Manual) 7 % (1-10) Eosinophils % (Manual) 0 % (0-3) Basophils % (Manual) 0 % (0-2) Band Neutrophils 0 % (0-8) Platelet Estimate Adequate Platelet Morphology Normal Hypochromasia 2+ Anisocytosis 1+ Sodium Level 133 MMOL/L (136-145) Potassium Level 6.2 MMOL/L (3.5-5.1) Chloride Level 100 MMOL/L (98-107) Carbon Dioxide Level 24 MMOL/L (21-32) Anion Gap 9 mmol/L (5-15) Blood Urea Nitrogen 90 mg/dL (7-18) Creatinine 2.3 MG/DL (0.55-1.30) Estimat Glomerular Filtration Rate mL/min (>60) Glucose Level 89 MG/DL (74-106) Calcium Level 7.7 MG/DL (8.5-10.1) Total Bilirubin 0.3 MG/DL (0.2-1.0) Aspartate Amino Transf (AST/SGOT) 25 U/L (15-37) Alanine Aminotransferase (ALT/SGPT) 20 U/L (12-78) Alkaline Phosphatase 129 U/L (46-116) Total Creatine Kinase 24 U/L (26-308) Creatine Kinase MB 1.2 NG/ML (0.0-3.6) Creatine Kinase MB Relative Index 5.0 Troponin I 0.000 ng/mL (0.000-0.056) Total Protein 5.9 G/DL (6.4-8.2) Albumin 1.1 G/DL (3.4-5.0) Globulin 4.8 g/dL Albumin/Globulin Ratio 0.2 (1.0-2.7) Rhythm Strip Diag. Results EP Interpretation: yes Rate: 77 Rhythm: NSR, no PVC's, no ectopy Chest X-Ray Diagnostic Results Chest X-Ray Diagnostic Results : Chest X-Ray Ordered: Yes # of Views/Limited/Complete: 1 View Indication: Chest Pain EP Interpretation: Yes Interpretation: no pneumothorax, other - Bilateral markings, atelectasis lower lobe small effusion Impression: No acute disease Electronically Signed by: Jos Banks DO Last Vital Signs Date Time Temp Pulse Resp B/P (MAP) Pulse Ox O2 Delivery O2 Flow Rate FiO2 08/12/17 00:04 100.6 93 20 116/65 100 Mechanical Ventilator 100.6 08/11/17 22:18 50 Status: improved Disposition: ADMITTED INPATIENT Condition: Serious Referrals: Kj Blackman MD (PCP) Jos Banks DO August 12, 2017 01:20
[2017-08-12] MEDS ORDERED: NORCO 10-325 T1 EACH GT (01:38)
[2017-08-12] MEDS ORDERED: AMLODIPINE BESYL5 MG GT (01:38)
[2017-08-12] MEDS ORDERED: FERROUS SULFAT325 MG GT (01:51)
[2017-08-12] MEDS ORDERED: DULCOLAX10 MG RC (01:51)
[2017-08-12] MEDS ORDERED: EPOGEN10000 UNIT SUBQ (01:51)
[2017-08-12] MEDS ORDERED: MULTI-DELYN237 ML GT (01:51)
[2017-08-12] MEDS ORDERED: VITAMIN C500 M1 GT (01:51)
[2017-08-12] MEDS ORDERED: COLACE100 MG GT (01:51)
[2017-08-12] MEDS ORDERED: FLEET ENEMA133 ML RECTAL (01:51)
[2017-08-12] MEDS ORDERED: ZINC SULFATE220 M2 GT (01:51)
--- NOTE | 2017-08-12 08:21 | Consultation ---
Consult Note Consult Note CONSULTING PHYSICIAN: Kj Blackman M.D. REFERRING PHYSICIAN: [place] M.D. REASON FOR CONSULTATION: Respiratory failure. REASON FOR ADMISSION: Sepsis shock. HISTORY OF PRESENT ILLNESS: 77-year-old male, recently discharged from [place] for renal failure and sepsis. The patient is poorly responsive at baseline and has been in the SNF and noted to have severe anemia. The patient with respiratory failure, and associated bradycardia. The patient was seen and evaluated in the emergency room requiring KRISTA admission. The patient is presently off pressors. The patient now admitted for transfusion. The patient is on a ventilator chronically. The patient admitted and [facility] care was reviewed. Chart notes were reviewed. Care discussed with primary physician. The patient is chronically ill PAST MEDICAL HISTORY: Notable for diabetes, hypertension, SC, CAD, dementia, recent cardiopulmonary arrest, G-tube, and tracheostomy. bradycardia SOCIAL HISTORY: vent and bedbound in group home facility. Nonsmoker and nondrinker at present. FAMILY HISTORY: Unobtainable. REVIEW OF SYSTEMS: Unobtainable. PHYSICAL EXAMINATION: GENERAL: This is an ill-appearing male, overall poorly responsive. VITAL SIGNS: Blood pressure 105/55, respiratory rate is 30, and heart rate 32, and saturation is 99%. The patient is currently with temperature 98.4. HEENT: Negative. NECK: Supple. No adenopathy. The patient is difficult to fully assess. Otherwise, the patient's carotids are 2+. LUNGS: Moderate breath sounds. Rhonchi diffusely, greater on the left. CARDIAC: S1 and S2. Regular rate and rhythm without murmurs, rubs, or gallops. ABDOMEN: Soft, nontender, and nondistended. G-tube in place. EXTREMITIES: No cyanosis or clubbing. There is significant mottling. NEUROLOGIC: Poorly responsive at present. SKIN: Noted and reviewed. LABORATORY AND DIAGNOSTIC DATA: Labs Test 08/11/17 21:15 White Blood Count 8.8 K/UL (4.8-10.8) Red Blood Count 2.39 M/UL (4.70-6.10) Hemoglobin 6.9 G/DL (14.2-18.0) Hematocrit 20.7 % (42.0-52.0) Mean Corpuscular Volume 87 FL (80-99) Mean Corpuscular Hemoglobin 28.8 PG (27.0-31.0) Mean Corpuscular Hemoglobin Concent 33.3 G/DL (32.0-36.0) Red Cell Distribution Width 16.0 % (11.6-14.8) Platelet Count 189 K/UL (150-450) Mean Platelet Volume 5.4 FL (6.5-10.1) Neutrophils (%) (Auto) % (45.0-75.0) Lymphocytes (%) (Auto) % (20.0-45.0) Monocytes (%) (Auto) % (1.0-10.0) Eosinophils (%) (Auto) % (0.0-3.0) Basophils (%) (Auto) % (0.0-2.0) Differential Total Cells Counted 100 Neutrophils % (Manual) 64 % (45-75) Lymphocytes % (Manual) 29 % (20-45) Monocytes % (Manual) 7 % (1-10) Eosinophils % (Manual) 0 % (0-3) Basophils % (Manual) 0 % (0-2) Band Neutrophils 0 % (0-8) Platelet Estimate Adequate Platelet Morphology Normal Hypochromasia 2+ Anisocytosis 1+ Sodium Level 133 MMOL/L (136-145) Potassium Level 6.2 MMOL/L (3.5-5.1) Chloride Level 100 MMOL/L (98-107) Carbon Dioxide Level 24 MMOL/L (21-32) Anion Gap 9 mmol/L (5-15) Blood Urea Nitrogen 90 mg/dL (7-18) Creatinine 2.3 MG/DL (0.55-1.30) Estimat Glomerular Filtration Rate mL/min (>60) Glucose Level 89 MG/DL (74-106) Calcium Level 7.7 MG/DL (8.5-10.1) Total Bilirubin 0.3 MG/DL (0.2-1.0) Aspartate Amino Transf (AST/SGOT) 25 U/L (15-37) Alanine Aminotransferase (ALT/SGPT) 20 U/L (12-78) Alkaline Phosphatase 129 U/L (46-116) Total Creatine Kinase 24 U/L (26-308) Creatine Kinase MB 1.2 NG/ML (0.0-3.6) Creatine Kinase MB Relative Index 5.0 Troponin I 0.000 ng/mL (0.000-0.056) Total Protein 5.9 G/DL (6.4-8.2) Albumin 1.1 G/DL (3.4-5.0) Globulin 4.8 g/dL Albumin/Globulin Ratio 0.2 (1.0-2.7) IMPRESSION: 1. Respiratory failure, chronic 2. anemia with concern for GIB 3. History of pneumonia. 4. Tracheostomy and gastrostomy tube. 5. History of cardiopulmonary arrest. 6. Evidence of anoxia. 7. Hypothyroidism. 8. Aspiration. 9. Dementia. 10.Renal failure, acute on chronic 11. hyperkalemia PLAN care noted IV hydration respiratory care Ventilatory support SNF meds- resume supportive care transfusion suction and monitor for congestion no wean planned oxygen therapy as needed prognosis guarded impression, plan, and exam edited and reviewed in detail care discussed with Kj Hampton MD August 12, 2017 08:21
[2017-08-12] MEDS ORDERED: Albuterol ud Inhalation IN-LINE PRN (08:45)
[2017-08-12] MEDS ORDERED: HYDROcodone/Acetamin 10/325 tab GT PRN ×2 (08:45→09:00)
[2017-08-12] MEDS ORDERED: Acetaminophen Soln 160mg/5ml ORAL PRN (08:45)
[2017-08-12] MEDS ORDERED: Docusate 100mg cap ORAL SCH (09:00)
[2017-08-12 09:10] LABS: HEMATOCRIT 25.1 % (42.0-52.0); HEMOGLOBIN 7.9 G/DL (14.2-18.0); MEAN CORPUSCULAR VOLUME 86 FL (80-99); PLATELET COUNT 188 K/UL (150-450); RED CELL DISTRIBUTION WIDTH 14.8 % (11.6-14.8); WHITE BLOOD COUNT 7.6 K/UL (4.8-10.8)
[2017-08-12] MEDS ORDERED: Acetaminophen 650mg/20.3ml GT PRN (09:30)
[2017-08-12 09:37] LABS: ALANINE AMINOTRANSFERASE 16 U/L (12-78); ALBUMIN 1.1 G/DL (3.4-5.0); ALBUMIN/GLOBULIN RATIO 0.2 (1.0-2.7); ALKALINE PHOSPHATASE 123 U/L (46-116); ANION GAP 9 mmol/L (5-15); ASPARTATE AMINO TRANSFERASE 25 U/L (15-37); BILIRUBIN,TOTAL 0.3 MG/DL (0.2-1.0); BLOOD UREA NITROGEN 89 mg/dL (7-18); CARBON DIOXIDE 23 MMOL/L (21-32); CHLORIDE 102 MMOL/L (98-107); CREATININE 2.3 MG/DL (0.55-1.30); POTASSIUM 5.8 MMOL/L (3.5-5.1); SODIUM 134 MMOL/L (136-145)
[2017-08-12] MEDS: Zinc Sulfate 220mg cap GT SCH (09:41)
[2017-08-12] MEDS: Ascorbic Acid 500mg tab GT SCH (09:42)
[2017-08-12] MEDS ORDERED: Docusate 100mg/10ml Liq GT SCH (10:00)
[2017-08-12 10:29] LABS: % IRON SATURATION 13 % (15-50); IRON 12 ug/dL (50-175); TOTAL IRON BINDING CAPACITY 90 ug/dL (250-450)
--- NOTE | 2017-08-12 10:48 | Diagnostic Imaging Report ---
Indication: Chest pain Technique: One view of the chest Comparison: 07/28/2017 Findings: Previously demonstrated right-sided pleural effusion has improved, mostly resolved. Some hazy opacity of the right hemithorax may represent parenchymal infiltrate versus residual pleural fluid. Parietal opacities in the left lung persist, unchanged Tracheostomy, left arm PICC remain. Bilateral basilar atelectatic changes persist. Impression: Improved right lung opacity, likely improving pleural fluid, over 2 weeks. There is some residual infiltrate and/or pleural fluid Persistent patchy opacities in the left lung
--- NOTE | 2017-08-12 14:32 | Cardiology Report ---
APPROVED REPORT EKG Measurement Heart [id number] Normal sinus rhythm Left anterior fascicular block Anteroseptal infarct, age undetermined Abnormal ECG
--- NOTE | 2017-08-12 16:15 | History and Physical Report ---
DATE OF ADMISSION: 08/11/2017 CHIEF COMPLAINT: Respiratory failure, anemia, sepsis, and shock. HISTORY OF PRESENT ILLNESS: The patient is an unfortunate 77-year-old male. He has a history of anoxic encephalopathy, chronic respiratory failure. He has a history of ischemic cardiomyopathy, conduction system disease, dementia, COPD. He was transferred from a long-term facility with complaints of anemia. On evaluation in the emergency room, the patient's hemoglobin was 6. There are no reports of any bleeding. He is currently being transfused and is now admitted for further evaluation and care. PAST MEDICAL HISTORY: As above. PAST SURGICAL HISTORY: Includes a history of G-tube and trach. CURRENT MEDICATIONS: Reconciled and reviewed. ALLERGIES: None. FAMILY HISTORY: None. SOCIAL HISTORY: There is no known history of tobacco, ethanol, or drugs. REVIEW OF SYSTEMS: From the patient is unobtainable as he is nonverbal. PHYSICAL EXAMINATION: VITAL SIGNS: Temperature 97.9 degrees, pulse 90, respirations 19, and blood pressure 121/59. GENERAL: The patient is a well-developed, chronically ill-appearing male, in no apparent distress. HEART: Regular rate and rhythm. LUNGS: Lungs are clear. ABDOMEN: Soft, nontender, nondistended. EXTREMITIES: Without clubbing or cyanosis. SKIN: The patient has multiple wounds, multiple contractures noted. LABORATORY DATA: Labs show sodium 133, potassium 6.2, creatinine was 2.3. White count was 8, hemoglobin 6.9, and hematocrit 20.7. ASSESSMENT: This is an unfortunate male with complaints of . 1. Possible gastrointestinal bleed. 2. Acute on chronic renal failure. 3. History of ischemic cardiomyopathy. 4. Multiple wounds. 5. Osteomyelitis. 6. Anoxic encephalopathy. 7. Chronic obstructive pulmonary disease. 8. History of chronic respiratory failure. PLAN: Transfuse hemoglobin greater than 7.5. Check stool for occult blood. IV hydration. Monitor renal function. Continue outpatient cardiac regimen. The patient's overall prognosis is poor. [place] Acosta M.D. DR: RONALD JOB#: [id number] CC:
[2017-08-12] MEDS ORDERED: Tubing IV Blood Pump IV ONE (17:45)
[2017-08-12] MEDS ORDERED: NS 275ml ONE (17:45)
--- NOTE | 2017-08-12 18:30 | Consultation ---
DATE OF CONSULTATION: 08/12/2017 NEPHROLOGY CONSULTATION CONSULTING PHYSICIAN: Marga Bustos M.D. ATTENDING PHYSICIAN: [place] M.D. REASON FOR CONSULTATION: Elevated BUN and creatinine. HISTORY OF PRESENT ILLNESS: This is a well known 77-year-old male from [facility]. The patient was transferred due to worsening anemia. I saw the patient a few weeks ago in this hospital. He has a chronic kidney disease. PAST MEDICAL HISTORY: 1. Ventilator-dependent respiratory failure. 2. Type 2 diabetes mellitus. 3. Hypertensive cardiovascular disease. 4. Chronic kidney disease. 5. Hypothyroidism. MEDICATIONS: Tylenol p.r.n., albuterol inhalation, amlodipine, ascorbic acid, bisacodyl, sodium docusate, Epogen, oral iron, [place] p.r.n., Prevacid, Synthroid, Mylanta, and Protonix. ALLERGIES: No known drug allergies. SOCIAL HISTORY: Unable to obtain secondary to mental status. FAMILY HISTORY: Unable to obtain secondary to mental status. REVIEW OF SYSTEMS: Unable to obtain secondary to mental status. PHYSICAL EXAMINATION: GENERAL: This is an elderly male, who is on a ventilator. VITAL SIGNS: Blood pressure 125/65, pulse 85 and regular, respirations 20, and temperature 98 Fahrenheit axillary. HEENT: The head is normocephalic and atraumatic. Pupils are equal, round, and reactive to light and accommodation consensually. NECK: He has a midline tracheostomy. LUNGS: Bilateral rhonchi. HEART: Regular rate and rhythm without rubs, murmurs, or gallops. ABDOMEN: Soft and nontender. Bowel sounds were active. He has a G-tube. EXTREMITIES: He has 2+ bilateral lower extremity edema. NEUROLOGIC: He is obtunded. There were no gross focal findings. LABORATORY AND ANCILLARY DATA: On admission, hematocrit 20.7 and white count 8.8. His potassium on admission was 6.2, sodium 133, BUN 19, and creatinine 2.3. ASSESSMENT: 1. Hyperkalemia. 2. Chronic kidney disease stage 4, multifactorial. 3. Anemia of chronic kidney disease. PLAN: 1. Modify diet to low potassium. 2. Continue half-way medications. 3. Continue Epogen and switch to parenteral iron. Thank you, Dr. Acosta and Dr. Blackman, for letting me participate in the care of this patient. Marga Bustos M.D. DR: MARZENA JOB#: [id number] CC:
[2017-08-12] MEDS ORDERED: Iron Sucrose 100 MG in NS 55 ML IVPB SCH (21:00)
--- NOTE | 2017-08-12 23:14 | General Progress Note ---
Assessment/Plan Assessment/Plan GI Consult Dictated Await stool OB Need to locate family Thank you MD Funmi Subjective Allergies: Coded Allergies: No Known Allergies (Unverified , 07/25/17) Objective Last 24 Hour Vital Signs Date Time Temp Pulse Resp B/P (MAP) Pulse Ox O2 Delivery O2 Flow Rate FiO2 08/12/17 21:30 84 31 50 08/12/17 20:48 90 08/12/17 20:00 98.9 94 32 132/98 98 Mechanical Ventilator 50 98.9 08/12/17 20:00 50 08/12/17 19:30 80 28 50 08/12/17 16:57 87 31 50 08/12/17 16:00 83 08/12/17 16:00 50 08/12/17 16:00 98.2 85 17 118/71 100 Mechanical Ventilator 50 98.2 08/12/17 15:04 83 27 50 08/12/17 13:29 83 29 50 08/12/17 12:00 50 08/12/17 12:00 85 08/12/17 12:00 98.0 85 17 125/65 98 Mechanical Ventilator 50 98.0 08/12/17 10:54 85 26 50 08/12/17 09:42 83 121/59 08/12/17 09:22 83 28 50 08/12/17 08:00 98.2 82 18 130/63 98 Mechanical Ventilator 50 98.2 08/12/17 08:00 50 08/12/17 08:00 87 08/12/17 07:44 85 30 Mechanical Ventilator 50 08/12/17 07:29 85 30 50 08/12/17 05:09 87 31 50 08/12/17 05:09 87 31 Mechanical Ventilator 50 08/12/17 04:00 97.9 90 19 121/59 98 Mechanical Ventilator 50 97.9 08/12/17 04:00 89 08/12/17 03:16 90 29 Mechanical Ventilator 50 08/12/17 03:16 90 29 50 08/12/17 02:00 50 08/12/17 01:24 89 26 Mechanical Ventilator 50 08/12/17 01:24 89 26 50 08/12/17 00:55 100.6 91 14 105/56 100 Mechanical Ventilator 50 100.6 08/12/17 00:55 91 14 105/56 100 Mechanical Ventilator 08/12/17 00:04 100.6 93 20 116/65 100 Mechanical Ventilator 100.6 08/11/17 23:29 90 30 Mechanical Ventilator 50 08/11/17 23:29 90 30 50 Intake and Output 08/11/17 08/12/17 19:00 07:00 Intake Total 0 ml Output Total 1475 ml Balance -1475 ml Intake Oral 0 ml Output Urine Total 1475 ml Laboratory Tests 08/12/17 08:30: White Blood Count 7.6, Red Blood Count 2.90L, Hemoglobin 7.9L, Hematocrit 25.1L , Mean Corpuscular Volume 86, Mean Corpuscular Hemoglobin 27.3, Mean Corpuscular Hemoglobin Concent 31.5L, Red Cell Distribution Width 14.8, Platelet Count 188, Mean Platelet Volume 5.7L, Neutrophils (%) (Auto) , Lymphocytes (%) (Auto) , Monocytes (%) (Auto) , Eosinophils (%) (Auto) , Basophils (%) (Auto) , Differential Total Cells Counted 100, Neutrophils % ( Manual) 70, Lymphocytes % (Manual) 21, Monocytes % (Manual) 6, Eosinophils % ( Manual) 2, Basophils % (Manual) 0, Band Neutrophils 1, Platelet Estimate Adequate, Platelet Morphology Normal, Hypochromasia 1+, Anisocytosis 1+, Sodium Level 134L, Potassium Level 5.8H, Chloride Level 102, Carbon Dioxide Level 23, Anion Gap 9, Blood Urea Nitrogen 89H, Creatinine 2.3H, Estimat Glomerular Filtration Rate , Glucose Level 72L, Calcium Level 8.0L, Total Bilirubin 0.3, Aspartate Amino Transf (AST/SGOT) 25, Alanine Aminotransferase (ALT/SGPT) 16, Alkaline Phosphatase 123H, Total Protein 5.7L, Albumin 1.1L, Globulin 4.6, Albumin/Globulin Ratio 0.2L 08/12/17 09:45: Iron Level 12L, Total Iron Binding Capacity 90L, Percent Iron Saturation 13L, Unsaturated Iron Binding 78L, Ferritin 1557H Height (Feet): 5 Height (Inches): 3.00 Weight (Pounds): 160 Ambar Choudhary MD August 12, 2017 23:14
[2017-08-13] VITALS: BP 133/69
[2017-08-13 04:00] VITALS: BP 128/64
[2017-08-13 04:37] LABS: BASOPHILS % (AUTO) 1.2 % (0.0-2.0); EOSINOPHILS % (AUTO) 2.3 % (0.0-3.0); HEMATOCRIT 30.6 % (42.0-52.0); HEMOGLOBIN 9.9 G/DL (14.2-18.0); LYMPHOCYTES % (AUTO) 19.9 % (20.0-45.0); MEAN CORPUSCULAR VOLUME 82 FL (80-99); MONOCYTES % (AUTO) 11.1 % (1.0-10.0); NEUTROPHILS % (AUTO) 65.6 % (45.0-75.0); PLATELET COUNT 185 K/UL (150-450); RED BLOOD COUNT 3.71 M/UL (4.70-6.10); RED CELL DISTRIBUTION WIDTH 19.8 % (11.6-14.8); WHITE BLOOD COUNT 7.1 K/UL (4.8-10.8)
[2017-08-13 04:49] LABS: ANION GAP 11 mmol/L (5-15); BLOOD UREA NITROGEN 78 mg/dL (7-18); CALCIUM 7.8 MG/DL (8.5-10.1); CARBON DIOXIDE 22 MMOL/L (21-32); CHLORIDE 105 MMOL/L (98-107); CREATININE 2.3 MG/DL (0.55-1.30); POTASSIUM 4.7 MMOL/L (3.5-5.1); SODIUM 138 MMOL/L (136-145)
--- NOTE | 2017-08-13 05:01 | Consultation ---
DATE OF CONSULTATION: 08/12/2017 NOTE: POOR AUDIO GASTROENTEROLOGY CONSULTATION CONSULTING PHYSICIAN: Ambar Choudhary M.D. CHIEF COMPLAINT: I was asked to see this patient by Dr. Kj Blackman for evaluation of anemia. HISTORY OF PRESENT ILLNESS: The patient is an unfortunate 77-year-old white man, who is a long-term tracheostomy and ventilator dependent individual. The patient was noted additionally to have a significant degree of anemia with a blood level of hemoglobin of 6.9 and hematocrit of 20.7. The patient was treated appropriately. He did present with a significant degree of anemia and iron deficiency. The patient received intravenous iron to replace the stores. In the meantime, his stool should be checked for occult blood and the blood count should be followed closely. The option of GI workup in this age group muscular patient not clear choose. I will discuss the matter with his family or next of kin and we will make additional recommendations as follows. RECOMMENDATIONS: 1. Observe overnight. 2. Follow laboratory parameters and . 3. Await stool for occult blood. Thank you for asking me to participate in the care of this patient. Ambar Choudhary M.D. DR: Nitin JOB#: [id number] CC:
[2017-08-13 08:00] VITALS: BP 137/62
--- NOTE | 2017-08-13 08:25 | Pulmonology Progress Note ---
Assessment/Plan Assessment/Plan IMPRESSION: 1. Respiratory failure, chronic 2. anemia with concern for GIB 3. History of pneumonia. 4. Tracheostomy and gastrostomy tube. 5. History of cardiopulmonary arrest. 6. Evidence of anoxia. 7. Hypothyroidism. 8. Aspiration. 9. Dementia. 10.Renal failure, acute on chronic 11. hyperkalemia PLAN improved HH IV hydration as is renal follow up respiratory care Ventilatory support SNF meds- resume supportive care transfusion completed suction and monitor for congestion no wean planned at present oxygen therapy as needed prognosis guarded impression, plan, and exam edited and reviewed in detail care discussed with RN Subjective ROS Limited/Unobtainable: Yes Allergies: Coded Allergies: No Known Allergies (Unverified , 07/25/17) Subjective improved HH Objective Last 24 Hour Vital Signs Date Time Temp Pulse Resp B/P (MAP) Pulse Ox O2 Delivery O2 Flow Rate FiO2 08/13/17 06:56 94 25 50 08/13/17 05:08 90 30 50 08/13/17 04:16 96 08/13/17 04:00 99.6 98 28 128/64 99 Mechanical Ventilator 50 99.6 08/13/17 04:00 50 08/13/17 03:30 92 32 50 08/13/17 01:30 97 26 50 08/13/17 00:00 99.8 94 28 133/69 98 Mechanical Ventilator 50 99.8 08/13/17 00:00 50 08/12/17 23:30 82 30 50 08/12/17 23:24 92 08/12/17 21:30 84 31 50 08/12/17 20:48 90 08/12/17 20:00 98.9 94 32 132/98 98 Mechanical Ventilator 50 98.9 08/12/17 20:00 50 08/12/17 19:30 80 28 50 08/12/17 16:57 87 31 50 08/12/17 16:00 83 08/12/17 16:00 50 08/12/17 16:00 98.2 85 17 118/71 100 Mechanical Ventilator 50 98.2 08/12/17 15:04 83 27 50 08/12/17 13:29 83 29 50 08/12/17 12:00 50 08/12/17 12:00 85 08/12/17 12:00 98.0 85 17 125/65 98 Mechanical Ventilator 50 98.0 08/12/17 10:54 85 26 50 08/12/17 09:42 83 121/59 08/12/17 09:22 83 28 50 Intake and Output 08/12/17 08/13/17 19:00 07:00 Intake Total 1250 ml 1836.94 ml Output Total 1450 ml 3000 ml Balance -200 ml -1163.06 ml Free Water 200 ml IV Total 900 ml 1136.94 ml Tube Feeding 350 ml 500 ml Output Urine Total 1450 ml 3000 ml # Bowel Movements 2 Objective WDWN NAD trach reduced breath sounds bilaterally without rhonchi or wheeze [id number] without MRG NABS nontender no HSM; GT no CC mild edema poor ROM nonfocal Laboratory Tests 08/12/17 08:30: White Blood Count 7.6, Red Blood Count 2.90L, Hemoglobin 7.9L, Hematocrit 25.1L , Mean Corpuscular Volume 86, Mean Corpuscular Hemoglobin 27.3, Mean Corpuscular Hemoglobin Concent 31.5L, Red Cell Distribution Width 14.8, Platelet Count 188, Mean Platelet Volume 5.7L, Neutrophils (%) (Auto) , Lymphocytes (%) (Auto) , Monocytes (%) (Auto) , Eosinophils (%) (Auto) , Basophils (%) (Auto) , Differential Total Cells Counted 100, Neutrophils % ( Manual) 70, Lymphocytes % (Manual) 21, Monocytes % (Manual) 6, Eosinophils % ( Manual) 2, Basophils % (Manual) 0, Band Neutrophils 1, Platelet Estimate Adequate, Platelet Morphology Normal, Hypochromasia 1+, Anisocytosis 1+, Sodium Level 134L, Potassium Level 5.8H, Chloride Level 102, Carbon Dioxide Level 23, Anion Gap 9, Blood Urea Nitrogen 89H, Creatinine 2.3H, Estimat Glomerular Filtration Rate , Glucose Level 72L, Calcium Level 8.0L, Total Bilirubin 0.3, Aspartate Amino Transf (AST/SGOT) 25, Alanine Aminotransferase (ALT/SGPT) 16, Alkaline Phosphatase 123H, Total Protein 5.7L, Albumin 1.1L, Globulin 4.6, Albumin/Globulin Ratio 0.2L 08/12/17 09:45: Iron Level 12L, Total Iron Binding Capacity 90L, Percent Iron Saturation 13L, Unsaturated Iron Binding 78L, Ferritin 1557H 08/13/17 01:30: Stool Occult Blood [Pending] 08/13/17 04:00: White Blood Count 7.1, Red Blood Count 3.71L, Hemoglobin 9.9L, Hematocrit 30.6L , Mean Corpuscular Volume 82, Mean Corpuscular Hemoglobin 26.8L, Mean Corpuscular Hemoglobin Concent 32.5, Red Cell Distribution Width 19.8H, Platelet Count 185, Mean Platelet Volume 5.6L, Neutrophils (%) (Auto) 65.6, Lymphocytes (%) (Auto) 19.9L, Monocytes (%) (Auto) 11.1H, Eosinophils (%) (Auto ) 2.3, Basophils (%) (Auto) 1.2, Sodium Level 138, Potassium Level 4.7, Chloride Level 105, Carbon Dioxide Level 22, Anion Gap 11, Blood Urea Nitrogen 78H, Creatinine 2.3H, Estimat Glomerular Filtration Rate , Glucose Level 115H, Calcium Level 7.8L Current Medications Medications (Trade) Dose Ordered Sig/Tal Route PRN Reason Start Time Stop Time Status Last Admin Dose Admin Acetaminophen (Tylenol) 650 mg Q4H PRN GT Mild Pain/Temp > 100.5 08/12/17 09:30 09/11/17 09:29 Acetaminophen/ Hydrocodone Bitart ([place] 10/325) 1 tab Q4H PRN GT Moderate Pain (Pain Scale 4-6) 08/12/17 09:00 08/19/17 08:59 Al Hydroxide/Mg Hydroxide (Mylanta) 30 ml Q6H PRN ORAL Per rx protocol 08/12/17 09:00 09/11/17 08:59 Albuterol Sulfate (Proventil) 2.5 mg Q6H PRN IN-LINE Shortness of Breath 08/12/17 08:45 08/17/17 08:44 Amlodipine Besylate (Norvasc) 5 mg DAILY GT 08/12/17 09:00 09/11/17 08:59 08/12/17 09:42 Ascorbic Acid (Vitamin C) 500 mg DAILY GT 08/12/17 09:00 09/11/17 08:59 08/12/17 09:42 Bisacodyl (Dulcolax) 10 mg DAILY PRN RECTAL Constipation 08/12/17 08:45 09/11/17 08:44 Docusate Sodium (Colace) 100 mg DAILY GT 08/13/17 09:00 09/12/17 08:59 Epoetin Tian (Procrit (for non ESRD use)) 10,000 units FRI-FRI-FRI SUBQ 08/13/17 21:00 09/12/17 20:59 Iron Sucrose 100 mg/Sodium Chloride 60 ml @ 240 mls/hr BEDTIME IVPB 08/12/17 21:00 08/16/17 21:14 Lansoprazole (Prevacid) 30 mg DAILY GT 08/13/17 09:00 09/12/17 08:59 Levothyroxine Sodium (Synthroid) 100 mcg BEFORE BREAKFAST GT 08/13/17 06:30 09/12/17 06:29 08/13/17 06:00 Sodium Chloride 1,000 ml @ 100 mls/hr Q10H IV 08/12/17 09:00 09/11/17 08:59 08/13/17 05:21 Zinc Sulfate (Zinc Sulfate) 220 mg DAILY GT 08/12/17 09:00 09/11/17 08:59 08/12/17 09:41 Kj Blackman MD August 13, 2017 08:25
[2017-08-13] MEDS: Zinc Sulfate 220mg cap GT SCH (08:59)
[2017-08-13] MEDS: Ascorbic Acid 500mg tab GT SCH (08:59)
[2017-08-13] MEDS ORDERED: Ferrous Sulfate 300 MG/5 ML UDC GT SCH (09:00)
[2017-08-13] MEDS ORDERED: Docusate 100mg/10ml Liq GT SCH (09:00)
[2017-08-13 12:00] VITALS: BP 114/66
--- NOTE | 2017-08-13 15:48 | Nephrology Progress Note ---
Assessment/Plan Plan CKD stable Anemia - MOO , Iron Subjective Subjective Nonverbal Objective Objective Last 24 Hour Vital Signs Date Time Temp Pulse Resp B/P (MAP) Pulse Ox O2 Delivery O2 Flow Rate FiO2 08/13/17 15:00 94 31 40 08/13/17 13:17 89 32 40 08/13/17 12:45 50 08/13/17 12:00 99.1 89 35 114/66 99 Mechanical Ventilator 50 99.1 08/13/17 11:56 85 08/13/17 11:05 94 32 50 08/13/17 09:25 92 33 50 08/13/17 08:59 97 137/62 08/13/17 08:00 95 08/13/17 08:00 99.4 97 28 137/62 98 Mechanical Ventilator 50 99.4 08/13/17 08:00 50 08/13/17 06:56 94 25 50 08/13/17 05:08 90 30 50 08/13/17 04:16 96 08/13/17 04:00 99.6 98 28 128/64 99 Mechanical Ventilator 50 99.6 08/13/17 04:00 50 08/13/17 03:30 92 32 50 08/13/17 01:30 97 26 50 08/13/17 00:00 99.8 94 28 133/69 98 Mechanical Ventilator 50 99.8 08/13/17 00:00 50 08/12/17 23:30 82 30 50 08/12/17 23:24 92 08/12/17 21:30 84 31 50 08/12/17 20:48 90 08/12/17 20:00 98.9 94 32 132/98 98 Mechanical Ventilator 50 98.9 08/12/17 20:00 50 08/12/17 19:30 80 28 50 08/12/17 16:57 87 31 50 08/12/17 16:00 83 08/12/17 16:00 50 08/12/17 16:00 98.2 85 17 118/71 100 Mechanical Ventilator 50 98.2 Intake and Output 08/12/17 08/13/17 19:00 07:00 Intake Total 1250 ml 1836.94 ml Output Total 1450 ml 3000 ml Balance -200 ml -1163.06 ml Free Water 200 ml IV Total 900 ml 1136.94 ml Tube Feeding 350 ml 500 ml Output Urine Total 1450 ml 3000 ml # Bowel Movements 2 Laboratory Tests 08/13/17 01:30: Stool Occult Blood Positive 08/13/17 04:00: White Blood Count 7.1, Red Blood Count 3.71L, Hemoglobin 9.9L, Hematocrit 30.6L , Mean Corpuscular Volume 82, Mean Corpuscular Hemoglobin 26.8L, Mean Corpuscular Hemoglobin Concent 32.5, Red Cell Distribution Width 19.8H, Platelet Count 185, Mean Platelet Volume 5.6L, Neutrophils (%) (Auto) 65.6, Lymphocytes (%) (Auto) 19.9L, Monocytes (%) (Auto) 11.1H, Eosinophils (%) (Auto ) 2.3, Basophils (%) (Auto) 1.2, Sodium Level 138, Potassium Level 4.7, Chloride Level 105, Carbon Dioxide Level 22, Anion Gap 11, Blood Urea Nitrogen 78H, Creatinine 2.3H, Estimat Glomerular Filtration Rate , Glucose Level 115H, Calcium Level 7.8L Height (Feet): 5 Height (Inches): 3.00 Weight (Pounds): 160 Objective CV RR Lungs B ronchi Abd SNT. BS + E No CCE Marga Bustos MD August 13, 2017 15:48
[2017-08-13 16:00] VITALS: BP 125/52
[2017-08-13] MEDS ORDERED: Epogen (for non ESRD use) SUBQ SCH (21:00)
--- NOTE | 2017-08-13 23:38 | General Progress Note ---
Assessment/Plan Assessment/Plan Assessment Anemia Resp failure Dysphagia s/p PEG Recommendations continue TF monitor CBC check OB IV Fe conservative management Subjective Allergies: Coded Allergies: No Known Allergies (Unverified , 07/25/17) Subjective awake NAD tolerating feeds Objective Last 24 Hour Vital Signs Date Time Temp Pulse Resp B/P (MAP) Pulse Ox O2 Delivery O2 Flow Rate FiO2 08/13/17 19:06 82 34 40 08/13/17 17:18 89 24 40 08/13/17 16:00 40 08/13/17 16:00 98.6 86 28 125/52 97 Mechanical Ventilator 40 98.6 08/13/17 16:00 40 08/13/17 15:24 87 08/13/17 15:00 94 31 40 08/13/17 13:17 89 32 40 08/13/17 12:45 50 08/13/17 12:00 99.1 89 35 114/66 99 Mechanical Ventilator 50 99.1 08/13/17 11:56 85 08/13/17 11:05 94 32 50 08/13/17 09:25 92 33 50 08/13/17 08:59 97 137/62 08/13/17 08:00 95 08/13/17 08:00 99.4 97 28 137/62 98 Mechanical Ventilator 50 99.4 08/13/17 08:00 50 08/13/17 06:56 94 25 50 08/13/17 05:08 90 30 50 08/13/17 04:16 96 08/13/17 04:00 99.6 98 28 128/64 99 Mechanical Ventilator 50 99.6 08/13/17 04:00 50 08/13/17 03:30 92 32 50 08/13/17 01:30 97 26 50 08/13/17 00:00 99.8 94 28 133/69 98 Mechanical Ventilator 50 99.8 08/13/17 00:00 50 Intake and Output 08/12/17 08/13/17 19:00 07:00 Intake Total 1250 ml 1836.94 ml Output Total 1450 ml 3000 ml Balance -200 ml -1163.06 ml Free Water 200 ml IV Total 900 ml 1136.94 ml Tube Feeding 350 ml 500 ml Output Urine Total 1450 ml 3000 ml # Bowel Movements 2 Laboratory Tests 08/13/17 01:30: Stool Occult Blood Positive 08/13/17 04:00: White Blood Count 7.1, Red Blood Count 3.71L, Hemoglobin 9.9L, Hematocrit 30.6L , Mean Corpuscular Volume 82, Mean Corpuscular Hemoglobin 26.8L, Mean Corpuscular Hemoglobin Concent 32.5, Red Cell Distribution Width 19.8H, Platelet Count 185, Mean Platelet Volume 5.6L, Neutrophils (%) (Auto) 65.6, Lymphocytes (%) (Auto) 19.9L, Monocytes (%) (Auto) 11.1H, Eosinophils (%) (Auto ) 2.3, Basophils (%) (Auto) 1.2, Sodium Level 138, Potassium Level 4.7, Chloride Level 105, Carbon Dioxide Level 22, Anion Gap 11, Blood Urea Nitrogen 78H, Creatinine 2.3H, Estimat Glomerular Filtration Rate , Glucose Level 115H, Calcium Level 7.8L Height (Feet): 5 Height (Inches): 3.00 Weight (Pounds): 160 Objective Debilitated elderly WM NCAT supple CTA RRR soft ND NT no edema OBS Ambar Choudhary MD August 13, 2017 23:38
--- NOTE | 2017-08-14 06:00 | Consultation ---
DATE OF CONSULTATION: 08/12/2017 NOTE: "POOR AUDIO" GASTROENTEROLOGY CONSULTATION CONSULTING PHYSICIAN: Ambar Choudhary M.D. REFERRING PHYSICIAN: Kj Blackman M.D. CHIEF COMPLAINT: I was asked to see this patient by Dr. Kj Blackman for evaluation of severe anemia. HISTORY OF PRESENT ILLNESS: The patient is an unfortunate 77-year-old white man with multiple medical problems including tracheostomy and ventilator dependence, who comes in to the hospital for evaluation and management. The patient was noted to have low hematocrit and hemoglobin and was treated appropriately. He has iron deficiency and he is receiving iron to replace his stores. His stool occult blood has been ordered, but pending at this time. The patient himself was very debilitated and unable to provide any history. Most of the information is only available from the chart. PAST MEDICAL HISTORY: History of respiratory failure, status post tracheostomy, history of ventilator-dependent, type 2 diabetes mellitus, hypertensive cardiovascular disease, chronic kidney disease, and hypothyroidism. MEDICATIONS: See the chart list for details. ALLERGIES: None. FAMILY HISTORY: Not obtainable due to the patient's condition. SOCIAL HISTORY: Not obtainable due to the patient's condition. REVIEW OF SYSTEMS: Not obtainable due to the patient's condition. PHYSICAL EXAMINATION: GENERAL: white man, seen in his room. HEENT: Normocephalic and atraumatic. There was some degree of temporal wasting. Tracheostomy catheter was in place and currently is on ventilator. CHEST: Revealed coarse breath sounds. CARDIOVASCULAR: Regular rate. ABDOMEN: Soft with good bowel sounds. Gastrostomy tube was in good position. The tube feeding is slowing. EXTREMITIES: Revealed some mild contractures. NEUROLOGIC: Grossly nonfocal, although difficult to evaluate, given the patient's bedbound state. LABORATORY DATA: Laboratory data was noted. ASSESSMENT: This patient presents with severe anemia of unclear etiology. Differential diagnosis would be both from as well as chronic losses such as GI tract. The workup would typically include endoscopy and colonoscopy, but this has to be in light of the patient's overall poor health. I would wait for stool occult blood first. Should it be positive, then discussion can be made with the patient's family regarding the level of workup desired. RECOMMENDATIONS: Per above discussion and per orders written in the chart. Thank you for asking me to participate in the care of this patient. Ambar Choudhary M.D. DR: BJORN JOB#: [id number] CC:
--- NOTE | 2017-08-14 13:29 | Discharge Summary ---
Discharge Summary Discharge Summary Discharge Summary DATE OF ADMISSION: 08/11/2017 DATE OF DISCHARGE: 08/13/2017 CONSULTANTS: Dr. Ambar Bustos BRIEF HOSPITAL COURSE: Patient is an unfortunate 77-year-old male, with history of anoxic encephalopathy, chronic respiratory failure, history of ischemic cardiomyopathy , conduction system disease, dementia, COPD, was transferred from assisted facility for evaluation of anemia. There were no reports of any bleeding. On evaluation at ED, labs showed hemoglobin of 6.9, hematocrit was 20. Potassium was elevated to 6.2, creatinine 2.3, BUN 90, sodium 133. He was admitted for evaluation of possible GI bleed, renal failure and history of respiratory failure. He was given IV iron and Epogen. He is status post PEG and was continued on tube feedings. Patient has chronic kidney disease stage IV. Creatinine was stable. He was given IV hydration. He was given blood transfusion. He was continued on ventilatory support. He was given IV iron and Epogen. He has positive stool OB. He was treated conservatively. He is status post PEG and was continued on G-tube feedings. Patient has chronic kidney disease stage IV. Creatinine was stable. Anemia improved. He was then discharged back to intermediate FINAL DIAGNOSES: Anemia with concern for GI bleed Anemia requiring blood transfusion Respiratory failure, chronic History of pneumonia Tracheostomy Dysphagia on gastrostomy G-tube History of cardiopulmonary arrest Evidence of anoxia Hypothyroidism Aspiration Dementia Acute on chronic renal failure CK D stage IV Hyperkalemia Anemia of chronic kidney disease History of ischemic cardiomyopathy Multiple pressure ulcer present on admission History of osteomyelitis Chronic obstructive pulmonary disease DISPOSITION: Patient was discharged back to [facility]. I have been assigned to dictate discharge summary on this account, and I was not involved in the patient's management. Moriah Peterson NP August 14, 2017 13:29
== END 2017-08-13 19:30 | DRG 811 ==
LOC: EDBD 20:37 → EMR 21:10 → 2W 21:12 → EDBEDREQ 21:42
PROC: 30233N1 Transfusion of Nonautologous Red Blood Cells into Peripheral Vein, Percutaneous Approach (ICD-10-PCS; principal; 2017-08-11)
PROC: 5A1945Z Respiratory Ventilation, 24-96 Consecutive Hours (ICD-10-PCS; principal; 2017-08-11)
DX: D50.0 Iron deficiency anemia secondary to blood loss (chronic) (principal); E43 Unspecified severe protein-calorie malnutrition; G93.1 Anoxic brain damage, not elsewhere classified; N17.9 Acute kidney failure, unspecified; J96.10 Chronic respiratory failure, unspecified whether with hypoxia or hypercapnia; N18.4 Chronic kidney disease, stage 4 (severe); Z43.1 Encounter for attention to gastrostomy; Z99.11 Dependence on respirator [ventilator] status; I25.5 Ischemic cardiomyopathy; J44.9 Chronic obstructive pulmonary disease, unspecified; F03.90 Unspecified dementia, unspecified severity, without behavioral disturbance, psychotic disturbance, mood disturbance, and anxiety; Z43.0 Encounter for attention to tracheostomy; Z86.74 Personal history of sudden cardiac arrest; E03.9 Hypothyroidism, unspecified; E87.5 Hyperkalemia; D63.1 Anemia in chronic kidney disease; L89.90 Pressure ulcer of unspecified site, unspecified stage; E11.9 Type 2 diabetes mellitus without complications; I25.10 Atherosclerotic heart disease of native coronary artery without angina pectoris
CPT/HCPCS: 36415; 71045; 80048; 80053; 82270; 82550; 82553; 82728; 83540; 83550; 84484; 85007; 85025; 86850; 86900; 86901; 86920; 93005; 93970; 94002; 94003; 94664; 99285

== ENCOUNTER 2017-08-30 12:28 | Inpatient (IN) | payer MEDICARE, MEDICAID ==
[2017-08-30] VITALS (31 sets, daily range): BP systolic 83–132; BP diastolic 34–90
[~2017-08-30] VITALS: Ht 160 cm; Wt 81.6 kg
[~2017-08-30 12:28] MED LIST changes: +AMLODIPINE BESYL5 MG GT; +AMLODIPINE BESYL5 MG ORAL; +COLACE100 MG GT; +COLISTIN150 MG HHN; +DULCOLAX10 MG RC; +EPOGEN10000 UNIT SUBQ; +FERROUS SULFAT325 MG GT; +FLEET ENEMA133 ML RECTAL; +FLUCONAZOLE100 MG ORAL; +MULTI-DELYN237 ML GT; +NORCO 10-325 T1 EACH GT; +SYNTHROID100 MCG ORAL; +VITAMIN C500 M1 GT; +ZINC SULFATE220 M2 GT
[2017-08-30] MEDS ORDERED: Acetaminophen 650 MG SUPP RECTAL ONE ×2 (12:30→13:13)
[2017-08-30] MEDS ORDERED: Vancomycin 1 GM in D5W 275 ML IVPB SCH (12:30)
[2017-08-30] MEDS ORDERED: Cefepime HCl 1 GM in D5W 55 ML IVPB ONE (12:30)
[2017-08-30] MEDS ORDERED: VITAMIN C500 MG/11 GT (12:43)
[2017-08-30] MEDS ORDERED: NORCO 10-325 T1 EACH GT (12:43)
--- NOTE | 2017-08-30 13:00 | Emergency Room Report ---
History of Present Illness General Chief Complaint: Dyspnea/Respdistress Present Illness HPI Patient is a 77-year-old male brought in by EMS for increased had difficulty breathing and fever. The patient was noted to have prior history of ventilator dependence. Patient has G-tube as well as a PICC line. The patient noted to have elevated white blood count. Patient noted be febrile up to 102. Patient recently been given Tylenol at the facility. Allergies: Coded Allergies: No Known Allergies (Unverified , 07/25/17) Patient History Reviewed Nursing Documentation: PMH: Agreed; PSxH: Agreed Nursing Documentation-PMH Hx Cardiac Problems: Yes Hx Hypertension: Yes Hx Diabetes: Yes Hx Cancer: No Hx Gastrointestinal Problems: Yes - dysphagia, gtube Hx Neurological Problems: Yes - dementia Hx Cerebrovascular Accident: Yes Hx Dementia: Yes Review of Systems All Other Systems: negative except mentioned in HPI Physical Exam Vital Signs Date Time Temp Pulse Resp B/P (MAP) Pulse Ox O2 Delivery O2 Flow Rate FiO2 08/30/17 12:20 101.4 113 29 117/60 95 Mechanical Ventilator 101.5 Sp02 EP Interpretation: reviewed, normal General Appearance: normal inspection, well appearing, no apparent distress, alert, GCS 15, non-toxic Head: atraumatic ENT: normal ENT inspection, hearing grossly normal, normal voice Neck: normal inspection, full range of motion, supple, no bony tend Respiratory: normal inspection, lungs clear, normal breath sounds, no respiratory distress, no retraction, no wheezing Cardiovascular #1: regular rate, rhythm, no edema Gastrointestinal: normal inspection, normal bowel sounds, non tender, soft, no guarding, no hernia Genitourinary: no CVA tenderness Musculoskeletal: normal inspection, back normal, normal range of motion Neurologic: normal inspection, alert, oriented x3, responsive, process control manager III-XII nml as tested, speech normal Psychiatric: normal inspection, judgement/insight normal, mood/affect normal Skin: normal inspection, normal color, no rash Procedures Critical Care Time Critical Care Time Patient had a critical medical condition which untreated could potentially result in life or limb threatening injury. Total critical care time excluding procedures approximately 45 minutes. Medical Decision Making Diagnostic Impression: Primary Impression: Severe sepsis Additional Impression: Anemia ER Course Patient presented for fever. Differential diagnosis included wasn't limited to pneumonia, urinary tract infection, drug fever, allergic reaction, sepsis, cholecystitis, among others.Because of complexity of patient's case laboratory testing and imaging studies were ordered.Patient started on IV fluids as well as IV antibiotics. EKG interpreted by me shows sinus tachycardia with a rate of [address] or T wave changes.The patient appears to have severe sepsis. Dr. [place] was contacted for inpatient management due to Dr. Blackman request. Labs Test 08/30/17 12:35 08/30/17 12:44 Urine Color Pale yellow Urine Appearance Slightly cloudy Urine pH 5 (4.5-8.0) Urine Specific [place] 1.015 (1.005-1.035) Urine Protein 2+ (NEGATIVE) Urine Glucose (UA) Negative (NEGATIVE) Urine Ketones Negative (NEGATIVE) Urine Occult Blood 3+ (NEGATIVE) Urine Nitrite Negative (NEGATIVE) Urine Bilirubin Negative (NEGATIVE) Urine Urobilinogen Normal MG/DL (0.0-1.0) Urine Leukocyte Esterase 3+ (NEGATIVE) Urine RBC 2-4 /HPF (0 - 0) Urine WBC 15-20 /HPF (0 - 0) Urine Squamous Epithelial Cells Occasional /LPF Urine Bacteria Occasional /HPF (NONE) Urine Yeast Few /HPF (NONE) White Blood Count 24.9 K/UL (4.8-10.8) Red Blood Count 2.94 M/UL (4.70-6.10) Hemoglobin 7.8 G/DL (14.2-18.0) Hematocrit 24.6 % (42.0-52.0) Mean Corpuscular Volume 84 FL (80-99) Mean Corpuscular Hemoglobin 26.7 PG (27.0-31.0) Mean Corpuscular Hemoglobin Concent 31.8 G/DL (32.0-36.0) Red Cell Distribution Width 19.6 % (11.6-14.8) Platelet Count 487 K/UL (150-450) Mean Platelet Volume 5.4 FL (6.5-10.1) Neutrophils (%) (Auto) % (45.0-75.0) Lymphocytes (%) (Auto) % (20.0-45.0) Monocytes (%) (Auto) % (1.0-10.0) Eosinophils (%) (Auto) % (0.0-3.0) Basophils (%) (Auto) % (0.0-2.0) Sodium Level 134 MMOL/L (136-145) Potassium Level 3.4 MMOL/L (3.5-5.1) Chloride Level 102 MMOL/L (98-107) Carbon Dioxide Level 23 MMOL/L (21-32) Anion Gap 10 mmol/L (5-15) Blood Urea Nitrogen 81 mg/dL (7-18) Creatinine 1.4 MG/DL (0.55-1.30) Estimat Glomerular Filtration Rate mL/min (>60) Glucose Level 99 MG/DL (74-106) Calcium Level 8.1 MG/DL (8.5-10.1) EKG Diagnostic Results Rate: tachycardiac Rhythm: NSR ST Segments: no acute changes ASA given to the pt in ED: No Last Vital Signs Date Time Temp Pulse Resp B/P (MAP) Pulse Ox O2 Delivery O2 Flow Rate FiO2 08/30/17 12:20 101.4 113 29 117/60 95 Mechanical Ventilator 101.5 Status: unchanged Disposition: ADMITTED INPATIENT Condition: Critical Maximus Harley MD Aug 30, 2017 13:00
[2017-08-30 13:04] LABS: BILIRUBIN, URINE NEGATIVE (NEGATIVE); COLOR,URINE PALE YELLOW; GLUCOSE, URINE (UA) NEGATIVE (NEGATIVE); KETONES,URINE NEGATIVE (NEGATIVE); LEUKOCYTE ESTERASE ,URINE 3+ (NEGATIVE); NITRITE,URINE NEGATIVE (NEGATIVE); PH,URINE 5 (4.5-8.0); PROTEIN,URINE 2+ (NEGATIVE); UROBILINOGEN,URINE NORMAL MG/DL (0.0-1.0)
[2017-08-30 13:20] LABS: APPEARANCE,URINE SLIGHTLY CLOUDY
[2017-08-30 13:32] LABS: HEMATOCRIT 24.6 % (42.0-52.0); HEMOGLOBIN 7.8 G/DL (14.2-18.0); MEAN CORPUSCULAR VOLUME 84 FL (80-99); PLATELET COUNT 487 K/UL (150-450); RED BLOOD COUNT 2.94 M/UL (4.70-6.10); RED CELL DISTRIBUTION WIDTH 19.6 % (11.6-14.8)
[2017-08-30 13:35] LABS: ANION GAP 10 mmol/L (5-15); BLOOD UREA NITROGEN 81 mg/dL (7-18); CALCIUM 8.1 MG/DL (8.5-10.1); CARBON DIOXIDE 23 MMOL/L (21-32); CHLORIDE 102 MMOL/L (98-107); CREATININE 1.4 MG/DL (0.55-1.30); POTASSIUM 3.4 MMOL/L (3.5-5.1); SODIUM 134 MMOL/L (136-145)
[2017-08-30 13:37] LABS: WHITE BLOOD COUNT 24.9 K/UL (4.8-10.8)
[2017-08-30 13:49] LABS: ALANINE AMINOTRANSFERASE 28 U/L (12-78); ALBUMIN/GLOBULIN RATIO 0.2 (1.0-2.7); ALKALINE PHOSPHATASE 139 U/L (46-116); ASPARTATE AMINO TRANSFERASE 32 U/L (15-37); BILIRUBIN,TOTAL 0.3 MG/DL (0.2-1.0); CKMB 3.3 NG/ML (0.0-3.6); CREATINE KINASE 57 U/L (26-308)
--- NOTE | 2017-08-30 14:33 | Diagnostic Imaging Report ---
History: SOB Exam: XR CXR 1 VIEW Comparison: 08/11/2017 FINDINGS: Tracheostomy again noted. Interval appearance of worsening of right base collapse and consolidation, cannot exclude worsening pneumonia, aspiration. Difficult to exclude a small right pleural effusion. Patchy opacities at the left base again noted. The left PICC is again seen now with the tip projecting at the expected location of the confluence of the left subclavian with the internal jugular vein, pulled back from previous appearance. IMPRESSION: Tracheostomy again noted. Interval appearance of worsening of right base collapse and consolidation, cannot exclude worsening pneumonia, aspiration. Difficult to exclude a small right pleural effusion. Patchy opacities at the left base again noted. The left PICC is again seen now with the tip projecting at the expected location of the confluence of the left subclavian with the internal jugular vein, pulled back from previous appearance.
[2017-08-30] MEDS ORDERED: Vancomycin 1.5gm/D5W 250ml 250 ML IVPB ONE (15:15)
[2017-08-30] MEDS ORDERED: NS 1000ml 2,200 ML IVLG ONE (16:00)
[2017-08-30] MEDS ORDERED: HYDROcodone/Acetamin 10/325 tab GT PRN (21:45)
[2017-08-30] MEDS ORDERED: Fleet's Enema 133ml RECTAL PRN (21:45)
[2017-08-30] MEDS ORDERED: Albuterol ud Inhalation HHN PRN (21:45)
[2017-08-30] MEDS: Piperacillin/Tazobactam 3.375 GM in NS 110 ML IVPB SCH (22:00)
[2017-08-31] VITALS (42 sets, daily range): BP systolic 83–138; BP diastolic 35–73
[2017-08-31] MEDS: Acetaminophen 650mg/20.3ml GT PRN ×3 (00:54→21:15)
[2017-08-31] MEDS: Piperacillin/Tazobactam 3.375 GM in NS 110 ML IVPB SCH ×3 (05:17→21:14)
[2017-08-31 05:24] LABS: HEMATOCRIT 26.1 % (42.0-52.0); HEMOGLOBIN 8.4 G/DL (14.2-18.0); MEAN CORPUSCULAR VOLUME 84 FL (80-99); PLATELET COUNT 519 K/UL (150-450); RED BLOOD COUNT 3.12 M/UL (4.70-6.10); RED CELL DISTRIBUTION WIDTH 19.6 % (11.6-14.8)
[2017-08-31 05:34] LABS: WHITE BLOOD COUNT 23.7 K/UL (4.8-10.8)
[2017-08-31 06:05] LABS: ALANINE AMINOTRANSFERASE 24 U/L (12-78); ALBUMIN 0.9 G/DL (3.4-5.0); ALBUMIN/GLOBULIN RATIO 0.2 (1.0-2.7); ALKALINE PHOSPHATASE 132 U/L (46-116); ANION GAP 12 mmol/L (5-15); ASPARTATE AMINO TRANSFERASE 37 U/L (15-37); BILIRUBIN,TOTAL 0.3 MG/DL (0.2-1.0); BLOOD UREA NITROGEN 74 mg/dL (7-18); CALCIUM 7.7 MG/DL (8.5-10.1); CARBON DIOXIDE 20 MMOL/L (21-32); CHLORIDE 107 MMOL/L (98-107); CREATININE 1.2 MG/DL (0.55-1.30); POTASSIUM 3.3 MMOL/L (3.5-5.1); SODIUM 139 MMOL/L (136-145)
[2017-08-31] MEDS: Ferrous Sulfate 300 MG/5 ML UDC NG SCH (09:02)
[2017-08-31] MEDS: Ascorbic Acid 500mg tab GT SCH (09:02)
[2017-08-31] MEDS: Aspirin Baby 81mg GT SCH (09:02)
[2017-08-31] MEDS: Pantoprazole Inj IVP SCH (09:02)
[2017-08-31] MEDS: Zinc Sulfate 220mg cap GT SCH (09:03)
--- NOTE | 2017-08-31 14:22 | Critical Care Progress Note ---
Assessment/Plan Assessment/Plan respiratory failure trach GT chronic encephalopathy HAROLDO sepsis leukocytosis PLAN ICu care vent IV antibiotics hydrate monitor hemodynamics remains critical medications/laboratory data/nursing notes/ICU care reviewed in detail note reviewed and edited care discussed with RN and RT ICU time spent 36 minutes Critical Care - Subjective ROS Limited/Unobtainable: Yes Condition: critical EKG Rhythm: Sinus Rhythm I&O: Intake and Output 08/30/17 08/31/17 19:00 07:00 Intake Total 3605 ml 2090.00 ml Output Total 450 ml 1075 ml Balance 3155 ml 1015.00 ml Intake Free Water 50 ml IV Total 3605 ml 2000.00 ml Tube Feeding 40 ml Output Urine Total 450 ml 1075 ml Critical Care - Objective Last 24 Hour Vital Signs Date Time Temp Pulse Resp B/P (MAP) Pulse Ox O2 Delivery O2 Flow Rate FiO2 08/31/17 13:00 83 25 102/71 100 Mechanical Ventilator 50 08/31/17 13:00 86 25 102/71 100 Mechanical Ventilator 50 08/31/17 12:50 87 30 50 08/31/17 12:30 93 25 113/55 100 Mechanical Ventilator 50 08/31/17 12:30 90 27 100/58 100 Mechanical Ventilator 50 08/31/17 12:00 93 08/31/17 12:00 93 25 113/55 100 Mechanical Ventilator 50 08/31/17 12:00 93 30 113/55 100 Mechanical Ventilator 50 08/31/17 12:00 50 08/31/17 12:00 93 08/31/17 12:00 50 08/31/17 11:30 95 28 114/73 100 Mechanical Ventilator 50 08/31/17 11:30 95 25 114/73 100 Mechanical Ventilator 50 08/31/17 11:22 93 34 50 08/31/17 11:00 98.8 91 25 107/71 100 Mechanical Ventilator 50 98.8 08/31/17 10:31 79 25 104/60 100 Mechanical Ventilator 50 08/31/17 10:00 89 28 106/50 100 Mechanical Ventilator 50 08/31/17 09:30 84 30 110/57 100 Mechanical Ventilator 50 08/31/17 09:18 83 34 50 08/31/17 09:02 83 109/58 08/31/17 09:00 81 31 104/49 100 Mechanical Ventilator 50 08/31/17 08:30 82 29 109/58 100 Mechanical Ventilator 50 18 08:00 98.5 81 30 110/46 100 Mechanical Ventilator 50 98.5 618 08:00 83 618 08:00 50 618 07:30 82 30 84/56 100 Mechanical Ventilator 50 6/18 07:00 84 31 88/48 100 Mechanical Ventilator 50 63/18 06:57 86 35 50 6/18 06:33 99.4 18 06:03 99.7 618 06:00 98 34 99/62 100 Mechanical Ventilator 50 18 06:00 99/62 618 05:30 99.9 99 34 83/55 100 Mechanical Ventilator 50 99.9 08/31/17 05:17 97 30 50 08/31/17 05:00 91 31 83/54 100 Mechanical Ventilator 50 18 05:00 99/50 618 04:30 92 32 97/57 100 Mechanical Ventilator 50 08/31/17 04:00 99.7 97 30 85/58 100 Mechanical Ventilator 50 99.7 18 04:00 97 18 04:00 104/53 618 04:00 50 18 03:30 97 30 85/58 100 Mechanical Ventilator 50 08/31/17 03:14 99 30 50 18 03:00 97/43 618 03:00 97 35 94/43 99 Mechanical Ventilator 50 18 02:30 98 38 111/35 98 Mechanical Ventilator 50 18 02:00 99.2 99 30 102/50 98 Mechanical Ventilator 50 99.2 18 02:00 102/50 618 01:21 110 38 50 6/18 01:00 98 35 97/46 98 Mechanical Ventilator 50 18 01:00 97/46 618 00:54 99.7 618 00:00 115 618 00:00 99.7 110 38 94/50 96 Mechanical Ventilator 50 99.7 6/3/18 00:00 50 63/18 00:00 94/50 62/18 23:11 89 35 50 6/2/18 23:00 114 35 132/90 95 Mechanical Ventilator 50 6/2/18 23:00 132/68 6/2/18 22:00 89 35 108/55 99 Mechanical Ventilator 50 6/2/18 22:00 108/55 6/2/18 21:30 90 35 104/53 98 Mechanical Ventilator 50 6/2/18 21:21 83 34 50 6/2/18 21:00 123/68 6/2/18 21:00 98.3 98 29 123/68 95 Mechanical Ventilator 50 98.3 6/2/18 20:00 94 6/2/18 20:00 97.6 83 34 119/57 100 Mechanical Ventilator 50 97.8 6/2/18 20:00 119/67 6/2/18 20:00 50 6/2/18 20:00 84 34 119/67 100 Mechanical Ventilator 50 6/2/18 19:55 119/57 6/2/18 19:55 83 34 119/57 100 Mechanical Ventilator 50 6/2/18 19:50 84 33 111/70 100 Mechanical Ventilator 50 6/2/18 19:50 111/70 6/2/18 19:45 93/53 6/2/18 19:45 86 32 93/53 100 Mechanical Ventilator 50 6/2/18 19:40 85 33 112/69 100 Mechanical Ventilator 50 6/2/18 19:40 112/69 6/2/18 19:35 88 33 119/67 100 Mechanical Ventilator 50 6/2/18 19:35 119/67 6/2/18 19:30 81 32 120/62 100 Mechanical Ventilator 50 6/2/18 19:30 120/62 6/2/18 19:25 86 32 90/54 100 Mechanical Ventilator 50 6/2/18 19:25 90/54 6/2/18 19:19 92 30 50 6/2/18 19:00 97.8 92 30 89/56 100 Mechanical Ventilator 50 97.8 6/2/18 18:45 85 36 85/55 100 Mechanical Ventilator 50 6/2/18 18:30 86 34 86/34 100 Mechanical Ventilator 50 6/2/18 18:15 87 34 90/54 100 Mechanical Ventilator 50 6/2/18 18:00 99.1 88 34 86/53 100 Mechanical Ventilator 50 99.1 6/2/18 17:45 91 34 93/60 100 Mechanical Ventilator 50 6/2/18 17:30 90 36 83/52 100 Mechanical Ventilator 50 08/30/17 17:22 96 38 50 08/30/17 17:15 93 36 88/51 100 Mechanical Ventilator 50 08/30/17 17:00 99.3 94 33 85/51 100 Mechanical Ventilator 50 99.3 08/30/17 16:45 98 36 84/53 100 Mechanical Ventilator 50 08/30/17 16:30 98 37 91/54 100 Mechanical Ventilator 50 08/30/17 16:15 100 38 89/56 100 Mechanical Ventilator 50 08/30/17 16:00 99.9 98 39 85/52 100 Mechanical Ventilator 50 99.9 08/30/17 15:30 102 41 84/53 100 Mechanical Ventilator 50 08/30/17 15:00 100.4 107 41 96/46 98 Mechanical Ventilator 50 100.4 08/30/17 14:30 110 42 101/59 98 Mechanical Ventilator 50 Labs: Laboratory Tests Test 08/31/17 04:15 White Blood Count 23.7 K/UL (4.8-10.8) *H Red Blood Count 3.12 M/UL (4.70-6.10) L Hemoglobin 8.4 G/DL (14.2-18.0) L Hematocrit 26.1 % (42.0-52.0) L Mean Corpuscular Volume 84 FL (80-99) Mean Corpuscular Hemoglobin 27.0 PG (27.0-31.0) Mean Corpuscular Hemoglobin Concent 32.2 G/DL (32.0-36.0) Red Cell Distribution Width 19.6 % (11.6-14.8) H Platelet Count 519 K/UL (150-450) H Mean Platelet Volume 5.5 FL (6.5-10.1) L Neutrophils (%) (Auto) % (45.0-75.0) Lymphocytes (%) (Auto) % (20.0-45.0) Monocytes (%) (Auto) % (1.0-10.0) Eosinophils (%) (Auto) % (0.0-3.0) Basophils (%) (Auto) % (0.0-2.0) Differential Total Cells Counted 100 Neutrophils % (Manual) 93 % (45-75) H Lymphocytes % (Manual) 3 % (20-45) L Monocytes % (Manual) 4 % (1-10) Eosinophils % (Manual) 0 % (0-3) Basophils % (Manual) 0 % (0-2) Band Neutrophils 0 % (0-8) Platelet Estimate Increased H Platelet Morphology Normal Polychromasia 1+ Hypochromasia 1+ Anisocytosis 1+ Sodium Level 139 MMOL/L (136-145) Potassium Level 3.3 MMOL/L (3.5-5.1) L Chloride Level 107 MMOL/L (98-107) Carbon Dioxide Level 20 MMOL/L (21-32) L Anion Gap 12 mmol/L (5-15) Blood Urea Nitrogen 74 mg/dL (7-18) H Creatinine 1.2 MG/DL (0.55-1.30) Estimat Glomerular Filtration Rate mL/min (>60) Glucose Level 93 MG/DL (74-106) Lactic Acid Level 1.70 mmol/L (0.4-2.0) Calcium Level 7.7 MG/DL (8.5-10.1) L Total Bilirubin 0.3 MG/DL (0.2-1.0) Aspartate Amino Transf (AST/SGOT) 37 U/L (15-37) Alanine Aminotransferase (ALT/SGPT) 24 U/L (12-78) Alkaline Phosphatase 132 U/L (46-116) H Troponin I 0.672 ng/mL (0.000-0.056) Total Protein 6.0 G/DL (6.4-8.2) L Albumin 0.9 G/DL (3.4-5.0) L Globulin 5.1 g/dL Albumin/Globulin Ratio 0.2 (1.0-2.7) L Objective: WDWN chronically ill reduced breath sounds bilaterally without rhonchi or wheeze [id number] without MRG NABS nontender no HSM; GT no CC edema trach poor LOC Micro: Microbiology Date/Time Source Procedure Growth Status 08/30/17 13:00 Blood Blood Culture - Preliminary Resulted 08/30/17 12:42 Blood Blood Culture - Preliminary Resulted 08/30/17 12:35 Urine,Clean Catch Urine Culture - Preliminary Resulted Accucheck: 97 Kj Blackman MD Aug 31, 2017 14:22
[2017-08-31] MEDS: Vancomycin 1 GM in NS 275 ML IVPB SCH (15:00)
[2017-08-31] MEDS ORDERED: Tubing IV Secondary IV ONE (15:21)
--- NOTE | 2017-08-31 19:45 | History and Physical Report ---
DATE OF ADMISSION: 08/30/2017 CHIEF COMPLAINT: Sepsis and shock. HISTORY OF PRESENT ILLNESS: Mr. Salcido is an unfortunate 77-year-old male. He has a history of anoxic encephalopathy, chronic respiratory failure, anemia, kidney disease. He has a history of hypertension and ischemic cardiomyopathy. He was transferred from a shelter facility with complaints of hypotension and fevers. On evaluation in emergency room, he had x-ray evidence of pneumonia as well as UTI. He was hypotensive. He was given multiple fluid boluses without improvement in his blood pressure. He is now admitted to intensive care unit. He is currently on low-dose Levophed. In the emergency room, he had extensive infiltrate. He also had an abnormal urinalysis. PAST MEDICAL HISTORY: As above. PAST SURGICAL HISTORY: Includes trach and G-tube. CURRENT MEDICATIONS: Reconciled and reviewed. ALLERGIES: None. SOCIAL HISTORY: There is no known history of tobacco, ethanol, or drugs. FAMILY HISTORY: Unknown. REVIEW OF SYSTEMS: From the patient is unobtainable. PHYSICAL EXAMINATION: GENERAL: Temperature 99.9 degrees, pulse 99, respirations 34, and blood pressure 99/62. GENERAL: The patient is a chronic, well-appearing male, in no apparent distress. He is poorly responsive at baseline. NECK: Supple. HEART: Regular rate and rhythm. LUNGS: Clear. ABDOMEN: Soft, nontender, and nondistended. EXTREMITIES: Without clubbing or cyanosis. The patient has multiple wounds. LABORATORY AND DIAGNOSTIC DATA: Show white count of 25,000, hemoglobin 7.8, hematocrit 24, and platelet count of 47,000. Sodium 139, potassium 3.3, chloride 107, bicarbonate 20, BUN 74, and creatinine is 1.2. Troponin is 0.672. ASSESSMENT: This is an unfortunate male with multiple medical problems including history of chronic respiratory failure, anoxic encephalopathy, ischemic cardiomyopathy, osteomyelitis, and multiple wounds, admitted with sepsis secondary to pneumonia and shock. PLAN: Continue pressors, IV hydration, broad-spectrum IV antibiotic therapy. Cautious antiplatelet therapy. Continue ventilator support and respiratory treatments. Continue G-tube feeds. Prognosis is poor. [place] M.D. DR: Megan JOB#: [id number] CC:
[2017-08-31] MEDS: Dyna-Hex 2% Top Sol 2oz TOPIC SCH (20:00)
[2017-09-01] VITALS (50 sets, daily range): BP systolic 77–129; BP diastolic 44–104
--- NOTE | 2017-09-01 04:15 | Consultation ---
DATE OF CONSULTATION: 08/30/2017 CARDIOLOGY CONSULTATION CONSULTING PHYSICIAN: Keith Reeves M.D. REQUESTING PHYSICIAN: [place] M.D. REASON FOR CONSULTATION: Sepsis with shock. HISTORY OF PRESENT ILLNESS: This is a 77-year-old male with tracheostomy, who was brought into the emergency room with respiratory distress, fevers, and impending respiratory failure. He required initiation of ventilator support. He was febrile and subsequently developed hypotension. PAST MEDICAL HISTORY: Notable for coronary artery disease, hypertension, type 2 diabetes mellitus, dysphagia with G-tube, cerebrovascular disease with dementia, cerebrovascular accident, and anoxic encephalopathy. MEDICATIONS: Prior to admission, reviewed and reconciled. ALLERGIES: None. FAMILY HISTORY: Not known. SOCIAL HISTORY: Not obtainable. REVIEW OF SYSTEMS: Cannot be ascertained presently. PHYSICAL EXAMINATION: VITAL SIGNS: In the emergency room was febrile to 101.5 degrees, blood pressure 117/60, heart rate 113, and respiratory rate 29. Subsequently following admission, low blood pressure readings were noted. HEENT: Temporal wasting. Pale conjunctiva. Trach site with thin secretions. Ventilator support noted. LUNGS: Bilateral breath sounds with rales and rhonchi. HEART: Regular rhythm. Rapid rate. Normal S1 and S2. ABDOMEN: Soft. G-tube intact. EXTREMITIES: With multiple wounds. No edema. Capillary refill is diminished. LABORATORY AND DIAGNOSTIC DATA: Urine reveals 15 to 20 white cells. EKG reveals sinus tachycardia with nonspecific ST-T wave changes. Chest x-ray reveals bilateral infiltrates. Sodium 134, potassium 3.4, bicarbonate 22, BUN 81, and creatinine 1.4. Troponin 0. White count 24.9 and hemoglobin 7.8. IMPRESSION: 1. Severe sepsis with early shock due to healthcare-acquired pneumonia. 2. Urinary tract infection. 3. Hypovolemia. 4. Dehydration. 5. Acute on chronic renal failure. 6. Respiratory failure with tracheostomy. 7. Acute myocardial ischemia. 8. Secondary sinus tachycardia. 9. Hyponatremia. 10. Hypokalemia. 11. Severe anemia. 12. Critical and guarded. PLAN: 1. Volume resuscitation, pressors if inadequate response. 2. Panculture. 3. Broad-spectrum antibiotics. 4. Consider packed red blood cell transfusion. 5. Serial lactic acid levels. 6. Serial troponin levels. 7. Respiratory hygiene. 8. Wound care. 9. Further recommendations will follow. 10. Prognosis is poor. 11. Condition critical. Keith Reeves M.D. DR: OFE JOB#: [id number] CC:
--- NOTE | 2017-09-01 04:15 | Progress Note ---
DATE: 08/31/2017 CARDIOLOGY PROGRESS NOTE SUBJECTIVE: The patient remains in the intensive care unit with critical condition and guarded prognosis. He remains ventilated via tracheostomy. Blood pressure parameters are marginal. His troponin levels have increased. Monitored rhythm sinus and sinus tachycardia. OBJECTIVE: GENERAL: Poorly responsive. Thick trach secretions. VITAL SIGNS: Blood pressure 96/49, pulse 82, respiratory rate 31, and febrile to 99.7 degrees. LUNGS: Bilateral rhonchi. HEART: Regular rhythm and rate. Normal S1 and S2 with a fourth heart sound. ABDOMEN: Soft. No guarding or rebound. G-tube site is intact. EXTREMITIES: Without edema. There are multiple wounds as pictured in the chart. LABORATORY DATA: White count 25, hemoglobin 7.8. Sodium 139, potassium 3.3, bicarbonate 20, BUN 74, and creatinine 1.2. Troponin 0.672. IMPRESSION: 1. Sepsis, shock. 2. Respiratory failure. 3. Acute myocardial infarction. 4. Anoxic encephalopathy. 5. Ischemic cardiomyopathy. 6. Severe anemia. 7. Healthcare-acquired pneumonia. 8. History of osteomyelitis. 9. Critical and guarded. PLAN: 1. Continue pressors. 2. Taper as able. 3. Broad-spectrum antibiotics. 4. Volume resuscitation. 5. Anti-platelet therapy. 6. Unable to add any beta-blockers with low range blood pressure at this time. 7. Continue ventilator support, respiratory therapy, and nutrition by feeding tube. 8. Wound care ongoing. Keith Reeves M.D. DR: OFE JOB#: [id number] CC:
[2017-09-01 05:05] LABS: HEMATOCRIT 23.3 % (42.0-52.0); HEMOGLOBIN 7.5 G/DL (14.2-18.0); MEAN CORPUSCULAR VOLUME 84 FL (80-99); PLATELET COUNT 411 K/UL (150-450); RED CELL DISTRIBUTION WIDTH 20.3 % (11.6-14.8); WHITE BLOOD COUNT 13.2 K/UL (4.8-10.8)
[2017-09-01] MEDS: Piperacillin/Tazobactam 3.375 GM in NS 110 ML IVPB SCH ×3 (05:41→22:12)
[2017-09-01 05:44] LABS: ALANINE AMINOTRANSFERASE 22 U/L (12-78); ALBUMIN 0.9 G/DL (3.4-5.0); ALBUMIN/GLOBULIN RATIO 0.2 (1.0-2.7); ALKALINE PHOSPHATASE 118 U/L (46-116); ANION GAP 14 mmol/L (5-15); ASPARTATE AMINO TRANSFERASE 28 U/L (15-37); BILIRUBIN,TOTAL 0.2 MG/DL (0.2-1.0); BLOOD UREA NITROGEN 71 mg/dL (7-18); CALCIUM 7.8 MG/DL (8.5-10.1); CARBON DIOXIDE 17 MMOL/L (21-32); CHLORIDE 111 MMOL/L (98-107); CREATININE 1.2 MG/DL (0.55-1.30); POTASSIUM 2.9 MMOL/L (3.5-5.1); SODIUM 142 MMOL/L (136-145)
[2017-09-01] MEDS ORDERED: Lidocaine 1% Plain 30 ml INJ SCH (06:30)
[2017-09-01] MEDS ORDERED: Heparin 2000 units/Ns 1000ml INJ SCH (06:30)
[2017-09-01 07:52] LABS: HEMATOCRIT 24.9 % (42.0-52.0); HEMOGLOBIN 7.8 G/DL (14.2-18.0); MEAN CORPUSCULAR VOLUME 84 FL (80-99); PLATELET COUNT 430 K/UL (150-450); RED BLOOD COUNT 2.98 M/UL (4.70-6.10); RED CELL DISTRIBUTION WIDTH 20.2 % (11.6-14.8); WHITE BLOOD COUNT 14.4 K/UL (4.8-10.8)
--- NOTE | 2017-09-01 08:23 | Critical Care Progress Note ---
Assessment/Plan Assessment/Plan respiratory failure trach GT chronic encephalopathy HAROLDO sepsis leukocytosis PLAN ICu care noted vent as is IV antibiotics- cultures reviewed hydrate monitor hemodynamics medications/laboratory data/nursing notes/ICU care reviewed in detail note reviewed and edited care discussed with RN and RT Critical Care - Subjective Interval Events: care noted in ICU ROS Limited/Unobtainable: Yes Condition: critical EKG Rhythm: Sinus Rhythm Residuals: minimal Tube Feeding Tolerated: yes I&O: Intake and Output 08/31/17 09/01/17 19:00 07:00 Intake Total 2327.896 ml 2759.94 ml Output Total 1080 ml 1100 ml Balance 1247.896 ml 1659.94 ml Intake Free Water 350 ml 50 ml IV Total 1477.896 ml 2359.94 ml Tube Feeding 500 ml 350 ml Output Urine Total 1080 ml 1100 ml # Bowel Movements 4 4 Critical Care - Objective Last 24 Hour Vital Signs Date Time Temp Pulse Resp B/P (MAP) Pulse Ox O2 Delivery O2 Flow Rate FiO2 09/01/17 08:00 50 09/01/17 08:00 90 09/01/17 07:06 84 34 50 09/01/17 07:00 97.5 85 23 94/65 100 Mechanical Ventilator 50 97.5 09/01/17 07:00 94/65 09/01/17 06:30 88 32 109/60 100 Mechanical Ventilator 50 09/01/17 06:00 91 24 108/57 100 Mechanical Ventilator 50 09/01/17 06:00 108/57 09/01/17 05:30 90 32 102/68 100 Mechanical Ventilator 50 09/01/17 05:14 84 31 Mechanical Ventilator 09/01/17 05:11 83 33 50 09/01/17 05:00 85 26 109/55 100 Mechanical Ventilator 50 09/01/17 05:00 109/62 09/01/17 04:30 83 29 102/56 100 Mechanical Ventilator 50 09/01/17 04:00 84 09/01/17 04:00 50 09/01/17 04:00 98.5 84 27 109/62 100 Mechanical Ventilator 50 98.5 09/01/17 04:00 109/53 09/01/17 03:30 74 29 98/52 100 Mechanical Ventilator 50 09/01/17 03:30 81 30 50 09/01/17 03:00 80 28 101/51 100 Mechanical Ventilator 50 6/4/18 03:00 101/51 6/4/18 02:30 74 29 104/69 100 Mechanical Ventilator 50 6/4/18 02:00 98.7 77 31 95/58 100 Mechanical Ventilator 50 98.7 6/4/18 02:00 95/58 6/4/18 01:30 74 29 96/49 100 Mechanical Ventilator 50 6/4/18 01:30 80 36 50 6/4/18 01:00 88/47 6/4/18 01:00 78 32 93/45 100 Mechanical Ventilator 50 6/4/18 00:30 77 29 93/49 100 Mechanical Ventilator 50 6/4/18 00:00 99.2 79 25 102/55 100 Mechanical Ventilator 50 99.2 6/4/18 00:00 93/49 6/4/18 00:00 81 6/4/18 00:00 50 6/3/18 23:30 80 29 99/53 100 Mechanical Ventilator 50 6/3/18 23:30 79 38 50 6/3/18 23:00 94/52 6/3/18 23:00 85 2 93/50 100 Mechanical Ventilator 50 6/3/18 22:30 84 31 94/52 100 Mechanical Ventilator 50 6/3/18 22:00 99.5 89 32 105/54 100 Mechanical Ventilator 50 99.5 6/3/18 22:00 105/54 6/3/18 21:45 99.5 6/3/18 21:30 86 30 96/49 100 Mechanical Ventilator 50 6/3/18 21:30 82 31 50 6/3/18 21:15 99.7 6/3/18 21:00 84 31 108/60 100 Mechanical Ventilator 50 6/3/18 21:00 96/49 6/3/18 20:30 85 32 138/49 100 Mechanical Ventilator 50 6/3/18 20:00 50 6/3/18 20:00 83 6/3/18 20:00 98/56 6/3/18 20:00 99.7 85 32 98/56 100 Mechanical Ventilator 50 99.7 6/3/18 19:30 86 28 98/54 100 Mechanical Ventilator 50 6/3/18 19:30 84 33 50 6/3/18 19:30 85 31 98/53 100 Mechanical Ventilator 50 6/3/18 19:00 94/52 6/3/18 18:45 97/51 6/3/18 18:00 81 25 105/55 100 Mechanical Ventilator 50 6/3/18 18:00 97/51 6/3/18 17:30 86 25 103/54 100 Mechanical Ventilator 50 6/3/18 17:09 86 32 50 6/3/18 17:00 95/50 6/3/18 17:00 83 30 102/59 100 Mechanical Ventilator 50 6/3/18 16:00 87 6/3/18 16:00 50 6/3/18 16:00 115/63 6/3/18 16:00 88 30 101/57 100 Mechanical Ventilator 50 6/3/18 15:30 98.3 87 29 115/61 100 Mechanical Ventilator 50 98.3 6/3/18 15:27 80 34 50 6/3/18 15:00 112/63 6/3/18 15:00 86 30 112/63 100 Mechanical Ventilator 50 6/3/18 14:30 88 25 112/68 100 Mechanical Ventilator 50 6/3/18 14:00 86 25 102/71 100 Mechanical Ventilator 50 6/3/18 14:00 112/68 6/3/18 13:30 86 30 101/60 100 Mechanical Ventilator 50 6/3/18 13:00 100/58 6/3/18 13:00 83 25 102/71 100 Mechanical Ventilator 50 6/3/18 13:00 86 25 102/71 100 Mechanical Ventilator 50 6/3/18 12:50 87 30 50 6/3/18 12:30 93 25 113/55 100 Mechanical Ventilator 50 6/3/18 12:30 90 27 100/58 100 Mechanical Ventilator 50 6/3/18 12:00 93 6/3/18 12:00 93 25 113/55 100 Mechanical Ventilator 50 6/3/18 12:00 93 30 113/55 100 Mechanical Ventilator 50 6/3/18 12:00 50 6/3/18 12:00 93 6/3/18 12:00 50 6/3/18 12:00 102/77 6/3/18 11:30 95 28 114/73 100 Mechanical Ventilator 50 6/3/18 11:30 95 25 114/73 100 Mechanical Ventilator 50 6/3/18 11:22 93 34 50 6/3/18 11:00 98.8 91 25 107/71 100 Mechanical Ventilator 50 98.8 6/3/18 11:00 99/51 08/31/17 10:31 79 25 104/60 100 Mechanical Ventilator 50 08/31/17 10:00 101/57 08/31/17 10:00 89 28 106/50 100 Mechanical Ventilator 50 08/31/17 09:30 84 30 110/57 100 Mechanical Ventilator 50 08/31/17 09:18 83 34 50 08/31/17 09:02 83 109/58 08/31/17 09:00 81 31 104/49 100 Mechanical Ventilator 50 08/31/17 09:00 110/74 08/31/17 08:30 82 29 109/58 100 Mechanical Ventilator 50 Labs: Labs Test 08/30/17 12:35 08/30/17 12:44 08/31/17 04:15 09/01/17 04:10 Urine Color Pale yellow Urine Appearance Slightly cloudy Urine pH 5 (4.5-8.0) Urine Specific [place] 1.015 (1.005-1.035) Urine Protein 2+ (NEGATIVE) Urine Glucose (UA) Negative (NEGATIVE) Urine Ketones Negative (NEGATIVE) Urine Occult Blood 3+ (NEGATIVE) Urine Nitrite Negative (NEGATIVE) Urine Bilirubin Negative (NEGATIVE) Urine Urobilinogen Normal MG/DL (0.0-1.0) Urine Leukocyte Esterase 3+ (NEGATIVE) Urine RBC 2-4 /HPF (0 - 0) Urine WBC 15-20 /HPF (0 - 0) Urine Squamous Epithelial Cells Occasional /LPF Urine Bacteria Occasional /HPF (NONE) Urine Yeast Few /HPF (NONE) White Blood Count 24.9 K/UL (4.8-10.8) 23.7 K/UL (4.8-10.8) 13.2 K/UL (4.8-10.8) Red Blood Count 2.94 M/UL (4.70-6.10) 3.12 M/UL (4.70-6.10) 2.80 M/UL (4.70-6.10) Hemoglobin 7.8 G/DL (14.2-18.0) 8.4 G/DL (14.2-18.0) 7.5 G/DL (14.2-18.0) Hematocrit 24.6 % (42.0-52.0) 26.1 % (42.0-52.0) 23.3 % (42.0-52.0) Mean Corpuscular Volume 84 FL (80-99) 84 FL (80-99) 84 FL (80-99) Mean Corpuscular Hemoglobin 26.7 PG (27.0-31.0) 27.0 PG (27.0-31.0) 26.9 PG (27.0-31.0) Mean Corpuscular Hemoglobin Concent 31.8 G/DL (32.0-36.0) 32.2 G/DL (32.0-36.0) 32.2 G/DL (32.0-36.0) Red Cell Distribution Width 19.6 % (11.6-14.8) 19.6 % (11.6-14.8) 20.3 % (11.6-14.8) Platelet Count 487 K/UL (150-450) 519 K/UL (150-450) 411 K/UL (150-450) Mean Platelet Volume 5.4 FL (6.5-10.1) 5.5 FL (6.5-10.1) 5.5 FL (6.5-10.1) Neutrophils (%) (Auto) % (45.0-75.0) % (45.0-75.0) % (45.0-75.0) Lymphocytes (%) (Auto) % (20.0-45.0) % (20.0-45.0) % (20.0-45.0) Monocytes (%) (Auto) % (1.0-10.0) % (1.0-10.0) % (1.0-10.0) Eosinophils (%) (Auto) % (0.0-3.0) % (0.0-3.0) % (0.0-3.0) Basophils (%) (Auto) % (0.0-2.0) % (0.0-2.0) % (0.0-2.0) Differential Total Cells Counted 100 100 Neutrophils % (Manual) 87 % (45-75) 93 % (45-75) Lymphocytes % (Manual) 3 % (20-45) 3 % (20-45) Monocytes % (Manual) 7 % (1-10) 4 % (1-10) Eosinophils % (Manual) 2 % (0-3) 0 % (0-3) Basophils % (Manual) 0 % (0-2) 0 % (0-2) Band Neutrophils 1 % (0-8) 0 % (0-8) Platelet Estimate Adequate Increased Platelet Morphology Normal Normal Polychromasia 2+ 1+ Hypochromasia 1+ 1+ Anisocytosis 1+ 1+ Sodium Level 134 MMOL/L (136-145) 139 MMOL/L (136-145) 142 MMOL/L (136-145) Potassium Level 3.4 MMOL/L (3.5-5.1) 3.3 MMOL/L (3.5-5.1) 2.9 MMOL/L (3.5-5.1) Chloride Level 102 MMOL/L (98-107) 107 MMOL/L (98-107) 111 MMOL/L (98-107) Carbon Dioxide Level 23 MMOL/L (21-32) 20 MMOL/L (21-32) 17 MMOL/L (21-32) Anion Gap 10 mmol/L (5-15) 12 mmol/L (5-15) 14 mmol/L (5-15) Blood Urea Nitrogen 81 mg/dL (7-18) 74 mg/dL (7-18) 71 mg/dL (7-18) Creatinine 1.4 MG/DL (0.55-1.30) 1.2 MG/DL (0.55-1.30) 1.2 MG/DL (0.55-1.30) Estimat Glomerular Filtration Rate mL/min (>60) mL/min (>60) mL/min (>60) Glucose Level 99 MG/DL (74-106) 93 MG/DL (74-106) 124 MG/DL (74-106) Lactic Acid Level 1.80 mmol/L (0.4-2.0) 1.70 mmol/L (0.4-2.0) Calcium Level 8.1 MG/DL (8.5-10.1) 7.7 MG/DL (8.5-10.1) 7.8 MG/DL (8.5-10.1) Total Bilirubin 0.3 MG/DL (0.2-1.0) 0.3 MG/DL (0.2-1.0) 0.2 MG/DL (0.2-1.0) Aspartate Amino Transf (AST/SGOT) 32 U/L (15-37) 37 U/L (15-37) 28 U/L (15-37) Alanine Aminotransferase (ALT/SGPT) 28 U/L (12-78) 24 U/L (12-78) 22 U/L (12-78) Alkaline Phosphatase 139 U/L (46-116) 132 U/L (46-116) 118 U/L (46-116) Total Creatine Kinase 57 U/L (26-308) Creatine Kinase MB 3.3 NG/ML (0.0-3.6) Creatine Kinase MB Relative Index 5.7 Troponin I 0.000 ng/mL (0.000-0.056) 0.672 ng/mL (0.000-0.056) 0.716 ng/mL (0.000-0.056) Pro-B-Type Natriuretic Peptide 6067 pg/mL (0-125) 08365 pg/mL (0-125) Total Protein 6.4 G/DL (6.4-8.2) 6.0 G/DL (6.4-8.2) 5.8 G/DL (6.4-8.2) Albumin 1.0 G/DL (3.4-5.0) 0.9 G/DL (3.4-5.0) 0.9 G/DL (3.4-5.0) Globulin 5.4 g/dL 5.1 g/dL 4.9 g/dL Albumin/Globulin Ratio 0.2 (1.0-2.7) 0.2 (1.0-2.7) 0.2 (1.0-2.7) Test 09/01/17 06:45 White Blood Count 14.4 K/UL (4.8-10.8) Red Blood Count 2.98 M/UL (4.70-6.10) Hemoglobin 7.8 G/DL (14.2-18.0) Hematocrit 24.9 % (42.0-52.0) Mean Corpuscular Volume 84 FL (80-99) Mean Corpuscular Hemoglobin 26.3 PG (27.0-31.0) Mean Corpuscular Hemoglobin Concent 31.4 G/DL (32.0-36.0) Red Cell Distribution Width 20.2 % (11.6-14.8) Platelet Count 430 K/UL (150-450) Mean Platelet Volume 5.7 FL (6.5-10.1) Neutrophils (%) (Auto) % (45.0-75.0) Lymphocytes (%) (Auto) % (20.0-45.0) Monocytes (%) (Auto) % (1.0-10.0) Eosinophils (%) (Auto) % (0.0-3.0) Basophils (%) (Auto) % (0.0-2.0) Objective: [facility] chronically ill reduced breath sounds bilaterally without rhonchi or wheeze [id number] without MRG NABS nontender no HSM; GT no CC edema trach poor LOC Micro: Microbiology Date/Time Source Procedure Growth Status 08/30/17 13:00 Blood Blood Culture - Preliminary Gram Negative Bacillus 1 Gram Negative Bacillus 1#2 Resulted 08/30/17 12:42 Blood Blood Culture - Preliminary Gram Negative Bacillus 1 Gram Negative Bacillus 2 Resulted 08/30/17 12:35 Urine,Clean Catch Urine Culture - Preliminary Gram Negative Bacillus 1 YEAST Resulted Accucheck: 97 Kj Blackman MD Sep 01, 2017 08:23
--- NOTE | 2017-09-01 08:37 | General Progress Note ---
Assessment/Plan Problem List: (1) GI bleed ICD Codes: K92.2 - Gastrointestinal hemorrhage, unspecified SNOMED: 22577794 (2) Symptomatic anemia ICD Codes: D64.9 - Anemia, unspecified SNOMED: 727125334 (3) Anemia ICD Codes: D64.9 - Anemia, unspecified SNOMED: 638892947 (4) Severe sepsis ICD Codes: A41.9 - Sepsis, unspecified organism; R65.20 - Severe sepsis without septic shock SNOMED: 24866901 Status: stable Assessment/Plan needs emergent picc line change. has gnr bacteremia. source possibly picc line. no family to consent. cont abx follow up cultures monitor h/h gt feeds replace lytes critical and guarded Subjective ROS Limited/Unobtainable: Yes Constitutional: Reports: malaise, weakness HEENT: Reports: no symptoms Cardiovascular: Reports: no symptoms Respiratory: Reports: shortness of breath Gastrointestinal/Abdominal: Reports: diarrhea Genitourinary: Reports: no symptoms Neurologic/Psychiatric: Reports: pre-existing deficit Endocrine: Reports: no symptoms Hematologic/Lymphatic: Reports: anemia Allergies: Coded Allergies: No Known Allergies (Unverified , 07/25/17) All Systems: reviewed and negative except above Subjective remains hypotensive on pressors. 07/02 blood cultures positive for gnr. on the vent. poorly responsive. has old picc line Objective Last 24 Hour Vital Signs Date Time Temp Pulse Resp B/P (MAP) Pulse Ox O2 Delivery O2 Flow Rate FiO2 09/01/17 08:33 91 37 50 09/01/17 08:00 50 09/01/17 08:00 90 09/01/17 07:06 84 34 50 09/01/17 07:00 97.5 85 23 94/65 100 Mechanical Ventilator 50 97.5 09/01/17 07:00 94/65 09/01/17 06:30 88 32 109/60 100 Mechanical Ventilator 50 09/01/17 06:00 91 24 108/57 100 Mechanical Ventilator 50 09/01/17 06:00 108/57 09/01/17 05:30 90 32 102/68 100 Mechanical Ventilator 50 09/01/17 05:14 84 31 Mechanical Ventilator 09/01/17 05:11 83 33 50 09/01/17 05:00 85 26 109/55 100 Mechanical Ventilator 50 6/4/18 05:00 109/62 6/4/18 04:30 83 29 102/56 100 Mechanical Ventilator 50 6/4/18 04:00 84 6/4/18 04:00 50 6/4/18 04:00 98.5 84 27 109/62 100 Mechanical Ventilator 50 98.5 6/4/18 04:00 109/53 6/4/18 03:30 74 29 98/52 100 Mechanical Ventilator 50 6/4/18 03:30 81 30 50 6/4/18 03:00 80 28 101/51 100 Mechanical Ventilator 50 6//18 03:00 101/51 6/18 02:30 74 29 104/69 100 Mechanical Ventilator 50 6/18 02:00 98.7 77 31 95/58 100 Mechanical Ventilator 50 98.7 6/18 02:00 95/58 6/18 01:30 74 29 96/49 100 Mechanical Ventilator 50 6//18 01:30 80 36 50 6//18 01:00 88/47 6/18 01:00 78 32 93/45 100 Mechanical Ventilator 50 6/18 00:30 77 29 93/49 100 Mechanical Ventilator 50 6/18 00:00 99.2 79 25 102/55 100 Mechanical Ventilator 50 99.2 6/18 00:00 93/49 6/18 00:00 81 6/18 00:00 50 6/3/18 23:30 80 29 99/53 100 Mechanical Ventilator 50 6/3/18 23:30 79 38 50 6/3/18 23:00 94/52 6/3/18 23:00 85 2 93/50 100 Mechanical Ventilator 50 6/3/18 22:30 84 31 94/52 100 Mechanical Ventilator 50 6/3/18 22:00 99.5 89 32 105/54 100 Mechanical Ventilator 50 99.5 6/3/18 22:00 105/54 6/3/18 21:45 99.5 6/3/18 21:30 86 30 96/49 100 Mechanical Ventilator 50 6/3/18 21:30 82 31 50 6/3/18 21:15 99.7 6/3/18 21:00 84 31 108/60 100 Mechanical Ventilator 50 6/3/18 21:00 96/49 63/18 20:30 85 32 138/49 100 Mechanical Ventilator 50 6/3/18 20:00 50 6/3/18 20:00 83 6/3/18 20:00 98/56 6/3/18 20:00 99.7 85 32 98/56 100 Mechanical Ventilator 50 99.7 6/3/18 19:30 86 28 98/54 100 Mechanical Ventilator 50 6/3/18 19:30 84 33 50 6/3/18 19:30 85 31 98/53 100 Mechanical Ventilator 50 6/3/18 19:00 94/52 6/3/18 18:45 97/51 6/3/18 18:00 81 25 105/55 100 Mechanical Ventilator 50 6/3/18 18:00 97/51 6/3/18 17:30 86 25 103/54 100 Mechanical Ventilator 50 6/3/18 17:09 86 32 50 6/3/18 17:00 95/50 6/3/18 17:00 83 30 102/59 100 Mechanical Ventilator 50 6/3/18 16:00 87 6/3/18 16:00 50 6/3/18 16:00 115/63 6/3/18 16:00 88 30 101/57 100 Mechanical Ventilator 50 6/3/18 15:30 98.3 87 29 115/61 100 Mechanical Ventilator 50 98.3 6/3/18 15:27 80 34 50 6/3/18 15:00 112/63 6/3/18 15:00 86 30 112/63 100 Mechanical Ventilator 50 6/3/18 14:30 88 25 112/68 100 Mechanical Ventilator 50 6/3/18 14:00 86 25 102/71 100 Mechanical Ventilator 50 6/3/18 14:00 112/68 6/3/18 13:30 86 30 101/60 100 Mechanical Ventilator 50 6/3/18 13:00 100/58 6/3/18 13:00 83 25 102/71 100 Mechanical Ventilator 50 6/3/18 13:00 86 25 102/71 100 Mechanical Ventilator 50 6/3/18 12:50 87 30 50 6/3/18 12:30 93 25 113/55 100 Mechanical Ventilator 50 6/3/18 12:30 90 27 100/58 100 Mechanical Ventilator 50 6/3/18 12:00 93 6/3/18 12:00 93 25 113/55 100 Mechanical Ventilator 50 6/3/18 12:00 93 30 113/55 100 Mechanical Ventilator 50 08/31/17 12:00 50 08/31/17 12:00 93 08/31/17 12:00 50 08/31/17 12:00 102/77 08/31/17 11:30 95 28 114/73 100 Mechanical Ventilator 50 08/31/17 11:30 95 25 114/73 100 Mechanical Ventilator 50 08/31/17 11:22 93 34 50 08/31/17 11:00 98.8 91 25 107/71 100 Mechanical Ventilator 50 98.8 08/31/17 11:00 99/51 08/31/17 10:31 79 25 104/60 100 Mechanical Ventilator 50 08/31/17 10:00 101/57 08/31/17 10:00 89 28 106/50 100 Mechanical Ventilator 50 08/31/17 09:30 84 30 110/57 100 Mechanical Ventilator 50 08/31/17 09:18 83 34 50 08/31/17 09:02 83 109/58 08/31/17 09:00 81 31 104/49 100 Mechanical Ventilator 50 08/31/17 09:00 110/74 Intake and Output 08/31/17 09/01/17 19:00 07:00 Intake Total 2327.896 ml 2759.94 ml Output Total 1080 ml 1100 ml Balance 1247.896 ml 1659.94 ml Intake Free Water 350 ml 50 ml IV Total 1477.896 ml 2359.94 ml Tube Feeding 500 ml 350 ml Output Urine Total 1080 ml 1100 ml # Bowel Movements 4 4 Laboratory Tests 09/01/17 04:10: White Blood Count 13.2H, Red Blood Count 2.80L, Hemoglobin 7.5L, Hematocrit 23.3L, Mean Corpuscular Volume 84, Mean Corpuscular Hemoglobin 26.9L, Mean Corpuscular Hemoglobin Concent 32.2, Red Cell Distribution Width 20.3H, Platelet Count 411, Mean Platelet Volume 5.5L, Neutrophils (%) (Auto) , Lymphocytes (%) (Auto) , Monocytes (%) (Auto) , Eosinophils (%) (Auto) , Basophils (%) (Auto) , Sodium Level 142, Potassium Level 2.9L, Chloride Level 111H, Carbon Dioxide Level 17L, Anion Gap 14, Blood Urea Nitrogen 71H, Creatinine 1.2, Estimat Glomerular Filtration Rate , Glucose Level 124H, Calcium Level 7.8L, Total Bilirubin 0.2, Aspartate Amino Transf (AST/SGOT) 28, Alanine Aminotransferase (ALT/SGPT) 22, Alkaline Phosphatase 118H, Troponin I 0.716H, Pro-B-Type Natriuretic Peptide 57949N, Total Protein 5.8L, Albumin 0.9L , Globulin 4.9, Albumin/Globulin Ratio 0.2L 09/01/17 06:45: White Blood Count 14.4H, Red Blood Count 2.98L, Hemoglobin 7.8L, Hematocrit 24.9L, Mean Corpuscular Volume 84, Mean Corpuscular Hemoglobin 26.3L, Mean Corpuscular Hemoglobin Concent 31.4L, Red Cell Distribution Width 20.2H, Platelet Count 430, Mean Platelet Volume 5.7L, Neutrophils (%) (Auto) , Lymphocytes (%) (Auto) , Monocytes (%) (Auto) , Eosinophils (%) (Auto) , Basophils (%) (Auto) , Sodium Level [Pending], Potassium Level [Pending], Chloride Level [Pending], Carbon Dioxide Level [Pending], Blood Urea Nitrogen [ Pending], Creatinine [Pending], Estimat Glomerular Filtration Rate [Pending], Glucose Level [Pending], Calcium Level [Pending], Total Bilirubin [Pending], Aspartate Amino Transf (AST/SGOT) [Pending], Alanine Aminotransferase (ALT/SGPT ) [Pending], Alkaline Phosphatase [Pending], Total Protein [Pending], Albumin [ Pending], Globulin [Pending], Neutrophils % (Manual) [Pending], Lymphocytes % ( Manual) [Pending], Platelet Estimate [Pending], Platelet Morphology [Pending] Height (Feet): 5 Height (Inches): 3.00 Weight (Pounds): 160 General Appearance: WD/WN, alert, confused Neck: supple Cardiovascular: normal rate, regular rhythm Respiratory/Chest: chest wall non-tender, lungs clear, normal breath sounds, no respiratory distress Abdomen: normal bowel sounds, non tender, soft, no organomegaly Edema: no edema noted Arm (L), no edema noted Arm (R), no edema noted Leg (L), no edema noted Leg (R), no edema noted Pedal (L), no edema noted Pedal (R), no edema noted Generalized Neurologic: disoriented, unresponsive [place] MD Sep 01, 2017 08:37
[2017-09-01 08:38] LABS: ANION GAP 15 mmol/L (5-15); BLOOD UREA NITROGEN 68 mg/dL (7-18); CALCIUM 7.9 MG/DL (8.5-10.1); CARBON DIOXIDE 17 MMOL/L (21-32); CHLORIDE 110 MMOL/L (98-107); CREATININE 1.1 MG/DL (0.55-1.30); SODIUM 142 MMOL/L (136-145)
[2017-09-01 08:43] LABS: ALANINE AMINOTRANSFERASE 21 U/L (12-78); ALBUMIN 0.9 G/DL (3.4-5.0); ALBUMIN/GLOBULIN RATIO 0.2 (1.0-2.7); ALKALINE PHOSPHATASE 118 U/L (46-116); ASPARTATE AMINO TRANSFERASE 38 U/L (15-37); BILIRUBIN,TOTAL 0.2 MG/DL (0.2-1.0)
[2017-09-01] MEDS: Aspirin Baby 81mg GT SCH (08:54)
[2017-09-01] MEDS: Ferrous Sulfate 300 MG/5 ML UDC NG SCH (08:54)
[2017-09-01] MEDS: Pantoprazole Inj IVP SCH (08:54)
[2017-09-01] MEDS: Zinc Sulfate 220mg cap GT SCH (08:54)
[2017-09-01] MEDS: Ascorbic Acid 500mg tab GT SCH (08:54)
[2017-09-01] MEDS ORDERED: Vancomycin 1 GM in NS 275 ML IVPB SCH (15:00)
[2017-09-01] MEDS: Vancomycin 1 GM in NS 275 ML IVPB SCH (15:33)
--- NOTE | 2017-09-01 16:35 | Diagnostic Imaging Report ---
Indications: Needs long-term IV access Technique: Procedure performed at bedside. Procedural timeout performed. Ultrasound confirms patent compressible right basilic vein. Total sterile technique, including sterile probe cover and sterile gel, sterile gloves, hand hygiene, hat, mask,, sterile gown, large sterile drape, and preparation with 2% chlorhexidine utilized. Local anesthesia with 1% lidocaine. Under real-time ultrasound guidance, puncture basilic vein using 21-gauge needle, passage 0.018 guidewire, exchange for 5 [place] peel-away sheath. 5 [place] Bard dual-lumen power PICC cut to 30 cm. It was inserted through the peel-away sheath. Peel-away sheath and guidewire removed. Catheter fixed to the skin. Both catheter ports aspirated and flushed. Patient tolerated procedure well, without immediate complication. Followup chest x-ray obtained, documents catheter tip position deep in the right atrium or possibly even in the inferior vena cava. The catheter was pulled back 8 cm, and a follow-up chest radiograph performed, documenting catheter tip position at the cavoatrial junction Impression: Successful bedside placement of right arm PICC under sonographic guidance, as described above.
[2017-09-01] MEDS ORDERED: Tubing IV Secondary IV ONE (17:22)
[2017-09-01] MEDS ORDERED: NS 275ml ONE (17:22)
[2017-09-01] MEDS ORDERED: Dyna-Hex 2% Top Sol 2oz TOPIC SCH (20:00)
[2017-09-01] MEDS: Dyna-Hex 2% Top Sol 2oz TOPIC SCH (20:29)
[2017-09-01] MEDS: Acetaminophen 650mg/20.3ml GT PRN (20:29)
[2017-09-01] MEDS: Epogen (for non ESRD use) SUBQ SCH (21:32)
[2017-09-02] VITALS (34 sets, daily range): BP systolic 94–125; BP diastolic 28–87
--- NOTE | 2017-09-02 02:00 | Progress Note ---
DATE: 09/01/2017 CARDIOLOGY PROGRESS NOTE SUBJECTIVE: The patient remains in the intensive care unit. Orally intubated. On pressors due to low blood pressure. Positive blood cultures 4/4 gram-negative rods noted. OBJECTIVE: VITAL SIGNS: Blood pressure 94/65, pulse 85, respiratory rate 23, and afebrile. Monitored sinus tachycardia. SKIN: Multiple decubiti pictured. LUNGS: Coarse rhonchi. HEART: Regular rhythm. Rapid rate. Normal S1 and S2. ABDOMEN: Soft. G-tube intact. EXTREMITIES: Poor perfusion of the digits. LABORATORY AND DIAGNOSTIC DATA: White count 14.4 and hemoglobin 7.8. Potassium 3. Natriuretic peptide 18,000. Albumin 0.9. BUN 68 and creatinine 1.1. IMPRESSION: 1. Sepsis, shock. 2. Anemia. 3. Acute myocardial infarction. 4. Secondary sinus tachycardia. 5. Respiratory failure. 6. Anoxic encephalopathy. 7. Multiple decubiti. 8. Bacteremia with gram-negative rods. 9. Critical and guarded. PLAN: 1. Antimicrobials. 2. Review echocardiogram. 3. Taper off pressors. 4. Volume support. 5. Nutrition by feeding tube with protein supplementation. 6. Replace potassium. 7. Check magnesium. 8. Prognosis is poor. 9. Condition is critical. Keith Reeves M.D. DR: OFE JOB#: [id number] CC:
[2017-09-02 05:05] LABS: BASOPHILS % (AUTO) 0.4 % (0.0-2.0); EOSINOPHILS % (AUTO) 0.1 % (0.0-3.0); HEMATOCRIT 24.8 % (42.0-52.0); LYMPHOCYTES % (AUTO) 10.7 % (20.0-45.0); MEAN CORPUSCULAR VOLUME 83 FL (80-99); MONOCYTES % (AUTO) 8.1 % (1.0-10.0); NEUTROPHILS % (AUTO) 80.7 % (45.0-75.0); PLATELET COUNT 462 K/UL (150-450); RED BLOOD COUNT 2.98 M/UL (4.70-6.10); RED CELL DISTRIBUTION WIDTH 20.2 % (11.6-14.8); WHITE BLOOD COUNT 16.4 K/UL (4.8-10.8)
[2017-09-02] MEDS: Piperacillin/Tazobactam 3.375 GM in NS 110 ML IVPB SCH (05:22)
[2017-09-02] MEDS: Acetaminophen 650mg/20.3ml GT PRN (05:23)
[2017-09-02 05:28] LABS: ALANINE AMINOTRANSFERASE 19 U/L (12-78); ALBUMIN/GLOBULIN RATIO 0.2 (1.0-2.7); ALKALINE PHOSPHATASE 127 U/L (46-116); ANION GAP 16 mmol/L (5-15); ASPARTATE AMINO TRANSFERASE 26 U/L (15-37); BILIRUBIN,TOTAL 0.2 MG/DL (0.2-1.0); BLOOD UREA NITROGEN 61 mg/dL (7-18); CALCIUM 7.5 MG/DL (8.5-10.1); CARBON DIOXIDE 16 MMOL/L (21-32); CHLORIDE 114 MMOL/L (98-107); SODIUM 146 MMOL/L (136-145)
--- NOTE | 2017-09-02 08:29 | General Progress Note ---
Assessment/Plan Problem List: (1) GI bleed ICD Codes: K92.2 - Gastrointestinal hemorrhage, unspecified SNOMED: 10622202 (2) Symptomatic anemia ICD Codes: D64.9 - Anemia, unspecified SNOMED: 612523659 (3) Anemia ICD Codes: D64.9 - Anemia, unspecified SNOMED: 650721738 (4) Severe sepsis ICD Codes: A41.9 - Sepsis, unspecified organism; R65.20 - Severe sepsis without septic shock SNOMED: 06971211 Status: stable, progressing Assessment/Plan wean pressors cont abx follow up cultures monitor h/h gt feeds replace lytes. ivf adjusted critical and guarded Subjective ROS Limited/Unobtainable: Yes Constitutional: Reports: malaise, weakness HEENT: Reports: no symptoms Cardiovascular: Reports: no symptoms Respiratory: Reports: shortness of breath Gastrointestinal/Abdominal: Reports: difficulty swallowing Genitourinary: Reports: no symptoms Neurologic/Psychiatric: Reports: pre-existing deficit Endocrine: Reports: no symptoms Hematologic/Lymphatic: Reports: anemia Allergies: Coded Allergies: No Known Allergies (Unverified , 07/25/17) All Systems: reviewed and negative except above Subjective picc changed. still on low dose pressors. bp trending up. no fevers. remains unresponsive at baseline Objective Last 24 Hour Vital Signs Date Time Temp Pulse Resp B/P (MAP) Pulse Ox O2 Delivery O2 Flow Rate FiO2 09/02/17 08:00 40 09/02/17 08:00 98.1 80 27 103/44 100 Mechanical Ventilator 40 98.1 09/02/17 07:28 81 40 40 09/02/17 07:00 81 36 102/28 100 Mechanical Ventilator 40 09/02/17 07:00 102/28 09/02/17 06:30 81 30 97/44 100 Mechanical Ventilator 40 09/02/17 06:00 80 29 100/50 100 Mechanical Ventilator 40 09/02/17 06:00 100/55 09/02/17 05:00 87 41 40 09/02/17 05:00 89 25 110/55 100 Mechanical Ventilator 40 09/02/17 05:00 110/55 09/02/17 04:30 98.7 90 25 112/50 100 Mechanical Ventilator 40 98.7 09/02/17 04:00 95 09/02/17 04:00 109/50 6/5/18 04:00 40 6/5/18 04:00 95 6/5/18 04:00 88 25 114/57 100 Mechanical Ventilator 40 6/5/18 03:30 94 31 114/57 99 Mechanical Ventilator 40 6/5/18 03:00 94 38 104/55 99 Mechanical Ventilator 40 6/5/18 03:00 104/55 6/5/18 03:00 88 41 40 6/5/18 02:30 86 28 99/63 98 Mechanical Ventilator 40 6/5/18 02:00 86 28 117/68 98 Mechanical Ventilator 40 6/5/18 02:00 99/63 6/5/18 01:30 89 33 110/52 98 Mechanical Ventilator 40 6/5/18 01:00 110/87 6/5/18 01:00 90 32 110/52 98 Mechanical Ventilator 40 6/5/18 01:00 91 35 40 6/5/18 00:30 86 28 110/87 98 Mechanical Ventilator 40 6/5/18 00:00 99.5 85 29 125/45 98 Mechanical Ventilator 40 99.5 6//18 00:00 110/52 6/5/18 00:00 40 6/5/18 00:00 85 6/4/18 23:30 89 36 125/45 98 Mechanical Ventilator 40 6/4/18 23:10 88 27 40 6//18 23:00 86 29 129/49 98 Mechanical Ventilator 40 6/4/18 23:00 129/49 6/4/18 22:30 90 39 128/46 98 Mechanical Ventilator 40 6//18 22:00 99.5 91 39 120/54 97 Mechanical Ventilator 40 99.5 6/4/18 22:00 128/46 6/4/18 21:32 104/65 6/4/18 21:30 95 38 93/47 97 Mechanical Ventilator 40 6/4/18 21:05 97 37 40 6/4/18 21:00 94 38 97/47 97 Mechanical Ventilator 40 6/4/18 20:59 99.5 6/4/18 20:30 98 39 113/47 96 Mechanical Ventilator 40 6/4/18 20:29 100.5 6/4/18 20:00 101 6/4/18 20:00 40 6/4/18 20:00 100.5 105 43 104/65 96 Mechanical Ventilator 40 100.5 6/4/18 19:30 101 30 126/64 98 Mechanical Ventilator 40 6/4/18 19:09 100 43 40 6/4/18 19:00 105 28 118/66 96 Mechanical Ventilator 40 6/4/18 18:30 107 25 120/72 96 Mechanical Ventilator 40 6/4/18 18:00 100 34 115/67 96 Mechanical Ventilator 40 6/4/18 18:00 115/67 6/4/18 17:30 98 36 119/66 96 Mechanical Ventilator 40 6/4/18 17:11 93 44 40 6/4/18 17:00 125/67 6/4/18 17:00 97 31 125/67 97 Mechanical Ventilator 40 6/4/18 16:30 97 38 105/66 98 Mechanical Ventilator 40 6/4/18 16:00 98.2 96 39 118/60 97 Mechanical Ventilator 40 98.2 6//18 16:00 118/60 6//18 16:00 40 6//18 16:00 96 6//18 15:46 95 40 40 6/4/18 15:30 95 36 102/57 98 Mechanical Ventilator 40 6/4/18 15:00 94 36 109/55 98 Mechanical Ventilator 40 6/4/18 15:00 119/52 6//18 14:30 93 38 107/51 98 Mechanical Ventilator 40 6/4/18 14:00 89 35 95/55 98 Mechanical Ventilator 40 6/4/18 14:00 95/55 6/4/18 13:30 92 32 111/44 98 Mechanical Ventilator 40 6/4/18 13:00 89 32 119/52 98 Mechanical Ventilator 40 6/4/18 13:00 119/52 6/4/18 12:45 87 38 40 6/4/18 12:30 87 32 99/57 100 Mechanical Ventilator 40 6/4/18 12:00 98.8 88 31 103/51 98 Mechanical Ventilator 40 98.8 6/4/18 12:00 40 6/4/18 12:00 101/51 6/4/18 12:00 83 6/4/18 11:30 85 31 94/51 100 Mechanical Ventilator 40 6/4/18 11:06 83 33 40 6/4/18 11:00 85 31 95/51 100 Mechanical Ventilator 40 6/4/18 11:00 97/57 6/4/18 10:30 86 30 94/51 100 Mechanical Ventilator 50 09/01/17 10:15 86 29 91/56 100 Mechanical Ventilator 50 09/01/17 10:00 40 09/01/17 10:00 88 30 77/55 100 Mechanical Ventilator 50 09/01/17 10:00 77/55 09/01/17 09:45 86 30 93/61 100 Mechanical Ventilator 50 09/01/17 09:30 83 27 101/60 100 Mechanical Ventilator 50 09/01/17 09:00 106/54 09/01/17 09:00 89 29 106/54 100 Mechanical Ventilator 50 09/01/17 08:54 89 101/64 09/01/17 08:33 91 37 50 09/01/17 08:30 91 31 101/64 100 Mechanical Ventilator 50 Intake and Output 09/01/17 09/02/17 19:00 07:00 Intake Total 2931.28 ml 2126.25 ml Output Total 1430 ml 960 ml Balance 1501.28 ml 1166.25 ml Intake Free Water 300 ml 100 ml IV Total 2001.28 ml 1576.25 ml Tube Feeding 600 ml 450 ml Other 30 ml Output Urine Total 1205 ml 960 ml Stool Total 225 ml 0 ml Laboratory Tests 09/01/17 14:30: Vancomycin Level Trough 15.6H 09/02/17 04:15: White Blood Count 16.4H, Red Blood Count 2.98L, Hemoglobin 8.0L, Hematocrit 24.8L, Mean Corpuscular Volume 83, Mean Corpuscular Hemoglobin 26.7L, Mean Corpuscular Hemoglobin Concent 32.2, Red Cell Distribution Width 20.2H, Platelet Count 462H, Mean Platelet Volume 5.5L, Neutrophils (%) (Auto) 80.7H, Lymphocytes (%) (Auto) 10.7L, Monocytes (%) (Auto) 8.1, Eosinophils (%) (Auto) 0.1, Basophils (%) (Auto) 0.4, Sodium Level 146H, Potassium Level 3.0L, Chloride Level 114H, Carbon Dioxide Level 16L, Anion Gap 16H, Blood Urea Nitrogen 61H, Creatinine 1.0, Estimat Glomerular Filtration Rate , Glucose Level 178H, Calcium Level 7.5L, Total Bilirubin 0.2, Aspartate Amino Transf (AST /SGOT) 26, Alanine Aminotransferase (ALT/SGPT) 19, Alkaline Phosphatase 127H, Total Protein 6.2L, Albumin 1.0L, Globulin 5.2, Albumin/Globulin Ratio 0.2L Height (Feet): 5 Height (Inches): 3.00 Weight (Pounds): 157 Objective General Appearance: WD/WN, alert, confused Neck: supple Cardiovascular: normal rate, regular rhythm Respiratory/Chest: chest wall non-tender, lungs clear, normal breath sounds, no respiratory distress Abdomen: normal bowel sounds, non tender, soft, no organomegaly Edema: no edema noted Arm (L), no edema noted Arm (R), no edema noted Leg (L), no edema noted Leg (R), no edema noted Pedal (L), no edema noted Pedal (R), no edema noted Generalized Neurologic: disoriented, unresponsive oSuth Acosta MD Sep 02, 2017 08:29
[2017-09-02] MEDS: Aspirin Baby 81mg GT SCH (08:42)
[2017-09-02] MEDS: Ascorbic Acid 500mg tab GT SCH (08:43)
[2017-09-02] MEDS: Zinc Sulfate 220mg cap GT SCH (08:44)
[2017-09-02] MEDS: Ferrous Sulfate 300 MG/5 ML UDC NG SCH (08:44)
[2017-09-02] MEDS: Pantoprazole Inj IVP SCH (08:46)
[2017-09-02] MEDS: Potassium Chloride 10 MEQ in D5 1/2NS 1,000 ML IV SCH ×2 (09:34→19:12)
[2017-09-02] MEDS: Meropenem 1 GM in NS 110 ML IVPB SCH ×2 (11:39→21:44)
[2017-09-02] MEDS ORDERED: Levofloxacin 500mg tab ORAL SCH (12:00)
[2017-09-02] MEDS ORDERED: Fluconazole 100mg tab ORAL SCH (12:00)
[2017-09-02] MEDS ORDERED: Sterile Water For Irrig 2000ml IRRIG ONE (14:46)
[2017-09-02] MEDS ORDERED: Tubing IV Secondary IV ONE ×2 (14:46→15:28)
--- NOTE | 2017-09-02 17:14 | Critical Care Progress Note ---
Assessment/Plan Assessment/Plan respiratory failure trach GT chronic encephalopathy HAROLDO sepsis leukocytosis PLAN ICu care noted vent as is IV antibiotics- cultures reviewed hydrate monitor hemodynamics medications/laboratory data/nursing notes/ICU care reviewed in detail note reviewed and edited care discussed with RN and RT Critical Care - Subjective Interval Events: same on vent d/w nursing ROS Limited/Unobtainable: Yes Condition: critical EKG Rhythm: Sinus Rhythm I&O: Intake and Output 09/01/17 09/02/17 19:00 07:00 Intake Total 2931.28 ml 2126.25 ml Output Total 1430 ml 960 ml Balance 1501.28 ml 1166.25 ml Intake Free Water 300 ml 100 ml IV Total 2001.28 ml 1576.25 ml Tube Feeding 600 ml 450 ml Other 30 ml Output Urine Total 1205 ml 960 ml Stool Total 225 ml 0 ml Critical Care - Objective Last 24 Hour Vital Signs Date Time Temp Pulse Resp B/P (MAP) Pulse Ox O2 Delivery O2 Flow Rate FiO2 09/02/17 17:00 104 28 113/55 100 Mechanical Ventilator 40 09/02/17 16:00 98.0 96 40 109/61 100 Mechanical Ventilator 40 98.0 09/02/17 16:00 40 09/02/17 16:00 96 09/02/17 15:26 95 43 40 09/02/17 15:00 96 28 108/53 100 Mechanical Ventilator 40 09/02/17 14:00 89 44 110/35 100 Mechanical Ventilator 40 09/02/17 13:21 88 44 40 09/02/17 13:00 88 42 100/54 100 Mechanical Ventilator 40 09/02/17 12:00 40 09/02/17 12:00 90 09/02/17 12:00 97.8 89 42 105/52 100 Mechanical Ventilator 40 97.8 09/02/17 11:30 88 40 113/45 100 Mechanical Ventilator 40 09/02/17 11:00 94 36 121/64 100 Mechanical Ventilator 40 09/02/17 11:00 121/64 09/02/17 10:54 84 44 40 09/02/17 10:30 87 37 119/44 99 Mechanical Ventilator 40 09/02/17 10:00 105/48 09/02/17 10:00 85 33 105/48 100 Mechanical Ventilator 40 09/02/17 09:30 83 36 105/48 100 Mechanical Ventilator 40 6/5/18 09:00 80 34 100/48 100 Mechanical Ventilator 40 6/5/18 09:00 103/48 6/5/18 08:59 89 32 40 6/5/18 08:49 82 103/44 6/5/18 08:30 81 32 100/48 100 Mechanical Ventilator 40 6/5/18 08:00 40 6/5/18 08:00 103/44 6/5/18 08:00 80 6/5/18 08:00 98.1 80 27 103/44 100 Mechanical Ventilator 40 98.1 6/5/18 07:28 81 40 40 6/5/18 07:00 81 36 102/28 100 Mechanical Ventilator 40 6/5/18 07:00 102/28 6/5/18 06:30 81 30 97/44 100 Mechanical Ventilator 40 6/5/18 06:00 80 29 100/50 100 Mechanical Ventilator 40 6/5/18 06:00 100/55 6/5/18 05:00 87 41 40 6/5/18 05:00 89 25 110/55 100 Mechanical Ventilator 40 6/5/18 05:00 110/55 6/5/18 04:30 98.7 90 25 112/50 100 Mechanical Ventilator 40 98.7 6/5/18 04:00 95 6/5/18 04:00 109/50 6/5/18 04:00 40 6/5/18 04:00 95 6/5/18 04:00 88 25 114/57 100 Mechanical Ventilator 40 6/5/18 03:30 94 31 114/57 99 Mechanical Ventilator 40 6/5/18 03:00 94 38 104/55 99 Mechanical Ventilator 40 6/5/18 03:00 104/55 6/5/18 03:00 88 41 40 6/5/18 02:30 86 28 99/63 98 Mechanical Ventilator 40 6/5/18 02:00 86 28 117/68 98 Mechanical Ventilator 40 6/5/18 02:00 99/63 6/5/18 01:30 89 33 110/52 98 Mechanical Ventilator 40 6/5/18 01:00 110/87 6/5/18 01:00 90 32 110/52 98 Mechanical Ventilator 40 6/5/18 01:00 91 35 40 6/5/18 00:30 86 28 110/87 98 Mechanical Ventilator 40 6/5/18 00:00 99.5 85 29 125/45 98 Mechanical Ventilator 40 99.5 09/02/17 00:00 110/52 09/02/17 00:00 40 09/02/17 00:00 85 09/01/17 23:30 89 36 125/45 98 Mechanical Ventilator 40 09/01/17 23:10 88 27 40 09/01/17 23:00 86 29 129/49 98 Mechanical Ventilator 40 09/01/17 23:00 129/49 09/01/17 22:30 90 39 128/46 98 Mechanical Ventilator 40 09/01/17 22:00 99.5 91 39 120/54 97 Mechanical Ventilator 40 99.5 09/01/17 22:00 128/46 09/01/17 21:32 104/65 09/01/17 21:30 95 38 93/47 97 Mechanical Ventilator 40 09/01/17 21:05 97 37 40 09/01/17 21:00 94 38 97/47 97 Mechanical Ventilator 40 09/01/17 20:59 99.5 09/01/17 20:30 98 39 113/47 96 Mechanical Ventilator 40 09/01/17 20:29 100.5 09/01/17 20:00 101 09/01/17 20:00 40 09/01/17 20:00 100.5 105 43 104/65 96 Mechanical Ventilator 40 100.5 09/01/17 19:30 101 30 126/64 98 Mechanical Ventilator 40 09/01/17 19:09 100 43 40 09/01/17 19:00 105 28 118/66 96 Mechanical Ventilator 40 09/01/17 18:30 107 25 120/72 96 Mechanical Ventilator 40 09/01/17 18:00 100 34 115/67 96 Mechanical Ventilator 40 09/01/17 18:00 115/67 09/01/17 17:30 98 36 119/66 96 Mechanical Ventilator 40 Labs: Labs Test 08/31/17 04:15 09/01/17 04:10 09/01/17 06:45 09/01/17 14:30 White Blood Count 23.7 K/UL (4.8-10.8) 13.2 K/UL (4.8-10.8) 14.4 K/UL (4.8-10.8) Red Blood Count 3.12 M/UL (4.70-6.10) 2.80 M/UL (4.70-6.10) 2.98 M/UL (4.70-6.10) Hemoglobin 8.4 G/DL (14.2-18.0) 7.5 G/DL (14.2-18.0) 7.8 G/DL (14.2-18.0) Hematocrit 26.1 % (42.0-52.0) 23.3 % (42.0-52.0) 24.9 % (42.0-52.0) Mean Corpuscular Volume 84 FL (80-99) 84 FL (80-99) 84 FL (80-99) Mean Corpuscular Hemoglobin 27.0 PG (27.0-31.0) 26.9 PG (27.0-31.0) 26.3 PG (27.0-31.0) Mean Corpuscular Hemoglobin Concent 32.2 G/DL (32.0-36.0) 32.2 G/DL (32.0-36.0) 31.4 G/DL (32.0-36.0) Red Cell Distribution Width 19.6 % (11.6-14.8) 20.3 % (11.6-14.8) 20.2 % (11.6-14.8) Platelet Count 519 K/UL (150-450) 411 K/UL (150-450) 430 K/UL (150-450) Mean Platelet Volume 5.5 FL (6.5-10.1) 5.5 FL (6.5-10.1) 5.7 FL (6.5-10.1) Neutrophils (%) (Auto) % (45.0-75.0) % (45.0-75.0) % (45.0-75.0) Lymphocytes (%) (Auto) % (20.0-45.0) % (20.0-45.0) % (20.0-45.0) Monocytes (%) (Auto) % (1.0-10.0) % (1.0-10.0) % (1.0-10.0) Eosinophils (%) (Auto) % (0.0-3.0) % (0.0-3.0) % (0.0-3.0) Basophils (%) (Auto) % (0.0-2.0) % (0.0-2.0) % (0.0-2.0) Differential Total Cells Counted 100 100 Neutrophils % (Manual) 93 % (45-75) 77 % (45-75) Lymphocytes % (Manual) 3 % (20-45) 16 % (20-45) Monocytes % (Manual) 4 % (1-10) 7 % (1-10) Eosinophils % (Manual) 0 % (0-3) 0 % (0-3) Basophils % (Manual) 0 % (0-2) 0 % (0-2) Band Neutrophils 0 % (0-8) 0 % (0-8) Platelet Estimate Increased Adequate Platelet Morphology Normal Normal Polychromasia 1+ Hypochromasia 1+ 1+ Anisocytosis 1+ 2+ Sodium Level 139 MMOL/L (136-145) 142 MMOL/L (136-145) 142 MMOL/L (136-145) Potassium Level 3.3 MMOL/L (3.5-5.1) 2.9 MMOL/L (3.5-5.1) 3.0 MMOL/L (3.5-5.1) Chloride Level 107 MMOL/L (98-107) 111 MMOL/L (98-107) 110 MMOL/L (98-107) Carbon Dioxide Level 20 MMOL/L (21-32) 17 MMOL/L (21-32) 17 MMOL/L (21-32) Anion Gap 12 mmol/L (5-15) 14 mmol/L (5-15) 15 mmol/L (5-15) Blood Urea Nitrogen 74 mg/dL (7-18) 71 mg/dL (7-18) 68 mg/dL (7-18) Creatinine 1.2 MG/DL (0.55-1.30) 1.2 MG/DL (0.55-1.30) 1.1 MG/DL (0.55-1.30) Estimat Glomerular Filtration Rate mL/min (>60) mL/min (>60) mL/min (>60) Glucose Level 93 MG/DL (74-106) 124 MG/DL (74-106) 119 MG/DL (74-106) Lactic Acid Level 1.70 mmol/L (0.4-2.0) Calcium Level 7.7 MG/DL (8.5-10.1) 7.8 MG/DL (8.5-10.1) 7.9 MG/DL (8.5-10.1) Total Bilirubin 0.3 MG/DL (0.2-1.0) 0.2 MG/DL (0.2-1.0) 0.2 MG/DL (0.2-1.0) Aspartate Amino Transf (AST/SGOT) 37 U/L (15-37) 28 U/L (15-37) 38 U/L (15-37) Alanine Aminotransferase (ALT/SGPT) 24 U/L (12-78) 22 U/L (12-78) 21 U/L (12-78) Alkaline Phosphatase 132 U/L (46-116) 118 U/L (46-116) 118 U/L (46-116) Troponin I 0.672 ng/mL (0.000-0.056) 0.716 ng/mL (0.000-0.056) Total Protein 6.0 G/DL (6.4-8.2) 5.8 G/DL (6.4-8.2) 5.9 G/DL (6.4-8.2) Albumin 0.9 G/DL (3.4-5.0) 0.9 G/DL (3.4-5.0) 0.9 G/DL (3.4-5.0) Globulin 5.1 g/dL 4.9 g/dL 5.0 g/dL Albumin/Globulin Ratio 0.2 (1.0-2.7) 0.2 (1.0-2.7) 0.2 (1.0-2.7) Pro-B-Type Natriuretic Peptide 00441 pg/mL (0-125) Vancomycin Level Trough 15.6 ug/mL (5.0-12.0) Test 09/02/17 04:15 White Blood Count 16.4 K/UL (4.8-10.8) Red Blood Count 2.98 M/UL (4.70-6.10) Hemoglobin 8.0 G/DL (14.2-18.0) Hematocrit 24.8 % (42.0-52.0) Mean Corpuscular Volume 83 FL (80-99) Mean Corpuscular Hemoglobin 26.7 PG (27.0-31.0) Mean Corpuscular Hemoglobin Concent 32.2 G/DL (32.0-36.0) Red Cell Distribution Width 20.2 % (11.6-14.8) Platelet Count 462 K/UL (150-450) Mean Platelet Volume 5.5 FL (6.5-10.1) Neutrophils (%) (Auto) 80.7 % (45.0-75.0) Lymphocytes (%) (Auto) 10.7 % (20.0-45.0) Monocytes (%) (Auto) 8.1 % (1.0-10.0) Eosinophils (%) (Auto) 0.1 % (0.0-3.0) Basophils (%) (Auto) 0.4 % (0.0-2.0) Sodium Level 146 MMOL/L (136-145) Potassium Level 3.0 MMOL/L (3.5-5.1) Chloride Level 114 MMOL/L (98-107) Carbon Dioxide Level 16 MMOL/L (21-32) Anion Gap 16 mmol/L (5-15) Blood Urea Nitrogen 61 mg/dL (7-18) Creatinine 1.0 MG/DL (0.55-1.30) Estimat Glomerular Filtration Rate mL/min (>60) Glucose Level 178 MG/DL (74-106) Calcium Level 7.5 MG/DL (8.5-10.1) Total Bilirubin 0.2 MG/DL (0.2-1.0) Aspartate Amino Transf (AST/SGOT) 26 U/L (15-37) Alanine Aminotransferase (ALT/SGPT) 19 U/L (12-78) Alkaline Phosphatase 127 U/L (46-116) Total Protein 6.2 G/DL (6.4-8.2) Albumin 1.0 G/DL (3.4-5.0) Globulin 5.2 g/dL Albumin/Globulin Ratio 0.2 (1.0-2.7) Objective: WDWN chronically ill reduced breath sounds bilaterally without rhonchi or wheeze [id number] without MRG NABS nontender no HSM; GT no CC edema trach poor LOC Micro: Microbiology Date/Time Source Procedure Growth Status 09/02/17 04:00 Stool Clostridium difficile Toxin Assay - Final Complete 08/31/17 03:00 Sacral Swab Gram Stain - Final Resulted 08/31/17 03:00 Wound Culture - Preliminary Gram Negative Bacillus 1 Gram Negative Bacillus 2 Gram Negative Bacillus 3 Resulted Accucheck: 97 Kj Blackman MD Sep 02, 2017 17:14
--- NOTE | 2017-09-02 18:52 | Consultation ---
History of Present Illness General Date patient seen: Sep 02, 2017 Time patient seen: 18:36 Chief Complaint: Dyspnea/Respdistress Referring physician: Dr. Acosta Reason for Consultation: Pressure ulcers Present Illness HPI Asked to evaluate this 77 yom who was [place] [facility] [place]. He presented with multiple pressure ulcers, the largest being the sacrum and b/l trochanters. He is bedridden with h/o anoxic encephalopathy. He had a bacteremia as well as UTI and had a significant leukocytosis upon admission which is now trending lower. He was on levophed but was weaned off of it today and has remained stable hemodynamically. It is unclear how long he has had these ulcers and what was being used to treat them at the SNF. Patient is on TF and is ventilator dependent. Allergies: Coded Allergies: No Known Allergies (Unverified , 07/25/17) Medication History Scheduled Amlodipine Besylate* (Amlodipine Besylate*), 5 MG GT DAILY, (Reported) Ascorbic Acid* (Vitamin C*), 500 MG GT DAILY, (Reported) Docusate Sodium* (Colace*), 100 MG GT DAILY, (Reported) Epoetin Tian (Epogen), 10,000 UNIT SUBQ 3XW, (Reported) Ferrous Sulfate* (Ferrous Sulfate*), 325 MG GT DAILY, (Reported) Levothyroxine Sodium* (Synthroid*), 100 MCG ORAL DAILY, (Reported) Multivitamin Liquid* (Multi-Delyn*), 5 ML GT DAILY, (Reported) Pantoprazole* (Protonix*), 40 MG GT DAILY, (Reported) Protein Supplement (Promod), 30 ML GT DAILY, (Reported) Zinc Sulfate (Zinc Sulfate), 220 MG GT DAILY, (Reported) Scheduled PRN Acetaminophen* (Acetaminophen*), 640 MG GT Q6H PRN for Mild Pain/Temp > 100.5, ( Reported) Albuterol Sulfate* (Albuterol Sulfate Hhn*), 3 ML INH Q6H PRN for Shortness of Breath, (Reported) Bisacodyl (Dulcolax), 10 MG RC DAILY PRN for Constipation, (Reported) Hydrocodone Bit/Acetaminophen 10-325* ([place] 10-325*), 1 TAB GT Q4H PRN for For Pain, (Reported) Hydrocodone Bit/Acetaminophen 10-325* ([place] 10-325*), 1 TAB GT Q4H PRN for For Pain, (Reported) Na Phos,M-B/Na Phos,Di-Ba* (Fleet Enema*), 133 ML RECTAL DAILY PRN for Constipation, (Reported) Miscellaneous Medications Vit C/Ascorbate Ca/Ascorb Sod (Vitamin C 500 Mg/15 Ml Liquid), 500 MG GT, ( Reported) Patient History Limited by: medical condition History Provided By: Medical Record Healthcare decision maker N Resuscitation status Full Code Advanced Directive on File No Review of Systems ROS Narrative Unable to obtain due to medical baseline Physical Exam General Appearance: no apparent distress, thin Lines, tubes and drains: PICC, trach, gtube, gonzalez cath, rectal tube Abdomen: soft Extremities: moderate edema Skin Exam: other - Large stage 4 sacrococcyx pressure ulcer with necrotic tissue and bone exposed. Some undermining circumferentially. Stage 4 left trochanter ulcer with necrotic tissue and loose bone fragments. Purulent drainage present. No crepitus or bullae. Stage 4 pressure ulcer right trochanter with bone exposed but more granular base. Right lateral malleolus unstageable with slough at the base. DTI left heel. Unstageable left buttock ulver with dry eschar in place. Musculoskeletal: atrophy, other - Significant for flexion contractures at the hips and knees bilaterally Last 24 Hour Vital Signs Date Time Temp Pulse Resp B/P (MAP) Pulse Ox O2 Delivery O2 Flow Rate FiO2 09/02/17 18:00 105 41 115/61 100 Mechanical Ventilator 40 09/02/17 17:18 117 40 40 09/02/17 17:00 104 28 113/55 100 Mechanical Ventilator 40 09/02/17 16:00 98.0 96 40 109/61 100 Mechanical Ventilator 40 98.0 09/02/17 16:00 40 09/02/17 16:00 96 09/02/17 15:26 95 43 40 09/02/17 15:00 96 28 108/53 100 Mechanical Ventilator 40 09/02/17 14:00 89 44 110/35 100 Mechanical Ventilator 40 09/02/17 13:21 88 44 40 09/02/17 13:00 88 42 100/54 100 Mechanical Ventilator 40 09/02/17 12:00 40 09/02/17 12:00 90 09/02/17 12:00 97.8 89 42 105/52 100 Mechanical Ventilator 40 97.8 6/5/18 11:30 88 40 113/45 100 Mechanical Ventilator 40 6/5/18 11:00 94 36 121/64 100 Mechanical Ventilator 40 6/5/18 11:00 121/64 6/5/18 10:54 84 44 40 6/5/18 10:30 87 37 119/44 99 Mechanical Ventilator 40 6/5/18 10:00 105/48 6/5/18 10:00 85 33 105/48 100 Mechanical Ventilator 40 6/5/18 09:30 83 36 105/48 100 Mechanical Ventilator 40 6/5/18 09:00 80 34 100/48 100 Mechanical Ventilator 40 6/5/18 09:00 103/48 6/5/18 08:59 89 32 40 6/5/18 08:49 82 103/44 6/5/18 08:30 81 32 100/48 100 Mechanical Ventilator 40 6/5/18 08:00 40 6/5/18 08:00 103/44 6/5/18 08:00 80 6/5/18 08:00 98.1 80 27 103/44 100 Mechanical Ventilator 40 98.1 6/5/18 07:28 81 40 40 6/5/18 07:00 81 36 102/28 100 Mechanical Ventilator 40 6/5/18 07:00 102/28 6/5/18 06:30 81 30 97/44 100 Mechanical Ventilator 40 6/5/18 06:00 80 29 100/50 100 Mechanical Ventilator 40 6/5/18 06:00 100/55 6/5/18 05:00 87 41 40 6/5/18 05:00 89 25 110/55 100 Mechanical Ventilator 40 6/5/18 05:00 110/55 6/5/18 04:30 98.7 90 25 112/50 100 Mechanical Ventilator 40 98.7 6/5/18 04:00 95 6/5/18 04:00 109/50 6/5/18 04:00 40 6/5/18 04:00 95 6/5/18 04:00 88 25 114/57 100 Mechanical Ventilator 40 6/5/18 03:30 94 31 114/57 99 Mechanical Ventilator 40 6/5/18 03:00 94 38 104/55 99 Mechanical Ventilator 40 6/5/18 03:00 104/55 6/5/18 03:00 88 41 40 618 02:30 86 28 99/63 98 Mechanical Ventilator 40 618 02:00 86 28 117/68 98 Mechanical Ventilator 40 6 02:00 99/63 6 01:30 89 33 110/52 98 Mechanical Ventilator 40 618 01:00 110/87 6/18 01:00 90 32 110/52 98 Mechanical Ventilator 40 6 01:00 91 35 40 6 00:30 86 28 110/87 98 Mechanical Ventilator 40 6 00:00 99.5 85 29 125/45 98 Mechanical Ventilator 40 99.5 09/02/17 00:00 110/52 6 00:00 40 6 00:00 85 6 23:30 89 36 125/45 98 Mechanical Ventilator 40 09/01/17 23:10 88 27 40 6 23:00 86 29 129/49 98 Mechanical Ventilator 40 6 23:00 129/49 6 22:30 90 39 128/46 98 Mechanical Ventilator 40 09/01/17 22:00 99.5 91 39 120/54 97 Mechanical Ventilator 40 99.5 09/01/17 22:00 128/46 6 21:32 104/65 09/01/17 21:30 95 38 93/47 97 Mechanical Ventilator 40 09/01/17 21:05 97 37 40 09/01/17 21:00 94 38 97/47 97 Mechanical Ventilator 40 09/01/17 20:59 99.5 6 20:30 98 39 113/47 96 Mechanical Ventilator 40 18 20:29 100.5 6/18 20:00 101 6//18 20:00 40 6/18 20:00 100.5 105 43 104/65 96 Mechanical Ventilator 40 100.5 618 19:30 101 30 126/64 98 Mechanical Ventilator 40 618 19:09 100 43 40 6/18 19:00 105 28 118/66 96 Mechanical Ventilator 40 Intake and Output 09/01/18 6 19:00 07:00 Intake Total 2931.28 ml 2126.25 ml Output Total 1430 ml 960 ml Balance 1501.28 ml 1166.25 ml Intake Free Water 300 ml 100 ml IV Total 2001.28 ml 1576.25 ml Tube Feeding 600 ml 450 ml Other 30 ml Output Urine Total 1205 ml 960 ml Stool Total 225 ml 0 ml Laboratory Tests Test 09/02/17 04:15 09/02/17 17:48 White Blood Count 16.4 K/UL (4.8-10.8) H Red Blood Count 2.98 M/UL (4.70-6.10) L Hemoglobin 8.0 G/DL (14.2-18.0) L Hematocrit 24.8 % (42.0-52.0) L Mean Corpuscular Volume 83 FL (80-99) Mean Corpuscular Hemoglobin 26.7 PG (27.0-31.0) L Mean Corpuscular Hemoglobin Concent 32.2 G/DL (32.0-36.0) Red Cell Distribution Width 20.2 % (11.6-14.8) H Platelet Count 462 K/UL (150-450) H Mean Platelet Volume 5.5 FL (6.5-10.1) L Neutrophils (%) (Auto) 80.7 % (45.0-75.0) H Lymphocytes (%) (Auto) 10.7 % (20.0-45.0) L Monocytes (%) (Auto) 8.1 % (1.0-10.0) Eosinophils (%) (Auto) 0.1 % (0.0-3.0) Basophils (%) (Auto) 0.4 % (0.0-2.0) Sodium Level 146 MMOL/L (136-145) H Potassium Level 3.0 MMOL/L (3.5-5.1) L Chloride Level 114 MMOL/L (98-107) H Carbon Dioxide Level 16 MMOL/L (21-32) L Anion Gap 16 mmol/L (5-15) H Blood Urea Nitrogen 61 mg/dL (7-18) H Creatinine 1.0 MG/DL (0.55-1.30) Estimat Glomerular Filtration Rate mL/min (>60) Glucose Level 178 MG/DL (74-106) H Calcium Level 7.5 MG/DL (8.5-10.1) L Total Bilirubin 0.2 MG/DL (0.2-1.0) Aspartate Amino Transf (AST/SGOT) 26 U/L (15-37) Alanine Aminotransferase (ALT/SGPT) 19 U/L (12-78) Alkaline Phosphatase 127 U/L (46-116) H Total Protein 6.2 G/DL (6.4-8.2) L Albumin 1.0 G/DL (3.4-5.0) L Globulin 5.2 g/dL Albumin/Globulin Ratio 0.2 (1.0-2.7) L Arterial Blood pH 7.414 (7.350-7.450) Arterial Blood Partial Pressure CO2 29.6 mmHg (35.0-45.0) L Arterial Blood Partial Pressure O2 92.2 mmHg (75.0-100.0) Arterial Blood HCO3 18.5 mmol/L (22.0-26.0) L Arterial Blood Oxygen Saturation 97.0 % (92.0-98.0) Arterial Blood Base Excess -5.3 Mina Test Positive Microbiology Date/Time Source Procedure Growth Status 09/02/17 04:00 Stool Clostridium difficile Toxin Assay - Final Complete Height (Feet): 5 Height (Inches): 3.00 Weight (Pounds): 157 Medications Current Medications Medications (Trade) Dose Ordered Sig/Tal Route PRN Reason Start Time Stop Time Status Last Admin Dose Admin Acetaminophen (Tylenol) 650 mg EVERY 4 HOURS PRN GT Mild Pain/Temp > 100.5 08/30/17 21:45 09/29/17 21:44 09/02/17 05:23 Acetaminophen/ Hydrocodone Bitart ([place] 10/325) 1 tab Q4H PRN GT For Pain 08/30/17 21:45 09/06/17 21:44 Albuterol Sulfate (Proventil) 2.5 mg Q6HRT PRN HHN Shortness of Breath 08/30/17 21:45 09/04/17 21:44 Ascorbic Acid (Vitamin C) 500 mg DAILY GT 08/31/17 09:00 09/30/17 08:59 09/02/17 08:43 Aspirin (ASA) 81 mg DAILY GT 08/31/17 09:00 09/30/17 08:59 09/02/17 08:42 Bisacodyl (Dulcolax) 10 mg DAILYPRN PRN RECTAL Constipation 08/30/17 21:45 09/29/17 21:44 Chlorhexidine Gluconate (Consuelo-Hex 2%) 1 applic DAILY@2000 TOPIC 08/31/17 20:00 09/30/17 19:59 09/01/17 20:29 Epoetin Tian (Procrit (for non ESRD use)) 10,000 units MON-WED-FRI SUBQ 09/01/17 21:00 10/01/17 20:59 09/01/17 21:32 Ferrous Sulfate (Feosol) 300 mg DAILY NG 08/31/17 09:00 09/30/17 08:59 09/02/17 08:44 Fluconazole (Diflucan) 100 mg DAILY ORAL 09/03/17 09:00 09/10/17 08:59 Levofloxacin (Levaquin) 500 mg DAILY ORAL 09/03/17 09:00 09/10/17 08:59 Levothyroxine Sodium (Synthroid) 100 mcg DAILY@0630 GT 08/31/17 06:30 09/30/17 06:29 09/02/17 05:22 Meropenem 1 gm/ Sodium Chloride 110 ml @ 220 mls/hr Q8HR IVPB 09/02/17 12:00 09/07/17 11:59 09/02/17 11:39 Norepinephrine Bitartrate 8 mg/ Dextrose 254 ml @ 0 mls/hr Q24H IV 09/01/17 20:15 10/01/17 20:14 09/01/17 21:32 Pantoprazole (Protonix) 40 mg DAILY IVP 08/31/17 09:00 09/30/17 08:59 09/02/17 08:46 Potassium Chloride 10 meq/ Dextrose/Sodium Chloride 1,005 ml @ 100 mls/hr Q10H3M IV 09/02/17 09:00 10/02/17 08:59 09/02/17 09:34 Sodium Phosphate (Fleet's Sodium Phosl Enema) 133 ml DAILY PRN RECTAL Constipation 08/30/17 21:45 09/29/17 21:44 Zinc Sulfate (Zinc Sulfate) 220 mg DAILY GT 08/31/17 09:00 09/30/17 08:59 09/02/17 08:44 Assessment/Plan Assessment/Plan Patient with multiple pressure ulcers of the trunk. His sacral and left trochanter ulcers need surgical debridement. 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 He has a very poor prognosis for healing given the size of the ulcers and his extremely low albumin level of .9. Will check prealbumin level for more precise nutritional status. Attempt made to contact the POA to obtain consent for surgery. Will continue to try and reach but due to the severity of the patient's wounds, will still need to proceed as these wounds, particularly the left trochanter ulcer increase this patient's morbidity and mortality rate. Seventy five minutes spent at bedside, examining the patient, reviewing the chart, and trying to contact POA. Trace Travis MD Sep 02, 2017 18:52
--- NOTE | 2017-09-02 19:45 | Consultation ---
DATE OF CONSULTATION: 09/02/2017 INFECTIOUS DISEASES CONSULTATION CONSULTING PHYSICIAN: Abhishek Boyd M.D. REFERRING PHYSICIAN: [place] M.D. REASON FOR CONSULTATION: Septic shock. HISTORY OF PRESENTING ILLNESS: This is a 77-year-old gentleman with history of respiratory failure, status post tracheostomy, hypertension, diabetes, dysphagia, status post G-tube placement who came in to [place] emergency room with fevers. He has been admitted to the ICU and an Infectious Diseases consultation has been obtained for antibiotics. PAST MEDICAL HISTORY: 1. History of diabetes. 2. Hypertension. 3. Coronary artery disease. 4. CVA. 5. Dementia. 6. Anoxic encephalopathy. 7. Respiratory failure, status post tracheostomy. 8. Dysphagia status post G-tube placement. MEDICATIONS: As an inpatient, the patient is on potassium, Epogen, norepinephrine, chlorhexidine, vancomycin, amlodipine, ascorbic acid, ferrous sulfate, Protonix, zinc sulfate, aspirin, Synthroid, Zosyn, albuterol, Tylenol, Bisacodyl, and [place]. ALLERGIES: No known drug allergies. SOCIAL HISTORY: Unknown. FAMILY HISTORY: Unknown. REVIEW OF SYSTEMS: Unable to obtain currently. PHYSICAL EXAMINATION: VITAL SIGNS: Temperature off 98.1 degrees, T-max of 100.5 degrees, pulse of 85, respiratory of 33, blood pressure 105/48 and O2 saturation of 100%. HEENT: Pupils equally reactive to light and accommodation. Mouth appears clean without thrush. NECK: Supple. No adenopathy. No JVD. Tracheostomy site is clean. CARDIOVASCULAR: Regular rate and rhythm. No murmurs. LUNGS: Clear to auscultation bilaterally. No crackles. No wheezes. ABDOMEN: Soft and nontender. G-tube site appears clean. Sacral decubitus ulcer noted. Right buttock ulcer noted. EXTREMITIES: No cyanosis, no clubbing, no edema. Right arm PICC line noted. LABORATORY AND DIAGNOSTIC DATA: White count of 16.4, hemoglobin 8, hematocrit 24.8, MCV 83, and platelet count of 462 with neutrophils of 80%. Sodium 146, potassium 3, chloride 114, bicarbonate 16, BUN 61, creatinine 1, and glucose 178. Calcium 7.5. Total bilirubin 0.2. AST 26, ALT 19 and alkaline phosphatase 127. Total protein 6.2. Albumin of 1. UA showing 15 to 20 white cells. Stool for C. difficile is negative. Wound culture growing gram-negative rods from the sacral decubitus ulcer. Blood culture growing E. coli and Proteus. The E. coli is susceptible to ceftriaxone, imipenem, intermediate to piperacillin tazobactam and Bactrim. Proteus is susceptible to piperacillin tazobactam and ertapenem and amikacin. Nasal swab was negative for MRSA. Urine culture is growing Pseudomonas, which is susceptible to piperacillin tazobactam, Levaquin, cefepime, but resistant to imipenem as well as Tabatha albicans. Chest x-ray showing interval appearance of right-sided collapse and consolidation, patchy opacities at the left base noted. ASSESSMENT: 1. This is a 77-year-old gentleman with history of diabetes and hypertension who comes in and is found to have E. coli and Proteus sepsis. 2. The patient also has a Pseudomonas urinary tract infection and a fungal urinary tract infection. 3. Respiratory failure. 4. Leukocytosis. PLAN: 1. Discontinue vancomycin and Zosyn. 2. We will start the patient on meropenem and Levaquin. 3. We will follow up cultures and adjust antibiotics accordingly. I would like to thank, Dr. Acosta, for this consultation. Abhishek Boyd M.D. DR: GLO JOB#: [id number] CC: [place] M.D.
[2017-09-02] MEDS: Dyna-Hex 2% Top Sol 2oz TOPIC SCH (20:16)
[2017-09-03] VITALS (23 sets, daily range): BP systolic 67–131; BP diastolic 31–81
[2017-09-03 01:47] LABS: INR 1.3 (0.9-1.1)
[2017-09-03 01:56] LABS: ALANINE AMINOTRANSFERASE 20 U/L (12-78); ALBUMIN 0.9 G/DL (3.4-5.0); ALBUMIN/GLOBULIN RATIO 0.2 (1.0-2.7); ALKALINE PHOSPHATASE 108 U/L (46-116); ANION GAP 13 mmol/L (5-15); ASPARTATE AMINO TRANSFERASE 22 U/L (15-37); BILIRUBIN,TOTAL 0.2 MG/DL (0.2-1.0); BLOOD UREA NITROGEN 60 mg/dL (7-18); CALCIUM 7.4 MG/DL (8.5-10.1); CARBON DIOXIDE 20 MMOL/L (21-32); CHLORIDE 115 MMOL/L (98-107); HEMATOCRIT 21.3 % (42.0-52.0); MEAN CORPUSCULAR VOLUME 82 FL (80-99); PLATELET COUNT 376 K/UL (150-450); POTASSIUM 2.9 MMOL/L (3.5-5.1); RED CELL DISTRIBUTION WIDTH 19.6 % (11.6-14.8); SODIUM 148 MMOL/L (136-145); WHITE BLOOD COUNT 9.7 K/UL (4.8-10.8)
[2017-09-03 01:59] LABS: HEMOGLOBIN 6.7 G/DL (14.2-18.0)
--- NOTE | 2017-09-03 02:15 | Progress Note ---
DATE: 09/02/2017 CARDIOLOGY PROGRESS NOTE SUBJECTIVE: The patient remains in the intensive care unit. Condition remains critical with guarded prognosis. The patient remains on ventilator support. His blood pressure remains marginal and pressors are just being tapered off. OBJECTIVE: VITAL SIGNS: Blood pressure 97/44, pulse 81, respirations 30, and afebrile. LUNGS: Bilateral breath sounds with rhonchi. HEART: Regular rhythm and rate. Normal S1 and S2 with no murmur. ABDOMEN: Soft. G-tube intact. EXTREMITIES: Dependent edema. SKIN: Multiple decubitus as previously noted and pictured. LABORATORY DATA: White count 16 and hemoglobin 8. Sodium 146, potassium 3, BUN 61, and creatinine 1. Albumin 1. IMPRESSION: 1. Sepsis. 2. Shock. 3. Respiratory failure. 4. Acute myocardial infarction. 5. Acute on chronic diastolic congestive heart failure. 6. Severe protein-calorie malnutrition. 7. Hypokalemia. 8. Dehydration. 9. Hyponatremia. PLAN: 1. Hypotonic IV fluids once off pressors and rehydrated. 2. Nutritional support by feeding tube. 3. Antimicrobials. 4. Wound care. 5. Ventilator support. 6. Hold all antihypertensives for now. Keith Reeves M.D. DR: Dc JOB#: [id number] CC:
[2017-09-03] MEDS: Acetaminophen 650mg/20.3ml GT PRN (03:29)
[2017-09-03] MEDS: Potassium Chloride 10 MEQ in D5 1/2NS 1,000 ML IV SCH ×2 (04:35→15:09)
[2017-09-03] MEDS: Meropenem 1 GM in NS 110 ML IVPB SCH ×3 (06:02→21:45)
[2017-09-03] MEDS: Aspirin Baby 81mg GT SCH (07:36)
[2017-09-03] MEDS: Ascorbic Acid 500mg tab GT SCH (08:43)
[2017-09-03] MEDS: Pantoprazole Inj IVP SCH (08:43)
[2017-09-03] MEDS: Zinc Sulfate 220mg cap GT SCH (08:43)
[2017-09-03] MEDS: Levofloxacin 500mg tab ORAL SCH (08:43)
[2017-09-03] MEDS: Ferrous Sulfate 300 MG/5 ML UDC NG SCH (08:43)
--- NOTE | 2017-09-03 09:00 | General Progress Note ---
Assessment/Plan Problem List: (1) GI bleed ICD Codes: K92.2 - Gastrointestinal hemorrhage, unspecified SNOMED: 79393648 (2) Symptomatic anemia ICD Codes: D64.9 - Anemia, unspecified SNOMED: 661306503 (3) Anemia ICD Codes: D64.9 - Anemia, unspecified SNOMED: 094376523 (4) Severe sepsis ICD Codes: A41.9 - Sepsis, unspecified organism; R65.20 - Severe sepsis without septic shock SNOMED: 44322956 Status: stable, progressing Assessment/Plan wean pressors cont abx follow up cultures monitor h/h- transfuse gt feeds replace lytes. ivf adjusted pt needs urgent surgery once medically optimized. per plastics pt has trochanter wound that could cause significant morbidity and mortality if not surgically debrided critical and guarded Subjective ROS Limited/Unobtainable: No Constitutional: Reports: malaise, weakness HEENT: Reports: no symptoms Cardiovascular: Reports: no symptoms Respiratory: Reports: shortness of breath Gastrointestinal/Abdominal: Reports: difficulty swallowing Genitourinary: Reports: no symptoms Neurologic/Psychiatric: Reports: pre-existing deficit Endocrine: Reports: no symptoms Hematologic/Lymphatic: Reports: no symptoms Allergies: Coded Allergies: No Known Allergies (Unverified , 07/25/17) All Systems: reviewed and negative except above Subjective picc changed. off low dose pressors. bp trending up. no fevers. remains unresponsive at baseline Objective Last 24 Hour Vital Signs Date Time Temp Pulse Resp B/P (MAP) Pulse Ox O2 Delivery O2 Flow Rate FiO2 09/03/17 08:00 40 09/03/17 08:00 98.0 91 31 104/52 99 Mechanical Ventilator 40 98.0 09/03/17 07:29 91 40 40 09/03/17 07:00 88 40 99/55 98 Mechanical Ventilator 40 09/03/17 06:00 91 39 96/56 99 Mechanical Ventilator 40 09/03/17 05:09 101 41 40 09/03/17 05:00 96 40 126/81 99 Mechanical Ventilator 40 09/03/17 04:00 40 09/03/17 04:00 98.7 92 39 96/60 99 Mechanical Ventilator 40 98.7 09/03/17 03:12 93 09/03/17 03:00 92 37 99/56 99 Mechanical Ventilator 40 6/6/18 02:37 94 39 40 6/6/18 02:00 94 40 100/50 99 Mechanical Ventilator 40 6/6/18 01:19 97 44 40 6/6/18 01:00 90 28 95/54 98 Mechanical Ventilator 40 6/6/18 00:00 99.9 94 36 94/51 98 Mechanical Ventilator 40 99.9 6/6/18 00:00 94 6/5/18 23:09 100 47 40 6/5/18 23:00 98 40 96/57 98 Mechanical Ventilator 40 6/5/18 22:00 96 35 97/55 98 Mechanical Ventilator 40 6/5/18 21:17 100 48 40 6/5/18 21:00 106 44 96/60 98 Mechanical Ventilator 40 6/5/18 20:15 96/56 6/5/18 20:00 40 6/5/18 20:00 99.7 108 46 96/56 98 Mechanical Ventilator 40 99.7 6/5/18 20:00 106 6/5/18 19:14 103 49 40 6/5/18 19:00 105 45 94/55 100 Mechanical Ventilator 40 6/5/18 18:00 105 41 115/61 100 Mechanical Ventilator 40 6/5/18 17:18 117 40 40 6/5/18 17:00 104 28 113/55 100 Mechanical Ventilator 40 6/5/18 16:00 98.0 96 40 109/61 100 Mechanical Ventilator 40 98.0 6/5/18 16:00 40 6/5/18 16:00 96 6/5/18 15:26 95 43 40 6/5/18 15:00 96 28 108/53 100 Mechanical Ventilator 40 6/5/18 14:00 89 44 110/35 100 Mechanical Ventilator 40 6/5/18 13:21 88 44 40 6/5/18 13:00 88 42 100/54 100 Mechanical Ventilator 40 6/5/18 12:00 40 6/5/18 12:00 90 6/5/18 12:00 97.8 89 42 105/52 100 Mechanical Ventilator 40 97.8 6/5/18 11:30 88 40 113/45 100 Mechanical Ventilator 40 6/5/18 11:00 94 36 121/64 100 Mechanical Ventilator 40 6/5/18 11:00 121/64 6/5/18 10:54 84 44 40 6/5/18 10:30 87 37 119/44 99 Mechanical Ventilator 40 09/02/17 10:00 105/48 09/02/17 10:00 85 33 105/48 100 Mechanical Ventilator 40 09/02/17 09:30 83 36 105/48 100 Mechanical Ventilator 40 09/02/17 09:00 80 34 100/48 100 Mechanical Ventilator 40 09/02/17 09:00 103/48 09/02/17 08:59 89 32 40 Intake and Output 09/02/17 09/03/17 19:00 07:00 Intake Total 2258.75 ml 1925 ml Output Total 1995 ml 1720 ml Balance 263.75 ml 205 ml Intake Free Water 150 ml IV Total 1408.75 ml 1320 ml Tube Feeding 600 ml 175 ml Blood Product 250 ml Other 100 ml 180 ml Output Urine Total 1995 ml 1670 ml Stool Total 0 ml 50 ml Laboratory Tests 09/02/17 17:48: Arterial Blood pH 7.414, Arterial Blood Partial Pressure CO2 29.6L, Arterial Blood Partial Pressure O2 92.2, Arterial Blood HCO3 18.5L, Arterial Blood Oxygen Saturation 97.0, Arterial Blood Base Excess -5.3, Mina Test Positive 09/03/17 00:30: White Blood Count 9.7, Red Blood Count 2.60L, Hemoglobin 6.7*L, Hematocrit 21.3L , Mean Corpuscular Volume 82, Mean Corpuscular Hemoglobin 25.8L, Mean Corpuscular Hemoglobin Concent 31.5L, Red Cell Distribution Width 19.6H, Platelet Count 376, Mean Platelet Volume 5.5L, Neutrophils (%) (Auto) , Lymphocytes (%) (Auto) , Monocytes (%) (Auto) , Eosinophils (%) (Auto) , Basophils (%) (Auto) , Prothrombin Time 14.0H, Prothromb Time International Ratio 1.3H, Activated Partial Thromboplast Time 33, Sodium Level 148H, Potassium Level 2.9L, Chloride Level 115H, Carbon Dioxide Level 20L, Anion Gap 13, Blood Urea Nitrogen 60H, Creatinine 1.0, Estimat Glomerular Filtration Rate , Glucose Level 142H, Calcium Level 7.4L, Total Bilirubin 0.2, Aspartate Amino Transf (AST/SGOT) 22, Alanine Aminotransferase (ALT/SGPT) 20, Alkaline Phosphatase 108, Troponin I 0.277H, Pro-B-Type Natriuretic Peptide 34522H, Total Protein 5.8L, Albumin 0.9L, Globulin 4.9, Albumin/Globulin Ratio 0.2L Height (Feet): 5 Height (Inches): 3.00 Weight (Pounds): 157 Objective General Appearance: WD/WN, alert, confused Neck: supple Cardiovascular: normal rate, regular rhythm Respiratory/Chest: chest wall non-tender, lungs clear, normal breath sounds, no respiratory distress Abdomen: normal bowel sounds, non tender, soft, no organomegaly Edema: no edema noted Arm (L), no edema noted Arm (R), no edema noted Leg (L), no edema noted Leg (R), no edema noted Pedal (L), no edema noted Pedal (R), no edema noted Generalized Neurologic: disoriented, unresponsive [place] MD Sep 03, 2017 09:00
[2017-09-03] MEDS: Fluconazole 100mg tab ORAL SCH (10:09)
[2017-09-03] MEDS: Midodrine 10mg tab ORAL SCH ×3 (10:09→18:00)
--- NOTE | 2017-09-03 11:05 | Critical Care Progress Note ---
Assessment/Plan Assessment/Plan respiratory failure trach GT chronic encephalopathy HAROLDO sepsis leukocytosis anemia ?GIB PLAN ICu care noted vent as is IV antibiotics- cultures reviewed hydrate monitor hemodynamics transfuse midodrine for orthostasis medications/laboratory data/nursing notes/ICU care reviewed in detail note reviewed and edited care discussed with RN and RT Critical Care - Subjective Interval Events: overall same no distress on vent ROS Limited/Unobtainable: Yes Condition: critical EKG Rhythm: Sinus Rhythm Residuals: minimal Tube Feeding Tolerated: yes I&O: Intake and Output 09/02/17 09/03/17 19:00 07:00 Intake Total 2258.75 ml 1925 ml Output Total 1995 ml 1720 ml Balance 263.75 ml 205 ml Intake Free Water 150 ml IV Total 1408.75 ml 1320 ml Tube Feeding 600 ml 175 ml Blood Product 250 ml Other 100 ml 180 ml Output Urine Total 1995 ml 1670 ml Stool Total 0 ml 50 ml Critical Care - Objective Last 24 Hour Vital Signs Date Time Temp Pulse Resp B/P (MAP) Pulse Ox O2 Delivery O2 Flow Rate FiO2 09/03/17 10:56 92 41 40 09/03/17 10:00 89 38 110/60 99 Mechanical Ventilator 40 09/03/17 09:28 91 38 40 09/03/17 09:00 95 33 103/54 99 Mechanical Ventilator 40 09/03/17 08:00 40 09/03/17 08:00 98.0 91 31 104/52 99 Mechanical Ventilator 40 98.0 09/03/17 08:00 87 09/03/17 07:29 91 40 40 09/03/17 07:00 88 40 99/55 98 Mechanical Ventilator 40 09/03/17 06:00 91 39 96/56 99 Mechanical Ventilator 40 09/03/17 05:09 101 41 40 09/03/17 05:00 96 40 126/81 99 Mechanical Ventilator 40 09/03/17 04:00 40 09/03/17 04:00 98.7 92 39 96/60 99 Mechanical Ventilator 40 98.7 09/03/17 03:12 93 09/03/17 03:00 92 37 99/56 99 Mechanical Ventilator 40 09/03/17 02:37 94 39 40 09/03/17 02:00 94 40 100/50 99 Mechanical Ventilator 40 09/03/17 01:19 97 44 40 09/03/17 01:00 90 28 95/54 98 Mechanical Ventilator 40 09/03/17 00:00 99.9 94 36 94/51 98 Mechanical Ventilator 40 99.9 09/03/17 00:00 94 09/02/17 23:09 100 47 40 09/02/17 23:00 98 40 96/57 98 Mechanical Ventilator 40 09/02/17 22:00 96 35 97/55 98 Mechanical Ventilator 40 09/02/17 21:17 100 48 40 09/02/17 21:00 106 44 96/60 98 Mechanical Ventilator 40 09/02/17 20:15 96/56 09/02/17 20:00 40 09/02/17 20:00 99.7 108 46 96/56 98 Mechanical Ventilator 40 99.7 09/02/17 20:00 106 09/02/17 19:14 103 49 40 09/02/17 19:00 105 45 94/55 100 Mechanical Ventilator 40 09/02/17 18:00 105 41 115/61 100 Mechanical Ventilator 40 09/02/17 17:18 117 40 40 09/02/17 17:00 104 28 113/55 100 Mechanical Ventilator 40 09/02/17 16:00 98.0 96 40 109/61 100 Mechanical Ventilator 40 98.0 09/02/17 16:00 40 09/02/17 16:00 96 09/02/17 15:26 95 43 40 09/02/17 15:00 96 28 108/53 100 Mechanical Ventilator 40 09/02/17 14:00 89 44 110/35 100 Mechanical Ventilator 40 09/02/17 13:21 88 44 40 09/02/17 13:00 88 42 100/54 100 Mechanical Ventilator 40 09/02/17 12:00 40 09/02/17 12:00 90 09/02/17 12:00 97.8 89 42 105/52 100 Mechanical Ventilator 40 97.8 09/02/17 11:30 88 40 113/45 100 Mechanical Ventilator 40 Labs: Labs Test 09/01/17 04:10 09/01/17 06:45 09/01/17 14:30 09/02/17 04:15 White Blood Count 13.2 K/UL (4.8-10.8) 14.4 K/UL (4.8-10.8) 16.4 K/UL (4.8-10.8) Red Blood Count 2.80 M/UL (4.70-6.10) 2.98 M/UL (4.70-6.10) 2.98 M/UL (4.70-6.10) Hemoglobin 7.5 G/DL (14.2-18.0) 7.8 G/DL (14.2-18.0) 8.0 G/DL (14.2-18.0) Hematocrit 23.3 % (42.0-52.0) 24.9 % (42.0-52.0) 24.8 % (42.0-52.0) Mean Corpuscular Volume 84 FL (80-99) 84 FL (80-99) 83 FL (80-99) Mean Corpuscular Hemoglobin 26.9 PG (27.0-31.0) 26.3 PG (27.0-31.0) 26.7 PG (27.0-31.0) Mean Corpuscular Hemoglobin Concent 32.2 G/DL (32.0-36.0) 31.4 G/DL (32.0-36.0) 32.2 G/DL (32.0-36.0) Red Cell Distribution Width 20.3 % (11.6-14.8) 20.2 % (11.6-14.8) 20.2 % (11.6-14.8) Platelet Count 411 K/UL (150-450) 430 K/UL (150-450) 462 K/UL (150-450) Mean Platelet Volume 5.5 FL (6.5-10.1) 5.7 FL (6.5-10.1) 5.5 FL (6.5-10.1) Neutrophils (%) (Auto) % (45.0-75.0) % (45.0-75.0) 80.7 % (45.0-75.0) Lymphocytes (%) (Auto) % (20.0-45.0) % (20.0-45.0) 10.7 % (20.0-45.0) Monocytes (%) (Auto) % (1.0-10.0) % (1.0-10.0) 8.1 % (1.0-10.0) Eosinophils (%) (Auto) % (0.0-3.0) % (0.0-3.0) 0.1 % (0.0-3.0) Basophils (%) (Auto) % (0.0-2.0) % (0.0-2.0) 0.4 % (0.0-2.0) Sodium Level 142 MMOL/L (136-145) 142 MMOL/L (136-145) 146 MMOL/L (136-145) Potassium Level 2.9 MMOL/L (3.5-5.1) 3.0 MMOL/L (3.5-5.1) 3.0 MMOL/L (3.5-5.1) Chloride Level 111 MMOL/L (98-107) 110 MMOL/L (98-107) 114 MMOL/L (98-107) Carbon Dioxide Level 17 MMOL/L (21-32) 17 MMOL/L (21-32) 16 MMOL/L (21-32) Anion Gap 14 mmol/L (5-15) 15 mmol/L (5-15) 16 mmol/L (5-15) Blood Urea Nitrogen 71 mg/dL (7-18) 68 mg/dL (7-18) 61 mg/dL (7-18) Creatinine 1.2 MG/DL (0.55-1.30) 1.1 MG/DL (0.55-1.30) 1.0 MG/DL (0.55-1.30) Estimat Glomerular Filtration Rate mL/min (>60) mL/min (>60) mL/min (>60) Glucose Level 124 MG/DL (74-106) 119 MG/DL (74-106) 178 MG/DL (74-106) Calcium Level 7.8 MG/DL (8.5-10.1) 7.9 MG/DL (8.5-10.1) 7.5 MG/DL (8.5-10.1) Total Bilirubin 0.2 MG/DL (0.2-1.0) 0.2 MG/DL (0.2-1.0) 0.2 MG/DL (0.2-1.0) Aspartate Amino Transf (AST/SGOT) 28 U/L (15-37) 38 U/L (15-37) 26 U/L (15-37) Alanine Aminotransferase (ALT/SGPT) 22 U/L (12-78) 21 U/L (12-78) 19 U/L (12-78) Alkaline Phosphatase 118 U/L (46-116) 118 U/L (46-116) 127 U/L (46-116) Troponin I 0.716 ng/mL (0.000-0.056) Pro-B-Type Natriuretic Peptide 23332 pg/mL (0-125) Total Protein 5.8 G/DL (6.4-8.2) 5.9 G/DL (6.4-8.2) 6.2 G/DL (6.4-8.2) Albumin 0.9 G/DL (3.4-5.0) 0.9 G/DL (3.4-5.0) 1.0 G/DL (3.4-5.0) Globulin 4.9 g/dL 5.0 g/dL 5.2 g/dL Albumin/Globulin Ratio 0.2 (1.0-2.7) 0.2 (1.0-2.7) 0.2 (1.0-2.7) Differential Total Cells Counted 100 Neutrophils % (Manual) 77 % (45-75) Lymphocytes % (Manual) 16 % (20-45) Monocytes % (Manual) 7 % (1-10) Eosinophils % (Manual) 0 % (0-3) Basophils % (Manual) 0 % (0-2) Band Neutrophils 0 % (0-8) Platelet Estimate Adequate Platelet Morphology Normal Hypochromasia 1+ Anisocytosis 2+ Vancomycin Level Trough 15.6 ug/mL (5.0-12.0) Prealbumin 4 mg/dL (9-32) Test 09/02/17 17:48 09/03/17 00:30 Arterial Blood pH 7.414 (7.350-7.450) Arterial Blood Partial Pressure CO2 29.6 mmHg (35.0-45.0) Arterial Blood Partial Pressure O2 92.2 mmHg (75.0-100.0) Arterial Blood HCO3 18.5 mmol/L (22.0-26.0) Arterial Blood Oxygen Saturation 97.0 % (92.0-98.0) Arterial Blood Base Excess -5.3 Mina Test Positive White Blood Count 9.7 K/UL (4.8-10.8) Red Blood Count 2.60 M/UL (4.70-6.10) Hemoglobin 6.7 G/DL (14.2-18.0) Hematocrit 21.3 % (42.0-52.0) Mean Corpuscular Volume 82 FL (80-99) Mean Corpuscular Hemoglobin 25.8 PG (27.0-31.0) Mean Corpuscular Hemoglobin Concent 31.5 G/DL (32.0-36.0) Red Cell Distribution Width 19.6 % (11.6-14.8) Platelet Count 376 K/UL (150-450) Mean Platelet Volume 5.5 FL (6.5-10.1) Neutrophils (%) (Auto) % (45.0-75.0) Lymphocytes (%) (Auto) % (20.0-45.0) Monocytes (%) (Auto) % (1.0-10.0) Eosinophils (%) (Auto) % (0.0-3.0) Basophils (%) (Auto) % (0.0-2.0) Prothrombin Time 14.0 SEC (9.30-11.50) Prothromb Time International Ratio 1.3 (0.9-1.1) Activated Partial Thromboplast Time 33 SEC (23-33) Sodium Level 148 MMOL/L (136-145) Potassium Level 2.9 MMOL/L (3.5-5.1) Chloride Level 115 MMOL/L (98-107) Carbon Dioxide Level 20 MMOL/L (21-32) Anion Gap 13 mmol/L (5-15) Blood Urea Nitrogen 60 mg/dL (7-18) Creatinine 1.0 MG/DL (0.55-1.30) Estimat Glomerular Filtration Rate mL/min (>60) Glucose Level 142 MG/DL (74-106) Calcium Level 7.4 MG/DL (8.5-10.1) Total Bilirubin 0.2 MG/DL (0.2-1.0) Aspartate Amino Transf (AST/SGOT) 22 U/L (15-37) Alanine Aminotransferase (ALT/SGPT) 20 U/L (12-78) Alkaline Phosphatase 108 U/L (46-116) Troponin I 0.277 ng/mL (0.000-0.056) Pro-B-Type Natriuretic Peptide 25597 pg/mL (0-125) Total Protein 5.8 G/DL (6.4-8.2) Albumin 0.9 G/DL (3.4-5.0) Globulin 4.9 g/dL Albumin/Globulin Ratio 0.2 (1.0-2.7) Objective: WDWN chronically ill reduced breath sounds bilaterally without rhonchi or wheeze [id number] without MRG NABS nontender no HSM; GT no CC edema trach poor LOC Micro: Microbiology Date/Time Source Procedure Growth Status 09/02/17 04:00 Stool Clostridium difficile Toxin Assay - Final Complete Accucheck: 97 Kj Blackman MD Sep 03, 2017 11:04
--- NOTE | 2017-09-03 11:18 | Infectious Diseases Prog Note ---
"Assessment/Plan Assessment/Plan antibiotics : meropenem 6.5.18 - levoquin 6.5.18 - fluconazole 6.5.18 - A 1. e.coli | proteus sepsis 2. pseudomonas | fungal UTI 3. leucocytosis resolved 4, respiratory failure 5. diabetes mellitus 6. hypertension P 1. continue meropenem 8 more days 2. continue levoquin 5 more days 3. continue fluconazole 5 more days 4. US abdomen 5. will follow up cultures Subjective ROS Limited/Unobtainable: Yes Allergies: Coded Allergies: No Known Allergies (Unverified , 07/25/17) Objective Vital Signs Last 24 Hour Vital Signs Date Time Temp Pulse Resp B/P (MAP) Pulse Ox O2 Delivery O2 Flow Rate FiO2 09/03/17 10:56 92 41 40 09/03/17 10:00 89 38 110/60 99 Mechanical Ventilator 40 09/03/17 09:28 91 38 40 09/03/17 09:00 95 33 103/54 99 Mechanical Ventilator 40 09/03/17 08:00 40 09/03/17 08:00 98.0 91 31 104/52 99 Mechanical Ventilator 40 98.0 09/03/17 08:00 87 09/03/17 07:29 91 40 40 09/03/17 07:00 88 40 99/55 98 Mechanical Ventilator 40 09/03/17 06:00 91 39 96/56 99 Mechanical Ventilator 40 09/03/17 05:09 101 41 40 09/03/17 05:00 96 40 126/81 99 Mechanical Ventilator 40 09/03/17 04:00 40 09/03/17 04:00 98.7 92 39 96/60 99 Mechanical Ventilator 40 98.7 09/03/17 03:12 93 09/03/17 03:00 92 37 99/56 99 Mechanical Ventilator 40 09/03/17 02:37 94 39 40 09/03/17 02:00 94 40 100/50 99 Mechanical Ventilator 40 09/03/17 01:19 97 44 40 09/03/17 01:00 90 28 95/54 98 Mechanical Ventilator 40 09/03/17 00:00 99.9 94 36 94/51 98 Mechanical Ventilator 40 99.9 09/03/17 00:00 94 09/02/17 23:09 100 47 40 09/02/17 23:00 98 40 96/57 98 Mechanical Ventilator 40 09/02/17 22:00 96 35 97/55 98 Mechanical Ventilator 40 09/02/17 21:17 100 48 40 09/02/17 21:00 106 44 96/60 98 Mechanical Ventilator 40 09/02/17 20:15 96/56 09/02/17 20:00 40 09/02/17 20:00 99.7 108 46 96/56 98 Mechanical Ventilator 40 99.7 09/02/17 20:00 106 09/02/17 19:14 103 49 40 09/02/17 19:00 105 45 94/55 100 Mechanical Ventilator 40 09/02/17 18:00 105 41 115/61 100 Mechanical Ventilator 40 09/02/17 17:18 117 40 40 09/02/17 17:00 104 28 113/55 100 Mechanical Ventilator 40 09/02/17 16:00 98.0 96 40 109/61 100 Mechanical Ventilator 40 98.0 09/02/17 16:00 40 09/02/17 16:00 96 09/02/17 15:26 95 43 40 09/02/17 15:00 96 28 108/53 100 Mechanical Ventilator 40 09/02/17 14:00 89 44 110/35 100 Mechanical Ventilator 40 09/02/17 13:21 88 44 40 09/02/17 13:00 88 42 100/54 100 Mechanical Ventilator 40 09/02/17 12:00 40 09/02/17 12:00 90 09/02/17 12:00 97.8 89 42 105/52 100 Mechanical Ventilator 40 97.8 09/02/17 11:30 88 40 113/45 100 Mechanical Ventilator 40 Height (Feet): 5 Height (Inches): 3.00 Weight (Pounds): 157 HEENT: status post trach Respiratory/Chest: lungs clear Cardiovascular: normal rate, regular rhythm, no gallop/murmur Abdomen: soft, non tender, other - GT Extremities: other - + edema, right arm PICC Microbiology Date/Time Source Procedure Growth Status 09/02/17 04:00 Stool Clostridium difficile Toxin Assay - Final Complete Laboratory Tests Test 09/02/17 17:48 09/03/17 00:30 Arterial Blood pH 7.414 (7.350-7.450) Arterial Blood Partial Pressure CO2 29.6 mmHg (35.0-45.0) L Arterial Blood Partial Pressure O2 92.2 mmHg (75.0-100.0) Arterial Blood HCO3 18.5 mmol/L (22.0-26.0) L Arterial Blood Oxygen Saturation 97.0 % (92.0-98.0) Arterial Blood Base Excess -5.3 Mina Test Positive White Blood Count 9.7 K/UL (4.8-10.8) Red Blood Count 2.60 M/UL (4.70-6.10) L Hemoglobin 6.7 G/DL (14.2-18.0) *L Hematocrit 21.3 % (42.0-52.0) L Mean Corpuscular Volume 82 FL (80-99) Mean Corpuscular Hemoglobin 25.8 PG (27.0-31.0) L Mean Corpuscular Hemoglobin Concent 31.5 G/DL (32.0-36.0) L Red Cell Distribution Width 19.6 % (11.6-14.8) H Platelet Count 376 K/UL (150-450) Mean Platelet Volume 5.5 FL (6.5-10.1) L Neutrophils (%) (Auto) % (45.0-75.0) Lymphocytes (%) (Auto) % (20.0-45.0) Monocytes (%) (Auto) % (1.0-10.0) Eosinophils (%) (Auto) % (0.0-3.0) Basophils (%) (Auto) % (0.0-2.0) Prothrombin Time 14.0 SEC (9.30-11.50) H Prothromb Time International Ratio 1.3 (0.9-1.1) H Activated Partial Thromboplast Time 33 SEC (23-33) Sodium Level 148 MMOL/L (136-145) H Potassium Level 2.9 MMOL/L (3.5-5.1) L Chloride Level 115 MMOL/L (98-107) H Carbon Dioxide Level 20 MMOL/L (21-32) L Anion Gap 13 mmol/L (5-15) Blood Urea Nitrogen 60 mg/dL (7-18) H Creatinine 1.0 MG/DL (0.55-1.30) Estimat Glomerular Filtration Rate mL/min (>60) Glucose Level 142 MG/DL (74-106) H Calcium Level 7.4 MG/DL (8.5-10.1) L Total Bilirubin 0.2 MG/DL (0.2-1.0) Aspartate Amino Transf (AST/SGOT) 22 U/L (15-37) Alanine Aminotransferase (ALT/SGPT) 20 U/L (12-78) Alkaline Phosphatase 108 U/L (46-116) Troponin I 0.277 ng/mL (0.000-0.056) Pro-B-Type Natriuretic Peptide 52521 pg/mL (0-125) H Total Protein 5.8 G/DL (6.4-8.2) L Albumin 0.9 G/DL (3.4-5.0) L Globulin 4.9 g/dL Albumin/Globulin Ratio 0.2 (1.0-2.7) L Current Medications Medications (Trade) Dose Ordered Sig/Tal Route PRN Reason Start Time Stop Time Status Last Admin Dose Admin Acetaminophen (Tylenol) 650 mg EVERY 4 HOURS PRN GT Mild Pain/Temp > 100.5 08/30/17 21:45 09/29/17 21:44 09/03/17 03:29 Acetaminophen/ Hydrocodone Bitart ([place] 10/325) 1 tab Q4H PRN GT For Pain 08/30/17 21:45 09/06/17 21:44 Albuterol Sulfate (Proventil) 2.5 mg Q6HRT PRN HHN Shortness of Breath 08/30/17 21:45 09/04/17 21:44 Ascorbic Acid (Vitamin C) 500 mg DAILY GT 08/31/17 09:00 09/30/17 08:59 09/03/17 08:43 Aspirin (ASA) 81 mg DAILY GT 08/31/17 09:00 09/30/17 08:59 09/02/17 08:42 Bisacodyl (Dulcolax) 10 mg DAILYPRN PRN RECTAL Constipation 08/30/17 21:45 09/29/17 21:44 Chlorhexidine Gluconate (Consuelo-Hex 2%) 1 applic DAILY@1999 TOPIC 08/31/17 20:00 09/30/17 19:59 09/02/17 20:16 Epoetin Tian (Procrit (for non ESRD use)) 10,000 units MON-WED-FRI SUBQ 09/01/17 21:00 10/01/17 20:59 09/01/17 21:32 Ferrous Sulfate (Feosol) 300 mg DAILY NG 08/31/17 09:00 09/30/17 08:59 09/03/17 08:43 Fluconazole (Diflucan) 100 mg DAILY ORAL 09/03/17 09:00 09/10/17 08:59 09/03/17 10:09 Levofloxacin (Levaquin) 500 mg DAILY ORAL 09/03/17 09:00 09/10/17 08:59 09/03/17 08:43 Levothyroxine Sodium (Synthroid) 100 mcg DAILY@0630 GT 08/31/17 06:30 09/30/17 06:29 09/03/17 06:02 Meropenem 1 gm/ Sodium Chloride 110 ml @ 220 mls/hr Q8HR IVPB 09/02/17 12:00 09/07/17 11:59 09/03/17 06:02 Midodrine (Pro-Amatine) 10 mg THREE TIMES A DAY ORAL 09/03/17 09:15 10/03/17 09:14 09/03/17 10:09 Norepinephrine Bitartrate 8 mg/ Dextrose 254 ml @ 0 mls/hr Q24H IV 09/01/17 20:15 10/01/17 20:14 09/01/17 21:32 Pantoprazole (Protonix) 40 mg DAILY IVP 08/31/17 09:00 09/30/17 08:59 09/03/17 08:43 Potassium Chloride 10 meq/ Dextrose/Sodium Chloride 1,005 ml @ 100 mls/hr Q10H3M IV 09/02/17 09:00 10/02/17 08:59 09/03/17 04:35 Sodium Phosphate (Fleet's Sodium Phosl Enema) 133 ml DAILY PRN RECTAL Constipation 08/30/17 21:45 09/29/17 21:44 Zinc Sulfate (Zinc Sulfate) 220 mg DAILY GT 08/31/17 09:00 09/30/17 08:59 09/03/17 08:43 JOHN REAL Sep 03, 2017 11:18"
[2017-09-03 12:17] LABS: HEMATOCRIT 26.9 % (42.0-52.0); HEMOGLOBIN 8.5 G/DL (14.2-18.0); LYMPHOCYTES % (AUTO) 14.7 % (20.0-45.0); MEAN CORPUSCULAR VOLUME 84 FL (80-99); MONOCYTES % (AUTO) 8.8 % (1.0-10.0); NEUTROPHILS % (AUTO) 75.5 % (45.0-75.0); PLATELET COUNT 323 K/UL (150-450); RED BLOOD COUNT 3.21 M/UL (4.70-6.10); WHITE BLOOD COUNT 10.9 K/UL (4.8-10.8)
[2017-09-03 12:27] LABS: ANION GAP 12 mmol/L (5-15); BLOOD UREA NITROGEN 47 mg/dL (7-18); CALCIUM 6.7 MG/DL (8.5-10.1); CARBON DIOXIDE 18 MMOL/L (21-32); CHLORIDE 112 MMOL/L (98-107); POTASSIUM 4.2 MMOL/L (3.5-5.1); SODIUM 142 MMOL/L (136-145)
[2017-09-03 12:32] LABS: ALANINE AMINOTRANSFERASE 26 U/L (12-78); ALBUMIN 0.9 G/DL (3.4-5.0); ALBUMIN/GLOBULIN RATIO 0.2 (1.0-2.7); ALKALINE PHOSPHATASE 113 U/L (46-116); ASPARTATE AMINO TRANSFERASE 43 U/L (15-37); BILIRUBIN,TOTAL 0.3 MG/DL (0.2-1.0)
[2017-09-03 13:10] LABS: ANION GAP 10 mmol/L (5-15); BLOOD UREA NITROGEN 48 mg/dL (7-18); CALCIUM 7.3 MG/DL (8.5-10.1); CARBON DIOXIDE 20 MMOL/L (21-32); CHLORIDE 116 MMOL/L (98-107); CREATININE 0.9 MG/DL (0.55-1.30); POTASSIUM 3.6 MMOL/L (3.5-5.1); SODIUM 146 MMOL/L (136-145)
[2017-09-03 13:15] LABS: ALANINE AMINOTRANSFERASE 31 U/L (12-78); ALBUMIN/GLOBULIN RATIO 0.2 (1.0-2.7); ALKALINE PHOSPHATASE 125 U/L (46-116); ASPARTATE AMINO TRANSFERASE 47 U/L (15-37); BILIRUBIN,TOTAL 0.3 MG/DL (0.2-1.0)
[2017-09-03] MEDS ORDERED: NS 500ML ONE (16:28)
[2017-09-03] MEDS ORDERED: Tubing IV Blood Pump IV ONE (16:28)
[2017-09-03] MEDS ORDERED: Lidocaine 1% 10mg/ml/EPI 0.01mg/ml 50ml INJ ONE (16:42)
[2017-09-03] MEDS ORDERED: Bacitracin 50000 Units Vial ONE (16:42)
[2017-09-03] MEDS ORDERED: NeoSporin Gu Irrig 1ml Amp IRRIG ONE (16:42)
--- NOTE | 2017-09-03 17:11 | Diagnostic Imaging Report ---
Indication: Abnormal renal function tests, abnormal liver function tests, sepsis Technique: Mariee-scale and duplex images of the upper abdomen were obtained Comparison: none Findings: Gallbladder demonstrates sludge. Gallbladder wall is borderline thickened, measuring up to 3 mm diameter. Sonographic Rodriguez's sign could not be assessed due to patient condition Common bile duct measures 4 mm in diameter. No intrahepatic biliary ductal dilatation. Liver demonstrates normal echogenicity, no focal abnormality. Portal vein and hepatic veins are patent. Pancreas is unremarkable. Spleen is unremarkable. Left kidney measures 11.5 cm in length. Right kidney measures 11.8 cm length. Both kidneys demonstrate equivocally minimally increased echogenicity There is no hydronephrosis. There is a small 13 mm cyst in the lower pole of the left kidney. No focal right renal abnormality . Abdominal aorta is partially obscured by bowel gas, visualized portions are non-aneurysmal . Impression: Gallbladder sludge. Negative for stones or dilated ducts Equivocal gallbladder wall thickening. If real, could indicate acute cholecystitis. Consider nuclear medicine hepatic biliary scan if there is high clinical suspicion Mildly increased renal echogenicity bilaterally, could indicate medical renal disease. Negative for hydronephrosis Incidental finding left renal cyst Note inability to visualize portions of the distal abdominal aorta
--- NOTE | 2017-09-03 17:20 | Anethesia Preoperative Eval ---
Anesthesia Pre-op PMH/ROS General Date of Evaluation: Sep 03, 2017 Time of Evaluation: 15:00 Anesthesiologist: ASA Score: ASA 4 Mallampati Score Class I : Soft palate, uvula, fauces, pillars visible Class II: Soft palate, uvula, fauces visible Class III: Soft palate, base of uvula visible Class IV: Only hard plate visible Mallampati Classification: Class IV Surgeon: ivan Diagnosis: multiple pressure ulcers Surgical Procedure: excisional debridement of sacrum right ankle,left buttock, left trochanter Allergies: Coded Allergies: No Known Allergies (Unverified , 07/25/17) Past Medical History Cardiovascular: Reports: HTN, CAD, NC, other - angina; Denies: valve dz, arrhythmia Pulmonary: Reports: COPD, other - trachoestomy on ventilator, resp failue Gastrointestinal/Genitourinary: Reports: GERD, other - gi bleed; Denies: CRI, ESRD Neurologic/Psychiatric: Reports: dementia, CVA Endocrine: Reports: DM, hypothyroidism, other - severe sepsis Hematology/Immune: Reports: anemia PSxH Narrative: tracheostomy, feeding tube Anesthesia Pre-op Phys. Exam Physician Exam Last Vital Signs Date Time Temp Pulse Resp B/P (MAP) Pulse Ox O2 Delivery O2 Flow Rate FiO2 09/03/17 16:00 40 09/03/17 16:00 88 09/03/17 16:00 37 108/60 99 Mechanical Ventilator 09/03/17 15:00 97.6 97.6 Constitutional: other Neurologic: other Cardiovascular: RRR Airway Exam Mallampati Score: Class IV Anesthesia Pre-op A/P Labs Hematology Test 09/03/17 00:30 09/03/17 11:30 White Blood Count 9.7 K/UL (4.8-10.8) 10.9 K/UL (4.8-10.8) H Red Blood Count 2.60 M/UL (4.70-6.10) L 3.21 M/UL (4.70-6.10) L Hemoglobin 6.7 G/DL (14.2-18.0) *L 8.5 G/DL (14.2-18.0) L Hematocrit 21.3 % (42.0-52.0) L 26.9 % (42.0-52.0) L Mean Corpuscular Volume 82 FL (80-99) 84 FL (80-99) Mean Corpuscular Hemoglobin 25.8 PG (27.0-31.0) L 26.4 PG (27.0-31.0) L Mean Corpuscular Hemoglobin Concent 31.5 G/DL (32.0-36.0) L 31.5 G/DL (32.0-36.0) L Red Cell Distribution Width 19.6 % (11.6-14.8) H 19.0 % (11.6-14.8) H Platelet Count 376 K/UL (150-450) 323 K/UL (150-450) Mean Platelet Volume 5.5 FL (6.5-10.1) L 5.2 FL (6.5-10.1) L Neutrophils (%) (Auto) % (45.0-75.0) 75.5 % (45.0-75.0) H Lymphocytes (%) (Auto) % (20.0-45.0) 14.7 % (20.0-45.0) L Monocytes (%) (Auto) % (1.0-10.0) 8.8 % (1.0-10.0) Eosinophils (%) (Auto) % (0.0-3.0) 0.0 % (0.0-3.0) Basophils (%) (Auto) % (0.0-2.0) 1.0 % (0.0-2.0) Coagulation Test 09/03/17 00:30 Prothrombin Time 14.0 SEC (9.30-11.50) H Prothromb Time International Ratio 1.3 (0.9-1.1) H Activated Partial Thromboplast Time 33 SEC (23-33) Chemistry Test 09/03/17 00:30 09/03/17 11:30 09/03/17 12:45 Sodium Level 148 MMOL/L (136-145) H 142 MMOL/L (136-145) 146 MMOL/L (136-145) H Potassium Level 2.9 MMOL/L (3.5-5.1) L 4.2 MMOL/L (3.5-5.1) 3.6 MMOL/L (3.5-5.1) Chloride Level 115 MMOL/L (98-107) H 112 MMOL/L (98-107) H 116 MMOL/L (98-107) H Carbon Dioxide Level 20 MMOL/L (21-32) L 18 MMOL/L (21-32) L 20 MMOL/L (21-32) L Anion Gap 13 mmol/L (5-15) 12 mmol/L (5-15) 10 mmol/L (5-15) Blood Urea Nitrogen 60 mg/dL (7-18) H 47 mg/dL (7-18) H 48 mg/dL (7-18) H Creatinine 1.0 MG/DL (0.55-1.30) 1.0 MG/DL (0.55-1.30) 0.9 MG/DL (0.55-1.30) Estimat Glomerular Filtration Rate mL/min (>60) mL/min (>60) mL/min (>60) Glucose Level 142 MG/DL (74-106) H 418 MG/DL (74-106) #H 111 MG/DL (74-106) #H Calcium Level 7.4 MG/DL (8.5-10.1) L 6.7 MG/DL (8.5-10.1) L 7.3 MG/DL (8.5-10.1) L Total Bilirubin 0.2 MG/DL (0.2-1.0) 0.3 MG/DL (0.2-1.0) 0.3 MG/DL (0.2-1.0) Aspartate Amino Transf (AST/SGOT) 22 U/L (15-37) 43 U/L (15-37) H 47 U/L (15-37) H Alanine Aminotransferase (ALT/SGPT) 20 U/L (12-78) 26 U/L (12-78) 31 U/L (12-78) Alkaline Phosphatase 108 U/L (46-116) 113 U/L (46-116) 125 U/L (46-116) H Troponin I 0.277 ng/mL (0.000-0.056) Pro-B-Type Natriuretic Peptide 18103 pg/mL (0-125) H Total Protein 5.8 G/DL (6.4-8.2) L 5.7 G/DL (6.4-8.2) L 6.1 G/DL (6.4-8.2) L Albumin 0.9 G/DL (3.4-5.0) L 0.9 G/DL (3.4-5.0) L 1.0 G/DL (3.4-5.0) L Globulin 4.9 g/dL 4.8 g/dL 5.1 g/dL Albumin/Globulin Ratio 0.2 (1.0-2.7) L 0.2 (1.0-2.7) L 0.2 (1.0-2.7) L Risk Assessment & Plan Assessment: asa 4 Plan: GA Status Change Before Surgery: No Pre-Antibiotics Drug: given in icu Belén Brown M.D. Sep 03, 2017 17:20
--- NOTE | 2017-09-03 17:31 | Pre-Procedure Note/Attestation ---
Pre-Procedure Note/Attestation Complete Prior to Procedure Planned Procedure: not applicable Procedure Narrative: Excisional debridement necrotic sacral. left trochanter, and right lateral malleolus ulcers with deep open bone biopsy sacrum Indications for Procedure Pre-Operative Diagnosis: Necrotic sacral left trochanter and right lateral malleolus ulcer, acute osteomyelitis Attestation I attest that I discussed the nature of the procedure; its benefits; risks and complications; and alternatives (and the risks and benefits of such alternatives ), prior to the procedure, with the patient (or the patient's legal advertising representative). I attest that, if there was a reasonable possibility of needing a blood transfusion, the patient (or the patient's legal advertising representative) was given the [place] Department [employer] Services standardized written summary, pursuant to the Arnaud Jesús Blood Safety Act ([place] Health and Safety Code # 1645, as amended). I attest that I re-evaluated the patient just prior to the surgery and that there has been no change in the patient's H&P, except as documented below: Trace Travis MD Sep 03, 2017 17:31
[2017-09-03] MEDS ORDERED: Dakin's 0.125% Soln (Quarter Strength) 16oz TOPIC SCH (18:36)
--- NOTE | 2017-09-03 19:04 | Brief Operative Note ---
Immediate Post Operative Note Operative Note Pre-op Diagnosis: Necrotic sacral, right trochanter and right lateral malleolus ulcer, acute osteomyelitis Procedure: Surgical debridement of necrotic sacral ulcer with sacral bone biopsy, surgical debridement of necrotic right trochanter ulcer, surgical debridement right lateral malleolar ulcer Post-op Diagnosis: same as pre-op Surgeon: Angy Anesthesiologist: Anesthesia: general Specimen: yes Complications: none Condition: stable Fluids: IVF Estimated Blood Loss: minimal Drains: none Implant(s) used?: No Trace Travis MD Sep 03, 2017 19:04
[2017-09-03] MEDS ORDERED: Dakin's 0.25% (Half Strength) 16oz TOPIC ONE (19:17)
--- NOTE | 2017-09-03 19:21 | Immediate Post-Op Evaluation ---
Immediate Post-Op Evalulation Immediate Post-Op Evalulation Procedure: excional debridement multiple pressure ulcers Date of Evaluation: Sep 03, 2017 Time of Evaluation: 16:08 IV Fluids: NS 250ml Blood Products: 0 Estimated Blood Loss: 10ml Urinary Output: 300ml Blood Pressure Systolic: 96 Blood Pressure Diastolic: 58 Pulse Rate: 91 Respiratory Rate: 39 O2 Sat by Pulse Oximetry: 97 Temperature (Fahrenheit): 97.1 Pain Score (1-10): 0 Nausea: No Vomiting: No Complications none Patient Status: awake, ventilated Hydration Status: adequate Drug: none Belén Brown M.D. Sep 03, 2017 19:21
[2017-09-03] MEDS: Dyna-Hex 2% Top Sol 2oz TOPIC SCH (20:47)
[2017-09-03] MEDS: Epogen (for non ESRD use) SUBQ SCH (21:44)
[2017-09-04] VITALS (17 sets, daily range): BP systolic 96–131; BP diastolic 49–79
--- NOTE | 2017-09-04 01:45 | Operative Note - Dictated ---
DATE OF OPERATION: 09/03/2017 SURGEON: Trace Travis M.D. ANESTHESIOLOGIST: Belén Brown M.D. PREOPERATIVE DIAGNOSIS: Necrotic sacral, right trochanteric, right lateral malleolar ulcers. POSTOPERATIVE DIAGNOSIS: Necrotic sacral, right trochanteric, right lateral malleolar ulcers. OPERATION: Surgical debridement of sacral, right trochanteric, right lateral malleolar ulcers, bone biopsy of the sacrum. ANESTHESIA: General endotracheal anesthesia. OPERATIVE INDICATIONS: This is a 77-year-old male, who presented from a half-way facility with sepsis and necrotic ulcers. I was consulted on the patient on 09/02/2017 and the patient needed surgical debridement. However, at that time, he was grossly anemic with a hemoglobin of 6.7 and hypokalemic with a potassium under 3. Once he was stabilized and transfused, he was scheduled for surgery. OPERATIVE PROCEDURE: The patient was brought into the operating room and was placed on the operating table in the supine position. Dressings were removed from his right foot and the malleolar ulcer was debrided sharply with a scalpel and forceps to the level of bone to remove the slough. The measurements here were 5.1 x 4 x 0.6 cm. This was then re-dressed and the patient was then placed in the left lateral decubitus position. Once all pressure points were padded, the area to be operated upon was prepped and draped in the usual sterile fashion. Once the time-out was performed, 35 mL of 1% lidocaine with 1:200,000 epinephrine was injected into both the sacral and left trochanter ulcers. At this time, after awaiting appropriate amount of time, beginning on the sacral ulcer, #10 blade was used to excise all the necrotic tissue in combination with an electrocautery to control bleeding. There was necrotic skin fat and gluteus muscle and the ulcer extended down to the sacral bone, which was evident at the base. Once the excision was performed, a rongeur was used to obtain three samples of bone from the sacrum, one for pathology, the other one for aerobic culture, and the another one for anaerobic culture. Following this, attention was turned to the right trochanter ulcer and initial incision was made with a #10 blade and dissection proceeded down with electrocautery to remove necrotic skin fat and muscle. The greater trochanter was at the base and there was some loose fragments of bone and these were sent for aerobic and anaerobic culture as well. Following this, pulse irrigation with 4 liters of triple antibiotic solution of Ancef, gentamicin, and neomycin was performed on the sacral and the right trochanter ulcers. Following this, hemostasis was carefully obtained and the wounds were then packed with a wet-to-dry of Dakin's and Kerlix followed by fluffs and ABDs and foam tape. At this point, the patient was then placed back in a supine position and transferred to his hospital bed and taken back to the intensive care unit in stable condition. The final measurements of the sacral wound debridement were 17 x 14.5 x 3 cm and the right trochanter debridement was 12 x 9 x 3.5 cm. The patient is stable. Trace Travis M.D. DR: ABAD JOB#: [id number] CC:
[2017-09-04] MEDS: Potassium Chloride 10 MEQ in D5 1/2NS 1,000 ML IV SCH ×4 (01:46→23:01)
--- NOTE | 2017-09-04 02:00 | Progress Note ---
DATE: 09/03/2017 CARDIOLOGY PROGRESS NOTE SUBJECTIVE: Condition remains critical and prognosis guarded. 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 The patient was noted to have low blood pressure. Hemoglobin of 6.5 and potassium of 2.7. He was transfused, was replaced with potassium, and then underwent surgery. Blood pressure remains tenuous. He remains tachypneic. OBJECTIVE: LUNGS: Coarse breath sounds. Scattered rhonchi. HEART: Regular rhythm. Rapid rate. Normal S1, S2. ABDOMEN: Soft. G-tube intact. EXTREMITIES: Trace edema. LABORATORY DATA: Repeat labs, white count 10.9, hemoglobin 8.5. Sodium 146, potassium 3.6, BUN 48, creatinine 0.9, albumin 1. IMPRESSION: 1. Decubiti, status post debridement. 2. Sepsis with shock. 3. Severe anemia. 4. Dehydration. 5. Hypernatremia. 6. Hypokalemia. 7. Severe protein-calorie malnutrition. 8. Ventilator-dependent respiratory failure. 9. Secondary sinus tachycardia. PLAN: 1. Volume support. 2. Hypotonic fluids. 3. Pressors as needed. 4. Broad-spectrum antibiotics. 5. Pain control. 6. Skin care. 7. Replace potassium as needed. 8. Recheck magnesium level. 9. Serial hemoglobin and transfuse if less than 8 g. 10. Cardiovascular regimen on hold for low-range blood pressure. Keith Reeves M.D. DR: Apple JOB#: [id number] CC:
[2017-09-04] MEDS: Meropenem 1 GM in NS 110 ML IVPB SCH ×3 (05:08→21:31)
[2017-09-04 07:50] LABS: ALANINE AMINOTRANSFERASE 30 U/L (12-78); ALBUMIN 1.1 G/DL (3.4-5.0); ALBUMIN/GLOBULIN RATIO 0.2 (1.0-2.7); ALKALINE PHOSPHATASE 126 U/L (46-116); ANION GAP 12 mmol/L (5-15); ASPARTATE AMINO TRANSFERASE 38 U/L (15-37); BILIRUBIN,TOTAL 0.2 MG/DL (0.2-1.0); BLOOD UREA NITROGEN 44 mg/dL (7-18); CALCIUM 7.2 MG/DL (8.5-10.1); CARBON DIOXIDE 19 MMOL/L (21-32); CHLORIDE 114 MMOL/L (98-107); CREATININE 0.8 MG/DL (0.55-1.30); POTASSIUM 3.6 MMOL/L (3.5-5.1); SODIUM 145 MMOL/L (136-145)
[2017-09-04] MEDS: Midodrine 10mg tab ORAL SCH ×3 (09:00→17:28)
[2017-09-04] MEDS: Zinc Sulfate 220mg cap GT SCH (09:00)
[2017-09-04] MEDS: Ferrous Sulfate 300 MG/5 ML UDC NG SCH (09:00)
[2017-09-04] MEDS: Ascorbic Acid 500mg tab GT SCH (09:00)
[2017-09-04] MEDS: Pantoprazole Inj IVP SCH (09:00)
[2017-09-04] MEDS: Acetaminophen 650mg/20.3ml GT PRN ×2 (09:00→16:14)
[2017-09-04] MEDS: Fluconazole 100mg tab ORAL SCH (09:00)
[2017-09-04] MEDS: Aspirin Baby 81mg GT SCH (09:00)
[2017-09-04] MEDS: Levofloxacin 500mg tab ORAL SCH (09:01)
--- NOTE | 2017-09-04 09:25 | Infectious Diseases Prog Note ---
"Assessment/Plan Assessment/Plan A 1. e.coli | proteus sepsis 2. pseudomonas | fungal UTI 3. leucocytosis resolved 4, Ventilator dependent respiratory failure 5. diabetes mellitus 6. hypertension 7. Multiple pressure ulcers 8. sacral osteomyelitis 9. Diarrhea P 1. continue meropenem 7 more days 2. continue Levaquin 4 more days 3. continue fluconazole 4 more days 4. stool for C.difficile 5. will follow up bone cultures Subjective ROS Limited/Unobtainable: Yes Gastrointestinal/Abdominal: Reports: diarrhea Allergies: Coded Allergies: No Known Allergies (Unverified , 07/25/17) Objective Vital Signs Last 24 Hour Vital Signs Date Time Temp Pulse Resp B/P (MAP) Pulse Ox O2 Delivery O2 Flow Rate FiO2 09/04/17 09:14 95 33 40 09/04/17 09:00 94 38 125/52 100 Mechanical Ventilator 40 09/04/17 08:00 40 09/04/17 08:00 98.8 97 37 112/62 100 Mechanical Ventilator 40 98.8 09/04/17 08:00 98 09/04/17 07:00 99 38 117/66 100 Mechanical Ventilator 40 09/04/17 06:48 101 45 40 09/04/17 06:00 96 37 107/58 100 Mechanical Ventilator 40 09/04/17 05:15 97 44 40 09/04/17 05:00 96 32 115/73 99 Mechanical Ventilator 40 09/04/17 04:00 94 09/04/17 04:00 40 09/04/17 04:00 98.4 96 37 115/57 100 Mechanical Ventilator 40 98.4 09/04/17 03:05 95 43 40 09/04/17 03:00 93 33 110/63 99 Mechanical Ventilator 40 09/04/17 02:00 101 35 127/79 99 Mechanical Ventilator 40 09/04/17 01:03 94 45 40 09/04/17 01:00 97 38 123/68 99 Mechanical Ventilator 40 09/04/17 00:00 101 09/04/17 00:00 40 09/04/17 00:00 98.1 101 41 131/66 100 Mechanical Ventilator 40 98.1 09/03/17 23:00 97 35 128/68 99 Mechanical Ventilator 40 09/03/17 22:46 95 46 40 09/03/17 22:00 94 35 131/68 99 Mechanical Ventilator 40 09/03/17 21:17 91 41 40 6/6/18 21:00 94 40 106/63 99 Mechanical Ventilator 40 09/03/17 20:15 109/62 09/03/17 20:00 40 09/03/17 20:00 93 09/03/17 20:00 92 37 100/52 97 Mechanical Ventilator 40 09/03/17 19:21 206.8 91 39 97 09/03/17 19:15 91 40 40 09/03/17 19:00 97.1 91 41 91/46 99 Mechanical Ventilator 40 97.1 09/03/17 18:30 101 46 67/31 92 Mechanical Ventilator 40 09/03/17 16:00 40 09/03/17 16:00 88 09/03/17 16:00 87 37 108/60 99 Mechanical Ventilator 40 09/03/17 15:15 88 35 40 09/03/17 15:00 97.6 85 39 113/40 99 Mechanical Ventilator 40 97.6 09/03/17 14:00 97.6 90 39 109/59 99 Mechanical Ventilator 40 97.6 09/03/17 13:06 90 39 40 09/03/17 13:00 92 38 104/47 99 Mechanical Ventilator 40 09/03/17 12:00 97.9 95 25 106/51 99 Mechanical Ventilator 40 97.9 09/03/17 12:00 40 09/03/17 12:00 95 09/03/17 11:00 97 42 104/52 99 Mechanical Ventilator 40 09/03/17 10:56 92 41 40 09/03/17 10:00 89 38 110/60 99 Mechanical Ventilator 40 09/03/17 09:28 91 38 40 Height (Feet): 5 Height (Inches): 3.00 Weight (Pounds): 155 HEENT: status post trach Respiratory/Chest: lungs clear, other - on ventilator Cardiovascular: normal rate, other - R arm PICC line Abdomen: soft, non tender, other - GT & rectal tube Extremities: no edema Skin: ulcers, other - sacral, trochanteric & mallar were debrided yesterday Neurologic/Psychiatric: aphasia, other - dosen't move left arm Microbiology Date/Time Source Procedure Growth Status 09/02/17 04:00 Stool Clostridium difficile Toxin Assay - Final Complete Laboratory Tests Test 09/03/17 11:30 09/03/17 12:45 09/04/17 04:30 White Blood Count 10.9 K/UL (4.8-10.8) H Red Blood Count 3.21 M/UL (4.70-6.10) L Hemoglobin 8.5 G/DL (14.2-18.0) L Hematocrit 26.9 % (42.0-52.0) L Mean Corpuscular Volume 84 FL (80-99) Mean Corpuscular Hemoglobin 26.4 PG (27.0-31.0) L Mean Corpuscular Hemoglobin Concent 31.5 G/DL (32.0-36.0) L Red Cell Distribution Width 19.0 % (11.6-14.8) H Platelet Count 323 K/UL (150-450) Mean Platelet Volume 5.2 FL (6.5-10.1) L Neutrophils (%) (Auto) 75.5 % (45.0-75.0) H Lymphocytes (%) (Auto) 14.7 % (20.0-45.0) L Monocytes (%) (Auto) 8.8 % (1.0-10.0) Eosinophils (%) (Auto) 0.0 % (0.0-3.0) Basophils (%) (Auto) 1.0 % (0.0-2.0) Sodium Level 142 MMOL/L (136-145) 146 MMOL/L (136-145) H 145 MMOL/L (136-145) Potassium Level 4.2 MMOL/L (3.5-5.1) 3.6 MMOL/L (3.5-5.1) 3.6 MMOL/L (3.5-5.1) Chloride Level 112 MMOL/L (98-107) H 116 MMOL/L (98-107) H 114 MMOL/L (98-107) H Carbon Dioxide Level 18 MMOL/L (21-32) L 20 MMOL/L (21-32) L 19 MMOL/L (21-32) L Anion Gap 12 mmol/L (5-15) 10 mmol/L (5-15) 12 mmol/L (5-15) Blood Urea Nitrogen 47 mg/dL (7-18) H 48 mg/dL (7-18) H 44 mg/dL (7-18) H Creatinine 1.0 MG/DL (0.55-1.30) 0.9 MG/DL (0.55-1.30) 0.8 MG/DL (0.55-1.30) Estimat Glomerular Filtration Rate mL/min (>60) mL/min (>60) mL/min (>60) Glucose Level 418 MG/DL (74-106) #H 111 MG/DL (74-106) #H 147 MG/DL (74-106) H Calcium Level 6.7 MG/DL (8.5-10.1) L 7.3 MG/DL (8.5-10.1) L 7.2 MG/DL (8.5-10.1) L Total Bilirubin 0.3 MG/DL (0.2-1.0) 0.3 MG/DL (0.2-1.0) 0.2 MG/DL (0.2-1.0) Aspartate Amino Transf (AST/SGOT) 43 U/L (15-37) H 47 U/L (15-37) H 38 U/L (15-37) H Alanine Aminotransferase (ALT/SGPT) 26 U/L (12-78) 31 U/L (12-78) 30 U/L (12-78) Alkaline Phosphatase 113 U/L (46-116) 125 U/L (46-116) H 126 U/L (46-116) H Total Protein 5.7 G/DL (6.4-8.2) L 6.1 G/DL (6.4-8.2) L 6.2 G/DL (6.4-8.2) L Albumin 0.9 G/DL (3.4-5.0) L 1.0 G/DL (3.4-5.0) L 1.1 G/DL (3.4-5.0) L Globulin 4.8 g/dL 5.1 g/dL 5.1 g/dL Albumin/Globulin Ratio 0.2 (1.0-2.7) L 0.2 (1.0-2.7) L 0.2 (1.0-2.7) L Current Medications Medications (Trade) Dose Ordered Sig/Tal Route PRN Reason Start Time Stop Time Status Last Admin Dose Admin Acetaminophen (Tylenol) 650 mg EVERY 4 HOURS PRN GT Mild Pain/Temp > 100.5 08/30/17 21:45 09/29/17 21:44 09/04/17 09:00 Acetaminophen/ Hydrocodone Bitart ([place] 10/325) 1 tab Q4H PRN GT For Pain 08/30/17 21:45 09/06/17 21:44 Albuterol Sulfate (Proventil) 2.5 mg Q6HRT PRN HHN Shortness of Breath 08/30/17 21:45 09/04/17 21:44 Ascorbic Acid (Vitamin C) 500 mg DAILY GT 08/31/17 09:00 09/30/17 08:59 09/04/17 09:00 Aspirin (ASA) 81 mg DAILY GT 08/31/17 09:00 09/30/17 08:59 09/04/17 09:00 Bisacodyl (Dulcolax) 10 mg DAILYPRN PRN RECTAL Constipation 08/30/17 21:45 09/29/17 21:44 Chlorhexidine Gluconate (Consuelo-Hex 2%) 1 applic DAILY@1999 TOPIC 08/31/17 20:00 09/30/17 19:59 09/03/17 20:47 Epoetin Tian (Procrit (for non ESRD use)) 10,000 units MON-FRI-FRI SUBQ 09/01/17 21:00 10/01/17 20:59 09/03/17 21:44 Ferrous Sulfate (Feosol) 300 mg DAILY NG 08/31/17 09:00 09/30/17 08:59 09/04/17 09:00 Fluconazole (Diflucan) 100 mg DAILY ORAL 09/03/17 09:00 09/10/17 08:59 09/04/17 09:00 Levofloxacin (Levaquin) 500 mg DAILY ORAL 09/03/17 09:00 09/10/17 08:59 09/04/17 09:01 Levothyroxine Sodium (Synthroid) 100 mcg DAILY@0630 GT 08/31/17 06:30 09/30/17 06:29 09/04/17 05:08 Meropenem 1 gm/ Sodium Chloride 110 ml @ 220 mls/hr Q8HR IVPB 09/02/17 12:00 09/07/17 11:59 09/04/17 05:08 Midodrine (Pro-Amatine) 10 mg THREE TIMES A DAY ORAL 09/03/17 09:15 10/03/17 09:14 09/04/17 09:00 Norepinephrine Bitartrate 8 mg/ Dextrose 254 ml @ 0 mls/hr Q24H IV 09/01/17 20:15 10/01/17 20:14 09/01/17 21:32 Pantoprazole (Protonix) 40 mg DAILY IVP 08/31/17 09:00 09/30/17 08:59 09/04/17 09:00 Potassium Chloride 10 meq/ Dextrose/Sodium Chloride 1,005 ml @ 100 mls/hr Q10H3M IV 09/02/17 09:00 10/02/17 08:59 09/04/17 01:46 Sodium Phosphate (Fleet's Sodium Phosl Enema) 133 ml DAILY PRN RECTAL Constipation 08/30/17 21:45 09/29/17 21:44 Zinc Sulfate (Zinc Sulfate) 220 mg DAILY GT 08/31/17 09:00 09/30/17 08:59 09/04/17 09:00 Kirk Figueroa MD Sep 04, 2017 09:25"
--- NOTE | 2017-09-04 10:15 | 48 Hour Post Anesthesia Eval ---
Post Anesthesia Evaluation Procedure: excional debridement multiple pressure ulcers Date of Evaluation: Sep 04, 2017 Time of Evaluation: 10:10 Blood Pressure Systolic: 107 0: 72 Pulse Rate: 94 Respiratory Rate: 39 Temperature (Fahrenheit): 98.8 O2 Sat by Pulse Oximetry: 100 Airway: patent Nausea: No Vomiting: No Pain Intensity: 0 Mental Status/LOC: patient returned to baseline Post-Anesthesia Complications: none Follow-up care needed: N/A Belén Brown M.D. Sep 04, 2017 10:15
[2017-09-04] MEDS ORDERED: Albuterol ud Inhalation HHN PRN (16:00)
[2017-09-04] MEDS ORDERED: Fleet's Enema 133ml RECTAL PRN (16:00)
--- NOTE | 2017-09-04 17:15 | Critical Care Progress Note ---
Assessment/Plan Assessment/Plan respiratory failure trach GT chronic encephalopathy HAROLDO sepsis leukocytosis anemia PLAN SDU care noted vent as is IV antibiotics- cultures reviewed hydrate monitor hemodynamics transfuse as needed midodrine for orthostasis medications/laboratory data/nursing notes reviewed in detail note reviewed and edited care discussed with RN and RT Critical Care - Subjective ROS Limited/Unobtainable: Yes EKG Rhythm: Sinus Rhythm I&O: Intake and Output 09/03/17 09/04/17 19:00 07:00 Intake Total 1220 ml 1925 ml Output Total 2260 ml 1850 ml Balance -1040 ml 75 ml Intake Free Water 100 ml IV Total 1120 ml 1425 ml Tube Feeding 0 ml 400 ml Other 100 ml Output Urine Total 2185 ml 1850 ml Stool Total 75 ml Critical Care - Objective Last 24 Hour Vital Signs Date Time Temp Pulse Resp B/P (MAP) Pulse Ox O2 Delivery O2 Flow Rate FiO2 09/04/17 16:56 101 46 40 09/04/17 16:46 99.0 09/04/17 16:14 100.4 09/04/17 16:00 111 09/04/17 16:00 100.4 100 42 101/64 100 Mechanical Ventilator 40 100.4 09/04/17 16:00 40 09/04/17 14:45 108 43 40 09/04/17 14:00 91 33 96/49 100 Mechanical Ventilator 40 09/04/17 13:00 98 35 108/68 100 Mechanical Ventilator 40 09/04/17 12:45 93 46 40 09/04/17 12:00 95 09/04/17 12:00 99.2 94 35 110/66 100 Mechanical Ventilator 40 99.2 09/04/17 12:00 40 09/04/17 11:00 99 35 115/65 100 Mechanical Ventilator 40 09/04/17 10:54 95 44 40 09/04/17 10:15 209.8 94 39 100 09/04/17 10:00 95 35 107/72 100 Mechanical Ventilator 40 09/04/17 09:14 95 33 40 09/04/17 09:00 94 38 125/52 100 Mechanical Ventilator 40 09/04/17 08:00 40 09/04/17 08:00 98.8 97 37 112/62 100 Mechanical Ventilator 40 98.8 09/04/17 08:00 98 09/04/17 07:00 99 38 117/66 100 Mechanical Ventilator 40 09/04/17 06:48 101 45 40 09/04/17 06:00 96 37 107/58 100 Mechanical Ventilator 40 09/04/17 05:15 97 44 40 09/04/17 05:00 96 32 115/73 99 Mechanical Ventilator 40 09/04/17 04:00 94 09/04/17 04:00 40 09/04/17 04:00 98.4 96 37 115/57 100 Mechanical Ventilator 40 98.4 09/04/17 03:05 95 43 40 09/04/17 03:00 93 33 110/63 99 Mechanical Ventilator 40 09/04/17 02:00 101 35 127/79 99 Mechanical Ventilator 40 09/04/17 01:03 94 45 40 09/04/17 01:00 97 38 123/68 99 Mechanical Ventilator 40 09/04/17 00:00 101 09/04/17 00:00 40 09/04/17 00:00 98.1 101 41 131/66 100 Mechanical Ventilator 40 98.1 09/03/17 23:00 97 35 128/68 99 Mechanical Ventilator 40 09/03/17 22:46 95 46 40 09/03/17 22:00 94 35 131/68 99 Mechanical Ventilator 40 09/03/17 21:17 91 41 40 09/03/17 21:00 94 40 106/63 99 Mechanical Ventilator 40 09/03/17 20:15 109/62 09/03/17 20:00 40 09/03/17 20:00 93 09/03/17 20:00 92 37 100/52 97 Mechanical Ventilator 40 09/03/17 19:21 206.8 91 39 97 09/03/17 19:15 91 40 40 09/03/17 19:00 97.1 91 41 91/46 99 Mechanical Ventilator 40 97.1 09/03/17 18:30 101 46 67/31 92 Mechanical Ventilator 40 Labs: Laboratory Tests Test 09/04/17 04:30 Sodium Level 145 MMOL/L (136-145) Potassium Level 3.6 MMOL/L (3.5-5.1) Chloride Level 114 MMOL/L (98-107) H Carbon Dioxide Level 19 MMOL/L (21-32) L Anion Gap 12 mmol/L (5-15) Blood Urea Nitrogen 44 mg/dL (7-18) H Creatinine 0.8 MG/DL (0.55-1.30) Estimat Glomerular Filtration Rate mL/min (>60) Glucose Level 147 MG/DL (74-106) H Calcium Level 7.2 MG/DL (8.5-10.1) L Total Bilirubin 0.2 MG/DL (0.2-1.0) Aspartate Amino Transf (AST/SGOT) 38 U/L (15-37) H Alanine Aminotransferase (ALT/SGPT) 30 U/L (12-78) Alkaline Phosphatase 126 U/L (46-116) H Total Protein 6.2 G/DL (6.4-8.2) L Albumin 1.1 G/DL (3.4-5.0) L Globulin 5.1 g/dL Albumin/Globulin Ratio 0.2 (1.0-2.7) L Objective: WDWN chronically ill reduced breath sounds bilaterally without rhonchi or wheeze [id number] without MRG NABS nontender no HSM; GT no CC edema trach poor LOC Micro: Microbiology Date/Time Source Procedure Growth Status 09/01/17 22:00 Other(Specify in comment) Catheter Tip Culture - Preliminary YEAST Resulted 09/02/17 04:00 Stool Clostridium difficile Toxin Assay - Final Complete 09/03/17 19:50 Sacral Ulcer Gram Stain - Final Resulted 09/03/17 19:50 Sacral Ulcer Aerobic Culture Pending Resulted 09/03/17 19:50 Bone Gram Stain - Final Resulted 09/03/17 19:50 Bone Aerobic Culture Pending Resulted 09/03/17 19:50 Sacral Wound Gram Stain - Final Resulted 09/03/17 19:50 Sacral Wound Aerobic Culture - Preliminary NO GROWTH AFTER 24 HOURS Resulted 09/03/17 19:50 Sacral Wound Anaerobic Culture Pending Resulted Accucheck: 97 Kj Blackman MD Sep 04, 2017 17:14
[2017-09-04] MEDS: Dyna-Hex 2% Top Sol 2oz TOPIC SCH (21:22)
[2017-09-04] MEDS: HYDROcodone/Acetamin 10/325 tab GT PRN (22:59)
--- NOTE | 2017-09-04 23:15 | Progress Note ---
DATE: 09/04/2017 CARDIOLOGY PROGRESS NOTE SUBJECTIVE: The patient remains on ventilator support via tracheostomy. Nutrition is by feeding tube. He is postoperative day #1 following debridement of multiple wounds. He remains on ventilator support. OBJECTIVE: VITAL SIGNS: Blood pressure 101/64, heart rate 100, respiratory rate 42, and temperature 100.4 degrees. LUNGS: Coarse breath sounds. Scattered rhonchi. HEART: Regular rhythm. Rapid rate. Normal S1 and S2. ABDOMEN: Soft. G-tube intact. EXTREMITIES: Trace edema. LABORATORY DATA: White count 10.9 and hemoglobin 8.5. Sodium 145, potassium 3.8, bicarbonate 19, BUN 44, and creatinine 0.8. Albumin 1.1. ABG, 7.42, 30, and 109. IMPRESSION: 1. Decubiti. 2. Sepsis. 3. Respiratory failure. 4. Healthcare-acquired pneumonia. 5. Recovering shock due to sepsis and severe anemia. 6. Resolved dehydration. 7. Hypernatremia. 8. Secondary sinus tachycardia. 9. Acute myocardial infarction precipitated by severe hypoperfusion due to shock. PLAN: 1. Antimicrobials. 2. Ventilator support. 3. Wound care. 4. Transfuse hemoglobin less than 8 g. 5. Followup cultures. 6. Continue to hold antihypertensives at this time. Keith Reeves M.D. DR: OFE JOB#: [id number] CC:
[2017-09-05] VITALS: BP 123/63
[2017-09-05] MEDS: Dakin's 0.25% (Half Strength) 16oz TOPIC PRN ×2 (02:00)
[2017-09-05 04:00] VITALS: BP 119/63
[2017-09-05] MEDS: Meropenem 1 GM in NS 110 ML IVPB SCH ×3 (06:25→21:07)
[2017-09-05 08:00] VITALS: BP 119/71
[2017-09-05] MEDS ORDERED: Levofloxacin 500mg tab ORAL SCH (09:00)
[2017-09-05] MEDS: Zinc Sulfate 220mg cap GT SCH (09:11)
[2017-09-05] MEDS: Midodrine 10mg tab ORAL SCH ×3 (09:11→18:16)
[2017-09-05] MEDS: Aspirin Baby 81mg GT SCH (09:11)
[2017-09-05] MEDS: Fluconazole 100mg tab ORAL SCH (09:11)
[2017-09-05] MEDS: Ferrous Sulfate 300 MG/5 ML UDC NG SCH (09:11)
[2017-09-05] MEDS: Ascorbic Acid 500mg tab GT SCH (09:11)
[2017-09-05] MEDS: Pantoprazole Inj IVP SCH (09:12)
[2017-09-05] MEDS: Acetaminophen 650mg/20.3ml GT PRN (09:16)
[2017-09-05] MEDS: Dakin's 0.25% (Half Strength) 16oz TOPIC SCH (09:17)
[2017-09-05] MEDS ORDERED: NS 500ML ONE (09:44)
--- NOTE | 2017-09-05 10:07 | General Progress Note ---
Assessment/Plan Problem List: (1) GI bleed ICD Codes: K92.2 - Gastrointestinal hemorrhage, unspecified SNOMED: 56781455 (2) Symptomatic anemia ICD Codes: D64.9 - Anemia, unspecified SNOMED: 736970526 (3) Anemia ICD Codes: D64.9 - Anemia, unspecified SNOMED: 931914898 (4) Severe sepsis ICD Codes: A41.9 - Sepsis, unspecified organism; R65.20 - Severe sepsis without septic shock SNOMED: 66533502 Status: stable, progressing Assessment/Plan cont abx follow up repeat cultures monitor h/h- transfuse gt feeds replace lytes as needed ivf adjusted critical and guarded Subjective ROS Limited/Unobtainable: Yes Constitutional: Reports: fever, malaise, weakness HEENT: Reports: no symptoms Cardiovascular: Reports: irregular heart rate, lightheadedness Respiratory: Reports: no symptoms Gastrointestinal/Abdominal: Reports: no symptoms Genitourinary: Reports: no symptoms Neurologic/Psychiatric: Reports: pre-existing deficit Endocrine: Reports: no symptoms Hematologic/Lymphatic: Reports: no symptoms Allergies: Coded Allergies: No Known Allergies (Unverified , 07/25/17) All Systems: reviewed and negative except above Subjective persistent fevers and tachycardia. on iv abx. on the vent. + diarrhea. cdiff negative. multiple cultures pending. Objective Last 24 Hour Vital Signs Date Time Temp Pulse Resp B/P (MAP) Pulse Ox O2 Delivery O2 Flow Rate FiO2 09/05/17 09:21 107 38 40 09/05/17 09:16 101.5 09/05/17 06:53 113 33 40 09/05/17 05:23 110 37 40 09/05/17 04:00 107 09/05/17 04:00 40 09/05/17 04:00 99.1 101 29 119/63 100 Mechanical Ventilator 40 99.1 09/05/17 03:09 110 30 40 09/05/17 01:07 102 35 40 09/05/17 00:00 106 09/05/17 00:00 99.7 100 33 123/63 100 Mechanical Ventilator 40 99.7 09/05/17 00:00 40 09/04/17 23:58 99.0 09/04/17 23:00 101 32 40 09/04/17 22:59 99.0 09/04/17 20:50 92 30 40 6/7/18 20:00 40 09/04/17 20:00 96 09/04/17 20:00 99.9 93 29 110/63 99 Mechanical Ventilator 40 99.9 09/04/17 19:20 95 33 40 09/04/17 16:56 101 46 40 09/04/17 16:46 99.0 09/04/17 16:14 100.4 09/04/17 16:00 111 09/04/17 16:00 100.4 100 42 101/64 100 Mechanical Ventilator 40 100.4 09/04/17 16:00 40 09/04/17 14:45 108 43 40 09/04/17 14:00 91 33 96/49 100 Mechanical Ventilator 40 09/04/17 13:00 98 35 108/68 100 Mechanical Ventilator 40 09/04/17 12:45 93 46 40 09/04/17 12:00 95 09/04/17 12:00 99.2 94 35 110/66 100 Mechanical Ventilator 40 99.2 09/04/17 12:00 40 09/04/17 11:00 99 35 115/65 100 Mechanical Ventilator 40 09/04/17 10:54 95 44 40 09/04/17 10:15 209.8 94 39 100 Intake and Output 09/04/17 09/05/17 19:00 07:00 Intake Total 1500 ml 2010 ml Output Total 1200 ml 1600 ml Balance 300 ml 410 ml Intake Free Water 200 ml IV Total 850 ml 1310 ml Tube Feeding 600 ml 500 ml Other 50 ml Output Urine Total 1100 ml 1600 ml Stool Total 100 ml # Bowel Movements 20 Laboratory Tests 09/04/17 18:25: Arterial Blood pH 7.426, Arterial Blood Partial Pressure CO2 30.3L, Arterial Blood Partial Pressure O2 109.9H, Arterial Blood HCO3 19.5L, Arterial Blood Oxygen Saturation 97.8, Arterial Blood Base Excess -4, Mina Test Positive Height (Feet): 5 Height (Inches): 3.00 Weight (Pounds): 155 Objective General Appearance: WD/WN, alert, confused Neck: supple Cardiovascular: normal rate, regular rhythm Respiratory/Chest: chest wall non-tender, lungs clear, normal breath sounds, no respiratory distress Abdomen: normal bowel sounds, non tender, soft, no organomegaly Edema: no edema noted Arm (L), no edema noted Arm (R), no edema noted Leg (L), no edema noted Leg (R), no edema noted Pedal (L), no edema noted Pedal (R), no edema noted Generalized Neurologic: disoriented, unresponsive [place] Ac[place] MD Sep 05, 2017 10:07
[2017-09-05] MEDS: Potassium Chloride 10 MEQ in D5 1/2NS 1,000 ML IV SCH ×2 (10:21→20:01)
--- NOTE | 2017-09-05 10:28 | Infectious Diseases Prog Note ---
"Assessment/Plan Assessment/Plan A 1. e.coli | proteus sepsis 2. pseudomonas | fungal UTI 3. leucocytosis resolved 4, Ventilator dependent respiratory failure 5. diabetes mellitus 6. hypertension 7. Multiple pressure ulcers 8. sacral osteomyelitis 9. Diarrhea, C. difficile negative P 1. continue meropenem 2. discontinue Levaquin 3. continue fluconazole 3 more days 4. add IV Vancomycin 5. will follow up bone cultures Subjective ROS Limited/Unobtainable: Yes Constitutional: Reports: fever Gastrointestinal/Abdominal: Reports: diarrhea Skin: Reports: ulcer, other - sacral ulcer bleeding Allergies: Coded Allergies: No Known Allergies (Unverified , 07/25/17) Objective Vital Signs Last 24 Hour Vital Signs Date Time Temp Pulse Resp B/P (MAP) Pulse Ox O2 Delivery O2 Flow Rate FiO2 09/05/17 09:46 100.4 09/05/17 09:21 107 38 40 09/05/17 09:16 101.5 09/05/17 06:53 113 33 40 09/05/17 05:23 110 37 40 09/05/17 04:00 107 09/05/17 04:00 40 09/05/17 04:00 99.1 101 29 119/63 100 Mechanical Ventilator 40 99.1 09/05/17 03:09 110 30 40 09/05/17 01:07 102 35 40 09/05/17 00:00 106 09/05/17 00:00 99.7 100 33 123/63 100 Mechanical Ventilator 40 99.7 09/05/17 00:00 40 09/04/17 23:58 99.0 09/04/17 23:00 101 32 40 09/04/17 22:59 99.0 09/04/17 20:50 92 30 40 09/04/17 20:00 40 09/04/17 20:00 96 09/04/17 20:00 99.9 93 29 110/63 99 Mechanical Ventilator 40 99.9 09/04/17 19:20 95 33 40 09/04/17 16:56 101 46 40 09/04/17 16:14 100.4 09/04/17 16:00 111 09/04/17 16:00 100.4 100 42 101/64 100 Mechanical Ventilator 40 100.4 09/04/17 16:00 40 09/04/17 14:45 108 43 40 09/04/17 14:00 91 33 96/49 100 Mechanical Ventilator 40 09/04/17 13:00 98 35 108/68 100 Mechanical Ventilator 40 09/04/17 12:45 93 46 40 09/04/17 12:00 95 09/04/17 12:00 99.2 94 35 110/66 100 Mechanical Ventilator 40 99.2 09/04/17 12:00 40 09/04/17 11:00 99 35 115/65 100 Mechanical Ventilator 40 09/04/17 10:54 95 44 40 Height (Feet): 5 Height (Inches): 3.00 Weight (Pounds): 155 HEENT: status post trach Respiratory/Chest: lungs clear, other - on ventilator Cardiovascular: tachycardia, other - R arm PICC line Abdomen: soft, non tender, other - GT & rectal tubes Skin: ulcers Neurologic/Psychiatric: unresponsiveness Microbiology Date/Time Source Procedure Growth Status 09/03/17 19:50 Sacral Ulcer Gram Stain - Final Resulted 09/03/17 19:50 Aerobic Culture - Preliminary Gram Negative Bacillus 1 Gram Negative Bacillus 2 Resulted 09/03/17 19:50 Bone Gram Stain - Final Resulted 09/03/17 19:50 Aerobic Culture - Preliminary Strep Species, Alpha Hemolytic Gram Negative Bacillus 2 Resulted 09/03/17 19:50 Sacral Wound Gram Stain - Final Resulted 09/03/17 19:50 Sacral Wound Aerobic Culture - Preliminary NO GROWTH AFTER 24 HOURS Resulted 09/03/17 19:50 Sacral Wound Anaerobic Culture Pending Resulted Laboratory Tests Test 09/04/17 18:25 Arterial Blood pH 7.426 (7.350-7.450) Arterial Blood Partial Pressure CO2 30.3 mmHg (35.0-45.0) L Arterial Blood Partial Pressure O2 109.9 mmHg (75.0-100.0) H Arterial Blood HCO3 19.5 mmol/L (22.0-26.0) L Arterial Blood Oxygen Saturation 97.8 % (92.0-98.0) Arterial Blood Base Excess -4 Mina Test Positive Current Medications Medications (Trade) Dose Ordered Sig/Tal Route PRN Reason Start Time Stop Time Status Last Admin Dose Admin Acetaminophen (Tylenol) 650 mg Q4H PRN GT Mild Pain/Temp > 100.5 09/04/17 16:00 10/04/17 15:59 09/05/17 09:16 Acetaminophen/ Hydrocodone Bitart (Orr 10/325) 1 tab Q4H PRN GT PAIN 4-10 09/04/17 17:45 09/06/17 21:44 09/04/17 22:59 Albuterol Sulfate (Proventil) 2.5 mg Q6H PRN HHN Shortness of Breath 09/04/17 16:00 09/09/17 15:59 Ascorbic Acid (Vitamin C) 500 mg DAILY GT 09/05/17 09:00 09/30/17 08:59 09/05/17 09:11 Aspirin (ASA) 81 mg DAILY GT 09/05/17 09:00 09/30/17 08:59 09/05/17 09:11 Bisacodyl (Dulcolax) 10 mg DAILYPRN PRN RECTAL Constipation 09/04/17 16:00 09/29/17 15:59 Chlorhexidine Gluconate (Consuelo-Hex 2%) 1 applic DAILY@2000 TOPIC 09/04/17 20:00 09/30/17 19:59 09/04/17 21:22 Epoetin Tian (Procrit (for non ESRD use)) 10,000 units FRI-FRI-FRI SUBQ 09/05/17 21:00 10/01/17 20:59 Ferrous Sulfate (Feosol) 300 mg DAILY NG 09/05/17 09:00 09/30/17 08:59 09/05/17 09:11 Fluconazole (Diflucan) 100 mg DAILY ORAL 09/05/17 09:00 09/08/17 08:59 09/05/17 09:11 Levofloxacin (Levaquin) 500 mg DAILY ORAL 09/05/17 09:00 09/08/17 08:59 09/05/17 09:11 Levothyroxine Sodium (Synthroid) 100 mcg DAILY@0630 GT 09/05/17 06:30 09/30/17 06:29 09/05/17 06:23 Meropenem 1 gm/ Sodium Chloride 110 ml @ 220 mls/hr Q8HR IVPB 09/04/17 22:00 09/11/17 11:59 09/05/17 06:25 Midodrine (Pro-Amatine) 10 mg THREE TIMES A DAY ORAL 09/04/17 18:00 10/03/17 09:14 09/05/17 09:11 Pantoprazole (Protonix) 40 mg DAILY IVP 09/05/17 09:00 09/30/17 08:59 09/05/17 09:12 Potassium Chloride 10 meq/ Dextrose/Sodium Chloride 1,005 ml @ 100 mls/hr Q10H3M IV 09/04/17 17:00 10/02/17 16:59 09/05/17 10:21 Sodium Hypochlorite (Dakin's Half Strength) 1 applic DAILY TOPIC 09/05/17 09:00 10/05/17 08:59 09/05/17 09:17 Sodium Hypochlorite (Dakin's Half Strength) 1 applic PRN PRN TOPIC wound 09/04/17 23:15 10/04/17 23:14 Sodium Phosphate (Fleet's Sodium Phosl Enema) 133 ml DAILYPRN PRN RECTAL Constipation 09/04/17 16:00 10/04/17 15:59 Zinc Sulfate (Zinc Sulfate) 220 mg DAILY GT 09/05/17 09:00 09/30/17 08:59 09/05/17 09:11 Kirk Figueroa MD Sep 05, 2017 10:28"
[2017-09-05 11:24] LABS: HEMATOCRIT 32.5 % (42.0-52.0); HEMOGLOBIN 10.6 G/DL (14.2-18.0); MEAN CORPUSCULAR VOLUME 84 FL (80-99); PLATELET COUNT 364 K/UL (150-450); RED BLOOD COUNT 3.87 M/UL (4.70-6.10); RED CELL DISTRIBUTION WIDTH 18.1 % (11.6-14.8); WHITE BLOOD COUNT 20.6 K/UL (4.8-10.8)
[2017-09-05 11:38] LABS: ALANINE AMINOTRANSFERASE 25 U/L (12-78); ALBUMIN 0.9 G/DL (3.4-5.0); ALBUMIN/GLOBULIN RATIO 0.2 (1.0-2.7); ALKALINE PHOSPHATASE 110 U/L (46-116); ANION GAP 12 mmol/L (5-15); ASPARTATE AMINO TRANSFERASE 29 U/L (15-37); BILIRUBIN,TOTAL 0.4 MG/DL (0.2-1.0); BLOOD UREA NITROGEN 32 mg/dL (7-18); CALCIUM 6.9 MG/DL (8.5-10.1); CARBON DIOXIDE 20 MMOL/L (21-32); CHLORIDE 112 MMOL/L (98-107); CREATININE 0.8 MG/DL (0.55-1.30); POTASSIUM 3.3 MMOL/L (3.5-5.1); SODIUM 144 MMOL/L (136-145)
[2017-09-05 12:00] VITALS: BP 97/50
[2017-09-05] MEDS ORDERED: Vancomycin 1gm/D5W 275ml IVPB SCH ×2 (12:00)
--- NOTE | 2017-09-05 12:39 | Diagnostic Imaging Report ---
Indication: Dyspnea Comparison: August 30, 2017 A single view chest radiograph was obtained. Findings: Bilateral pleural effusion suspected. Heart size is normal. Patchy airspace disease noted within the left lung base and right midlung. Tracheostomy noted. PICC line is in good position. The tip is in the right atrium. IMPRESSION: PICC line in good position. Patchy infiltrates Bilateral pleural effusions
[2017-09-05 16:00] VITALS: BP 103/59
--- NOTE | 2017-09-05 17:05 | Critical Care Progress Note ---
Assessment/Plan Assessment/Plan respiratory failure trach GT chronic encephalopathy HAROLDO sepsis leukocytosis anemia PLAN SDU care noted vent as is wbc elevated- ID follow up IV antibiotics- cultures reviewed hydrate monitor hemodynamics transfuse as needed midodrine for orthostasis medications/laboratory data/nursing notes reviewed in detail note reviewed and edited care discussed with RN and RT Critical Care - Subjective ROS Limited/Unobtainable: Yes Condition: critical, stable EKG Rhythm: Sinus Rhythm Residuals: minimal Tube Feeding Tolerated: yes I&O: Intake and Output 09/04/17 09/05/17 19:00 07:00 Intake Total 1500 ml 2010 ml Output Total 1200 ml 1600 ml Balance 300 ml 410 ml Intake Free Water 200 ml IV Total 850 ml 1310 ml Tube Feeding 600 ml 500 ml Other 50 ml Output Urine Total 1100 ml 1600 ml Stool Total 100 ml # Bowel Movements 20 Critical Care - Objective Last 24 Hour Vital Signs Date Time Temp Pulse Resp B/P (MAP) Pulse Ox O2 Delivery O2 Flow Rate FiO2 09/05/17 16:48 83 31 40 09/05/17 16:00 40 09/05/17 14:53 82 35 40 09/05/17 12:47 83 32 40 09/05/17 12:00 40 09/05/17 12:00 99.2 96 37 97/50 98 Mechanical Ventilator 40 99.2 09/05/17 12:00 106 09/05/17 11:28 108 30 40 09/05/17 09:46 100.4 09/05/17 09:21 107 38 40 09/05/17 09:16 101.5 09/05/17 08:00 40 09/05/17 08:00 101.5 68 39 119/71 98 Mechanical Ventilator 40 101.5 09/05/17 08:00 113 09/05/17 06:53 113 33 40 09/05/17 05:23 110 37 40 09/05/17 04:00 107 09/05/17 04:00 40 09/05/17 04:00 99.1 101 29 119/63 100 Mechanical Ventilator 40 99.1 09/05/17 03:09 110 30 40 09/05/17 01:07 102 35 40 09/05/17 00:00 106 09/05/17 00:00 99.7 100 33 123/63 100 Mechanical Ventilator 40 99.7 09/05/17 00:00 40 09/04/17 23:58 99.0 09/04/17 23:00 101 32 40 09/04/17 22:59 99.0 09/04/17 20:50 92 30 40 09/04/17 20:00 40 09/04/17 20:00 96 09/04/17 20:00 99.9 93 29 110/63 99 Mechanical Ventilator 40 99.9 09/04/17 19:20 95 33 40 Labs: Labs Test 09/02/17 17:48 09/03/17 00:30 09/03/17 11:30 09/03/17 12:45 Arterial Blood pH 7.414 (7.350-7.450) Arterial Blood Partial Pressure CO2 29.6 mmHg (35.0-45.0) Arterial Blood Partial Pressure O2 92.2 mmHg (75.0-100.0) Arterial Blood HCO3 18.5 mmol/L (22.0-26.0) Arterial Blood Oxygen Saturation 97.0 % (92.0-98.0) Arterial Blood Base Excess -5.3 Mina Test Positive White Blood Count 9.7 K/UL (4.8-10.8) 10.9 K/UL (4.8-10.8) Red Blood Count 2.60 M/UL (4.70-6.10) 3.21 M/UL (4.70-6.10) Hemoglobin 6.7 G/DL (14.2-18.0) 8.5 G/DL (14.2-18.0) Hematocrit 21.3 % (42.0-52.0) 26.9 % (42.0-52.0) Mean Corpuscular Volume 82 FL (80-99) 84 FL (80-99) Mean Corpuscular Hemoglobin 25.8 PG (27.0-31.0) 26.4 PG (27.0-31.0) Mean Corpuscular Hemoglobin Concent 31.5 G/DL (32.0-36.0) 31.5 G/DL (32.0-36.0) Red Cell Distribution Width 19.6 % (11.6-14.8) 19.0 % (11.6-14.8) Platelet Count 376 K/UL (150-450) 323 K/UL (150-450) Mean Platelet Volume 5.5 FL (6.5-10.1) 5.2 FL (6.5-10.1) Neutrophils (%) (Auto) % (45.0-75.0) 75.5 % (45.0-75.0) Lymphocytes (%) (Auto) % (20.0-45.0) 14.7 % (20.0-45.0) Monocytes (%) (Auto) % (1.0-10.0) 8.8 % (1.0-10.0) Eosinophils (%) (Auto) % (0.0-3.0) 0.0 % (0.0-3.0) Basophils (%) (Auto) % (0.0-2.0) 1.0 % (0.0-2.0) Prothrombin Time 14.0 SEC (9.30-11.50) Prothromb Time International Ratio 1.3 (0.9-1.1) Activated Partial Thromboplast Time 33 SEC (23-33) Sodium Level 148 MMOL/L (136-145) 142 MMOL/L (136-145) 146 MMOL/L (136-145) Potassium Level 2.9 MMOL/L (3.5-5.1) 4.2 MMOL/L (3.5-5.1) 3.6 MMOL/L (3.5-5.1) Chloride Level 115 MMOL/L (98-107) 112 MMOL/L (98-107) 116 MMOL/L (98-107) Carbon Dioxide Level 20 MMOL/L (21-32) 18 MMOL/L (21-32) 20 MMOL/L (21-32) Anion Gap 13 mmol/L (5-15) 12 mmol/L (5-15) 10 mmol/L (5-15) Blood Urea Nitrogen 60 mg/dL (7-18) 47 mg/dL (7-18) 48 mg/dL (7-18) Creatinine 1.0 MG/DL (0.55-1.30) 1.0 MG/DL (0.55-1.30) 0.9 MG/DL (0.55-1.30) Estimat Glomerular Filtration Rate mL/min (>60) mL/min (>60) mL/min (>60) Glucose Level 142 MG/DL (74-106) 418 MG/DL (74-106) 111 MG/DL (74-106) Calcium Level 7.4 MG/DL (8.5-10.1) 6.7 MG/DL (8.5-10.1) 7.3 MG/DL (8.5-10.1) Total Bilirubin 0.2 MG/DL (0.2-1.0) 0.3 MG/DL (0.2-1.0) 0.3 MG/DL (0.2-1.0) Aspartate Amino Transf (AST/SGOT) 22 U/L (15-37) 43 U/L (15-37) 47 U/L (15-37) Alanine Aminotransferase (ALT/SGPT) 20 U/L (12-78) 26 U/L (12-78) 31 U/L (12-78) Alkaline Phosphatase 108 U/L (46-116) 113 U/L (46-116) 125 U/L (46-116) Troponin I 0.277 ng/mL (0.000-0.056) Pro-B-Type Natriuretic Peptide 38862 pg/mL (0-125) Total Protein 5.8 G/DL (6.4-8.2) 5.7 G/DL (6.4-8.2) 6.1 G/DL (6.4-8.2) Albumin 0.9 G/DL (3.4-5.0) 0.9 G/DL (3.4-5.0) 1.0 G/DL (3.4-5.0) Globulin 4.9 g/dL 4.8 g/dL 5.1 g/dL Albumin/Globulin Ratio 0.2 (1.0-2.7) 0.2 (1.0-2.7) 0.2 (1.0-2.7) Test 09/04/17 04:30 09/04/17 18:25 09/05/17 10:15 Sodium Level 145 MMOL/L (136-145) 144 MMOL/L (136-145) Potassium Level 3.6 MMOL/L (3.5-5.1) 3.3 MMOL/L (3.5-5.1) Chloride Level 114 MMOL/L (98-107) 112 MMOL/L (98-107) Carbon Dioxide Level 19 MMOL/L (21-32) 20 MMOL/L (21-32) Anion Gap 12 mmol/L (5-15) 12 mmol/L (5-15) Blood Urea Nitrogen 44 mg/dL (7-18) 32 mg/dL (7-18) Creatinine 0.8 MG/DL (0.55-1.30) 0.8 MG/DL (0.55-1.30) Estimat Glomerular Filtration Rate mL/min (>60) mL/min (>60) Glucose Level 147 MG/DL (74-106) 107 MG/DL (74-106) Calcium Level 7.2 MG/DL (8.5-10.1) 6.9 MG/DL (8.5-10.1) Total Bilirubin 0.2 MG/DL (0.2-1.0) 0.4 MG/DL (0.2-1.0) Aspartate Amino Transf (AST/SGOT) 38 U/L (15-37) 29 U/L (15-37) Alanine Aminotransferase (ALT/SGPT) 30 U/L (12-78) 25 U/L (12-78) Alkaline Phosphatase 126 U/L (46-116) 110 U/L (46-116) Total Protein 6.2 G/DL (6.4-8.2) 6.1 G/DL (6.4-8.2) Albumin 1.1 G/DL (3.4-5.0) 0.9 G/DL (3.4-5.0) Globulin 5.1 g/dL 5.2 g/dL Albumin/Globulin Ratio 0.2 (1.0-2.7) 0.2 (1.0-2.7) Arterial Blood pH 7.426 (7.350-7.450) Arterial Blood Partial Pressure CO2 30.3 mmHg (35.0-45.0) Arterial Blood Partial Pressure O2 109.9 mmHg (75.0-100.0) Arterial Blood HCO3 19.5 mmol/L (22.0-26.0) Arterial Blood Oxygen Saturation 97.8 % (92.0-98.0) Arterial Blood Base Excess -4 Mina Test Positive White Blood Count 20.6 K/UL (4.8-10.8) Red Blood Count 3.87 M/UL (4.70-6.10) Hemoglobin 10.6 G/DL (14.2-18.0) Hematocrit 32.5 % (42.0-52.0) Mean Corpuscular Volume 84 FL (80-99) Mean Corpuscular Hemoglobin 27.3 PG (27.0-31.0) Mean Corpuscular Hemoglobin Concent 32.5 G/DL (32.0-36.0) Red Cell Distribution Width 18.1 % (11.6-14.8) Platelet Count 364 K/UL (150-450) Mean Platelet Volume 5.4 FL (6.5-10.1) Neutrophils (%) (Auto) % (45.0-75.0) Lymphocytes (%) (Auto) % (20.0-45.0) Monocytes (%) (Auto) % (1.0-10.0) Eosinophils (%) (Auto) % (0.0-3.0) Basophils (%) (Auto) % (0.0-2.0) Differential Total Cells Counted 100 Neutrophils % (Manual) 63 % (45-75) Lymphocytes % (Manual) 24 % (20-45) Monocytes % (Manual) 12 % (1-10) Eosinophils % (Manual) 0 % (0-3) Basophils % (Manual) 1 % (0-2) Band Neutrophils 0 % (0-8) Platelet Estimate Adequate Platelet Morphology Normal Hypochromasia 1+ Objective: WDWN chronically ill reduced breath sounds bilaterally without rhonchi or wheeze [id number] without MRG NABS nontender no HSM; GT no CC edema trach poor LOC Micro: Microbiology Date/Time Source Procedure Growth Status 09/03/17 19:50 Sacral Ulcer Gram Stain - Final Resulted 09/03/17 19:50 Aerobic Culture - Preliminary Gram Negative Bacillus 1 Gram Negative Bacillus 2 Resulted 09/03/17 19:50 Bone Gram Stain - Final Resulted 09/03/17 19:50 Aerobic Culture - Preliminary Strep Species, Alpha Hemolytic Gram Negative Bacillus 2 Resulted 09/03/17 19:50 Sacral Wound Gram Stain - Final Resulted 09/03/17 19:50 Sacral Wound Aerobic Culture - Preliminary NO GROWTH AFTER 24 HOURS Resulted 09/03/17 19:50 Sacral Wound Anaerobic Culture Pending Resulted Accucheck: 97 Kj Blackman MD Sep 05, 2017 17:05
--- NOTE | 2017-09-05 17:27 | General Progress Note ---
Progress Note Progress Note Bioethics Note In attendance were Kasey Roque, Dr. Acosta and myself. Asked to evaluate code status for this unrepresented patient by Dr. Acosta the attendiing physiciam. The patient has multiple medical problems including sepsis and pneumonia and is on a ventilator with tracheostomy. Further aggressive care is likely to be futile however efforts are ongoing. In the event of a cardiac arrest he would be highly unlikely to survive resuscitation. It is appropriate that he be made DNR and for a POLST indicating so to be signed by Dr. Acosta. Sukumar Bazan M.D. Sukumar Luther MD Sep 05, 2017 17:27
[2017-09-05 20:00] VITALS: BP 101/55
[2017-09-05] MEDS: Dyna-Hex 2% Top Sol 2oz TOPIC SCH (21:07)
[2017-09-05] MEDS: Epogen (for non ESRD use) SUBQ SCH (21:08)
[2017-09-06 00:01] VITALS: BP 105/61
[2017-09-06] MEDS: HYDROcodone/Acetamin 10/325 tab GT PRN (00:23)
--- NOTE | 2017-09-06 01:15 | Progress Note ---
DATE: 09/05/2017 CARDIOLOGY PROGRESS NOTE SUBJECTIVE: The patient's condition is remaining clinical. Prognosis is poor. He is now DNR. A PICC line has been place. He continues to require ventilator support. OBJECTIVE: VITAL SIGNS: Blood pressure 101/55, pulse 90, respiratory rate 30 and afebrile. NECK: Thin trach secretions. LUNGS: Bilateral rhonchi. CARDIAC: Regular rhythm and rate. Normal S1 and S2. ABDOMEN: Soft. G-tube intact. EXTREMITIES: Trace edema. Wound site noted. LABORATORY AND DIAGNOSTIC DATA: White count up to 20.6 and hemoglobin 10.6. Sodium 144, potassium 3.3, bicarbonate 20, BUN 32 and creatinine 0.8. Albumin is 0.9. IMPRESSION: 1. Sepsis with shock. 2. Ventilator-dependent respiratory failure. 3. Acute myocardial infarction. 4. Healthcare acquired pneumonia with pleural effusion. 5. Resolved hyponatremia and dehydration. 6. Hypokalemia. 7. Anemia. 8. Severe protein-calorie malnutrition. 9. Multiple decubiti. PLAN: 1. Antimicrobials. 2. Wound care. 3. Ventilator support. 4. Transfuse for hemoglobin less than 8. 5. Hold antihypertensives. 6. Nutritional support by feeding tube. 7. Ventilator management. 8. DNR appropriate. Keith Reeves M.D. DR: OFE JOB#: [id number] CC:
[2017-09-06] MEDS: Dakin's 0.25% (Half Strength) 16oz TOPIC PRN (01:30)
[2017-09-06 04:00] VITALS: BP 100/59
[2017-09-06] MEDS: Meropenem 1 GM in NS 110 ML IVPB SCH ×3 (06:00→22:00)
[2017-09-06] MEDS: Potassium Chloride 10 MEQ in D5 1/2NS 1,000 ML IV SCH (06:01)
--- NOTE | 2017-09-06 07:47 | General Progress Note ---
Assessment/Plan Problem List: (1) GI bleed ICD Codes: K92.2 - Gastrointestinal hemorrhage, unspecified SNOMED: 28745512 (2) Symptomatic anemia ICD Codes: D64.9 - Anemia, unspecified SNOMED: 581615377 (3) Anemia ICD Codes: D64.9 - Anemia, unspecified SNOMED: 691843368 (4) Severe sepsis ICD Codes: A41.9 - Sepsis, unspecified organism; R65.20 - Severe sepsis without septic shock SNOMED: 98245492 Status: stable, progressing Assessment/Plan cont abx per follow up repeat cultures follow up pending labs monitor h/h- transfuse as needed gt feeds replace lytes as needed ivf adjusted critical and guarded Subjective ROS Limited/Unobtainable: No Constitutional: Reports: malaise, weakness HEENT: Reports: no symptoms Cardiovascular: Reports: no symptoms Respiratory: Reports: shortness of breath Gastrointestinal/Abdominal: Reports: difficulty swallowing Genitourinary: Reports: no symptoms Neurologic/Psychiatric: Reports: pre-existing deficit Endocrine: Reports: no symptoms Hematologic/Lymphatic: Reports: anemia Allergies: Coded Allergies: No Known Allergies (Unverified , 07/25/17) All Systems: reviewed and negative except above Subjective fevers better. wbc trending up. GT ostomy site enlarged with ballon protruding. tolerating feeds. remains on the vent. poorly responsive. DNR appropriate per bioethics. sputum and wound cultures noted Objective Last 24 Hour Vital Signs Date Time Temp Pulse Resp B/P (MAP) Pulse Ox O2 Delivery O2 Flow Rate FiO2 09/06/17 06:50 52 40 40 09/06/17 05:16 94 38 Mechanical Ventilator 40 09/06/17 05:05 91 40 40 09/06/17 04:00 98.8 91 32 100/59 100 Mechanical Ventilator 40 98.8 09/06/17 03:12 76 36 40 09/06/17 01:22 98.0 09/06/17 00:39 64 32 40 09/06/17 00:23 98.0 09/06/17 00:02 90 09/06/17 00:01 98.0 90 31 105/61 100 Mechanical Ventilator 40 98.0 09/06/17 00:01 40 09/05/17 23:00 64 32 40 09/05/17 21:00 91 36 40 09/05/17 20:00 90 09/05/17 20:00 40 09/05/17 20:00 97.7 90 30 101/55 100 Mechanical Ventilator 40 97.7 09/05/17 19:14 82 34 40 09/05/17 16:48 83 31 40 09/05/17 16:00 40 09/05/17 16:00 97.9 80 36 103/59 100 Mechanical Ventilator 40 97.9 09/05/17 16:00 96 09/05/17 14:53 82 35 40 09/05/17 12:47 83 32 40 09/05/17 12:00 40 09/05/17 12:00 99.2 96 37 97/50 98 Mechanical Ventilator 40 99.2 09/05/17 12:00 106 09/05/17 11:28 108 30 40 09/05/17 09:46 100.4 09/05/17 09:21 107 38 40 09/05/17 09:16 101.5 09/05/17 08:00 40 09/05/17 08:00 101.5 68 39 119/71 98 Mechanical Ventilator 40 101.5 09/05/17 08:00 113 Intake and Output 09/05/17 09/06/17 19:00 07:00 Intake Total 2205.000 ml 1910 ml Output Total 925 ml 1500 ml Balance 1280.000 ml 410 ml Intake Free Water 200 ml IV Total 1455.000 ml 1210 ml Tube Feeding 600 ml 500 ml Other 150 ml Output Urine Total 850 ml 1500 ml Stool Total 75 ml # Bowel Movements 30 Laboratory Tests 09/05/17 10:15: White Blood Count 20.6H, Red Blood Count 3.87L, Hemoglobin 10.6L, Hematocrit 32.5L, Mean Corpuscular Volume 84, Mean Corpuscular Hemoglobin 27.3, Mean Corpuscular Hemoglobin Concent 32.5, Red Cell Distribution Width 18.1H, Platelet Count 364, Mean Platelet Volume 5.4L, Neutrophils (%) (Auto) , Lymphocytes (%) (Auto) , Monocytes (%) (Auto) , Eosinophils (%) (Auto) , Basophils (%) (Auto) , Differential Total Cells Counted 100, Neutrophils % ( Manual) 63, Lymphocytes % (Manual) 24, Monocytes % (Manual) 12H, Eosinophils % ( Manual) 0, Basophils % (Manual) 1, Band Neutrophils 0, Platelet Estimate Adequate, Platelet Morphology Normal, Hypochromasia 1+, Sodium Level 144, Potassium Level 3.3L, Chloride Level 112H, Carbon Dioxide Level 20L, Anion Gap 12, Blood Urea Nitrogen 32H, Creatinine 0.8, Estimat Glomerular Filtration Rate , Glucose Level 107H, Calcium Level 6.9L, Total Bilirubin 0.4, Aspartate Amino Transf (AST/SGOT) 29, Alanine Aminotransferase (ALT/SGPT) 25, Alkaline Phosphatase 110, Total Protein 6.1L, Albumin 0.9L, Globulin 5.2, Albumin/ Globulin Ratio 0.2L Height (Feet): 5 Height (Inches): 3.00 Weight (Pounds): 155 Objective General Appearance: WD/WN, alert, confused Neck: supple Cardiovascular: normal rate, regular rhythm Respiratory/Chest: chest wall non-tender, lungs clear, normal breath sounds, no respiratory distress Abdomen: normal bowel sounds, non tender, soft, no organomegaly Edema: no edema noted Arm (L), no edema noted Arm (R), no edema noted Leg (L), no edema noted Leg (R), no edema noted Pedal (L), no edema noted Pedal (R), no edema noted Generalized Neurologic: disoriented, unresponsive [place] Ac[place] MD Sep 06, 2017 07:47
[2017-09-06 08:00] VITALS: BP 104/58
[2017-09-06] MEDS: Ascorbic Acid 500mg tab GT SCH (08:52)
[2017-09-06] MEDS: Aspirin Baby 81mg GT SCH (08:52)
[2017-09-06] MEDS: Ferrous Sulfate 300 MG/5 ML UDC NG SCH (08:52)
[2017-09-06] MEDS: Zinc Sulfate 220mg cap GT SCH (08:52)
[2017-09-06] MEDS: Midodrine 10mg tab ORAL SCH ×3 (08:52→17:30)
[2017-09-06] MEDS: Pantoprazole Inj IVP SCH (08:54)
[2017-09-06] MEDS: Fluconazole 100mg tab ORAL SCH (08:54)
[2017-09-06 09:03] LABS: BASOPHILS % (AUTO) 0.4 % (0.0-2.0); EOSINOPHILS % (AUTO) 0.6 % (0.0-3.0); HEMATOCRIT 28.8 % (42.0-52.0); HEMOGLOBIN 9.7 G/DL (14.2-18.0); LYMPHOCYTES % (AUTO) 11.3 % (20.0-45.0); MEAN CORPUSCULAR VOLUME 85 FL (80-99); MONOCYTES % (AUTO) 6.6 % (1.0-10.0); NEUTROPHILS % (AUTO) 81.1 % (45.0-75.0); PLATELET COUNT 326 K/UL (150-450); RED CELL DISTRIBUTION WIDTH 18.2 % (11.6-14.8); WHITE BLOOD COUNT 17.3 K/UL (4.8-10.8)
[2017-09-06 09:08] LABS: ALANINE AMINOTRANSFERASE 27 U/L (12-78); ALBUMIN 0.9 G/DL (3.4-5.0); ALBUMIN/GLOBULIN RATIO 0.2 (1.0-2.7); ALKALINE PHOSPHATASE 103 U/L (46-116); ANION GAP 11 mmol/L (5-15); ASPARTATE AMINO TRANSFERASE 31 U/L (15-37); BILIRUBIN,TOTAL 0.4 MG/DL (0.2-1.0); BLOOD UREA NITROGEN 29 mg/dL (7-18); CALCIUM 7.1 MG/DL (8.5-10.1); CARBON DIOXIDE 21 MMOL/L (21-32); CHLORIDE 112 MMOL/L (98-107); CREATININE 0.8 MG/DL (0.55-1.30); POTASSIUM 3.3 MMOL/L (3.5-5.1); SODIUM 144 MMOL/L (136-145)
[2017-09-06] MEDS ORDERED: D5 1/2NS w/KCL 10meq 1,000 ML IV SCH ×2 (09:15→10:00)
--- NOTE | 2017-09-06 09:15 | Critical Care Progress Note ---
Assessment/Plan Assessment/Plan respiratory failure trach GT chronic encephalopathy HAROLDO sepsis leukocytosis anemia PLAN SDU care noted vent reviewed wbc elevated- ID follow up IV antibiotics- cultures reviewed hydrate as needed monitor hemodynamics transfuse as needed midodrine for orthostasis seems improved and hope to dc to snf soon medications/laboratory data/nursing notes reviewed in detail note reviewed and edited care discussed with RN and RT Critical Care - Subjective ROS Limited/Unobtainable: Yes Condition: stable EKG Rhythm: Sinus Rhythm Residuals: minimal Tube Feeding Tolerated: yes I&O: Intake and Output 09/05/17 09/06/17 19:00 07:00 Intake Total 2205.000 ml 1910 ml Output Total 925 ml 1500 ml Balance 1280.000 ml 410 ml Intake Free Water 200 ml IV Total 1455.000 ml 1210 ml Tube Feeding 600 ml 500 ml Other 150 ml Output Urine Total 850 ml 1500 ml Stool Total 75 ml # Bowel Movements 30 Critical Care - Objective Last 24 Hour Vital Signs Date Time Temp Pulse Resp B/P (MAP) Pulse Ox O2 Delivery O2 Flow Rate FiO2 09/06/17 08:00 40 09/06/17 08:00 98.1 94 31 104/58 98 Mechanical Ventilator 40 98.1 09/06/17 06:50 52 40 40 09/06/17 05:16 94 38 Mechanical Ventilator 40 09/06/17 05:05 91 40 40 09/06/17 04:00 98.8 91 32 100/59 100 Mechanical Ventilator 40 98.8 09/06/17 03:12 76 36 40 09/06/17 01:22 98.0 09/06/17 00:39 64 32 40 09/06/17 00:23 98.0 09/06/17 00:02 90 09/06/17 00:01 98.0 90 31 105/61 100 Mechanical Ventilator 40 98.0 09/06/17 00:01 40 09/05/17 23:00 64 32 40 09/05/17 21:00 91 36 40 09/05/17 20:00 90 09/05/17 20:00 40 09/05/17 20:00 97.7 90 30 101/55 100 Mechanical Ventilator 40 97.7 09/05/17 19:14 82 34 40 09/05/17 16:48 83 31 40 09/05/17 16:00 40 09/05/17 16:00 97.9 80 36 103/59 100 Mechanical Ventilator 40 97.9 09/05/17 16:00 96 09/05/17 14:53 82 35 40 09/05/17 12:47 83 32 40 09/05/17 12:00 40 09/05/17 12:00 99.2 96 37 97/50 98 Mechanical Ventilator 40 99.2 09/05/17 12:00 106 09/05/17 11:28 108 30 40 09/05/17 09:46 100.4 09/05/17 09:21 107 38 40 09/05/17 09:16 101.5 Labs: Laboratory Tests Test 09/05/17 10:15 09/06/17 08:05 White Blood Count 20.6 K/UL (4.8-10.8) H 17.3 K/UL (4.8-10.8) H Red Blood Count 3.87 M/UL (4.70-6.10) L 3.40 M/UL (4.70-6.10) L Hemoglobin 10.6 G/DL (14.2-18.0) L 9.7 G/DL (14.2-18.0) L Hematocrit 32.5 % (42.0-52.0) L 28.8 % (42.0-52.0) L Mean Corpuscular Volume 84 FL (80-99) 85 FL (80-99) Mean Corpuscular Hemoglobin 27.3 PG (27.0-31.0) 28.4 PG (27.0-31.0) Mean Corpuscular Hemoglobin Concent 32.5 G/DL (32.0-36.0) 33.5 G/DL (32.0-36.0) Red Cell Distribution Width 18.1 % (11.6-14.8) H 18.2 % (11.6-14.8) H Platelet Count 364 K/UL (150-450) 326 K/UL (150-450) Mean Platelet Volume 5.4 FL (6.5-10.1) L 5.5 FL (6.5-10.1) L Neutrophils (%) (Auto) % (45.0-75.0) 81.1 % (45.0-75.0) H Lymphocytes (%) (Auto) % (20.0-45.0) 11.3 % (20.0-45.0) L Monocytes (%) (Auto) % (1.0-10.0) 6.6 % (1.0-10.0) Eosinophils (%) (Auto) % (0.0-3.0) 0.6 % (0.0-3.0) Basophils (%) (Auto) % (0.0-2.0) 0.4 % (0.0-2.0) Differential Total Cells Counted 100 Neutrophils % (Manual) 63 % (45-75) Lymphocytes % (Manual) 24 % (20-45) Monocytes % (Manual) 12 % (1-10) H Eosinophils % (Manual) 0 % (0-3) Basophils % (Manual) 1 % (0-2) Band Neutrophils 0 % (0-8) Platelet Estimate Adequate Platelet Morphology Normal Hypochromasia 1+ Sodium Level 144 MMOL/L (136-145) 144 MMOL/L (136-145) Potassium Level 3.3 MMOL/L (3.5-5.1) L 3.3 MMOL/L (3.5-5.1) L Chloride Level 112 MMOL/L (98-107) H 112 MMOL/L (98-107) H Carbon Dioxide Level 20 MMOL/L (21-32) L 21 MMOL/L (21-32) Anion Gap 12 mmol/L (5-15) 11 mmol/L (5-15) Blood Urea Nitrogen 32 mg/dL (7-18) H 29 mg/dL (7-18) H Creatinine 0.8 MG/DL (0.55-1.30) 0.8 MG/DL (0.55-1.30) Estimat Glomerular Filtration Rate mL/min (>60) mL/min (>60) Glucose Level 107 MG/DL (74-106) H 115 MG/DL (74-106) H Calcium Level 6.9 MG/DL (8.5-10.1) L 7.1 MG/DL (8.5-10.1) L Total Bilirubin 0.4 MG/DL (0.2-1.0) 0.4 MG/DL (0.2-1.0) Aspartate Amino Transf (AST/SGOT) 29 U/L (15-37) 31 U/L (15-37) Alanine Aminotransferase (ALT/SGPT) 25 U/L (12-78) 27 U/L (12-78) Alkaline Phosphatase 110 U/L (46-116) 103 U/L (46-116) Total Protein 6.1 G/DL (6.4-8.2) L 5.7 G/DL (6.4-8.2) L Albumin 0.9 G/DL (3.4-5.0) L 0.9 G/DL (3.4-5.0) L Globulin 5.2 g/dL 4.8 g/dL Albumin/Globulin Ratio 0.2 (1.0-2.7) L 0.2 (1.0-2.7) L Objective: WDWN chronically ill reduced breath sounds bilaterally without rhonchi or wheeze [id number] without MRG NABS nontender no HSM; GT no CC edema trach poor LOC Micro: Microbiology Date/Time Source Procedure Growth Status 09/03/17 19:50 Sacral Ulcer Gram Stain - Final Resulted 09/03/17 19:50 Aerobic Culture - Preliminary Gram Negative Bacillus 1 K.pneumoniae Carbapenem Resist Resulted 09/03/17 19:50 Bone Gram Stain - Final Resulted 09/03/17 19:50 Aerobic Culture - Preliminary Enterococcus Gallinarum K.pneumoniae Carbapenem Resist Gram Negative Harley Resulted 09/03/17 19:50 Sacral Wound Gram Stain - Final Resulted 09/03/17 19:50 Sacral Wound Aerobic Culture - Preliminary Resulted 09/03/17 19:50 Sacral Wound Anaerobic Culture - Preliminary NO ANAEROBES ISOLATED Resulted Accucheck: 97 Kj Blackman MD Sep 06, 2017 09:15
[2017-09-06] MEDS: Dakin's 0.25% (Half Strength) 16oz TOPIC SCH (10:00)
[2017-09-06] MEDS ORDERED: NS 500ML ONE ×2 (10:50→16:19)
[2017-09-06] MEDS ORDERED: Tubing Blood Filter IV ONE (10:50)
--- NOTE | 2017-09-06 11:34 | Infectious Diseases Prog Note ---
"Assessment/Plan Assessment/Plan antibiotics : meropenem 6.5.18 - levoquin 6.5.18 - fluconazole 6.5.18 - A 1. e.coli | proteus sepsis 2. pseudomonas | fungal UTI 3. leucocytosis resolved 4, respiratory failure 5. diabetes mellitus 6. hypertension P 1. continue meropenem 5 more days 2. continue levoquin 2 more days 3. continue fluconazole 2 more days 4. start tygacil, linezolid 5. will follow up cultures Subjective ROS Limited/Unobtainable: Yes Allergies: Coded Allergies: No Known Allergies (Unverified , 07/25/17) Objective Vital Signs Last 24 Hour Vital Signs Date Time Temp Pulse Resp B/P (MAP) Pulse Ox O2 Delivery O2 Flow Rate FiO2 09/06/17 09:10 62 36 40 09/06/17 08:00 40 09/06/17 08:00 98.1 94 31 104/58 98 Mechanical Ventilator 40 98.1 09/06/17 07:51 98 09/06/17 06:50 52 40 40 09/06/17 05:16 94 38 Mechanical Ventilator 40 09/06/17 05:05 91 40 40 09/06/17 04:00 98.8 91 32 100/59 100 Mechanical Ventilator 40 98.8 09/06/17 03:12 76 36 40 09/06/17 01:22 98.0 09/06/17 00:39 64 32 40 09/06/17 00:23 98.0 09/06/17 00:02 90 09/06/17 00:01 98.0 90 31 105/61 100 Mechanical Ventilator 40 98.0 09/06/17 00:01 40 09/05/17 23:00 64 32 40 09/05/17 21:00 91 36 40 09/05/17 20:00 90 09/05/17 20:00 40 09/05/17 20:00 97.7 90 30 101/55 100 Mechanical Ventilator 40 97.7 09/05/17 19:14 82 34 40 09/05/17 16:48 83 31 40 09/05/17 16:00 40 09/05/17 16:00 97.9 80 36 103/59 100 Mechanical Ventilator 40 97.9 09/05/17 16:00 96 09/05/17 14:53 82 35 40 09/05/17 12:47 83 32 40 09/05/17 12:00 40 09/05/17 12:00 99.2 96 37 97/50 98 Mechanical Ventilator 40 99.2 09/05/17 12:00 106 09/05/17 11:28 108 30 40 Height (Feet): 5 Height (Inches): 3.00 Weight (Pounds): 155 HEENT: status post trach Respiratory/Chest: lungs clear Cardiovascular: normal rate, regular rhythm, no gallop/murmur Abdomen: soft, non tender, other - GT Extremities: no edema, other - right arm PICC Microbiology Date/Time Source Procedure Growth Status 09/03/17 19:50 Sacral Ulcer Gram Stain - Final Resulted 09/03/17 19:50 Aerobic Culture - Preliminary Gram Negative Bacillus 1 K.pneumoniae Carbapenem Resist Resulted 09/03/17 19:50 Bone Gram Stain - Final Resulted 09/03/17 19:50 Aerobic Culture - Preliminary Enterococcus Gallinarum K.pneumoniae Carbapenem Resist Gram Negative Harley Resulted 09/03/17 19:50 Sacral Wound Gram Stain - Final Resulted 09/03/17 19:50 Sacral Wound Aerobic Culture - Preliminary Resulted 09/03/17 19:50 Sacral Wound Anaerobic Culture - Preliminary NO ANAEROBES ISOLATED Resulted Laboratory Tests Test 09/06/17 08:05 White Blood Count 17.3 K/UL (4.8-10.8) H Red Blood Count 3.40 M/UL (4.70-6.10) L Hemoglobin 9.7 G/DL (14.2-18.0) L Hematocrit 28.8 % (42.0-52.0) L Mean Corpuscular Volume 85 FL (80-99) Mean Corpuscular Hemoglobin 28.4 PG (27.0-31.0) Mean Corpuscular Hemoglobin Concent 33.5 G/DL (32.0-36.0) Red Cell Distribution Width 18.2 % (11.6-14.8) H Platelet Count 326 K/UL (150-450) Mean Platelet Volume 5.5 FL (6.5-10.1) L Neutrophils (%) (Auto) 81.1 % (45.0-75.0) H Lymphocytes (%) (Auto) 11.3 % (20.0-45.0) L Monocytes (%) (Auto) 6.6 % (1.0-10.0) Eosinophils (%) (Auto) 0.6 % (0.0-3.0) Basophils (%) (Auto) 0.4 % (0.0-2.0) Sodium Level 144 MMOL/L (136-145) Potassium Level 3.3 MMOL/L (3.5-5.1) L Chloride Level 112 MMOL/L (98-107) H Carbon Dioxide Level 21 MMOL/L (21-32) Anion Gap 11 mmol/L (5-15) Blood Urea Nitrogen 29 mg/dL (7-18) H Creatinine 0.8 MG/DL (0.55-1.30) Estimat Glomerular Filtration Rate mL/min (>60) Glucose Level 115 MG/DL (74-106) H Calcium Level 7.1 MG/DL (8.5-10.1) L Total Bilirubin 0.4 MG/DL (0.2-1.0) Aspartate Amino Transf (AST/SGOT) 31 U/L (15-37) Alanine Aminotransferase (ALT/SGPT) 27 U/L (12-78) Alkaline Phosphatase 103 U/L (46-116) Total Protein 5.7 G/DL (6.4-8.2) L Albumin 0.9 G/DL (3.4-5.0) L Globulin 4.8 g/dL Albumin/Globulin Ratio 0.2 (1.0-2.7) L Current Medications Medications (Trade) Dose Ordered Sig/Tal Route PRN Reason Start Time Stop Time Status Last Admin Dose Admin Acetaminophen (Tylenol) 650 mg Q4H PRN GT Mild Pain/Temp > 100.5 09/04/17 16:00 10/04/17 15:59 09/05/17 09:16 Acetaminophen/ Hydrocodone Bitart ([place] 10/325) 1 tab Q4H PRN GT PAIN 4-10 09/04/17 17:45 09/06/17 21:44 09/06/17 00:23 Albuterol Sulfate (Proventil) 2.5 mg Q6H PRN HHN Shortness of Breath 09/04/17 16:00 09/09/17 15:59 Ascorbic Acid (Vitamin C) 500 mg DAILY GT 09/05/17 09:00 09/30/17 08:59 09/06/17 08:52 Aspirin (ASA) 81 mg DAILY GT 09/05/17 09:00 09/30/17 08:59 09/06/17 08:52 Bisacodyl (Dulcolax) 10 mg DAILYPRN PRN RECTAL Constipation 09/04/17 16:00 09/29/17 15:59 Chlorhexidine Gluconate (Consuelo-Hex 2%) 1 applic DAILY@2000 TOPIC 09/04/17 20:00 09/30/17 19:59 09/05/17 21:07 Dextrose/ Electrolytes 1,000 ml @ 100 mls/hr Q10H IV 09/06/17 10:00 10/06/17 09:59 09/06/17 10:02 Epoetin Tian (Procrit (for non ESRD use)) 10,000 units FRI-FRI-FRI SUBQ 09/05/17 21:00 10/01/17 20:59 09/05/17 21:08 Ferrous Sulfate (Feosol) 300 mg DAILY NG 09/05/17 09:00 09/30/17 08:59 09/06/17 08:52 Fluconazole (Diflucan) 100 mg DAILY ORAL 09/05/17 09:00 09/08/17 08:59 09/06/17 08:54 Levothyroxine Sodium (Synthroid) 100 mcg DAILY@0630 GT 09/05/17 06:30 09/30/17 06:29 09/06/17 06:28 Meropenem 1 gm/ Sodium Chloride 110 ml @ 220 mls/hr Q8HR IVPB 09/04/17 22:00 09/11/17 11:59 09/06/17 06:00 Midodrine (Pro-Amatine) 10 mg THREE TIMES A DAY ORAL 09/04/17 18:00 10/03/17 09:14 09/06/17 08:52 Pantoprazole (Protonix) 40 mg DAILY IVP 09/05/17 09:00 09/30/17 08:59 09/06/17 08:54 Sodium Hypochlorite (Dakin's Half Strength) 1 applic DAILY TOPIC 09/05/17 09:00 10/05/17 08:59 09/06/17 10:00 Sodium Hypochlorite (Dakin's Half Strength) 1 applic PRN PRN TOPIC wound 09/04/17 23:15 10/04/17 23:14 09/06/17 01:30 Sodium Phosphate (Fleet's Sodium Phosl Enema) 133 ml DAILYPRN PRN RECTAL Constipation 09/04/17 16:00 10/04/17 15:59 Vancomycin HCl (Vanco rx to dose) 1 ea DAILY PRN MISC Per rx protocol 09/05/17 10:30 10/05/17 10:29 Vancomycin HCl 1 gm/Dextrose 275 ml @ 183.708 mls/hr Q24H IVPB 09/05/17 12:00 09/10/17 23:59 09/05/17 12:45 Zinc Sulfate (Zinc Sulfate) 220 mg DAILY GT 09/05/17 09:00 09/30/17 08:59 09/06/17 08:52 JOHN REAL Sep 06, 2017 11:34"
[2017-09-06 12:00] VITALS: BP 104/55
[2017-09-06] MEDS ORDERED: Tigecycline 100mg in D5W 110ml IVPB SCH (12:30)
[2017-09-06] MEDS: Levofloxacin 500mg tab ORAL SCH (13:30)
[2017-09-06 16:00] VITALS: BP 132/63
[2017-09-06] MEDS ORDERED: Tubing IV Secondary IV ONE (16:19)
[2017-09-06 20:00] VITALS: BP 107/67
[2017-09-06] MEDS: Dyna-Hex 2% Top Sol 2oz TOPIC SCH (20:44)
[2017-09-06] MEDS: Tigecycline 50mg in D5W 110ml IVPB SCH (20:44)
[2017-09-06] MEDS: Acetaminophen 650mg/20.3ml GT PRN (20:45)
[2017-09-07] VITALS: BP 99/53
[2017-09-07] MEDS: HYDROcodone/Acetamin 10/325 tab GT PRN (01:53)
[2017-09-07 04:00] VITALS: BP 100/59
[2017-09-07 05:34] LABS: HEMATOCRIT 28.7 % (42.0-52.0); HEMOGLOBIN 9.6 G/DL (14.2-18.0); MEAN CORPUSCULAR VOLUME 85 FL (80-99); PLATELET COUNT 348 K/UL (150-450); RED BLOOD COUNT 3.36 M/UL (4.70-6.10); RED CELL DISTRIBUTION WIDTH 18.3 % (11.6-14.8); WHITE BLOOD COUNT 18.4 K/UL (4.8-10.8)
[2017-09-07] MEDS: Meropenem 1 GM in NS 110 ML IVPB SCH ×3 (06:00→21:42)
[2017-09-07 06:02] LABS: ALANINE AMINOTRANSFERASE 42 U/L (12-78); ALBUMIN 0.9 G/DL (3.4-5.0); ALBUMIN/GLOBULIN RATIO 0.2 (1.0-2.7); ALKALINE PHOSPHATASE 127 U/L (46-116); ANION GAP 11 mmol/L (5-15); ASPARTATE AMINO TRANSFERASE 58 U/L (15-37); BILIRUBIN,TOTAL 0.2 MG/DL (0.2-1.0); BLOOD UREA NITROGEN 34 mg/dL (7-18); CARBON DIOXIDE 20 MMOL/L (21-32); CHLORIDE 113 MMOL/L (98-107); CREATININE 0.8 MG/DL (0.55-1.30); POTASSIUM 3.9 MMOL/L (3.5-5.1); SODIUM 144 MMOL/L (136-145)
--- NOTE | 2017-09-07 07:58 | General Progress Note ---
Assessment/Plan Problem List: (1) GI bleed ICD Codes: K92.2 - Gastrointestinal hemorrhage, unspecified SNOMED: 56822555 (2) Symptomatic anemia ICD Codes: D64.9 - Anemia, unspecified SNOMED: 357454541 (3) Anemia ICD Codes: D64.9 - Anemia, unspecified SNOMED: 961028098 (4) Severe sepsis ICD Codes: A41.9 - Sepsis, unspecified organism; R65.20 - Severe sepsis without septic shock SNOMED: 35996003 Status: stable, progressing Assessment/Plan abx per id monitor labs monitor h/h- transfuse as needed gt feeds replace lytes as needed ivf adjusted guarded Subjective ROS Limited/Unobtainable: Yes Constitutional: Reports: malaise, weakness HEENT: Reports: no symptoms Cardiovascular: Reports: no symptoms Respiratory: Reports: no symptoms Gastrointestinal/Abdominal: Reports: difficulty swallowing Genitourinary: Reports: no symptoms Neurologic/Psychiatric: Reports: pre-existing deficit Endocrine: Reports: no symptoms Hematologic/Lymphatic: Reports: anemia Allergies: Coded Allergies: No Known Allergies (Unverified , 07/25/17) All Systems: reviewed and negative except above Subjective no events. stable. awake. no distress. on the vent. tolerating feeds, Objective Last 24 Hour Vital Signs Date Time Temp Pulse Resp B/P (MAP) Pulse Ox O2 Delivery O2 Flow Rate FiO2 09/07/17 05:21 80 36 40 09/07/17 04:00 98.9 75 33 100/59 100 Mechanical Ventilator 80 98.9 09/07/17 04:00 75 09/07/17 04:00 80 09/07/17 02:52 98.2 09/07/17 02:46 81 32 40 09/07/17 01:53 98.2 09/07/17 00:31 83 34 40 09/07/17 00:00 98.2 84 36 99/53 100 Mechanical Ventilator 80 98.2 09/07/17 00:00 91 09/07/17 00:00 80 09/06/17 23:15 87 39 60 09/06/17 21:15 99.0 09/06/17 20:45 100.6 09/06/17 20:40 100.6 100.6 09/06/17 20:35 85 40 60 09/06/17 20:00 91 09/06/17 20:00 100.3 93 36 107/67 100 Mechanical Ventilator 80 100.3 09/06/17 20:00 80 09/06/17 19:21 86 38 80 09/06/17 16:42 110 39 100 09/06/17 16:00 40 09/06/17 16:00 97.6 107 40 132/63 100 Mechanical Ventilator 100 97.6 09/06/17 15:31 97 09/06/17 15:00 80 34 40 09/06/17 13:00 78 39 40 09/06/17 12:00 97.9 86 36 104/55 99 Mechanical Ventilator 40 97.9 09/06/17 12:00 40 09/06/17 11:53 95 09/06/17 11:23 86 36 40 09/06/17 09:10 62 36 40 09/06/17 08:00 40 09/06/17 08:00 98.1 94 31 104/58 98 Mechanical Ventilator 40 98.1 Intake and Output 09/06/17 09/07/17 19:00 07:00 Intake Total 1600 ml 1090 ml Output Total 1050 ml 1600 ml Balance 550 ml -510 ml Intake Free Water 180 ml 200 ml IV Total 820 ml 330 ml Tube Feeding 600 ml 500 ml Other 60 ml Output Urine Total 1050 ml 1600 ml # Bowel Movements 50 Laboratory Tests 09/06/17 08:05: White Blood Count 17.3H, Red Blood Count 3.40L, Hemoglobin 9.7L, Hematocrit 28.8L, Mean Corpuscular Volume 85, Mean Corpuscular Hemoglobin 28.4, Mean Corpuscular Hemoglobin Concent 33.5, Red Cell Distribution Width 18.2H, Platelet Count 326, Mean Platelet Volume 5.5L, Neutrophils (%) (Auto) 81.1H, Lymphocytes (%) (Auto) 11.3L, Monocytes (%) (Auto) 6.6, Eosinophils (%) (Auto) 0.6, Basophils (%) (Auto) 0.4, Sodium Level 144, Potassium Level 3.3L, Chloride Level 112H, Carbon Dioxide Level 21, Anion Gap 11, Blood Urea Nitrogen 29H, Creatinine 0.8, Estimat Glomerular Filtration Rate , Glucose Level 115H, Calcium Level 7.1L, Total Bilirubin 0.4, Aspartate Amino Transf (AST/SGOT) 31, Alanine Aminotransferase (ALT/SGPT) 27, Alkaline Phosphatase 103, Total Protein 5.7L, Albumin 0.9L, Globulin 4.8, Albumin/Globulin Ratio 0.2L 09/07/17 04:00: White Blood Count 18.4H, Red Blood Count 3.36L, Hemoglobin 9.6L, Hematocrit 28.7L, Mean Corpuscular Volume 85, Mean Corpuscular Hemoglobin 28.7, Mean Corpuscular Hemoglobin Concent 33.7, Red Cell Distribution Width 18.3H, Platelet Count 348, Mean Platelet Volume 5.7L, Neutrophils (%) (Auto) , Lymphocytes (%) (Auto) , Monocytes (%) (Auto) , Eosinophils (%) (Auto) , Basophils (%) (Auto) , Sodium Level 144, Potassium Level 3.9, Chloride Level 113H, Carbon Dioxide Level 20L, Anion Gap 11, Blood Urea Nitrogen 34H, Creatinine 0.8, Estimat Glomerular Filtration Rate , Glucose Level 123H, Calcium Level 7.0L, Total Bilirubin 0.2, Aspartate Amino Transf (AST/SGOT) 58H, Alanine Aminotransferase (ALT/SGPT) 42, Alkaline Phosphatase 127H, Total Protein 5.7L, Albumin 0.9L, Globulin 4.8, Albumin/Globulin Ratio 0.2L, Neutrophils % (Manual) [Pending], Lymphocytes % (Manual) [Pending], Platelet Estimate [Pending], Platelet Morphology [Pending] Height (Feet): 5 Height (Inches): 3.00 Weight (Pounds): 155 Objective General Appearance: WD/WN, alert, confused Neck: supple Cardiovascular: normal rate, regular rhythm Respiratory/Chest: chest wall non-tender, lungs clear, normal breath sounds, no respiratory distress Abdomen: normal bowel sounds, non tender, soft, no organomegaly Edema: no edema noted Arm (L), no edema noted Arm (R), no edema noted Leg (L), no edema noted Leg (R), no edema noted Pedal (L), no edema noted Pedal (R), no edema noted Generalized Neurologic: disoriented, unresponsive [place] MD Sep 07, 2017 07:58
[2017-09-07 08:00] VITALS: BP 105/56
[2017-09-07] MEDS: Tigecycline 50mg in D5W 110ml IVPB SCH ×2 (09:51→20:26)
[2017-09-07] MEDS: Pantoprazole Inj IVP SCH (09:52)
[2017-09-07] MEDS: Dakin's 0.25% (Half Strength) 16oz TOPIC SCH (10:20)
[2017-09-07] MEDS: Ascorbic Acid 500mg tab GT SCH (10:20)
[2017-09-07] MEDS: Aspirin Baby 81mg GT SCH (10:20)
[2017-09-07] MEDS: Fluconazole 100mg tab ORAL SCH (10:20)
[2017-09-07] MEDS: Zinc Sulfate 220mg cap GT SCH (10:20)
[2017-09-07] MEDS: Midodrine 10mg tab ORAL SCH ×3 (10:20→17:45)
[2017-09-07] MEDS: Ferrous Sulfate 300 MG/5 ML UDC NG SCH (10:20)
[2017-09-07] MEDS: Levofloxacin 500mg tab ORAL SCH (10:20)
--- NOTE | 2017-09-07 11:01 | Critical Care Progress Note ---
Assessment/Plan Assessment/Plan respiratory failure trach GT chronic encephalopathy HAROLDO sepsis leukocytosis anemia PLAN SDU care noted DNR vent reviewed wbc elevated- ID follow up IV antibiotics- noted monitor hemodynamics midodrine for orthostasis seems improved and hope to dc to snf soon medications/laboratory data/nursing notes reviewed in detail note reviewed and edited care discussed with RN and RT Critical Care - Subjective Interval Events: care noted on vent ROS Limited/Unobtainable: Yes EKG Rhythm: Sinus Rhythm Residuals: minimal Tube Feeding Tolerated: yes I&O: Intake and Output 09/06/17 09/07/17 19:00 07:00 Intake Total 1600 ml 1090 ml Output Total 1050 ml 1600 ml Balance 550 ml -510 ml Intake Free Water 180 ml 200 ml IV Total 820 ml 330 ml Tube Feeding 600 ml 500 ml Other 60 ml Output Urine Total 1050 ml 1600 ml # Bowel Movements 50 Critical Care - Objective Last 24 Hour Vital Signs Date Time Temp Pulse Resp B/P (MAP) Pulse Ox O2 Delivery O2 Flow Rate FiO2 09/07/17 09:04 78 38 40 09/07/17 08:00 99.1 83 36 105/56 100 Mechanical Ventilator 40 99.1 09/07/17 08:00 80 09/07/17 08:00 83 09/07/17 06:40 84 35 40 09/07/17 05:21 80 36 40 09/07/17 04:00 98.9 75 33 100/59 100 Mechanical Ventilator 80 98.9 09/07/17 04:00 75 09/07/17 04:00 80 09/07/17 02:52 98.2 09/07/17 02:46 81 32 40 09/07/17 01:53 98.2 09/07/17 00:31 83 34 40 09/07/17 00:00 98.2 84 36 99/53 100 Mechanical Ventilator 80 98.2 09/07/17 00:00 91 09/07/17 00:00 80 09/06/17 23:15 87 39 60 09/06/17 21:15 99.0 09/06/17 20:45 100.6 09/06/17 20:40 100.6 100.6 09/06/17 20:35 85 40 60 09/06/17 20:00 91 09/06/17 20:00 100.3 93 36 107/67 100 Mechanical Ventilator 80 100.3 09/06/17 20:00 80 09/06/17 19:21 86 38 80 09/06/17 16:42 110 39 100 09/06/17 16:00 40 09/06/17 16:00 97.6 107 40 132/63 100 Mechanical Ventilator 100 97.6 09/06/17 15:31 97 09/06/17 15:00 80 34 40 09/06/17 13:00 78 39 40 09/06/17 12:00 97.9 86 36 104/55 99 Mechanical Ventilator 40 97.9 09/06/17 12:00 40 09/06/17 11:53 95 09/06/17 11:23 86 36 40 Objective: WDWN chronically ill reduced breath sounds bilaterally without rhonchi or wheeze [id number] without MRG NABS nontender no HSM; GT no CC edema trach poor LOC Micro: Microbiology Date/Time Source Procedure Growth Status 09/05/17 10:15 Blood Blood Culture - Preliminary NO GROWTH AFTER 24 HOURS Resulted Accucheck: 97 Kj Blackman MD Sep 07, 2017 11:01
--- NOTE | 2017-09-07 11:21 | Diagnostic Imaging Report ---
INDICATION: Tube placement COMPARISON: None FINDINGS: Single frontal view of the abdomen demonstrates a normal bowel gas pattern. A gastrostomy tube is seen with contrast in the gastric cavity. No extraluminal contrast. No evidence of organomegaly, abnormal calcifications or obvious soft tissue masses. The osseous structures are intact. IMPRESSION: Gastrostomy tube is seen with contrast in the gastric cavity. No extraluminal contrast.
[2017-09-07 12:00] VITALS: BP 111/69
[2017-09-07 16:00] VITALS: BP 114/50
[2017-09-07] MEDS ORDERED: Sterile Water Irrig 1000ml IRRIG ONE (17:15)
--- NOTE | 2017-09-07 18:45 | Consultation ---
DATE OF CONSULTATION: 09/07/2017 GASTROENTEROLOGY CONSULTATION CONSULTING PHYSICIAN: Kiran Linton M.D. REFERRING PHYSICIAN: [place] Acosta M.D. CHIEF COMPLAINT: Malfunctioning G-tube. HISTORY OF PRESENT ILLNESS: Most of history per chart. The patient lives at a detention, on a vent and a G-tube, unable to give any history, admitted to the hospital on 08/30/2017 with sepsis and possible UTI. At this time, the G-tube is malfunctioning, so GI consult has been requested for further evaluation. PAST MEDICAL HISTORY: 1. History of chronic respiratory failure, on vent. 2. Dysphagia with PEG. 3. Anoxic brain injury. 4. Chronic kidney disease. 5. Hypertension. 6. Cardiomyopathy. ALLERGIES: No known allergies. MEDICATIONS: Please see medication reconciliation list. SOCIAL HISTORY: Currently lives in a detention. No recent history of tobacco, alcohol, or illicit drug abuse. PAST SURGICAL HISTORY: Tracheostomy. FAMILY HISTORY: Noncontributory. REVIEW OF SYSTEMS: Unable to obtain. PHYSICAL EXAMINATION: VITAL SIGNS: Temperature is 98.9, pulse is 75, respirations 33, and blood pressure is 100/59. HEENT: Normocephalic, atraumatic. Mildly pale conjunctivae. NECK: Supple. No evidence of lymphadenopathy. CARDIOVASCULAR: Tachycardic. Regular rate. Plus S1 and S2. LUNGS: Decreased breath sounds bilaterally and diffusely on the supine exam. ABDOMEN: Soft. There is a G-tube at the place, but the tube is right under the skin, I could not physically see, the balloon was under the skin, and there were some lala-G-tube ____ and erythema. Bowel sounds are present. No rebound. No guarding. No peritoneal sign. EXTREMITIES: No cyanosis. No clubbing. No edema. LABORATORY DATA: White count is 18.4, hemoglobin 9.6, hematocrit 28.7, and platelet count is 348,000. Chem-7, sodium 144, potassium 3.9, BUN is 34, creatinine is 0.8. ASSESSMENT AND PLAN: This is a 77-year-old male with numerous medical problems. From GI standpoint, he has a malfunctioning G-tube. G-tube was under the skin. I deflated the balloon of the G-tube, removed it completely, and reinserted directly back into the stomach and inflated the balloon. Plan to get a KUB with contrast of G-tube to make sure the patient's G-tube is in the right place and is not in the peritoneum and we will start feeding . I want to thank Dr. Acosta for this kind referral. Kiran Linton M.D. DR: PATRICIA JOB#: [id number] CC: [place] Acosta M.D.
[2017-09-07 20:00] VITALS: BP 110/60
[2017-09-07] MEDS: Dyna-Hex 2% Top Sol 2oz TOPIC SCH (20:01)
--- NOTE | 2017-09-07 23:15 | Progress Note ---
DATE: 09/07/2017 CARDIOLOGY PROGRESS NOTE SUBJECTIVE: The patient remains on ventilator support. G-tube was replaced. No apparent distress. OBJECTIVE: VITAL SIGNS: Blood pressure 100/59, pulse 75, and respirations 33. LUNGS: Bilateral breath sounds. HEART: Regular rhythm and rate. Normal S1, S2. ABDOMEN: Soft. EXTREMITIES: Trace edema. G-tube intact. IMPRESSION: 1. Sepsis with shock, recovering. 2. Multiple decubitus, status post debridement. 3. Severe anemia. 4. Dehydration, hyponatremia, corrected. 5. Severe protein-calorie malnutrition. 6. Secondary sinus tachycardia. 7. Ventilator-dependent respiratory failure. PLAN: 1. Plan of care in place. 2. Continue volume support. 3. Nutritional support by feeding tube. 4. Antimicrobials. 5. Skin care. 6. Electrolyte replacement. 7. Fluid challenge for low range blood pressure. 8. Prognosis remains guarded. 9. Condition remains serious. Keith Reeves M.D. DR: PILLO JOB#: [id number] CC:
--- NOTE | 2017-09-07 23:30 | Progress Note ---
DATE: 09/06/2017 CARDIOLOGY PROGRESS NOTE Late entry for 09/06/2017. SUBJECTIVE: The patient was seen and evaluated. Case discussed with nursing staff. The patient's G-tube is noted to be nonfunctioning with the balloon protruding out. The patient remains on ventilator support and is poorly responsive. The patient is now DNR based on Bioethics assessments. OBJECTIVE: VITAL SIGNS: Blood pressure 100/59, pulse 91, and respirations 32. Monitor, sinus rhythm and sinus tachycardia. LUNGS: Coarse breath sounds. Scattered rhonchi. HEART: Regular rhythm and rate. Normal S1, S2. ABDOMEN: Soft. EXTREMITIES: Dependent edema. Multiple wounds. IMPRESSION: 1. Gastrostomy tube malfunction. 2. Respiratory failure. 3. Acute on chronic diastolic congestive heart failure. 4. Sepsis with recovered shock. 5. Paroxysmal atrial tachyarrhythmias. 6. Anemia. PLAN: 1. G-tube replacement. 2. Antimicrobials. 3. IV fluids while NPO. 4. Transfuse for hemoglobin less than 7.5 g. 5. Maintain current cardiovascular regimen without change. 6. Prognosis remains guarded. Keith Reeves M.D. DR: ANNE JOB#: [id number] CC:
[2017-09-08] VITALS: BP 113/50
[2017-09-08 04:00] VITALS: BP 112/63
[2017-09-08 05:55] LABS: HEMATOCRIT 31.6 % (42.0-52.0); MEAN CORPUSCULAR VOLUME 85 FL (80-99); PLATELET COUNT 438 K/UL (150-450); RED CELL DISTRIBUTION WIDTH 18.1 % (11.6-14.8); WHITE BLOOD COUNT 18.5 K/UL (4.8-10.8)
[2017-09-08] MEDS: Meropenem 1 GM in NS 110 ML IVPB SCH (05:55)
[2017-09-08 06:06] LABS: ALANINE AMINOTRANSFERASE 33 U/L (12-78); ALBUMIN/GLOBULIN RATIO 0.2 (1.0-2.7); ALKALINE PHOSPHATASE 126 U/L (46-116); ANION GAP 13 mmol/L (5-15); ASPARTATE AMINO TRANSFERASE 35 U/L (15-37); BILIRUBIN,TOTAL 0.3 MG/DL (0.2-1.0); BLOOD UREA NITROGEN 41 mg/dL (7-18); CALCIUM 7.3 MG/DL (8.5-10.1); CARBON DIOXIDE 21 MMOL/L (21-32); CHLORIDE 113 MMOL/L (98-107); CREATININE 0.8 MG/DL (0.55-1.30); POTASSIUM 3.7 MMOL/L (3.5-5.1); SODIUM 146 MMOL/L (136-145)
[2017-09-08 08:00] VITALS: BP 117/71
--- NOTE | 2017-09-08 08:33 | Critical Care Progress Note ---
Assessment/Plan Assessment/Plan respiratory failure trach GT chronic encephalopathy HAROLDO sepsis leukocytosis anemia PLAN SDU care noted DNR vent reviewed AXR noted wbc elevated- ID follow up for final tx IV antibiotics- noted monitor hemodynamics midodrine for orthostasis hope to dc to snf soon medications/laboratory data/nursing notes reviewed in detail note reviewed and edited care discussed with RN and RT Critical Care - Subjective Interval Events: labs and events noted ROS Limited/Unobtainable: Yes Condition: critical EKG Rhythm: Sinus Rhythm I&O: Intake and Output 09/07/17 09/08/17 19:00 07:00 Intake Total 670 ml 880 ml Output Total 2700 ml Balance -2030 ml 880 ml Intake Free Water 100 ml IV Total 220 ml 330 ml Tube Feeding 350 ml 550 ml Output Urine Total 1900 ml Stool Total 800 ml Critical Care - Objective Last 24 Hour Vital Signs Date Time Temp Pulse Resp B/P (MAP) Pulse Ox O2 Delivery O2 Flow Rate FiO2 09/08/17 08:00 40 09/08/17 06:40 90 42 40 09/08/17 05:11 92 42 40 09/08/17 04:00 40 09/08/17 04:00 97.9 80 41 112/63 98 Mechanical Ventilator 40 97.9 09/08/17 04:00 105 09/08/17 03:01 88 40 40 09/08/17 01:07 90 38 40 09/08/17 00:00 89 09/08/17 00:00 98.6 84 41 113/50 98 Mechanical Ventilator 40 98.6 09/08/17 00:00 40 09/07/17 22:58 81 32 40 09/07/17 21:11 85 43 40 09/07/17 20:00 98.8 82 41 110/60 99 Mechanical Ventilator 40 98.8 09/07/17 20:00 91 09/07/17 20:00 40 09/07/17 19:02 81 38 40 09/07/17 16:51 93 41 40 09/07/17 16:00 40 09/07/17 16:00 98.5 90 41 114/50 100 Mechanical Ventilator 40 98.5 09/07/17 15:42 104 09/07/17 14:58 166 09/07/17 14:43 99 41 40 09/07/17 13:06 88 38 40 6/10/18 12:00 97.7 84 37 111/69 100 Mechanical Ventilator 40 97.7 09/07/17 12:00 40 09/07/17 11:53 86 09/07/17 11:09 80 33 40 09/07/17 09:04 78 38 40 Labs: Laboratory Tests Test 09/08/17 04:10 White Blood Count 18.5 K/UL (4.8-10.8) H Red Blood Count 3.70 M/UL (4.70-6.10) L Hemoglobin 10.0 G/DL (14.2-18.0) L Hematocrit 31.6 % (42.0-52.0) L Mean Corpuscular Volume 85 FL (80-99) Mean Corpuscular Hemoglobin 27.0 PG (27.0-31.0) Mean Corpuscular Hemoglobin Concent 31.6 G/DL (32.0-36.0) L Red Cell Distribution Width 18.1 % (11.6-14.8) H Platelet Count 438 K/UL (150-450) Mean Platelet Volume 5.8 FL (6.5-10.1) L Neutrophils (%) (Auto) % (45.0-75.0) Lymphocytes (%) (Auto) % (20.0-45.0) Monocytes (%) (Auto) % (1.0-10.0) Eosinophils (%) (Auto) % (0.0-3.0) Basophils (%) (Auto) % (0.0-2.0) Neutrophils % (Manual) Pending Lymphocytes % (Manual) Pending Platelet Estimate Pending Platelet Morphology Pending Sodium Level 146 MMOL/L (136-145) H Potassium Level 3.7 MMOL/L (3.5-5.1) Chloride Level 113 MMOL/L (98-107) H Carbon Dioxide Level 21 MMOL/L (21-32) Anion Gap 13 mmol/L (5-15) Blood Urea Nitrogen 41 mg/dL (7-18) H Creatinine 0.8 MG/DL (0.55-1.30) Estimat Glomerular Filtration Rate mL/min (>60) Glucose Level 90 MG/DL (74-106) Calcium Level 7.3 MG/DL (8.5-10.1) L Total Bilirubin 0.3 MG/DL (0.2-1.0) Aspartate Amino Transf (AST/SGOT) 35 U/L (15-37) Alanine Aminotransferase (ALT/SGPT) 33 U/L (12-78) Alkaline Phosphatase 126 U/L (46-116) H Total Protein 6.1 G/DL (6.4-8.2) L Albumin 1.0 G/DL (3.4-5.0) L Globulin 5.1 g/dL Albumin/Globulin Ratio 0.2 (1.0-2.7) L Objective: WDWN chronically ill reduced breath sounds bilaterally without rhonchi or wheeze [id number] without MRG NABS nontender no HSM; GT no CC edema trach poor LOC Micro: Microbiology Date/Time Source Procedure Growth Status 09/05/17 10:15 Blood Blood Culture - Preliminary NO GROWTH AFTER 48 HOURS Resulted Accucheck: 97 Kj Blackman MD Sep 08, 2017 08:33
[2017-09-08] MEDS: Zinc Sulfate 220mg cap GT SCH (09:16)
[2017-09-08] MEDS: Midodrine 10mg tab ORAL SCH ×3 (09:16→17:32)
[2017-09-08] MEDS: Ascorbic Acid 500mg tab GT SCH (09:16)
[2017-09-08] MEDS: Aspirin Baby 81mg GT SCH (09:16)
[2017-09-08] MEDS: Tigecycline 50mg in D5W 110ml IVPB SCH ×2 (09:17→20:28)
[2017-09-08] MEDS: Pantoprazole Inj IVP SCH (09:17)
[2017-09-08] MEDS: Levofloxacin 500mg tab ORAL SCH (09:17)
[2017-09-08] MEDS: Dakin's 0.25% (Half Strength) 16oz TOPIC SCH (09:17)
[2017-09-08] MEDS: Ferrous Sulfate 300 MG/5 ML UDC NG SCH (09:18)
--- NOTE | 2017-09-08 10:58 | General Progress Note ---
Assessment/Plan Problem List: (1) GI bleed ICD Codes: K92.2 - Gastrointestinal hemorrhage, unspecified SNOMED: 62504306 (2) Symptomatic anemia ICD Codes: D64.9 - Anemia, unspecified SNOMED: 583705203 (3) Anemia ICD Codes: D64.9 - Anemia, unspecified SNOMED: 889689680 (4) Severe sepsis ICD Codes: A41.9 - Sepsis, unspecified organism; R65.20 - Severe sepsis without septic shock SNOMED: 85028115 Status: stable Assessment/Plan abx per id monitor labs monitor h/h- transfuse as needed gt feeds replace lytes as needed ivf guarded dc planning when cleared by all Subjective ROS Limited/Unobtainable: Yes Constitutional: Reports: malaise, weakness HEENT: Reports: no symptoms Cardiovascular: Reports: no symptoms Respiratory: Reports: shortness of breath Gastrointestinal/Abdominal: Reports: difficulty swallowing Genitourinary: Reports: no symptoms Neurologic/Psychiatric: Reports: pre-existing deficit Endocrine: Reports: no symptoms Hematologic/Lymphatic: Reports: no symptoms Allergies: Coded Allergies: No Known Allergies (Unverified , 07/25/17) All Systems: reviewed and negative except above Subjective no events. stable. awake. no distress. on the vent. tolerating feeds, + tachypneic. wbc remains elevated. Objective Last 24 Hour Vital Signs Date Time Temp Pulse Resp B/P (MAP) Pulse Ox O2 Delivery O2 Flow Rate FiO2 09/08/17 09:10 91 43 40 09/08/17 08:00 98.4 94 41 117/71 98 Mechanical Ventilator 40 98.4 09/08/17 08:00 40 09/08/17 06:40 90 42 40 09/08/17 05:11 92 42 40 09/08/17 04:00 40 09/08/17 04:00 97.9 80 41 112/63 98 Mechanical Ventilator 40 97.9 09/08/17 04:00 105 09/08/17 03:01 88 40 40 09/08/17 01:07 90 38 40 09/08/17 00:00 89 09/08/17 00:00 98.6 84 41 113/50 98 Mechanical Ventilator 40 98.6 09/08/17 00:00 40 09/07/17 22:58 81 32 40 09/07/17 21:11 85 43 40 09/07/17 20:00 98.8 82 41 110/60 99 Mechanical Ventilator 40 98.8 09/07/17 20:00 91 09/07/17 20:00 40 09/07/17 19:02 81 38 40 09/07/17 16:51 93 41 40 09/07/17 16:00 40 09/07/17 16:00 98.5 90 41 114/50 100 Mechanical Ventilator 40 98.5 09/07/17 15:42 104 09/07/17 14:58 166 09/07/17 14:43 99 41 40 09/07/17 13:06 88 38 40 09/07/17 12:00 97.7 84 37 111/69 100 Mechanical Ventilator 40 97.7 09/07/17 12:00 40 09/07/17 11:53 86 09/07/17 11:09 80 33 40 Intake and Output 09/07/17 09/08/17 19:00 07:00 Intake Total 670 ml 880 ml Output Total 2700 ml Balance -2030 ml 880 ml Intake Free Water 100 ml IV Total 220 ml 330 ml Tube Feeding 350 ml 550 ml Output Urine Total 1900 ml Stool Total 800 ml Laboratory Tests 09/08/17 04:10: White Blood Count 18.5H, Red Blood Count 3.70L, Hemoglobin 10.0L, Hematocrit 31.6L, Mean Corpuscular Volume 85, Mean Corpuscular Hemoglobin 27.0, Mean Corpuscular Hemoglobin Concent 31.6L, Red Cell Distribution Width 18.1H, Platelet Count 438, Mean Platelet Volume 5.8L, Neutrophils (%) (Auto) , Lymphocytes (%) (Auto) , Monocytes (%) (Auto) , Eosinophils (%) (Auto) , Basophils (%) (Auto) , Differential Total Cells Counted 100, Neutrophils % ( Manual) 74, Lymphocytes % (Manual) 15L, Monocytes % (Manual) 11H, Eosinophils % (Manual) 0, Basophils % (Manual) 0, Band Neutrophils 0, Platelet Estimate Adequate, Platelet Morphology Normal, Anisocytosis 2+, Sodium Level 146H, Potassium Level 3.7, Chloride Level 113H, Carbon Dioxide Level 21, Anion Gap 13 , Blood Urea Nitrogen 41H, Creatinine 0.8, Estimat Glomerular Filtration Rate , Glucose Level 90, Calcium Level 7.3L, Total Bilirubin 0.3, Aspartate Amino Transf (AST/SGOT) 35, Alanine Aminotransferase (ALT/SGPT) 33, Alkaline Phosphatase 126H, Total Protein 6.1L, Albumin 1.0L, Globulin 5.1, Albumin/ Globulin Ratio 0.2L Height (Feet): 5 Height (Inches): 3.00 Weight (Pounds): 155 Objective General Appearance: WD/WN, alert, confused Neck: supple Cardiovascular: normal rate, regular rhythm Respiratory/Chest: chest wall non-tender, lungs clear, normal breath sounds, no respiratory distress Abdomen: normal bowel sounds, non tender, soft, no organomegaly Edema: no edema noted Arm (L), no edema noted Arm (R), no edema noted Leg (L), no edema noted Leg (R), no edema noted Pedal (L), no edema noted Pedal (R), no edema noted Generalized Neurologic: disoriented, unresponsive [place] Acosta MD Sep 08, 2017 10:58
--- NOTE | 2017-09-08 11:17 | Infectious Diseases Prog Note ---
"Assessment/Plan Assessment/Plan antibiotics : meropenem 6.5.18 - levoquin 6.5.18 - fluconazole 6.5.18 - A 1. e.coli | proteus sepsis 2. pseudomonas | fungal UTI 3. leucocytosis resolved 4, respiratory failure 5. diabetes mellitus 6. hypertension P 1. continue meropenem 4 more days 2. continue levoquin 1 more day 3. continue fluconazole 1 more day 4. continue tygacil, linezolid 40 more days 5. will follow up cultures Subjective ROS Limited/Unobtainable: Yes Allergies: Coded Allergies: No Known Allergies (Unverified , 07/25/17) Objective Vital Signs Last 24 Hour Vital Signs Date Time Temp Pulse Resp B/P (MAP) Pulse Ox O2 Delivery O2 Flow Rate FiO2 09/08/17 09:10 91 43 40 09/08/17 08:00 98.4 94 41 117/71 98 Mechanical Ventilator 40 98.4 09/08/17 08:00 40 09/08/17 06:40 90 42 40 09/08/17 05:11 92 42 40 09/08/17 04:00 40 09/08/17 04:00 97.9 80 41 112/63 98 Mechanical Ventilator 40 97.9 09/08/17 04:00 105 09/08/17 03:01 88 40 40 09/08/17 01:07 90 38 40 09/08/17 00:00 89 09/08/17 00:00 98.6 84 41 113/50 98 Mechanical Ventilator 40 98.6 09/08/17 00:00 40 09/07/17 22:58 81 32 40 09/07/17 21:11 85 43 40 09/07/17 20:00 98.8 82 41 110/60 99 Mechanical Ventilator 40 98.8 09/07/17 20:00 91 09/07/17 20:00 40 09/07/17 19:02 81 38 40 09/07/17 16:51 93 41 40 09/07/17 16:00 40 09/07/17 16:00 98.5 90 41 114/50 100 Mechanical Ventilator 40 98.5 09/07/17 15:42 104 09/07/17 14:58 166 09/07/17 14:43 99 41 40 09/07/17 13:06 88 38 40 09/07/17 12:00 97.7 84 37 111/69 100 Mechanical Ventilator 40 97.7 09/07/17 12:00 40 09/07/17 11:53 86 Height (Feet): 5 Height (Inches): 3.00 Weight (Pounds): 155 HEENT: status post trach Respiratory/Chest: lungs clear Cardiovascular: normal rate, regular rhythm, no gallop/murmur Abdomen: soft, non tender, other - GT Extremities: no edema, other - right arm PICC Laboratory Tests Test 09/08/17 04:10 White Blood Count 18.5 K/UL (4.8-10.8) H Red Blood Count 3.70 M/UL (4.70-6.10) L Hemoglobin 10.0 G/DL (14.2-18.0) L Hematocrit 31.6 % (42.0-52.0) L Mean Corpuscular Volume 85 FL (80-99) Mean Corpuscular Hemoglobin 27.0 PG (27.0-31.0) Mean Corpuscular Hemoglobin Concent 31.6 G/DL (32.0-36.0) L Red Cell Distribution Width 18.1 % (11.6-14.8) H Platelet Count 438 K/UL (150-450) Mean Platelet Volume 5.8 FL (6.5-10.1) L Neutrophils (%) (Auto) % (45.0-75.0) Lymphocytes (%) (Auto) % (20.0-45.0) Monocytes (%) (Auto) % (1.0-10.0) Eosinophils (%) (Auto) % (0.0-3.0) Basophils (%) (Auto) % (0.0-2.0) Differential Total Cells Counted 100 Neutrophils % (Manual) 74 % (45-75) Lymphocytes % (Manual) 15 % (20-45) L Monocytes % (Manual) 11 % (1-10) H Eosinophils % (Manual) 0 % (0-3) Basophils % (Manual) 0 % (0-2) Band Neutrophils 0 % (0-8) Platelet Estimate Adequate Platelet Morphology Normal Anisocytosis 2+ Sodium Level 146 MMOL/L (136-145) H Potassium Level 3.7 MMOL/L (3.5-5.1) Chloride Level 113 MMOL/L (98-107) H Carbon Dioxide Level 21 MMOL/L (21-32) Anion Gap 13 mmol/L (5-15) Blood Urea Nitrogen 41 mg/dL (7-18) H Creatinine 0.8 MG/DL (0.55-1.30) Estimat Glomerular Filtration Rate mL/min (>60) Glucose Level 90 MG/DL (74-106) Calcium Level 7.3 MG/DL (8.5-10.1) L Total Bilirubin 0.3 MG/DL (0.2-1.0) Aspartate Amino Transf (AST/SGOT) 35 U/L (15-37) Alanine Aminotransferase (ALT/SGPT) 33 U/L (12-78) Alkaline Phosphatase 126 U/L (46-116) H Total Protein 6.1 G/DL (6.4-8.2) L Albumin 1.0 G/DL (3.4-5.0) L Globulin 5.1 g/dL Albumin/Globulin Ratio 0.2 (1.0-2.7) L Current Medications Medications (Trade) Dose Ordered Sig/Tal Route PRN Reason Start Time Stop Time Status Last Admin Dose Admin Acetaminophen (Tylenol) 650 mg Q4H PRN GT Mild Pain/Temp > 100.5 09/04/17 16:00 10/04/17 15:59 09/06/17 20:45 Acetaminophen/ Hydrocodone Bitart ([place] 10/325) 1 tab Q4H PRN GT Pain Scale (4-10) 09/07/17 01:30 09/14/17 01:29 09/07/17 01:53 Albuterol Sulfate (Proventil) 2.5 mg Q6H PRN HHN Shortness of Breath 09/04/17 16:00 09/09/17 15:59 Ascorbic Acid (Vitamin C) 500 mg DAILY GT 09/05/17 09:00 09/30/17 08:59 09/08/17 09:16 Aspirin (ASA) 81 mg DAILY GT 09/05/17 09:00 09/30/17 08:59 09/08/17 09:16 Bisacodyl (Dulcolax) 10 mg DAILYPRN PRN RECTAL Constipation 09/04/17 16:00 09/29/17 15:59 Chlorhexidine Gluconate (Consuelo-Hex 2%) 1 applic DAILY@1999 TOPIC 09/04/17 20:00 09/30/17 19:59 09/07/17 20:01 Epoetin Tian (Procrit (for non ESRD use)) 10,000 units FRI-FRI-FRI SUBQ 09/05/17 21:00 10/01/17 20:59 09/05/17 21:08 Ferrous Sulfate (Feosol) 300 mg DAILY NG 09/05/17 09:00 09/30/17 08:59 09/08/17 09:18 Levofloxacin (Levaquin) 500 mg DAILY ORAL 09/06/17 14:00 09/08/17 13:59 09/08/17 09:17 Levothyroxine Sodium (Synthroid) 100 mcg DAILY@0630 GT 09/05/17 06:30 09/30/17 06:29 09/08/17 05:55 Linezolid (Zyvox) 600 mg EVERY 12 HOURS ORAL 09/06/17 12:00 09/11/17 11:59 09/08/17 09:17 Meropenem 1 gm/ Dextrose 110 ml @ 220 mls/hr Q8HR IVPB 09/08/17 14:00 09/11/17 11:59 Midodrine (Pro-Amatine) 10 mg THREE TIMES A DAY ORAL 09/04/17 18:00 10/03/17 09:14 09/08/17 09:16 Pantoprazole (Protonix) 40 mg DAILY IVP 09/05/17 09:00 09/30/17 08:59 09/08/17 09:17 Sodium Hypochlorite (Dakin's Half Strength) 1 applic DAILY TOPIC 09/05/17 09:00 10/05/17 08:59 09/08/17 09:17 Sodium Hypochlorite (Dakin's Half Strength) 1 applic PRN PRN TOPIC wound 09/04/17 23:15 10/04/17 23:14 09/06/17 01:30 Sodium Phosphate (Fleet's Sodium Phosl Enema) 133 ml DAILYPRN PRN RECTAL Constipation 09/04/17 16:00 10/04/17 15:59 Tigecycline 50 mg/ Dextrose 110 ml @ 220 mls/hr EVERY 12 HOURS IVPB 09/06/17 21:00 10/18/17 23:00 09/08/17 09:17 Zinc Sulfate (Zinc Sulfate) 220 mg DAILY GT 09/05/17 09:00 09/30/17 08:59 09/08/17 09:16 JOHN REAL Sep 08, 2017 11:17"
[2017-09-08 12:00] VITALS: BP 118/73
[2017-09-08] MEDS ORDERED: Minocycline HCl 50mg cap ORAL SCH (12:00)
[2017-09-08] MEDS ORDERED: Fluconazole 100mg tab ORAL SCH (12:00)
--- NOTE | 2017-09-08 13:35 | Cardiology Report ---
APPROVED REPORT EKG Measurement Heart [id number] Normal sinus rhythm Left axis deviation Anteroseptal infarct, age undetermined Abnormal ECG
[2017-09-08] MEDS: Meropenem 1 GM in D5W 110 ML IVPB SCH ×2 (14:31→22:13)
[2017-09-08] MEDS ORDERED: NS 500ML ONE (15:39)
[2017-09-08 16:00] VITALS: BP 114/62
[2017-09-08] MEDS: Acetaminophen 650mg/20.3ml GT PRN (17:32)
[2017-09-08 20:00] VITALS: BP 129/71
[2017-09-08] MEDS: Dyna-Hex 2% Top Sol 2oz TOPIC SCH (20:12)
[2017-09-08] MEDS: Minocycline HCl 50mg cap ORAL SCH (20:28)
[2017-09-08] MEDS: Epogen (for non ESRD use) SUBQ SCH (21:06)
--- NOTE | 2017-09-08 22:12 | General Progress Note ---
Assessment/Plan Assessment/Plan Assessment 1. History of chronic respiratory failure, on vent. 2. Dysphagia with PEG - s/p change 3. Anoxic brain injury. 4. Chronic kidney disease. 5. Hypertension. 6. Cardiomyopathy. Recommendations Continue TF GT care Elevate HOB Subjective Allergies: Coded Allergies: No Known Allergies (Unverified , 07/25/17) Subjective tolerating TF no major overnight events low residuals Objective Last 24 Hour Vital Signs Date Time Temp Pulse Resp B/P (MAP) Pulse Ox O2 Delivery O2 Flow Rate FiO2 09/08/17 20:57 86 26 40 09/08/17 20:00 98.4 75 33 129/71 100 Mechanical Ventilator 40 98.4 09/08/17 19:15 88 26 40 09/08/17 18:30 99.1 09/08/17 17:32 100.6 09/08/17 17:12 90 35 40 09/08/17 16:00 98 09/08/17 16:00 40 09/08/17 16:00 100.6 95 33 114/62 99 Mechanical Ventilator 40 100.6 09/08/17 15:19 98 26 40 09/08/17 12:45 99 43 40 09/08/17 12:00 99.4 98 48 118/73 98 Mechanical Ventilator 40 99.4 09/08/17 12:00 102 09/08/17 12:00 40 09/08/17 11:05 106 45 40 09/08/17 09:10 91 43 40 09/08/17 08:00 91 09/08/17 08:00 98.4 94 41 117/71 98 Mechanical Ventilator 40 98.4 09/08/17 08:00 40 09/08/17 06:40 90 42 40 09/08/17 05:11 92 42 40 09/08/17 04:00 40 09/08/17 04:00 97.9 80 41 112/63 98 Mechanical Ventilator 40 97.9 09/08/17 04:00 105 09/08/17 03:01 88 40 40 09/08/17 01:07 90 38 40 09/08/17 00:00 89 09/08/17 00:00 98.6 84 41 113/50 98 Mechanical Ventilator 40 98.6 09/08/17 00:00 40 09/07/17 22:58 81 32 40 Intake and Output 09/07/17 09/08/17 19:00 07:00 Intake Total 670 ml 880 ml Output Total 2700 ml Balance -2030 ml 880 ml Intake Free Water 100 ml IV Total 220 ml 330 ml Tube Feeding 350 ml 550 ml Output Urine Total 1900 ml Stool Total 800 ml Laboratory Tests 09/08/17 04:10: White Blood Count 18.5H, Red Blood Count 3.70L, Hemoglobin 10.0L, Hematocrit 31.6L, Mean Corpuscular Volume 85, Mean Corpuscular Hemoglobin 27.0, Mean Corpuscular Hemoglobin Concent 31.6L, Red Cell Distribution Width 18.1H, Platelet Count 438, Mean Platelet Volume 5.8L, Neutrophils (%) (Auto) , Lymphocytes (%) (Auto) , Monocytes (%) (Auto) , Eosinophils (%) (Auto) , Basophils (%) (Auto) , Differential Total Cells Counted 100, Neutrophils % ( Manual) 74, Lymphocytes % (Manual) 15L, Monocytes % (Manual) 11H, Eosinophils % (Manual) 0, Basophils % (Manual) 0, Band Neutrophils 0, Platelet Estimate Adequate, Platelet Morphology Normal, Anisocytosis 2+, Sodium Level 146H, Potassium Level 3.7, Chloride Level 113H, Carbon Dioxide Level 21, Anion Gap 13 , Blood Urea Nitrogen 41H, Creatinine 0.8, Estimat Glomerular Filtration Rate , Glucose Level 90, Calcium Level 7.3L, Total Bilirubin 0.3, Aspartate Amino Transf (AST/SGOT) 35, Alanine Aminotransferase (ALT/SGPT) 33, Alkaline Phosphatase 126H, Total Protein 6.1L, Albumin 1.0L, Globulin 5.1, Albumin/ Globulin Ratio 0.2L Height (Feet): 5 Height (Inches): 3.00 Weight (Pounds): 155 Objective Debilitated Elderly WM NCAT (+) trach Coarse ronchi RR abd soft ND, (+) GT no edema Obtunded Ambar Choudhary MD Sep 08, 2017 22:12
[2017-09-09] VITALS: BP 124/74
--- NOTE | 2017-09-09 00:45 | Progress Note ---
DATE: 09/08/2017 CARDIOLOGY PROGRESS NOTE SUBJECTIVE: The patient remains stable on ventilator support, tolerating feedings, occasionally tachypneic, still with signs of ongoing sepsis. OBJECTIVE: VITAL SIGNS: Blood pressure 117/71, pulse 94, respiratory rate 41 and afebrile. NECK: Thick trach secretions. LUNGS: Bilateral rhonchi. CARDIAC: Regular rhythm and rate. Normal S1 and S2. ABDOMEN: Soft. G-tube intact. EXTREMITIES: Trace dependent edema. LABORATORY AND DIAGNOSTIC DATA: White count 18.5 and hemoglobin 10. Sodium 146, potassium 3.7, BUN 41, and creatinine 0.8. Albumin is 1. IMPRESSION: 1. Acute myocardial infarction. 2. Respiratory failure. 3. Sepsis with shock recovering. 4. Tachypnea due to respiratory infection. 5. Severe protein-calorie malnutrition. 6. Dehydration. 7. Hyponatremia. PLAN: 1. Discontinue midodrine. 2. Antimicrobials per Infectious Disease wireless consultant. 3. Free water replacement. 4. Remains critical and guarded. Keith Reeves M.D. DR: OFE JOB#: [id number] CC:
[2017-09-09 04:00] VITALS: BP 106/57
[2017-09-09] MEDS: Meropenem 1 GM in D5W 110 ML IVPB SCH ×3 (05:57→22:05)
[2017-09-09 08:00] VITALS: BP 117/60
[2017-09-09] MEDS: Ascorbic Acid 500mg tab GT SCH (08:53)
[2017-09-09] MEDS: Aspirin Baby 81mg GT SCH (08:53)
[2017-09-09] MEDS: Pantoprazole Inj IVP SCH (08:53)
[2017-09-09] MEDS: Zinc Sulfate 220mg cap GT SCH (08:53)
[2017-09-09] MEDS: Minocycline HCl 50mg cap ORAL SCH ×2 (08:54→21:15)
[2017-09-09] MEDS: Dakin's 0.25% (Half Strength) 16oz TOPIC SCH (08:54)
[2017-09-09] MEDS: Tigecycline 50mg in D5W 110ml IVPB SCH (08:54)
[2017-09-09] MEDS: Ferrous Sulfate 300 MG/5 ML UDC NG SCH (08:54)
[2017-09-09] MEDS ORDERED: Fluconazole 100mg tab ORAL SCH (09:00)
--- NOTE | 2017-09-09 09:14 | Infectious Diseases Prog Note ---
"Assessment/Plan Assessment/Plan A 1. e.coli | proteus sepsis 2. pseudomonas | fungal UTI 3. leucocytosis resolved 4, Ventilator dependent respiratory failure 5. diabetes mellitus 6. hypertension 7. Multiple pressure ulcers 8. sacral osteomyelitis 9. Diarrhea, C. difficile negative P 1. continue meropenem x 3 days 2. discontinue Levaquin 3. discontinue fluconazole 4. Continue Doxycycline & Zyvox X 39 days Subjective ROS Limited/Unobtainable: Yes Constitutional: Reports: other - low grade fever last evening Gastrointestinal/Abdominal: Reports: diarrhea Allergies: Coded Allergies: No Known Allergies (Unverified , 07/25/17) Objective Vital Signs Last 24 Hour Vital Signs Date Time Temp Pulse Resp B/P (MAP) Pulse Ox O2 Delivery O2 Flow Rate FiO2 09/09/17 08:00 97.2 82 27 117/60 98 Mechanical Ventilator 40 97.2 09/09/17 08:00 40 09/09/17 07:29 82 24 40 09/09/17 04:57 76 26 40 09/09/17 04:00 80 09/09/17 04:00 40 09/09/17 04:00 97.9 84 30 106/57 99 Mechanical Ventilator 40 97.9 09/09/17 02:33 89 28 40 09/09/17 01:07 85 26 40 09/09/17 00:00 40 09/09/17 00:00 82 09/09/17 00:00 98.7 86 40 124/74 99 Mechanical Ventilator 40 98.7 09/08/17 23:07 84 28 40 09/08/17 20:57 86 26 40 09/08/17 20:00 98.4 75 33 129/71 100 Mechanical Ventilator 40 98.4 09/08/17 20:00 40 09/08/17 20:00 85 09/08/17 19:15 88 26 40 09/08/17 18:30 99.1 09/08/17 17:32 100.6 09/08/17 17:12 90 35 40 09/08/17 16:00 98 09/08/17 16:00 40 09/08/17 16:00 100.6 95 33 114/62 99 Mechanical Ventilator 40 100.6 09/08/17 15:19 98 26 40 09/08/17 12:45 99 43 40 09/08/17 12:00 99.4 98 48 118/73 98 Mechanical Ventilator 40 99.4 09/08/17 12:00 102 09/08/17 12:00 40 09/08/17 11:05 106 45 40 09/08/17 09:10 91 43 40 Height (Feet): 5 Height (Inches): 3.00 Weight (Pounds): 155 HEENT: status post trach Respiratory/Chest: lungs clear, other - on ventilator Cardiovascular: normal rate, other - R arm PICC line Abdomen: soft, non tender, other - GT & rectal tube Extremities: no edema Skin: ulcers Neurologic/Psychiatric: other - opens eyes Current Medications Medications (Trade) Dose Ordered Sig/Tal Route PRN Reason Start Time Stop Time Status Last Admin Dose Admin Acetaminophen (Tylenol) 650 mg Q4H PRN GT Mild Pain/Temp > 100.5 09/04/17 16:00 10/04/17 15:59 09/08/17 17:32 Acetaminophen/ Hydrocodone Bitart ([place] 10/325) 1 tab Q4H PRN GT Pain Scale (4-10) 09/07/17 01:30 09/14/17 01:29 09/07/17 01:53 Albuterol Sulfate (Proventil) 2.5 mg Q6H PRN HHN Shortness of Breath 09/04/17 16:00 09/09/17 15:59 Ascorbic Acid (Vitamin C) 500 mg DAILY GT 09/05/17 09:00 09/30/17 08:59 09/09/17 08:53 Aspirin (ASA) 81 mg DAILY GT 09/05/17 09:00 09/30/17 08:59 09/09/17 08:53 Bisacodyl (Dulcolax) 10 mg DAILYPRN PRN RECTAL Constipation 09/04/17 16:00 09/29/17 15:59 Chlorhexidine Gluconate (Consuelo-Hex 2%) 1 applic DAILY@1999 TOPIC 09/04/17 20:00 09/30/17 19:59 09/08/17 20:12 Epoetin Tian (Procrit (for non ESRD use)) 10,000 units MON-WED-FRI SUBQ 09/05/17 21:00 10/01/17 20:59 09/08/17 21:06 Ferrous Sulfate (Feosol) 300 mg DAILY NG 09/05/17 09:00 09/30/17 08:59 09/09/17 08:54 Fluconazole (Diflucan) 100 mg DAILY ORAL 09/09/17 09:00 09/16/17 08:59 09/09/17 08:54 Levothyroxine Sodium (Synthroid) 100 mcg DAILY@0630 GT 09/05/17 06:30 09/30/17 06:29 09/09/17 05:58 Linezolid (Zyvox) 600 mg EVERY 12 HOURS ORAL 09/06/17 12:00 09/11/17 11:59 09/09/17 08:54 Meropenem 1 gm/ Dextrose 110 ml @ 220 mls/hr Q8HR IVPB 09/08/17 14:00 09/11/17 11:59 09/09/17 05:57 Minocycline HCl (Minocin) 100 mg Q12HR ORAL 09/08/17 21:00 09/15/17 20:59 09/09/17 08:54 Pantoprazole (Protonix) 40 mg DAILY IVP 09/05/17 09:00 09/30/17 08:59 09/09/17 08:53 Sodium Hypochlorite (Dakin's Half Strength) 1 applic DAILY TOPIC 09/05/17 09:00 10/05/17 08:59 09/09/17 08:54 Sodium Hypochlorite (Dakin's Half Strength) 1 applic PRN PRN TOPIC wound 09/04/17 23:15 10/04/17 23:14 09/06/17 01:30 Sodium Chloride 1,000 ml @ 100 mls/hr Q10H IV 09/09/17 00:30 10/09/17 00:29 09/09/17 00:39 Sodium Phosphate (Fleet's Sodium Phosl Enema) 133 ml DAILYPRN PRN RECTAL Constipation 09/04/17 16:00 10/04/17 15:59 Tigecycline 50 mg/ Dextrose 110 ml @ 220 mls/hr EVERY 12 HOURS IVPB 09/06/17 21:00 10/18/17 23:00 09/09/17 08:54 Zinc Sulfate (Zinc Sulfate) 220 mg DAILY GT 09/05/17 09:00 09/30/17 08:59 09/09/17 08:53 Kirk Figueroa MD Sep 09, 2017 09:14"
--- NOTE | 2017-09-09 10:05 | Critical Care Progress Note ---
Assessment/Plan Assessment/Plan respiratory failure trach GT chronic encephalopathy HAROLDO sepsis leukocytosis anemia PLAN SDU care noted DNR vent reviewed dispo soon IV antibiotics- reviewed monitor hemodynamics midodrine for orthostasis hope to dc once cleared by ID medications/laboratory data/nursing notes reviewed in detail note reviewed and edited care discussed with RN and RT Critical Care - Subjective Interval Events: care noted no change ROS Limited/Unobtainable: Yes EKG Rhythm: Sinus Rhythm Residuals: minimal Tube Feeding Tolerated: yes I&O: Intake and Output 09/08/17 09/09/17 19:00 07:00 Intake Total 890 ml 1565 ml Output Total 700 ml 1600 ml Balance 190 ml -35 ml Intake Free Water 20 ml IV Total 220 ml 965 ml Tube Feeding 600 ml 600 ml Other 50 ml Output Urine Total 600 ml 1500 ml Stool Total 100 ml 100 ml Critical Care - Objective Last 24 Hour Vital Signs Date Time Temp Pulse Resp B/P (MAP) Pulse Ox O2 Delivery O2 Flow Rate FiO2 09/09/17 08:00 97.2 82 27 117/60 98 Mechanical Ventilator 40 97.2 09/09/17 08:00 40 09/09/17 07:29 82 24 40 09/09/17 04:57 76 26 40 09/09/17 04:00 80 09/09/17 04:00 40 09/09/17 04:00 97.9 84 30 106/57 99 Mechanical Ventilator 40 97.9 09/09/17 02:33 89 28 40 09/09/17 01:07 85 26 40 09/09/17 00:00 40 09/09/17 00:00 82 09/09/17 00:00 98.7 86 40 124/74 99 Mechanical Ventilator 40 98.7 09/08/17 23:07 84 28 40 09/08/17 20:57 86 26 40 09/08/17 20:00 98.4 75 33 129/71 100 Mechanical Ventilator 40 98.4 09/08/17 20:00 40 09/08/17 20:00 85 09/08/17 19:15 88 26 40 09/08/17 18:30 99.1 09/08/17 17:32 100.6 09/08/17 17:12 90 35 40 09/08/17 16:00 98 09/08/17 16:00 40 09/08/17 16:00 100.6 95 33 114/62 99 Mechanical Ventilator 40 100.6 09/08/17 15:19 98 26 40 09/08/17 12:45 99 43 40 09/08/17 12:00 99.4 98 48 118/73 98 Mechanical Ventilator 40 99.4 09/08/17 12:00 102 09/08/17 12:00 40 09/08/17 11:05 106 45 40 Objective: WDWN chronically ill reduced breath sounds bilaterally without rhonchi or wheeze [id number] without MRG NABS nontender no HSM; GT no CC edema trach poor LOC Accucheck: 97 Kj Blackman MD Sep 09, 2017 10:05
--- NOTE | 2017-09-09 10:51 | General Progress Note ---
Assessment/Plan Problem List: (1) GI bleed ICD Codes: K92.2 - Gastrointestinal hemorrhage, unspecified SNOMED: 65186289 (2) Symptomatic anemia ICD Codes: D64.9 - Anemia, unspecified SNOMED: 896599110 (3) Anemia ICD Codes: D64.9 - Anemia, unspecified SNOMED: 710786516 (4) Severe sepsis ICD Codes: A41.9 - Sepsis, unspecified organism; R65.20 - Severe sepsis without septic shock SNOMED: 66847239 Status: stable, progressing Assessment/Plan abx per id monitor labs monitor h/h- transfuse as needed gt feeds replace lytes as needed ivf guarded dc planning when cleared by all Subjective ROS Limited/Unobtainable: Yes Constitutional: Reports: malaise, weakness HEENT: Reports: no symptoms Cardiovascular: Reports: no symptoms Respiratory: Reports: shortness of breath Gastrointestinal/Abdominal: Reports: difficulty swallowing Genitourinary: Reports: no symptoms Neurologic/Psychiatric: Reports: pre-existing deficit Endocrine: Reports: no symptoms Hematologic/Lymphatic: Reports: anemia Allergies: Coded Allergies: No Known Allergies (Unverified , 07/25/17) All Systems: reviewed and negative except above Subjective no events. stable. awake. no distress. on the vent. tolerating feeds, + tachypneic. wbc remains elevated. positive cultures noted Objective Last 24 Hour Vital Signs Date Time Temp Pulse Resp B/P (MAP) Pulse Ox O2 Delivery O2 Flow Rate FiO2 09/09/17 08:00 97.2 82 27 117/60 98 Mechanical Ventilator 40 97.2 09/09/17 08:00 40 09/09/17 07:44 78 09/09/17 07:29 82 24 40 09/09/17 04:57 76 26 40 09/09/17 04:00 80 09/09/17 04:00 40 09/09/17 04:00 97.9 84 30 106/57 99 Mechanical Ventilator 40 97.9 09/09/17 02:33 89 28 40 09/09/17 01:07 85 26 40 09/09/17 00:00 40 09/09/17 00:00 82 09/09/17 00:00 98.7 86 40 124/74 99 Mechanical Ventilator 40 98.7 09/08/17 23:07 84 28 40 6/11/18 20:57 86 26 40 09/08/17 20:00 98.4 75 33 129/71 100 Mechanical Ventilator 40 98.4 09/08/17 20:00 40 09/08/17 20:00 85 09/08/17 19:15 88 26 40 09/08/17 18:30 99.1 09/08/17 17:32 100.6 09/08/17 17:12 90 35 40 09/08/17 16:00 98 09/08/17 16:00 40 09/08/17 16:00 100.6 95 33 114/62 99 Mechanical Ventilator 40 100.6 09/08/17 15:19 98 26 40 09/08/17 12:45 99 43 40 09/08/17 12:00 99.4 98 48 118/73 98 Mechanical Ventilator 40 99.4 09/08/17 12:00 102 09/08/17 12:00 40 09/08/17 11:05 106 45 40 Intake and Output 09/08/17 09/09/17 19:00 07:00 Intake Total 890 ml 1565 ml Output Total 700 ml 1600 ml Balance 190 ml -35 ml Intake Free Water 20 ml IV Total 220 ml 965 ml Tube Feeding 600 ml 600 ml Other 50 ml Output Urine Total 600 ml 1500 ml Stool Total 100 ml 100 ml Height (Feet): 5 Height (Inches): 3.00 Weight (Pounds): 155 Objective General Appearance: WD/WN, alert, confused Neck: supple Cardiovascular: normal rate, regular rhythm Respiratory/Chest: chest wall non-tender, lungs clear, normal breath sounds, no respiratory distress Abdomen: normal bowel sounds, non tender, soft, no organomegaly Edema: no edema noted Arm (L), no edema noted Arm (R), no edema noted Leg (L), no edema noted Leg (R), no edema noted Pedal (L), no edema noted Pedal (R), no edema noted Generalized Neurologic: disoriented, unresponsive [place] MD Sep 09, 2017 10:51
[2017-09-09 12:00] VITALS: BP 107/61
[2017-09-09] MEDS ORDERED: NS 500ML ONE (15:41)
[2017-09-09] MEDS ORDERED: 1/2 NS 1000ml IV ONE (15:41)
[2017-09-09 16:00] VITALS: BP 117/62
[2017-09-09] MEDS: HYDROcodone/Acetamin 10/325 tab GT PRN (17:15)
--- NOTE | 2017-09-09 18:35 | General Progress Note ---
Assessment/Plan Assessment/Plan Assessment 1. History of chronic respiratory failure, on vent. 2. Dysphagia with PEG - s/p change 3. Anoxic brain injury. 4. Chronic kidney disease. 5. Hypertension. 6. Cardiomyopathy. 7. Leukocytosis Recommendations Continue TF GT care Elevate HOB Abx per ID Subjective Allergies: Coded Allergies: No Known Allergies (Unverified , 07/25/17) Subjective tolerating TF no major overnight events WBC higher today Objective Last 24 Hour Vital Signs Date Time Temp Pulse Resp B/P (MAP) Pulse Ox O2 Delivery O2 Flow Rate FiO2 09/09/17 16:30 89 28 40 09/09/17 16:00 98.8 87 23 117/62 99 Mechanical Ventilator 40 98.8 09/09/17 16:00 83 09/09/17 16:00 40 09/09/17 15:04 86 29 40 09/09/17 12:55 83 25 40 09/09/17 12:07 84 09/09/17 12:00 97.4 88 25 107/61 100 Mechanical Ventilator 40 97.4 09/09/17 12:00 40 09/09/17 11:25 85 28 40 09/09/17 09:24 80 21 40 09/09/17 08:00 97.2 82 27 117/60 98 Mechanical Ventilator 40 97.2 09/09/17 08:00 40 09/09/17 07:44 78 09/09/17 07:29 82 24 40 09/09/17 04:57 76 26 40 09/09/17 04:00 80 09/09/17 04:00 40 09/09/17 04:00 97.9 84 30 106/57 99 Mechanical Ventilator 40 97.9 09/09/17 02:33 89 28 40 09/09/17 01:07 85 26 40 09/09/17 00:00 40 09/09/17 00:00 82 09/09/17 00:00 98.7 86 40 124/74 99 Mechanical Ventilator 40 98.7 09/08/17 23:07 84 28 40 09/08/17 20:57 86 26 40 09/08/17 20:00 98.4 75 33 129/71 100 Mechanical Ventilator 40 98.4 09/08/17 20:00 40 09/08/17 20:00 85 09/08/17 19:15 88 26 40 Intake and Output 09/08/17 09/09/17 19:00 07:00 Intake Total 890 ml 1565 ml Output Total 700 ml 1600 ml Balance 190 ml -35 ml Intake Free Water 20 ml IV Total 220 ml 965 ml Tube Feeding 600 ml 600 ml Other 50 ml Output Urine Total 600 ml 1500 ml Stool Total 100 ml 100 ml Height (Feet): 5 Height (Inches): 3.00 Weight (Pounds): 155 Objective Debilitated Elderly WM NCAT (+) trach Coarse ronchi RR abd soft ND, (+) GT no edema Obtunded Ambar Choudhary MD Sep 09, 2017 18:35
[2017-09-09 20:00] VITALS: BP 103/56
[2017-09-09] MEDS: Dyna-Hex 2% Top Sol 2oz TOPIC SCH (21:15)
[2017-09-10] VITALS: BP 116/65
--- NOTE | 2017-09-10 00:30 | Progress Note ---
DATE: 09/09/2017 CARDIOLOGY PROGRESS NOTE SUBJECTIVE: The patient remains on ventilator support and somewhat less tachypneic today. On multiple antibiotics. OBJECTIVE: VITAL SIGNS: Blood pressure 106/57, pulse 84, respirations 30, and afebrile. NECK: Thin trach secretions. LUNGS: Bilateral breath sounds with rhonchi. HEART: Regular rhythm and rate. Normal S1, S2. ABDOMEN: Soft. G-tube intact. EXTREMITIES: No edema. LABORATORY DATA: No new laboratories today. IMPRESSION: 1. Sepsis. 2. Respiratory failure. 3. Recovering shock. 4. Type 2 diabetes mellitus. 5. Hypertensive heart disease. 6. Osteomyelitis. 7. Hypovolemia and dehydration, improved. PLAN: 1. Antibiotics per Infectious Disease event management consultant. 2. Ventilator support. 3. Wound care. 4. DNR based on bio-ethics discussion. 5. Adjust intravenous fluids. 6. Observe blood pressure control off midodrine. 7. Fluid challenge if needed. Keith Reeves M.D. DR: ANNE JOB#: [id number] CC:
[2017-09-10 04:00] VITALS: BP 115/55
[2017-09-10 04:52] LABS: BASOPHILS % (AUTO) 0.6 % (0.0-2.0); EOSINOPHILS % (AUTO) 0.4 % (0.0-3.0); HEMATOCRIT 29.7 % (42.0-52.0); HEMOGLOBIN 9.4 G/DL (14.2-18.0); MEAN CORPUSCULAR VOLUME 85 FL (80-99); MONOCYTES % (AUTO) 8.8 % (1.0-10.0); NEUTROPHILS % (AUTO) 71.1 % (45.0-75.0); PLATELET COUNT 384 K/UL (150-450); RED BLOOD COUNT 3.48 M/UL (4.70-6.10); RED CELL DISTRIBUTION WIDTH 18.6 % (11.6-14.8); WHITE BLOOD COUNT 12.4 K/UL (4.8-10.8)
[2017-09-10 05:21] LABS: ALANINE AMINOTRANSFERASE 17 U/L (12-78); ALBUMIN 0.9 G/DL (3.4-5.0); ALBUMIN/GLOBULIN RATIO 0.2 (1.0-2.7); ALKALINE PHOSPHATASE 133 U/L (46-116); ANION GAP 11 mmol/L (5-15); ASPARTATE AMINO TRANSFERASE 42 U/L (15-37); BILIRUBIN,TOTAL 0.3 MG/DL (0.2-1.0); BLOOD UREA NITROGEN 56 mg/dL (7-18); CALCIUM 7.2 MG/DL (8.5-10.1); CARBON DIOXIDE 22 MMOL/L (21-32); CHLORIDE 115 MMOL/L (98-107); CREATININE 0.9 MG/DL (0.55-1.30); POTASSIUM 3.2 MMOL/L (3.5-5.1); SODIUM 148 MMOL/L (136-145)
[2017-09-10] MEDS: Meropenem 1 GM in D5W 110 ML IVPB SCH (05:49)
--- NOTE | 2017-09-10 07:02 | Plastic Surgery Progress Note ---
Plastic Surgery-Progress Note Subjective Day of Surgery: 09/03/2017 Reason for Consult Patient is 1 wk s/p debridement of necrotic sacral, right trochanter and malleolar ulcers. His bone biopsy was + for acute osteomyelitis and cxs were + for multiple organisms. He has been transferred out of ICU since his surgery, Procedure Performed Surgical debridement of necrotic sacral ulcer with sacral bone biopsy, surgical debridement of necrotic right trochanter ulcer, surgical debridement right lateral malleolar ulcer Objective Last 24 Hour Vital Signs Date Time Temp Pulse Resp B/P (MAP) Pulse Ox O2 Delivery O2 Flow Rate FiO2 09/10/17 05:23 85 39 40 09/10/17 04:00 97.6 80 36 115/55 97 Mechanical Ventilator 40 97.6 09/10/17 04:00 40 09/10/17 03:49 85 09/10/17 03:30 82 32 40 09/10/17 01:30 87 33 40 09/10/17 00:00 82 09/10/17 00:00 98.4 77 37 116/65 99 Mechanical Ventilator 40 98.4 09/09/17 23:30 77 38 40 09/09/17 21:07 82 39 40 09/09/17 20:00 98.2 87 33 103/56 98 Mechanical Ventilator 40 98.2 09/09/17 20:00 40 09/09/17 19:52 87 09/09/17 19:30 84 40 40 09/09/17 18:30 98.8 09/09/17 16:30 89 28 40 09/09/17 16:00 98.8 87 23 117/62 99 Mechanical Ventilator 40 98.8 09/09/17 16:00 83 09/09/17 16:00 40 09/09/17 15:04 86 29 40 09/09/17 12:55 83 25 40 09/09/17 12:07 84 09/09/17 12:00 97.4 88 25 107/61 100 Mechanical Ventilator 40 97.4 09/09/17 12:00 40 09/09/17 11:25 85 28 40 09/09/17 09:24 80 21 40 09/09/17 08:00 97.2 82 27 117/60 98 Mechanical Ventilator 40 97.2 09/09/17 08:00 40 09/09/17 07:44 78 09/09/17 07:29 82 24 40 I&O Intake and Output 09/09/17 09/10/17 19:00 07:00 Intake Total 1260 ml 970 ml Output Total 1200 ml 825 ml Balance 60 ml 145 ml Intake Free Water 40 ml 150 ml IV Total 570 ml 220 ml Tube Feeding 600 ml 500 ml Other 50 ml 100 ml Output Urine Total 1200 ml 625 ml Stool Total 200 ml Wound: other - SAcral and right trochanter ulcers are much imporved with no slough or necrotic tissue visible at the base. left trochanter ulcer with clean base but periskin with ecchymosis. Drains: none Laboratory Tests Test 09/10/17 04:00 White Blood Count 12.4 K/UL (4.8-10.8) H Red Blood Count 3.48 M/UL (4.70-6.10) L Hemoglobin 9.4 G/DL (14.2-18.0) L Hematocrit 29.7 % (42.0-52.0) L Mean Corpuscular Volume 85 FL (80-99) Mean Corpuscular Hemoglobin 27.1 PG (27.0-31.0) Mean Corpuscular Hemoglobin Concent 31.8 G/DL (32.0-36.0) L Red Cell Distribution Width 18.6 % (11.6-14.8) H Platelet Count 384 K/UL (150-450) Mean Platelet Volume 5.8 FL (6.5-10.1) L Neutrophils (%) (Auto) 71.1 % (45.0-75.0) Lymphocytes (%) (Auto) 19.0 % (20.0-45.0) L Monocytes (%) (Auto) 8.8 % (1.0-10.0) Eosinophils (%) (Auto) 0.4 % (0.0-3.0) Basophils (%) (Auto) 0.6 % (0.0-2.0) Sodium Level 148 MMOL/L (136-145) H Potassium Level 3.2 MMOL/L (3.5-5.1) L Chloride Level 115 MMOL/L (98-107) H Carbon Dioxide Level 22 MMOL/L (21-32) Anion Gap 11 mmol/L (5-15) Blood Urea Nitrogen 56 mg/dL (7-18) H Creatinine 0.9 MG/DL (0.55-1.30) Estimat Glomerular Filtration Rate mL/min (>60) Glucose Level 112 MG/DL (74-106) H Calcium Level 7.2 MG/DL (8.5-10.1) L Magnesium Level 1.2 MG/DL (1.8-2.4) L Total Bilirubin 0.3 MG/DL (0.2-1.0) Aspartate Amino Transf (AST/SGOT) 42 U/L (15-37) H Alanine Aminotransferase (ALT/SGPT) 17 U/L (12-78) Alkaline Phosphatase 133 U/L (46-116) H Pro-B-Type Natriuretic Peptide 98003 pg/mL (0-125) H Total Protein 5.9 G/DL (6.4-8.2) L Albumin 0.9 G/DL (3.4-5.0) L Globulin 5.0 g/dL Albumin/Globulin Ratio 0.2 (1.0-2.7) L Plan Additional Comments Continue wet to dry for one more week then can transition to negative pressure dressing to the sacral and right trochanter ulcers. Appreciate ID input and will need total of 6 wks antibiotics for the osteomyelitis. Continue to offload the ulcers as best as possible given the multiple ulcer locations. Trace Travis MD Sep 10, 2017 07:02
[2017-09-10 08:00] VITALS: BP 124/67
[2017-09-10] MEDS: Aspirin Baby 81mg GT SCH (08:33)
[2017-09-10] MEDS: Zinc Sulfate 220mg cap GT SCH (08:33)
[2017-09-10] MEDS: Minocycline HCl 50mg cap ORAL SCH (08:33)
[2017-09-10] MEDS: Pantoprazole Inj IVP SCH (08:33)
[2017-09-10] MEDS: Ferrous Sulfate 300 MG/5 ML UDC NG SCH (08:33)
[2017-09-10] MEDS: Ascorbic Acid 500mg tab GT SCH (08:33)
[2017-09-10] MEDS: Dakin's 0.25% (Half Strength) 16oz TOPIC SCH (08:42)
--- NOTE | 2017-09-10 10:45 | Infectious Diseases Prog Note ---
"Assessment/Plan Assessment/Plan antibiotics : meropenem 6.5.18 - linezolid minocycline A 1. e.coli | proteus sepsis 2. pseudomonas | fungal UTI s/p rx 3. leucocytosis resolved 4, respiratory failure 5. diabetes mellitus 6. hypertension 7. sacral osteomyelitis P 1. continue meropenem 2 more days 2. continue linezolid, minocycline 38 more days 3. will follow up cultures Subjective ROS Limited/Unobtainable: Yes Allergies: Coded Allergies: No Known Allergies (Unverified , 07/25/17) Objective Vital Signs Last 24 Hour Vital Signs Date Time Temp Pulse Resp B/P (MAP) Pulse Ox O2 Delivery O2 Flow Rate FiO2 09/10/17 10:40 87 38 40 09/10/17 09:11 84 36 40 09/10/17 08:00 99.5 86 34 124/67 99 Mechanical Ventilator 40 99.5 09/10/17 08:00 91 09/10/17 08:00 40 09/10/17 07:15 86 31 40 09/10/17 05:23 85 39 40 09/10/17 04:00 97.6 80 36 115/55 97 Mechanical Ventilator 40 97.6 09/10/17 04:00 40 09/10/17 03:49 85 09/10/17 03:30 82 32 40 09/10/17 01:30 87 33 40 09/10/17 00:00 82 09/10/17 00:00 98.4 77 37 116/65 99 Mechanical Ventilator 40 98.4 09/09/17 23:30 77 38 40 09/09/17 21:07 82 39 40 09/09/17 20:00 98.2 87 33 103/56 98 Mechanical Ventilator 40 98.2 09/09/17 20:00 40 09/09/17 19:52 87 09/09/17 19:30 84 40 40 09/09/17 18:30 98.8 09/09/17 16:30 89 28 40 09/09/17 16:00 98.8 87 23 117/62 99 Mechanical Ventilator 40 98.8 09/09/17 16:00 83 09/09/17 16:00 40 09/09/17 15:04 86 29 40 09/09/17 12:55 83 25 40 09/09/17 12:07 84 09/09/17 12:00 97.4 88 25 107/61 100 Mechanical Ventilator 40 97.4 09/09/17 12:00 40 09/09/17 11:25 85 28 40 Height (Feet): 5 Height (Inches): 3.00 Weight (Pounds): 180 HEENT: status post trach Respiratory/Chest: lungs clear Cardiovascular: normal rate, regular rhythm, no gallop/murmur Abdomen: soft, non tender, other - GT Extremities: no edema - right arm PICC Laboratory Tests Test 09/10/17 04:00 White Blood Count 12.4 K/UL (4.8-10.8) H Red Blood Count 3.48 M/UL (4.70-6.10) L Hemoglobin 9.4 G/DL (14.2-18.0) L Hematocrit 29.7 % (42.0-52.0) L Mean Corpuscular Volume 85 FL (80-99) Mean Corpuscular Hemoglobin 27.1 PG (27.0-31.0) Mean Corpuscular Hemoglobin Concent 31.8 G/DL (32.0-36.0) L Red Cell Distribution Width 18.6 % (11.6-14.8) H Platelet Count 384 K/UL (150-450) Mean Platelet Volume 5.8 FL (6.5-10.1) L Neutrophils (%) (Auto) 71.1 % (45.0-75.0) Lymphocytes (%) (Auto) 19.0 % (20.0-45.0) L Monocytes (%) (Auto) 8.8 % (1.0-10.0) Eosinophils (%) (Auto) 0.4 % (0.0-3.0) Basophils (%) (Auto) 0.6 % (0.0-2.0) Sodium Level 148 MMOL/L (136-145) H Potassium Level 3.2 MMOL/L (3.5-5.1) L Chloride Level 115 MMOL/L (98-107) H Carbon Dioxide Level 22 MMOL/L (21-32) Anion Gap 11 mmol/L (5-15) Blood Urea Nitrogen 56 mg/dL (7-18) H Creatinine 0.9 MG/DL (0.55-1.30) Estimat Glomerular Filtration Rate mL/min (>60) Glucose Level 112 MG/DL (74-106) H Calcium Level 7.2 MG/DL (8.5-10.1) L Magnesium Level 1.2 MG/DL (1.8-2.4) L Total Bilirubin 0.3 MG/DL (0.2-1.0) Aspartate Amino Transf (AST/SGOT) 42 U/L (15-37) H Alanine Aminotransferase (ALT/SGPT) 17 U/L (12-78) Alkaline Phosphatase 133 U/L (46-116) H Pro-B-Type Natriuretic Peptide 35062 pg/mL (0-125) H Total Protein 5.9 G/DL (6.4-8.2) L Albumin 0.9 G/DL (3.4-5.0) L Globulin 5.0 g/dL Albumin/Globulin Ratio 0.2 (1.0-2.7) L Current Medications Medications (Trade) Dose Ordered Sig/Tal Route PRN Reason Start Time Stop Time Status Last Admin Dose Admin Acetaminophen (Tylenol) 650 mg Q4H PRN GT Mild Pain/Temp > 100.5 09/04/17 16:00 10/04/17 15:59 09/08/17 17:32 Acetaminophen/ Hydrocodone Bitart ([place] 10/325) 1 tab Q4H PRN GT Pain Scale (4-10) 09/07/17 01:30 09/14/17 01:29 09/09/17 17:15 Ascorbic Acid (Vitamin C) 500 mg DAILY GT 09/05/17 09:00 09/30/17 08:59 09/10/17 08:33 Aspirin (ASA) 81 mg DAILY GT 09/05/17 09:00 09/30/17 08:59 09/10/17 08:33 Bisacodyl (Dulcolax) 10 mg DAILYPRN PRN RECTAL Constipation 09/04/17 16:00 09/29/17 15:59 Chlorhexidine Gluconate (Consuelo-Hex 2%) 1 applic DAILY@1999 TOPIC 09/04/17 20:00 09/30/17 19:59 09/09/17 21:15 Epoetin Tian (Procrit (for non ESRD use)) 10,000 units FRI-FRI-FRI SUBQ 09/05/17 21:00 10/01/17 20:59 09/08/17 21:06 Ferrous Sulfate (Feosol) 300 mg DAILY NG 09/05/17 09:00 09/30/17 08:59 09/10/17 08:33 Levothyroxine Sodium (Synthroid) 100 mcg DAILY@0630 GT 09/05/17 06:30 09/30/17 06:29 09/10/17 05:49 Linezolid (Zyvox) 600 mg EVERY 12 HOURS ORAL 09/06/17 12:00 09/11/17 11:59 09/10/17 08:33 Magnesium Sulfate 100 ml @ 100 mls/hr Q1H IVPB 09/10/17 11:00 09/10/17 13:59 Meropenem 1 gm/ Dextrose 110 ml @ 220 mls/hr Q8HR IVPB 09/09/17 14:00 09/11/17 11:59 09/10/17 05:49 Minocycline HCl (Minocin) 100 mg Q12HR ORAL 09/08/17 21:00 09/15/17 20:59 09/10/17 08:33 Pantoprazole (Protonix) 40 mg DAILY IVP 09/05/17 09:00 09/30/17 08:59 09/10/17 08:33 Potassium Chloride (K-Dur) 60 meq ONCE ONCE ORAL 09/10/17 11:00 09/10/17 11:01 Sodium Hypochlorite (Dakin's Half Strength) 1 applic DAILY TOPIC 09/05/17 09:00 10/05/17 08:59 09/10/17 08:42 Sodium Hypochlorite (Dakin's Half Strength) 1 applic PRN PRN TOPIC wound 09/04/17 23:15 10/04/17 23:14 09/06/17 01:30 Sodium Chloride 1,000 ml @ 100 mls/hr Q10H IV 09/10/17 11:00 10/10/17 10:59 Sodium Phosphate (Fleet's Sodium Phosl Enema) 133 ml DAILYPRN PRN RECTAL Constipation 09/04/17 16:00 10/04/17 15:59 Zinc Sulfate (Zinc Sulfate) 220 mg DAILY GT 09/05/17 09:00 09/30/17 08:59 09/10/17 08:33 JOHN REAL Sep 10, 2017 10:45"
--- NOTE | 2017-09-10 10:55 | Diagnostic Imaging Report ---
APPROVED REPORT CPT Code: 44818 Present Symptoms Comments: BILATERAL LEGS PAIN. RIGHT LEG: Venous imaging reveals a patent deep venous system. There is no evidence of thrombus within the femoral, popliteal or tibial segments. The greater saphenous vein is also within normal limits. Doppler indicates normal spontaneous flow within these segments. 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 There is no evidence of thrombus within the common femoral vein. Doppler indicates normal spontaneous flow within these segments. The greater saphenous vein is also within normal limits. Doppler indicates normal spontaneous flow within these segments.Anterior tibial vein segments not imaged due to contracture.
[2017-09-10 12:00] VITALS: BP 114/61
[2017-09-10] MEDS ORDERED: Meropenem 1 GM in D5W 110 ML IVPB SCH (14:00)
[2017-09-10 16:00] VITALS: BP 109/60
--- NOTE | 2017-09-10 16:45 | General Progress Note ---
Assessment/Plan Assessment/Plan Assessment 1. History of chronic respiratory failure, on vent. 2. Dysphagia with PEG - s/p change 3. Anoxic brain injury. 4. Chronic kidney disease. 5. Hypertension. 6. Cardiomyopathy. 7. Leukocytosis Recommendations Continue TF - change per RN rec GT care Elevate HOB Abx per ID d/c planning Subjective Allergies: Coded Allergies: No Known Allergies (Unverified , 07/25/17) Subjective tolerating TF no major overnight events RD comments noted Objective Last 24 Hour Vital Signs Date Time Temp Pulse Resp B/P (MAP) Pulse Ox O2 Delivery O2 Flow Rate FiO2 09/10/17 16:00 95 09/10/17 16:00 40 09/10/17 16:00 98.1 87 31 109/60 99 Mechanical Ventilator 40 98.1 09/10/17 14:44 82 26 40 09/10/17 12:53 87 33 40 09/10/17 12:00 40 09/10/17 12:00 86 09/10/17 12:00 97.7 81 34 114/61 99 Mechanical Ventilator 40 97.7 09/10/17 10:40 87 38 40 09/10/17 09:11 84 36 40 09/10/17 08:00 99.5 86 34 124/67 99 Mechanical Ventilator 40 99.5 09/10/17 08:00 91 09/10/17 08:00 40 09/10/17 07:15 86 31 40 09/10/17 05:23 85 39 40 09/10/17 04:00 97.6 80 36 115/55 97 Mechanical Ventilator 40 97.6 09/10/17 04:00 40 09/10/17 03:49 85 09/10/17 03:30 82 32 40 09/10/17 01:30 87 33 40 09/10/17 00:00 82 09/10/17 00:00 98.4 77 37 116/65 99 Mechanical Ventilator 40 98.4 09/09/17 23:30 77 38 40 09/09/17 21:07 82 39 40 09/09/17 20:00 98.2 87 33 103/56 98 Mechanical Ventilator 40 98.2 09/09/17 20:00 40 09/09/17 19:52 87 09/09/17 19:30 84 40 40 09/09/17 18:30 98.8 Intake and Output 09/09/17 09/10/17 19:00 07:00 Intake Total 1260 ml 970 ml Output Total 1200 ml 825 ml Balance 60 ml 145 ml Intake Free Water 40 ml 150 ml IV Total 570 ml 220 ml Tube Feeding 600 ml 500 ml Other 50 ml 100 ml Output Urine Total 1200 ml 625 ml Stool Total 200 ml Laboratory Tests 09/10/17 04:00: White Blood Count 12.4H, Red Blood Count 3.48L, Hemoglobin 9.4L, Hematocrit 29.7L, Mean Corpuscular Volume 85, Mean Corpuscular Hemoglobin 27.1, Mean Corpuscular Hemoglobin Concent 31.8L, Red Cell Distribution Width 18.6H, Platelet Count 384, Mean Platelet Volume 5.8L, Neutrophils (%) (Auto) 71.1, Lymphocytes (%) (Auto) 19.0L, Monocytes (%) (Auto) 8.8, Eosinophils (%) (Auto) 0.4, Basophils (%) (Auto) 0.6, Sodium Level 148H, Potassium Level 3.2L, Chloride Level 115H, Carbon Dioxide Level 22, Anion Gap 11, Blood Urea Nitrogen 56H, Creatinine 0.9, Estimat Glomerular Filtration Rate , Glucose Level 112H, Calcium Level 7.2L, Magnesium Level 1.2L, Total Bilirubin 0.3, Aspartate Amino Transf (AST/SGOT) 42H, Alanine Aminotransferase (ALT/SGPT) 17, Alkaline Phosphatase 133H, Pro-B-Type Natriuretic Peptide 92462L, Total Protein 5.9L, Albumin 0.9L, Globulin 5.0, Albumin/Globulin Ratio 0.2L Height (Feet): 5 Height (Inches): 3.00 Weight (Pounds): 180 Objective Debilitated Elderly WM NCAT (+) trach Coarse ronchi RR abd soft ND, (+) GT no edema Obtunded Ambar Choudhary MD Sep 10, 2017 16:45
--- NOTE | 2017-09-10 17:54 | Critical Care Progress Note ---
Assessment/Plan Assessment/Plan respiratory failure trach GT chronic encephalopathy HAROLDO sepsis leukocytosis anemia PLAN stable for dc DNR vent reviewed dispo soon pending clearance IV antibiotics- noted midodrine medications/laboratory data/nursing notes reviewed in detail note reviewed and edited care discussed with RN and RT Critical Care - Subjective ROS Limited/Unobtainable: Yes Condition: improving Residuals: minimal Tube Feeding Tolerated: yes I&O: Intake and Output 09/09/17 09/10/17 19:00 07:00 Intake Total 1260 ml 970 ml Output Total 1200 ml 825 ml Balance 60 ml 145 ml Intake Free Water 40 ml 150 ml IV Total 570 ml 220 ml Tube Feeding 600 ml 500 ml Other 50 ml 100 ml Output Urine Total 1200 ml 625 ml Stool Total 200 ml Critical Care - Objective Last 24 Hour Vital Signs Date Time Temp Pulse Resp B/P (MAP) Pulse Ox O2 Delivery O2 Flow Rate FiO2 09/10/17 16:51 91 35 40 09/10/17 16:00 95 09/10/17 16:00 40 09/10/17 16:00 98.1 87 31 109/60 99 Mechanical Ventilator 40 98.1 09/10/17 14:44 82 26 40 09/10/17 12:53 87 33 40 09/10/17 12:00 40 09/10/17 12:00 86 09/10/17 12:00 97.7 81 34 114/61 99 Mechanical Ventilator 40 97.7 09/10/17 10:40 87 38 40 09/10/17 09:11 84 36 40 09/10/17 08:00 99.5 86 34 124/67 99 Mechanical Ventilator 40 99.5 09/10/17 08:00 91 09/10/17 08:00 40 09/10/17 07:15 86 31 40 09/10/17 05:23 85 39 40 09/10/17 04:00 97.6 80 36 115/55 97 Mechanical Ventilator 40 97.6 09/10/17 04:00 40 09/10/17 03:49 85 09/10/17 03:30 82 32 40 09/10/17 01:30 87 33 40 09/10/17 00:00 82 09/10/17 00:00 98.4 77 37 116/65 99 Mechanical Ventilator 40 98.4 09/09/17 23:30 77 38 40 09/09/17 21:07 82 39 40 09/09/17 20:00 98.2 87 33 103/56 98 Mechanical Ventilator 40 98.2 09/09/17 20:00 40 09/09/17 19:52 87 09/09/17 19:30 84 40 40 09/09/17 18:30 98.8 Objective: WDWN chronically ill reduced breath sounds bilaterally without rhonchi or wheeze [id number] without MRG NABS nontender no HSM; GT no CC edema trach poor LOC Accucheck: 97 Kj Blackman MD Sep 10, 2017 17:54
[2017-09-10] MEDS ORDERED: Tubing IV Secondary IV ONE (17:57)
--- NOTE | 2017-09-10 21:45 | Progress Note ---
DATE: 09/10/2017 CARDIOLOGY PROGRESS NOTE SUBJECTIVE: The patient remains on ventilator support via tracheostomy. Tolerating G-tube feedings. Remains on antibiotics. OBJECTIVE: VITAL SIGNS: Blood pressure 109/60, pulse 87, respirations 31, and afebrile. LUNGS: Bilateral breath sounds. Few rhonchi. HEART: Regular rhythm and rate. Normal S1, S2. ABDOMEN: Soft. G-tube intact. EXTREMITIES: Trace edema. IMPRESSION: 1. Sepsis with shock, improving. 2. Respiratory failure. 3. Osteomyelitis. 4. Hypertensive heart disease. 5. Resolved ischemic episodes due to hypoperfusion. PLAN: 1. Subacute level of care. 2. No need for midodrine. 3. Maintain adequate volume support by G-tube. 4. Supplement intravenous if needed. 5. Antimicrobials per Infectious Disease neuropsychology medical consultant. Due to wounds, may have significant insensible losses requiring additional hydration. Keith Reeves M.D. DR: ANNE JOB#: [id number] CC:
--- NOTE | 2017-09-11 13:40 | Discharge Summary ---
Discharge Summary Hospital Course Date of Admission Aug 30, 2017 at 19:07 Date of Discharge Sep 10, 2017 at 17:58 Admitting Diagnosis severe sepsis, anemia HPI Sean Salcido is a 77 year old male who was admitted on Aug 30, 2017 at 19:07 for Severe Sepsis, Anemia Hospital Course dc summary #[id number] Discharge Condition Upon Discharge: stable Discharge Disposition Patient was discharged to SNF Discharge Instructions Discharge Instructions Special Instructions I have been assigned to complete a D/C Summary on this account. I was not involved in the patient management Jenna Leal NP Sep 11, 2017 13:40
--- NOTE | 2017-09-12 | Discharge Summary 2 SIG ---
DATE OF ADMISSION: 08/30/2017 DATE OF DISCHARGE: 09/10/2017 REASON FOR ADMISSION: 77-year-old male, resident of the senior living facility with past medical history significant for chronic respiratory failure, ventilator-dependent with tracheostomy, dysphagia, G-tube, history of CVA, dementia, encephalopathy, and hypertension , was sent from the subacute facility with difficulty breathing and fever. Upon evaluation, the patient was tachycardic, tachypneic, febrile, and hypotensive. The patient had leukocytosis WBC- 24.9. Urinalysis with evidence of urinary tract infection. Hemoglobin 7.8 and hematocrit 24.6. BUN 81 and creatinine 1.4. Potassium 3.4 and sodium 134. Troponin was negative. Pro BNP 6064. Albumin 1.0. Chest x-ray showed patchy opacity at the left base and right base collapse and consolidation. The patient with DNR/DNI status. ADMITTING DIAGNOSES: 1. Severe sepsis with shock. 2. Chronic respiratory failure. 3. Anoxic encephalopathy. 4. Ischemic cardiomyopathy. 5. Possible pneumonia. 6. UTI 7. Dysphagia, gastrostomy tube. CONSULTANTS: 1. Abhishek Boyd M.D., Infectious Disease specialist. 2. Keith Reeves M.D., Highway Technician. 3. Kj Blackman M.D., Internal Corrosion Specialist. 4. Ambar Choudhary M.D., GI specialist. HOSPITAL COURSE: The patient was initially admitted to ICU. The patient was started on gentle IV hydration, but due to the ischemic cardiomyopathy was started on Levophed to keep systolic blood pressure above 90 for [address] support[address] Highway Technician and banbury mixer operator closely followed. Ventilator support provided. Pulmonary toilet provided. The patient was followed up with chest x-ray. ABG was stable on current settings. Settings were titrated as needed. Ventilator support , tracheostomy care and pulmonary toilet provided. The patient was eventually able to be weaned from pressors. The patient was started on midodrine for blood pressure support. Venous duplex of bilateral lower extremity revealed chronic recanalized thrombus of left lower extremity popliteal tibial vein, otherwise no evidence of acute DVT of bilateral lower extremity. The patient undergone placement of PICC line due to the poor venous access on 09/01/2017. Infectious Disease doctor closely followed. Urine culture revealed Pseudomonas and Tabatha. Blood culture revealed E. coli and Proteus ESBL. Plastic surgery consult was requested for multiple decubitus ulcers present on admission. The patient subsequently undergone surgical debridement of sacral, right trochanteric, and right lateral malleolar ulcer. Bone biopsy of sacrum was performed. Bone culture revealed Enterococci, Klebsiella pneumoniae, carbapenem-resistant, and Proteus ESBL. Pathology of sacral bone debridement revealed focal acute osteomyelitis. The patient was on antibiotic as per ID recommendation . For osteomyelitis, the patient will need to continue minocycline and linezolid for 38 more days. Repeated blood culture on 09/05/[address] Technician clsoely followed. Patient sustained acute VT, likely precipitated by severe hypoperfusion due to shock. No aggressive interventions for this patient, given multiple comorbidities, and DNR/DNI status. Antiplatelet therapy continued. Prior to discharge no need for midodrine as per supervisor dry cleaning. Blood pressure stabilized. Renal parameters and electrolytes were closely monitored. Electrolytes were corrected as needed. Nephrotoxics were avoided. Abdominal ultrasound revealed mildly increased renal echogenicity bilaterally possibly indicative of medical renal disease. No evidence of hydronephrosis was noted. No evidence of stones or dilated ducts. Imaging revealed though gallbladder sludge. Prior to discharge, BUN from initial 81 down to 56 and creatinine from initial 1.4 down to 0.9. Acute kidney injury was likely precipitated by severe sepsis and was superimposed on chronic kidney disease. Strict aspiration precautions were maintained. The patient was on G-tube feeding. G-tube was replaced by gastrointestinal specialist, who closely followed. The patient was able to tolerate feeding. Strict aspiration and reflux precautions were maintained. G-tube site care provided. Bowel regimen instituted. GI prophylaxis provided. The patient undergone transfusion of total of 3 units of packed red blood cells during this admission . Prior to discharge, hemoglobin 9.4 and hematocrit 29.7. The patient was on Epogen and iron supplement. Wound care provided as per surgeon recommendation. Supportive care provided. Pain management was addressed. The patient was stable for discharge back to subacute facility for continuation of care. FINAL DIAGNOSES: 1. Severe sepsis with shock. 2. Bacteremia with Escherichia coli and Proteus extended-spectrum beta-lactamases. 3. Urinary tract infection with Pseudomonas and Tabatha, s/p treatment 4. Sacral osteomyelitis. 5. Acute VT precipitated by severe hypoperfusion 2 to shock. 6. Chronic respiratory failure/ventilator-dependent respiratory failure with tracheostomy. 7. Probably health care associated PNA, s/p treatment 8. Chronic anoxic encephalopathy. 9. Acute kidney injury on chronic kidney disease. 10. Dehydration -resolved 11. Dysphagia, gastrostomy tube, status post replacement. 12. Anemia,status post transfusion of packed red blood cells. 13. Hypertensive heart disease. 14. Diabetes mellitus. 15. Necrotic sacral, right trochanter, and bilateral malleolus ulcer status post debridement. DISCHARGE MEDICATIONS: List of medication was sent to accepting facility. DISCHARGE INSTRUCTIONS: The patient was discharged to subacute senior living facility. FOLLOWUP: Follow up with medical doctor and banbury mixer operator at the facility. [place] M.D. I have been assigned to dictate discharge summary on this account and I was not involved in the patient's management. Jenna SerranoOlean General Hospitalrosario N.P. DR: EMORY JOB#: [id number] CC: DANNA
== END 2017-09-10 17:58 | DRG 853 ==
LOC: EDBD 12:28 → EDBEDREQ 12:44 → EMR 13:16 → EDBEDREQ 18:06 → ICU 19:07 → 2W 09-02 17:03 → ICU 09-02 17:35 → 2W 09-04 15:00
PROC: 5A1955Z Respiratory Ventilation, Greater than 96 Consecutive Hours (ICD-10-PCS; principal; 2017-08-30)
PROC: B548ZZA Ultrasonography of Superior Vena Cava, Guidance (ICD-10-PCS; 2017-09-01)
PROC: 02HV33Z Insertion of Infusion Device into Superior Vena Cava, Percutaneous Approach (ICD-10-PCS; 2017-09-01)
PROC: 0QBS0ZX Excision of Coccyx, Open Approach, Diagnostic (ICD-10-PCS; 2017-09-03)
PROC: 0KBP0ZZ Excision of Left Hip Muscle, Open Approach (ICD-10-PCS; 2017-09-03)
PROC: 0JDQ3ZZ Extraction of Right Foot Subcutaneous Tissue and Fascia, Percutaneous Approach (ICD-10-PCS; 2017-09-03)
PROC: 0KBN0ZZ Excision of Right Hip Muscle, Open Approach (ICD-10-PCS; 2017-09-03)
PROC: 30233N1 Transfusion of Nonautologous Red Blood Cells into Peripheral Vein, Percutaneous Approach (ICD-10-PCS; 2017-09-03)
PROC: 0QB10ZZ Excision of Sacrum, Open Approach (ICD-10-PCS; 2017-09-03)
PROC: 0D20XUZ Change Feeding Device in Upper Intestinal Tract, External Approach (ICD-10-PCS; 2017-09-07)
DX: A41.51 Sepsis due to Escherichia coli [E. coli] (principal); L89.154 Pressure ulcer of sacral region, stage 4; L89.224 Pressure ulcer of left hip, stage 4; L89.214 Pressure ulcer of right hip, stage 4; J18.9 Pneumonia, unspecified organism; R65.21 Severe sepsis with septic shock; I21.9 Acute myocardial infarction, unspecified; E43 Unspecified severe protein-calorie malnutrition; N17.9 Acute kidney failure, unspecified; N39.0 Urinary tract infection, site not specified; G93.1 Anoxic brain damage, not elsewhere classified; J96.10 Chronic respiratory failure, unspecified whether with hypoxia or hypercapnia; I42.8 Other cardiomyopathies; K94.23 Gastrostomy malfunction; Z99.11 Dependence on respirator [ventilator] status; E87.1 Hypo-osmolality and hyponatremia; K92.2 Gastrointestinal hemorrhage, unspecified; I82.532 Chronic embolism and thrombosis of left popliteal vein; I82.542 Chronic embolism and thrombosis of left tibial vein; M86.8X8 Other osteomyelitis, other site; Y95 Nosocomial condition; Z93.0 Tracheostomy status; A41.89 Other specified sepsis; I25.5 Ischemic cardiomyopathy; I13.10 Hypertensive heart and chronic kidney disease without heart failure, with stage 1 through stage 4 chronic kidney disease, or unspecified chronic kidney disease; E11.22 Type 2 diabetes mellitus with diabetic chronic kidney disease; N18.9 Chronic kidney disease, unspecified; B96.5 Pseudomonas (aeruginosa) (mallei) (pseudomallei) as the cause of diseases classified elsewhere; I25.10 Atherosclerotic heart disease of native coronary artery without angina pectoris; R13.10 Dysphagia, unspecified; F03.90 Unspecified dementia, unspecified severity, without behavioral disturbance, psychotic disturbance, mood disturbance, and anxiety; Z86.73 Personal history of transient ischemic attack (TIA), and cerebral infarction without residual deficits; E86.1 Hypovolemia; E87.6 Hypokalemia; D64.9 Anemia, unspecified; Z74.01 Bed confinement status; R19.7 Diarrhea, unspecified; Z68.31 Body mass index [BMI] 31.0-31.9, adult; Z66 Do not resuscitate; R00.0 Tachycardia, unspecified; L89.510 Pressure ulcer of right ankle, unstageable; L89.620 Pressure ulcer of left heel, unstageable; L89.320 Pressure ulcer of left buttock, unstageable
CPT/HCPCS: 36415; 36569; 36600; 71045; 74018; 76700; 76937; 80053; 80202; 81003; 82550; 82553; 82803; 82962; 83605; 83735; 83880; 84134; 84484; 85007; 85025; 85610; 85730; 86850; 86900; 86901; 86920; 87040; 87070; 87075; 87081; 87086; 87181; 87205; 87324; 93005; 93970; 94002; 94003; 94150; 94664; 99285; 99291; J8499

== ENCOUNTER 2017-09-29 11:32 | Inpatient (IN) | payer MEDICARE, MEDICAID ==
[~2017-09-29] VITALS: Ht 177.8 cm; Wt 85.3 kg
[2017-09-29] VITALS (30 sets, daily range): BP systolic 61–128; BP diastolic 35–56
[~2017-09-29 11:32] MED LIST changes: +VITAMIN C500 MG/11 GT
[2017-09-29] MEDS ORDERED: Vancomycin 1.5gm/D5W 250ml 250 ML IVPB ONE (11:45)
[2017-09-29] MEDS ORDERED: Ampicillin/Sulbactam Sod 3 GM in NS 110 ML IV SCH (11:45)
[2017-09-29] MEDS ORDERED: NS 1000ml 2,200 ML IVLG ONE (11:45)
[2017-09-29] MEDS ORDERED: FLEET ENEMA133 ML RECTAL (11:49)
[2017-09-29] MEDS ORDERED: ASPIRIN81 MG ORAL (11:49)
[2017-09-29 11:59] LABS: HEMATOCRIT 25.4 % (42.0-52.0); HEMOGLOBIN 7.5 G/DL (14.2-18.0); MEAN CORPUSCULAR VOLUME 86 FL (80-99); PLATELET COUNT 267 K/UL (150-450); RED BLOOD COUNT 2.93 M/UL (4.70-6.10); RED CELL DISTRIBUTION WIDTH 19.4 % (11.6-14.8)
[2017-09-29 12:07] LABS: ANION GAP 18 mmol/L (5-15); BLOOD UREA NITROGEN 104 mg/dL (7-18); CALCIUM 8.2 MG/DL (8.5-10.1); CARBON DIOXIDE 15 MMOL/L (21-32); CHLORIDE 94 MMOL/L (98-107); CREATININE 1.7 MG/DL (0.55-1.30); POTASSIUM 4.1 MMOL/L (3.5-5.1); SODIUM 127 MMOL/L (136-145)
[2017-09-29 12:21] LABS: ALANINE AMINOTRANSFERASE 32 U/L (12-78); ALBUMIN 0.9 G/DL (3.4-5.0); ALBUMIN/GLOBULIN RATIO 0.2 (1.0-2.7); ALKALINE PHOSPHATASE 253 U/L (46-116); ASPARTATE AMINO TRANSFERASE 60 U/L (15-37); BILIRUBIN,TOTAL 0.2 MG/DL (0.2-1.0); CKMB 2.2 NG/ML (0.0-3.6); CREATINE KINASE 118 U/L (26-308); PHOSPHORUS 5.3 MG/DL (2.5-4.9)
[2017-09-29 12:26] LABS: INR 1.3 (0.9-1.1)
--- NOTE | 2017-09-29 12:33 | Diagnostic Imaging Report ---
Indication: Dyspnea Comparison: 09/05/2017 A single view chest radiograph was obtained. Findings: Patchy airspace disease demonstrated in the right perihilar region of the lung extending into both upper and lower lung castillo. Infiltrate the left lung base also demonstrated. Heart size is normal. There is a tracheostomy present. PICC line is stable. IMPRESSION: Increasing bilateral airspace opacification likely pneumonia. Correlate clinically.
--- NOTE | 2017-09-29 15:32 | Emergency Room Report ---
History of Present Illness General Chief Complaint: Abnormal Labs Source: Medical Record Present Illness HPI Patient is a 77-year-old male brought in by EMS for abnormal laboratory testing. Patient was brought in because of elevated white blood count. The patient noted have prior history of ventilator dependency is tracheostomy dependent. The patient noted be cognitively impaired. History is markedly limited by patient's mental status. Allergies: Coded Allergies: No Known Allergies (Unverified , 07/25/17) Patient History Past Medical History: see triage record Reviewed Nursing Documentation: PMH: Agreed; PSxH: Agreed Nursing Documentation-PMH Hx Cardiac Problems: Yes - anemia, hyperkalemia, malnutrition, PVD, hyerlipidemia Hx Hypertension: Yes Hx Diabetes: Yes - DM I Hx Cancer: No Hx Gastrointestinal Problems: Yes - dysphagia, gtube, hypothyroidism, VRE, contracture Hx Neurological Problems: Yes - dementia Hx Cerebrovascular Accident: Yes Hx Dementia: Yes Review of Systems All Other Systems: negative except mentioned in HPI Physical Exam Vital Signs Date Time Temp Pulse Resp B/P (MAP) Pulse Ox O2 Delivery O2 Flow Rate FiO2 09/29/17 11:27 88 24 58/40 100 100 09/29/17 11:30 Mechanical Ventilator 09/29/17 11:54 98.2 98.2 Sp02 EP Interpretation: reviewed, normal General Appearance: thin, Chronically Ill Head: atraumatic Eyes: bilateral eye other - dry mucous membranes ENT: dry mucus membranes Neck: normal inspection, supple, no bony tend, limited range of motion, tracheotomy Respiratory: no respiratory distress, no retraction, rales Cardiovascular #1: regular rate, rhythm, edema Gastrointestinal: normal inspection, non tender, soft Genitourinary: no CVA tenderness Musculoskeletal: normal inspection, back normal, decreased range of motion Neurologic: motor weakness, other - [id number] Procedures Critical Care Time Critical Care Time Patient had a critical medical condition which untreated could potentially result in life or limb threatening injury. Total critical care time excluding procedures approximately 45 minutes. Medical Decision Making Diagnostic Impression: Primary Impression: Pneumonia Additional Impressions: Anemia Ventilator dependent Hypotension Septic shock ER Course Patient presented for abnormal labs. Differential diagnosis included was not limited to anemia, urinary tract infection, electrolyte abnormality, pneumonia, hypothyroidism, myocardial infarction, myasthenia gravis, dehydration, among others. Because of complexity of patient's case laboratory testing and imaging studies were ordered.Patient started on IV fluids as well as IV antibiotics. The patient noted to have a continued hypotension was started on IV Levophed. The patient was noted to have improvement in an blood pressure after the fluid bolus. Chest x-ray one view read by relative radiology showed bilateral increased airspace opacification likely pneumonia PICC line was present. Dr. [place] was contacted for inpatient management due to covering physician Labs Test 09/29/17 11:30 09/29/17 13:10 White Blood Count 38.0 K/UL (4.8-10.8) Red Blood Count 2.93 M/UL (4.70-6.10) Hemoglobin 7.5 G/DL (14.2-18.0) Hematocrit 25.4 % (42.0-52.0) Mean Corpuscular Volume 86 FL (80-99) Mean Corpuscular Hemoglobin 25.6 PG (27.0-31.0) Mean Corpuscular Hemoglobin Concent 29.6 G/DL (32.0-36.0) Red Cell Distribution Width 19.4 % (11.6-14.8) Platelet Count 267 K/UL (150-450) Mean Platelet Volume 6.2 FL (6.5-10.1) Neutrophils (%) (Auto) % (45.0-75.0) Lymphocytes (%) (Auto) % (20.0-45.0) Monocytes (%) (Auto) % (1.0-10.0) Eosinophils (%) (Auto) % (0.0-3.0) Basophils (%) (Auto) % (0.0-2.0) Differential Total Cells Counted 100 Neutrophils % (Manual) 53 % (45-75) Lymphocytes % (Manual) 17 % (20-45) Monocytes % (Manual) 4 % (1-10) Eosinophils % (Manual) 0 % (0-3) Basophils % (Manual) 0 % (0-2) Metamyelocytes % 6 % (0-0) Myelocytes % 1 % (0-0) Band Neutrophils 19 % (0-8) Nucleated Red Blood Cells 1 /100 WBC Platelet Estimate Adequate Platelet Morphology Normal Hypochromasia 2+ Anisocytosis 2+ Prothrombin Time 13.7 SEC (9.30-11.50) Prothromb Time International Ratio 1.3 (0.9-1.1) Activated Partial Thromboplast Time 38 SEC (23-33) Sodium Level 127 MMOL/L (136-145) Potassium Level 4.1 MMOL/L (3.5-5.1) Chloride Level 94 MMOL/L (98-107) Carbon Dioxide Level 15 MMOL/L (21-32) Anion Gap 18 mmol/L (5-15) Blood Urea Nitrogen 104 mg/dL (7-18) Creatinine 1.7 MG/DL (0.55-1.30) Estimat Glomerular Filtration Rate mL/min (>60) Glucose Level 118 MG/DL (74-106) Calcium Level 8.2 MG/DL (8.5-10.1) Phosphorus Level 5.3 MG/DL (2.5-4.9) Magnesium Level 2.0 MG/DL (1.8-2.4) Total Bilirubin 0.2 MG/DL (0.2-1.0) Aspartate Amino Transf (AST/SGOT) 60 U/L (15-37) Alanine Aminotransferase (ALT/SGPT) 32 U/L (12-78) Alkaline Phosphatase 253 U/L (46-116) Total Creatine Kinase 118 U/L (26-308) Creatine Kinase MB 2.2 NG/ML (0.0-3.6) Creatine Kinase MB Relative Index 1.8 Troponin I 0.000 ng/mL (0.000-0.056) Total Protein 6.5 G/DL (6.4-8.2) Albumin 0.9 G/DL (3.4-5.0) Globulin 5.6 g/dL Albumin/Globulin Ratio 0.2 (1.0-2.7) Lactic Acid Level 10.60 mmol/L (0.66-2.22) EKG Diagnostic Results Rate: normal - 85 Rhythm: NSR ST Segments: no acute changes Last Vital Signs Date Time Temp Pulse Resp B/P (MAP) Pulse Ox O2 Delivery O2 Flow Rate FiO2 09/29/17 14:44 98.2 73 33 94/43 100 Mechanical Ventilator 100 98.2 Status: unchanged Disposition: ADMITTED INPATIENT Condition: Serious Referrals: Kj Blackman MD (PCP) Maximus Harley MD Sep 29, 2017 15:32
[2017-09-29 16:49] LABS: APPEARANCE,URINE SLIGHTLY CLOUDY; BILIRUBIN, URINE NEGATIVE (NEGATIVE); GLUCOSE, URINE (UA) NEGATIVE (NEGATIVE); KETONES,URINE 1+ (NEGATIVE); LEUKOCYTE ESTERASE ,URINE 3+ (NEGATIVE); NITRITE,URINE NEGATIVE (NEGATIVE); PH,URINE 5 (4.5-8.0); PROTEIN,URINE 4+ (NEGATIVE); UROBILINOGEN,URINE NORMAL MG/DL (0.0-1.0)
[2017-09-29 16:52] LABS: COLOR,URINE PALE YELLOW
[2017-09-29] MEDS: NovoLOG Insulin Flexpen SUBQ SCH (21:51)
[2017-09-29] MEDS: Piperacillin/Tazobactam 3.375 GM in D5W 110 ML IVPB SCH (21:56)
--- NOTE | 2017-09-29 22:30 | History and Physical Report ---
DATE OF ADMISSION: 09/29/2017 CHIEF COMPLAINT: Sepsis, shock, acute renal failure and UTI. HISTORY OF PRESENT ILLNESS: The patient is an unfortunate 77-year-old male. He has a history of anoxic encephalopathy, chronic respiratory failure, COPD, hypertension, and anemia. He has a history of adrenal insufficiency, multiple sacral wounds. [facility] with complains of fevers and abnormal laboratories. He was noted to have white count of 38,000. He was hypotensive. He had evidence of urinary tract infection as well as pneumonia. He had an elevated lactic acid level of 12. The patient was pancultured. He has been started on broad-spectrum IV antibiotic therapy and he is now admitted for further inpatient evaluation and care. PAST MEDICAL HISTORY: As above. PAST SURGICAL HISTORY: Prior history of wound debridement, trach and a G-tube. CURRENT MEDICATIONS: Reconciled and reviewed. ALLERGIES: None. FAMILY HISTORY: None. SOCIAL HISTORY: There is no known history of tobacco, ethanol, or drugs. The patient has a POLST for DNR. REVIEW OF SYSTEMS: From the patient is unobtainable, as he is nonverbal at baseline. PHYSICAL EXAMINATION: GENERAL: The patient is a chronically ill-appearing male, in no apparent distress. VITAL SIGNS: Temperature 98 degrees, pulse 74, respirations 33, and blood pressure 95/38. HEART: Regular rate and rhythm. LUNGS: Clear. ABDOMEN: Soft, nontender and nondistended. EXTREMITIES: Without clubbing or cyanosis. The patient has multiple decubitus ulcers noted. LABORATORY AND DIAGNOSTIC DATA: UA showed too numerous to count wbc's. White count 38,000, hemoglobin 7.5, hematocrit 25, and platelet count of 267. INR is 1.3. Sodium 127, potassium 4.1, chloride 94, bicarbonate 15, BUN 104, and creatinine was 1.7. Lactic acid was 12.3. ASSESSMENT: This is an unfortunate male, admitted with complaints of septic shock. 1. Septic shock. 2. Respiratory failure. 3. Acute renal failure. 4. Lactic acidosis. 5. Anemia, rule out GI bleed. 6. Anoxic encephalopathy. PLAN: IV antibiotics. Aggressive fluid resuscitation. Follow up pending cultures. Continue ventilatory support and respiratory treatments. Continue G-tube feeds. IV proton pump inhibitor. Monitor for bleeding. DNR as per POLST in the chart. [place] M.D. DR: OMER JOB#: [id number] CC:
[2017-09-30] VITALS (48 sets, daily range): BP systolic 72–127; BP diastolic 23–77
--- NOTE | 2017-09-30 01:15 | Consultation ---
DATE OF CONSULTATION: 09/29/2017 CARDIOLOGY CONSULTATION CONSULTING PHYSICIAN: Keith Reeves M.D. REQUESTING PHYSICIAN: [place] M.D. REASON FOR CONSULT: Shock. HISTORY OF PRESENT ILLNESS: This is a 77-year-old male who has ventilator-dependent respiratory failure and resides at a subacute facility. He was noted to have leukocytosis, transferred to the emergency room and subsequently found to be hypotensive. I have been asked to assist with hemodynamic management and cardiovascular care. The patient is admitted to the intensive care unit. The patient is unable to give history. Records are reviewed as well as prior hospital chart and make of the remainder of this report. 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 MEDICATIONS: Prior to admission, reviewed and reconciled. ALLERGIES: None. FAMILY HISTORY: Not known. SOCIAL HISTORY: Not obtainable. REVIEW OF SYSTEMS: Cannot be obtained. All available data from records is outlined above. PHYSICAL EXAMINATION: GENERAL: Ill-appearing, noncommunicative, ventilated via tracheostomy, thick secretions. VITAL SIGNS: Blood pressure normal at 95/38, heart rate 74, respiratory rate 33, and he is afebrile. LUNGS: Coarse breath sounds. Scattered rhonchi. HEART: Regular rhythm and rate. Normal S1 and S2. ABDOMEN: Soft. G-tube intact. No tenderness, guarding, or distention. EXTREMITIES: No clubbing or cyanosis. No edema. Multiple decubiti noted. LABORATORY AND DIAGNOSTIC DATA: White count 38, hemoglobin 7.5. Sodium 127, potassium 4.1, bicarbonate 15, chloride 94, BUN 104 and creatinine 1.7. Lactic acid 12.3. EKG sinus tachycardia with nonspecific ST-T wave changes. Urinalysis too numerous to count white cells. IMPRESSION: 1. Sepsis with shock. 2. Urinary tract infection. 3. Hypovolemia and dehydration. 4. Acute on chronic renal failure. 5. Lactic acidosis. 6. Acute myocardial ischemia. 7. Ventilator dependent respiratory failure. 8. Anemia, likely chronic in nature and also due to kidney disease. 9. Cerebrovascular disease with dementia and anoxic encephalopathy. 10. Hyponatremia. 11. Hypochloremia. 12. Metabolic acidosis. 13. Severe leukocytosis. PLAN: 1. ICU care. 2. Volume resuscitation. 3. Consider pressors if inadequate response. 4. Transfuse for lower hemoglobin. 5. Empiric broad-spectrum antibiotics and ventilator support. 6. Respiratory hygiene. 7. DVT and stress ulcer prophylaxis. 8. DNR based on advanced directives. Keith Reeves M.D. DR: OFE JOB#: [id number] CC:
[2017-09-30] MEDS: Piperacillin/Tazobactam 3.375 GM in D5W 110 ML IVPB SCH ×3 (06:15→21:54)
[2017-09-30] MEDS: NovoLOG Insulin Flexpen SUBQ SCH ×4 (06:30→21:00)
[2017-09-30] MEDS ORDERED: Heparin 2000 units/Ns 1000ml INJ PRN (07:45)
[2017-09-30] MEDS ORDERED: Lidocaine 1% Plain 30 ml INJ PRN (07:45)
--- NOTE | 2017-09-30 08:30 | General Progress Note ---
Assessment/Plan Problem List: (1) GI bleed ICD Codes: K92.2 - Gastrointestinal hemorrhage, unspecified SNOMED: 51687185 (2) Symptomatic anemia ICD Codes: D64.9 - Anemia, unspecified SNOMED: 926320647 (3) Septic shock ICD Codes: A41.9 - Sepsis, unspecified organism; R65.21 - Severe sepsis with septic shock SNOMED: 69364476 (4) Anemia ICD Codes: D64.9 - Anemia, unspecified SNOMED: 216110086 (5) Hypotension ICD Codes: I95.9 - Hypotension, unspecified SNOMED: 75082336 (6) Pneumonia ICD Codes: J18.9 - Pneumonia, unspecified organism SNOMED: 636514764 (7) Ventilator dependent ICD Codes: Z99.11 - Dependence on respirator [ventilator] status SNOMED: 581421813 Status: stable, progressing Assessment/Plan ivf iv abx pressors wound care vent resp rx transfuse as needed follow up labs dnr per prior polst Subjective ROS Limited/Unobtainable: Yes Constitutional: Reports: malaise, weakness HEENT: Reports: no symptoms Cardiovascular: Reports: no symptoms Respiratory: Reports: shortness of breath Gastrointestinal/Abdominal: Reports: difficulty swallowing Genitourinary: Reports: no symptoms Neurologic/Psychiatric: Reports: pre-existing deficit Endocrine: Reports: no symptoms Hematologic/Lymphatic: Reports: anemia Allergies: Coded Allergies: No Known Allergies (Unverified , 07/25/17) All Systems: reviewed and negative except above Subjective remains on high dose pressors. on the vent. multiple iv abx. has old picc line. no feeds yet. on ivf. Objective Last 24 Hour Vital Signs Date Time Temp Pulse Resp B/P (MAP) Pulse Ox O2 Delivery O2 Flow Rate FiO2 09/30/17 07:30 95 38 105/45 97 Mechanical Ventilator 80 09/30/17 07:00 94 40 106/45 97 Mechanical Ventilator 80 09/30/17 06:53 93 40 80 09/30/17 06:30 93 39 127/48 97 Mechanical Ventilator 80 09/30/17 06:23 91/46 09/30/17 06:00 88 39 91/46 99 Mechanical Ventilator 80 09/30/17 06:00 127/48 09/30/17 05:30 88 40 98/44 99 Mechanical Ventilator 80 7/3/18 05:07 87 40 80 7/3/18 05:00 87 40 93/49 98 Mechanical Ventilator 80 7/3/18 05:00 78/37 7/3/18 04:30 87 37 72/38 96 Mechanical Ventilator 80 7/3/18 04:00 80 7/3/18 04:00 89 7/3/18 04:00 72/38 7/3/18 04:00 98.0 87 36 75/39 95 Mechanical Ventilator 80 98.0 7/3/18 03:30 86 36 83/40 98 Mechanical Ventilator 80 7/3/18 03:19 84 36 80 7/3/18 03:00 86 35 103/77 98 Mechanical Ventilator 80 7/3/18 03:00 103/77 7/3/18 02:30 88 37 93/45 99 Mechanical Ventilator 80 7/3/18 02:00 92/46 7/3/18 02:00 88 39 92/46 98 Mechanical Ventilator 80 7/3/18 01:30 87 38 96/48 98 Mechanical Ventilator 80 7/3/18 01:04 86 37 80 7/3/18 01:00 86 38 97/45 97 Mechanical Ventilator 80 7/3/18 01:00 97/45 7/3/18 00:30 86 38 95/45 96 Mechanical Ventilator 80 7/3/18 00:00 86 7/3/18 00:00 80 7/3/18 00:00 81/41 7/3/18 00:00 97.5 86 36 82/38 93 Mechanical Ventilator 80 97.5 7/2/18 23:30 87 35 101/43 95 Mechanical Ventilator 80 7/2/18 23:01 86 32 80 7/2/18 23:00 114/43 7/2/18 23:00 86 35 114/43 93 Mechanical Ventilator 80 7/2/18 22:31 108/45 7/2/18 22:30 86 34 94/47 93 Mechanical Ventilator 80 7/2/18 22:00 89 34 105/42 92 Mechanical Ventilator 80 7/2/18 21:30 91 34 127/40 92 Mechanical Ventilator 80 7/2/18 21:00 90 34 121/39 94 Mechanical Ventilator 35 7/2/18 21:00 120/42 7/2/18 20:45 89 33 120/42 95 Mechanical Ventilator 35 7/2/18 20:37 87 32 80 7/2/18 20:34 99/46 7/2/18 20:30 87 33 115/41 99 Mechanical Ventilator 35 7/2/18 20:15 84 33 128/37 100 Mechanical Ventilator 35 7/2/18 20:00 78 32 120/56 100 Mechanical Ventilator 35 7/2/18 20:00 103/37 7/2/18 20:00 78 7/2/18 20:00 100 7/2/18 19:45 77 32 99/35 99 Mechanical Ventilator 35 7/2/18 19:30 76 32 103/37 99 Mechanical Ventilator 35 7/2/18 19:15 76 32 99/41 97 Mechanical Ventilator 35 7/2/18 19:00 100.4 77 32 96/42 99 Mechanical Ventilator 35 100.4 7/2/18 19:00 96/42 7/2/18 18:41 78 29 100 7/2/18 18:00 92/41 7/2/18 17:25 74 33 100 7/2/18 17:06 98.2 81 31 95/38 100 Mechanical Ventilator 100 98.2 7/2/18 17:05 95/38 7/2/18 17:00 82/40 7/2/18 16:50 98.2 74 31 95/43 100 Mechanical Ventilator 100 98.2 7/2/18 15:44 98.2 74 31 95/43 100 Mechanical Ventilator 100 98.2 7/2/18 15:44 95/43 7/2/18 15:25 76 31 100 7/2/18 14:44 98.2 73 33 94/43 100 Mechanical Ventilator 100 98.2 7/2/18 14:26 94/42 7/2/18 14:26 98.2 81 31 94/42 100 Mechanical Ventilator 100 98.2 7/2/18 14:21 98.2 81 30 90/48 100 Mechanical Ventilator 100 98.2 7/2/18 14:21 90/48 7/2/18 14:16 98.2 76 28 83/42 100 Mechanical Ventilator 100 98.2 7/2/18 14:16 83/42 7/2/18 14:11 83/37 7/2/18 14:11 98.2 80 25 83/37 100 Mechanical Ventilator 100 98.2 7/2/18 14:06 98.2 79 26 91/39 100 Mechanical Ventilator 100 98.2 09/29/17 14:06 91/39 09/29/17 14:01 82/45 09/29/17 14:01 98.2 74 27 82/45 100 Mechanical Ventilator 100 98.2 09/29/17 13:56 87/40 09/29/17 13:56 98.2 76 25 87/40 100 Mechanical Ventilator 100 98.2 09/29/17 13:51 82/41 09/29/17 13:51 98.2 71 25 82/41 100 Mechanical Ventilator 100 98.2 09/29/17 13:46 98.2 81 25 75/38 100 Mechanical Ventilator 100 98.2 09/29/17 13:46 75/38 09/29/17 13:41 98.2 79 25 72/36 100 Mechanical Ventilator 100 98.2 09/29/17 13:41 72/36 09/29/17 13:39 98.2 79 25 67/35 100 Mechanical Ventilator 100 98.2 09/29/17 13:36 67/35 09/29/17 13:30 56/32 09/29/17 13:05 78 27 100 09/29/17 13:00 Mechanical Ventilator 100 09/29/17 12:18 98.2 89 25 66/39 100 Trach Collar 100 98.2 09/29/17 12:15 100 09/29/17 11:54 98.2 89 24 61/39 100 Trach Collar 100 98.2 09/29/17 11:30 92 27 Mechanical Ventilator 100 09/29/17 11:30 92 27 100 09/29/17 11:27 88 24 58/40 100 100 Intake and Output 09/29/17 09/30/17 19:00 07:00 Intake Total 460.0 ml 2281.86 ml Output Total 30 ml 155 ml Balance 430.0 ml 2126.86 ml Intake Oral 0 ml IV Total 460.0 ml 1981.86 ml Blood Product 300 ml Output Urine Total 30 ml 155 ml # Bowel Movements 51 Laboratory Tests 09/29/17 11:30: White Blood Count 38.0*H, Red Blood Count 2.93L, Hemoglobin 7.5L, Hematocrit 25.4L, Mean Corpuscular Volume 86, Mean Corpuscular Hemoglobin 25.6L, Mean Corpuscular Hemoglobin Concent 29.6L, Red Cell Distribution Width 19.4H, Platelet Count 267, Mean Platelet Volume 6.2L, Neutrophils (%) (Auto) , Lymphocytes (%) (Auto) , Monocytes (%) (Auto) , Eosinophils (%) (Auto) , Basophils (%) (Auto) , Differential Total Cells Counted 100, Neutrophils % ( Manual) 53, Lymphocytes % (Manual) 17L, Monocytes % (Manual) 4, Eosinophils % ( Manual) 0, Basophils % (Manual) 0, Metamyelocytes % 6H, Myelocytes % 1H, Band Neutrophils 19H, Nucleated Red Blood Cells 1, Platelet Estimate Adequate, Platelet Morphology Normal, Hypochromasia 2+, Anisocytosis 2+, Prothrombin Time 13.7H, Prothromb Time International Ratio 1.3H, Activated Partial Thromboplast Time 38H, Sodium Level 127L, Potassium Level 4.1, Chloride Level 94L, Carbon Dioxide Level 15L, Anion Gap 18H, Blood Urea Nitrogen 104H, Creatinine 1.7H, Estimat Glomerular Filtration Rate , Glucose Level 118H, Lactic Acid Level 12.30H, Calcium Level 8.2L, Phosphorus Level 5.3H, Magnesium Level 2.0, Total Bilirubin 0.2, Aspartate Amino Transf (AST/SGOT) 60H, Alanine Aminotransferase ( ALT/SGPT) 32, Alkaline Phosphatase 253H, Total Creatine Kinase 118, Creatine Kinase MB 2.2, Creatine Kinase MB Relative Index 1.8, Troponin I 0.000, Total Protein 6.5, Albumin 0.9L, Globulin 5.6, Albumin/Globulin Ratio 0.2L 09/29/17 13:10: Lactic Acid Level 10.60H 09/29/17 16:26: Urine Color Pale yellow, Urine Appearance Slightly cloudy, Urine pH 5, Urine Specific [place] 1.015, Urine Protein 4+H, Urine Glucose (UA) Negative, Urine Ketones 1+H, Urine Occult Blood 4+H, Urine Nitrite Negative, Urine Bilirubin Negative, Urine Urobilinogen Normal, Urine Leukocyte Esterase 3+H, Urine RBC 5- 10H, Urine WBC TntcH, Urine Squamous Epithelial Cells None, Urine Amorphous Sediment ModerateH, Urine Bacteria ManyH, Urine Yeast FewH 09/29/17 20:20: Lactic Acid Level 6.20H Height (Feet): 5 Height (Inches): 10.00 Weight (Pounds): 177 General Appearance: WD/WN, lethargic, confused, cachetic, thin Neck: supple Cardiovascular: regular rhythm Respiratory/Chest: rhonchi - bilaterally Abdomen: normal bowel sounds, non tender, soft, no organomegaly Edema: no edema noted Arm (L), no edema noted Arm (R), no edema noted Leg (L), no edema noted Leg (R), no edema noted Pedal (L), no edema noted Pedal (R), no edema noted Generalized [place] Ac[place] MD Sep 30, 2017 08:30
--- NOTE | 2017-09-30 08:34 | Consultation ---
History of Present Illness General Date patient seen: Sep 30, 2017 Time patient seen: 08:24 Chief Complaint: Abnormal Labs Referring physician: Dr. Acosta Reason for Consultation: Pressure Ulcers Present Illness HPI Asked to evaluate this 77 yom who was admitted to ICU from a SNF on 09/29/17 for fevers and abnml labs. On admission his WBC was 38k. He is bedridden, PEG/ track. 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 He was surgically debrided by me in a recent hospitalization. Allergies: Coded Allergies: No Known Allergies (Unverified , 07/25/17) Medication History Scheduled Amlodipine Besylate* (Amlodipine Besylate*), 5 MG GT DAILY, (Reported) Ascorbic Acid* (Vitamin C*), 500 MG GT DAILY, (Reported) Aspirin* (Aspirin*), 81 MG ORAL DAILY, (Reported) Docusate Sodium* (Colace*), 100 MG GT DAILY, (Reported) Epoetin Tian (Epogen), 10,000 UNIT SUBQ 3XW, (Reported) Ferrous Sulfate* (Ferrous Sulfate*), 325 MG GT DAILY, (Reported) Levothyroxine Sodium* (Synthroid*), 100 MCG ORAL DAILY, (Reported) Multivitamin Liquid* (Multi-Delyn*), 5 ML GT DAILY, (Reported) Pantoprazole* (Protonix*), 40 MG GT DAILY, (Reported) Protein Supplement (Promod), 30 ML GT DAILY, (Reported) Zinc Sulfate (Zinc Sulfate), 220 MG GT DAILY, (Reported) Scheduled PRN Acetaminophen* (Acetaminophen*), 640 MG GT Q6H PRN for Mild Pain/Temp > 100.5, ( Reported) Albuterol Sulfate* (Albuterol Sulfate Hhn*), 3 ML INH Q6H PRN for Shortness of Breath, (Reported) Bisacodyl (Dulcolax), 10 MG RC DAILY PRN for Constipation, (Reported) Hydrocodone Bit/Acetaminophen 10-325* ([place] 10-325*), 1 TAB GT Q4H PRN for For Pain, (Reported) Hydrocodone Bit/Acetaminophen 10-325* ([place] 10-325*), 1 TAB GT Q4H PRN for For Pain, (Reported) Na Phos,M-B/Na Phos,Di-Ba* (Fleet Enema*), 133 ML RECTAL DAILY PRN for Constipation, (Reported) Na Phos,M-B/Na Phos,Di-Ba* (Fleet Enema*), 133 ML RECTAL EVERY OTHER DAY PRN for Constipation, (Reported) Miscellaneous Medications Vit C/Ascorbate Ca/Ascorb Sod (Vitamin C 500 Mg/15 Ml Liquid), 500 MG GT, ( Reported) Patient History Limited by: medical condition History Provided By: Medical Record Healthcare decision maker Resuscitation status Do Not Resuscitate Advanced Directive on File Physical Exam General Appearance: thin Lines, tubes and drains: peripheral, trach, gtube, gonzalez cath Skin Exam: other - Large stage 4 sacral pressure ulcer with bone exposed at the base. Some areas of fibrotic debris and slough but no timo necrotic or gangrenous tissue. Periskin in fair condition with no erytherma warmth or crepitus. Right trochanter ulcer with bone exposed and areas of slough but no odor, purulent drainage or crepitus in periskin. Left trochanter ulcer with granular base. Left ischial tuberosity ulcer with loose eschar and necrotic muscle. Right IT ulcer is unstageable with intact eschar. Lateral malleolar ulcer with granular base. Last 24 Hour Vital Signs Date Time Temp Pulse Resp B/P (MAP) Pulse Ox O2 Delivery O2 Flow Rate FiO2 09/30/17 07:30 95 38 105/45 97 Mechanical Ventilator 80 09/30/17 07:00 94 40 106/45 97 Mechanical Ventilator 80 09/30/17 06:53 93 40 80 09/30/17 06:30 93 39 127/48 97 Mechanical Ventilator 80 09/30/17 06:23 91/46 09/30/17 06:00 88 39 91/46 99 Mechanical Ventilator 80 09/30/17 06:00 127/48 09/30/17 05:30 88 40 98/44 99 Mechanical Ventilator 80 09/30/17 05:07 87 40 80 09/30/17 05:00 87 40 93/49 98 Mechanical Ventilator 80 09/30/17 05:00 78/37 09/30/17 04:30 87 37 72/38 96 Mechanical Ventilator 80 09/30/17 04:00 80 09/30/17 04:00 89 09/30/17 04:00 72/38 7/3/18 04:00 98.0 87 36 75/39 95 Mechanical Ventilator 80 98.0 7/3/18 03:30 86 36 83/40 98 Mechanical Ventilator 80 7/3/18 03:19 84 36 80 7/3/18 03:00 86 35 103/77 98 Mechanical Ventilator 80 7/3/18 03:00 103/77 7/3/18 02:30 88 37 93/45 99 Mechanical Ventilator 80 7/3/18 02:00 92/46 7/3/18 02:00 88 39 92/46 98 Mechanical Ventilator 80 7/3/18 01:30 87 38 96/48 98 Mechanical Ventilator 80 7/3/18 01:04 86 37 80 7/3/18 01:00 86 38 97/45 97 Mechanical Ventilator 80 7/3/18 01:00 97/45 7/3/18 00:30 86 38 95/45 96 Mechanical Ventilator 80 7/3/18 00:00 86 7/3/18 00:00 80 7/3/18 00:00 81/41 7/3/18 00:00 97.5 86 36 82/38 93 Mechanical Ventilator 80 97.5 7/2/18 23:30 87 35 101/43 95 Mechanical Ventilator 80 7/2/18 23:01 86 32 80 7/2/18 23:00 114/43 7/2/18 23:00 86 35 114/43 93 Mechanical Ventilator 80 7/2/18 22:31 108/45 7/2/18 22:30 86 34 94/47 93 Mechanical Ventilator 80 7/2/18 22:00 89 34 105/42 92 Mechanical Ventilator 80 7/2/18 21:30 91 34 127/40 92 Mechanical Ventilator 80 7/2/18 21:00 90 34 121/39 94 Mechanical Ventilator 35 7/2/18 21:00 120/42 7/2/18 20:45 89 33 120/42 95 Mechanical Ventilator 35 7/2/18 20:37 87 32 80 7/2/18 20:34 99/46 7/2/18 20:30 87 33 115/41 99 Mechanical Ventilator 35 7/2/18 20:15 84 33 128/37 100 Mechanical Ventilator 35 7/2/18 20:00 78 32 120/56 100 Mechanical Ventilator 35 7/2/18 20:00 103/37 7/2/18 20:00 78 7/2/18 20:00 100 7/2/18 19:45 77 32 99/35 99 Mechanical Ventilator 35 7/2/18 19:30 76 32 103/37 99 Mechanical Ventilator 35 7/2/18 19:15 76 32 99/41 97 Mechanical Ventilator 35 7/2/18 19:00 100.4 77 32 96/42 99 Mechanical Ventilator 35 100.4 7/2/18 19:00 96/42 72/18 18:41 78 29 100 7//18 18:00 92/41 7//18 17:25 74 33 100 //18 17:06 98.2 81 31 95/38 100 Mechanical Ventilator 100 98.2 7/18 17:05 95/38 7/18 17:00 82/40 7/18 16:50 98.2 74 31 95/43 100 Mechanical Ventilator 100 98.2 09/29/18 15:44 98.2 74 31 95/43 100 Mechanical Ventilator 100 98.2 7/18 15:44 95/43 7/18 15:25 76 31 100 //18 14:44 98.2 73 33 94/43 100 Mechanical Ventilator 100 98.2 09/29/18 14:26 94/42 7/18 14:26 98.2 81 31 94/42 100 Mechanical Ventilator 100 98.2 7/18 14:21 98.2 81 30 90/48 100 Mechanical Ventilator 100 98.2 09/29/18 14:21 90/48 7/18 14:16 98.2 76 28 83/42 100 Mechanical Ventilator 100 98.2 18 14:16 83/42 7//18 14:11 83/37 7//18 14:11 98.2 80 25 83/37 100 Mechanical Ventilator 100 98.2 09/29/18 14:06 98.2 79 26 91/39 100 Mechanical Ventilator 100 98.2 18 14:06 91/39 718 14:01 82/45 7/18 14:01 98.2 74 27 82/45 100 Mechanical Ventilator 100 98.2 09/29/18 13:56 87/40 18 13:56 98.2 76 25 87/40 100 Mechanical Ventilator 100 98.2 09/29/17 13:51 82/41 09/29/17 13:51 98.2 71 25 82/41 100 Mechanical Ventilator 100 98.2 09/29/17 13:46 98.2 81 25 75/38 100 Mechanical Ventilator 100 98.2 09/29/17 13:46 75/38 09/29/17 13:41 98.2 79 25 72/36 100 Mechanical Ventilator 100 98.2 09/29/17 13:41 72/36 09/29/17 13:39 98.2 79 25 67/35 100 Mechanical Ventilator 100 98.2 09/29/17 13:36 67/35 09/29/17 13:30 56/32 09/29/17 13:05 78 27 100 09/29/17 13:00 Mechanical Ventilator 100 09/29/17 12:18 98.2 89 25 66/39 100 Trach Collar 100 98.2 09/29/17 12:15 100 09/29/17 11:54 98.2 89 24 61/39 100 Trach Collar 100 98.2 09/29/17 11:30 92 27 Mechanical Ventilator 100 09/29/17 11:30 92 27 100 09/29/17 11:27 88 24 58/40 100 100 Intake and Output 09/29/17 09/30/17 19:00 07:00 Intake Total 460.0 ml 2281.86 ml Output Total 30 ml 155 ml Balance 430.0 ml 2126.86 ml Intake Oral 0 ml IV Total 460.0 ml 1981.86 ml Blood Product 300 ml Output Urine Total 30 ml 155 ml # Bowel Movements 51 Laboratory Tests Test 09/29/17 11:30 09/29/17 13:10 09/29/17 16:26 09/29/17 20:20 White Blood Count 38.0 K/UL (4.8-10.8) *H Red Blood Count 2.93 M/UL (4.70-6.10) L Hemoglobin 7.5 G/DL (14.2-18.0) L Hematocrit 25.4 % (42.0-52.0) L Mean Corpuscular Volume 86 FL (80-99) Mean Corpuscular Hemoglobin 25.6 PG (27.0-31.0) L Mean Corpuscular Hemoglobin Concent 29.6 G/DL (32.0-36.0) L Red Cell Distribution Width 19.4 % (11.6-14.8) H Platelet Count 267 K/UL (150-450) Mean Platelet Volume 6.2 FL (6.5-10.1) L Neutrophils (%) (Auto) % (45.0-75.0) Lymphocytes (%) (Auto) % (20.0-45.0) Monocytes (%) (Auto) % (1.0-10.0) Eosinophils (%) (Auto) % (0.0-3.0) Basophils (%) (Auto) % (0.0-2.0) Differential Total Cells Counted 100 Neutrophils % (Manual) 53 % (45-75) Lymphocytes % (Manual) 17 % (20-45) L Monocytes % (Manual) 4 % (1-10) Eosinophils % (Manual) 0 % (0-3) Basophils % (Manual) 0 % (0-2) Metamyelocytes % 6 % (0-0) H Myelocytes % 1 % (0-0) H Band Neutrophils 19 % (0-8) H Nucleated Red Blood Cells 1 /100 WBC Platelet Estimate Adequate Platelet Morphology Normal Hypochromasia 2+ Anisocytosis 2+ Prothrombin Time 13.7 SEC (9.30-11.50) H Prothromb Time International Ratio 1.3 (0.9-1.1) H Activated Partial Thromboplast Time 38 SEC (23-33) H Sodium Level 127 MMOL/L (136-145) L Potassium Level 4.1 MMOL/L (3.5-5.1) Chloride Level 94 MMOL/L (98-107) L Carbon Dioxide Level 15 MMOL/L (21-32) L Anion Gap 18 mmol/L (5-15) H Blood Urea Nitrogen 104 mg/dL (7-18) H Creatinine 1.7 MG/DL (0.55-1.30) H Estimat Glomerular Filtration Rate mL/min (>60) Glucose Level 118 MG/DL (74-106) H Lactic Acid Level 12.30 mmol/L (0.4-2.0) H 10.60 mmol/L (0.66-2.22) H 6.20 mmol/L (0.4-2.0) H Calcium Level 8.2 MG/DL (8.5-10.1) L Phosphorus Level 5.3 MG/DL (2.5-4.9) H Magnesium Level 2.0 MG/DL (1.8-2.4) Total Bilirubin 0.2 MG/DL (0.2-1.0) Aspartate Amino Transf (AST/SGOT) 60 U/L (15-37) H Alanine Aminotransferase (ALT/SGPT) 32 U/L (12-78) Alkaline Phosphatase 253 U/L (46-116) H Total Creatine Kinase 118 U/L (26-308) Creatine Kinase MB 2.2 NG/ML (0.0-3.6) Creatine Kinase MB Relative Index 1.8 Troponin I 0.000 ng/mL (0.000-0.056) Total Protein 6.5 G/DL (6.4-8.2) Albumin 0.9 G/DL (3.4-5.0) L Globulin 5.6 g/dL Albumin/Globulin Ratio 0.2 (1.0-2.7) L Urine Color Pale yellow Urine Appearance Slightly cloudy Urine pH 5 (4.5-8.0) Urine Specific [place] 1.015 (1.005-1.035) Urine Protein 4+ (NEGATIVE) H Urine Glucose (UA) Negative (NEGATIVE) Urine Ketones 1+ (NEGATIVE) H Urine Occult Blood 4+ (NEGATIVE) H Urine Nitrite Negative (NEGATIVE) Urine Bilirubin Negative (NEGATIVE) Urine Urobilinogen Normal MG/DL (0.0-1.0) Urine Leukocyte Esterase 3+ (NEGATIVE) H Urine RBC 5-10 /HPF (0 - 0) H Urine WBC Tntc /HPF (0 - 0) H Urine Squamous Epithelial Cells None /LPF (NONE/OCC) Urine Amorphous Sediment Moderate /LPF (NONE) H Urine Bacteria Many /HPF (NONE) H Urine Yeast Few /HPF (NONE) H Height (Feet): 5 Height (Inches): 10.00 Weight (Pounds): 177 Medications Current Medications Medications (Trade) Dose Ordered Sig/Tal Route PRN Reason Start Time Stop Time Status Last Admin Dose Admin Chlorhexidine Gluconate (Consuelo-Hex 2%) 1 applic DAILY@1999 TOPIC 09/30/17 20:00 10/30/17 19:59 Dextrose (Dextrose 50%) 25 ml STAT PRN IV Hypoglycemia 09/29/17 19:30 10/29/17 19:29 Dextrose (Dextrose 50%) 50 ml STAT PRN IV Hypoglycemia 09/29/17 19:30 10/29/17 19:29 Heparin Sodium/ Sodium Chloride (Heparin 2000 units/Ns 1000ml premix) 2,000 unit ONCE PRN INJ for picc line placement 09/30/17 07:45 10/02/17 07:44 Insulin Aspart (NovoLOG) BEFORE MEALS AND HS SUBQ 09/29/17 21:00 10/29/17 20:59 09/29/17 21:51 Lidocaine HCl (Xylocaine 1% 30ml) 30 ml ONCE PRN INJ for picc line placement 09/30/17 07:45 10/02/17 07:44 Norepinephrine Bitartrate 8 mg/ Dextrose 250 ml @ 0 mls/hr Q24H IV 09/29/17 19:30 10/29/17 19:29 09/30/17 06:23 Piperacillin Sod/ Tazobactam Sod 3.375 gm/Dextrose 110 ml @ 27.5 mls/hr EVERY 8 HOURS IVPB 09/29/17 22:00 10/04/17 21:59 09/30/17 06:15 Sodium Chloride 1,000 ml @ 125 mls/hr Q8H IV 09/29/17 18:00 10/29/17 17:59 09/30/17 03:36 Vancomycin HCl (Vanco rx to dose) 1 ea DAILY PRN MISC Per rx protocol 09/29/17 17:15 10/29/17 17:14 Vancomycin HCl/ Dextrose 250 ml @ 125 mls/hr Q24H IVPB 09/30/17 10:00 10/05/17 09:59 Assessment/Plan Assessment/Plan Patient with multiple large stage 4 pressure ulcers. Prognosis for healing these are very poor. Although the wounds do not appear responsible for the elevated WBC, several of the ulcers, namely the left ischial and sacral ulcers need debridement to remove the most frankly nonviable tissue. Due to him being on pressors, this will need to be done at bedside as he is too high a risk for anesthesia. Also, given the critical state of this patient's health, it was agreed by me and the PCP that this be done emergently after being unable to obtain consent from the conservator. This can safely be done at bedside. Thank you for allowing me to participate in this patient's care. Trace Travis MD Sep 30, 2017 08:34
[2017-09-30 08:35] LABS: HEMATOCRIT 29.4 % (42.0-52.0); HEMOGLOBIN 9.3 G/DL (14.2-18.0); MEAN CORPUSCULAR VOLUME 82 FL (80-99); PLATELET COUNT 155 K/UL (150-450); RED BLOOD COUNT 3.57 M/UL (4.70-6.10); RED CELL DISTRIBUTION WIDTH 18.4 % (11.6-14.8)
--- NOTE | 2017-09-30 08:41 | Brief Operative Note ---
Immediate Post Operative Note Operative Note Pre-op Diagnosis: Stage 4 sacral and left ischial pressure ulcers Procedure: Sharp excisional debridement of left ischial ulcer (5x6x1.2) to muscle and sacral ulcer ([id number]) to bone. Post-op Diagnosis: same as pre-op Surgeon: Angy Specimen: none Complications: none Condition: stable Fluids: IVF Estimated Blood Loss: none Drains: none Implant(s) used?: No Trace Travis MD Sep 30, 2017 08:41
[2017-09-30 08:45] LABS: WHITE BLOOD COUNT 41.8 K/UL (4.8-10.8)
--- NOTE | 2017-09-30 08:53 | General Progress Note ---
Assessment/Plan Problem List: (1) GI bleed ICD Codes: K92.2 - Gastrointestinal hemorrhage, unspecified SNOMED: 54578183 (2) Symptomatic anemia ICD Codes: D64.9 - Anemia, unspecified SNOMED: 337204132 (3) Septic shock ICD Codes: A41.9 - Sepsis, unspecified organism; R65.21 - Severe sepsis with septic shock SNOMED: 66777269 (4) Anemia ICD Codes: D64.9 - Anemia, unspecified SNOMED: 327336180 (5) Hypotension ICD Codes: I95.9 - Hypotension, unspecified SNOMED: 22517625 (6) Pneumonia ICD Codes: J18.9 - Pneumonia, unspecified organism SNOMED: 262322383 (7) Ventilator dependent ICD Codes: Z99.11 - Dependence on respirator [ventilator] status SNOMED: 375153932 Assessment/Plan pt has old picc line likely source of pts sepsis needs emergent picc line removal and replacement at risk of if not replaced. no conservator picc replacement neeeded emergently Subjective ROS Limited/Unobtainable: Yes Allergies: Coded Allergies: No Known Allergies (Unverified , 07/25/17) Subjective remains on high dose pressors. on the vent. multiple iv abx. has old picc line. no feeds yet. on ivf. Objective Last 24 Hour Vital Signs Date Time Temp Pulse Resp B/P (MAP) Pulse Ox O2 Delivery O2 Flow Rate FiO2 09/30/17 08:30 100 38 98/46 97 Mechanical Ventilator 80 09/30/17 08:00 98.3 99 40 96/45 96 Mechanical Ventilator 80 98.3 09/30/17 08:00 80 09/30/17 08:00 80 09/30/17 07:30 95 38 105/45 97 Mechanical Ventilator 80 09/30/17 07:00 94 40 106/45 97 Mechanical Ventilator 80 09/30/17 06:53 93 40 80 09/30/17 06:30 93 39 127/48 97 Mechanical Ventilator 80 09/30/17 06:23 91/46 09/30/17 06:00 88 39 91/46 99 Mechanical Ventilator 80 09/30/17 06:00 127/48 09/30/17 05:30 88 40 98/44 99 Mechanical Ventilator 80 09/30/17 05:07 87 40 80 7/3/18 05:00 87 40 93/49 98 Mechanical Ventilator 80 7/3/18 05:00 78/37 7/3/18 04:30 87 37 72/38 96 Mechanical Ventilator 80 7/3/18 04:00 80 7/3/18 04:00 89 7/3/18 04:00 72/38 7/3/18 04:00 98.0 87 36 75/39 95 Mechanical Ventilator 80 98.0 7/3/18 03:30 86 36 83/40 98 Mechanical Ventilator 80 7/3/18 03:19 84 36 80 7/3/18 03:00 86 35 103/77 98 Mechanical Ventilator 80 7/3/18 03:00 103/77 7/3/18 02:30 88 37 93/45 99 Mechanical Ventilator 80 7/3/18 02:00 92/46 7/3/18 02:00 88 39 92/46 98 Mechanical Ventilator 80 7/3/18 01:30 87 38 96/48 98 Mechanical Ventilator 80 7/3/18 01:04 86 37 80 7/3/18 01:00 86 38 97/45 97 Mechanical Ventilator 80 7/3/18 01:00 97/45 7/3/18 00:30 86 38 95/45 96 Mechanical Ventilator 80 7/3/18 00:00 86 7/3/18 00:00 80 7/3/18 00:00 81/41 7/3/18 00:00 97.5 86 36 82/38 93 Mechanical Ventilator 80 97.5 7/2/18 23:30 87 35 101/43 95 Mechanical Ventilator 80 7/2/18 23:01 86 32 80 7/2/18 23:00 114/43 7/2/18 23:00 86 35 114/43 93 Mechanical Ventilator 80 7/2/18 22:31 108/45 7/2/18 22:30 86 34 94/47 93 Mechanical Ventilator 80 7/2/18 22:00 89 34 105/42 92 Mechanical Ventilator 80 7/2/18 21:30 91 34 127/40 92 Mechanical Ventilator 80 7/2/18 21:00 90 34 121/39 94 Mechanical Ventilator 35 7/2/18 21:00 120/42 7/2/18 20:45 89 33 120/42 95 Mechanical Ventilator 35 7/2/18 20:37 87 32 80 7/2/18 20:34 99/46 7/2/18 20:30 87 33 115/41 99 Mechanical Ventilator 35 7/2/18 20:15 84 33 128/37 100 Mechanical Ventilator 35 7/2/18 20:00 78 32 120/56 100 Mechanical Ventilator 35 7/2/18 20:00 103/37 7/2/18 20:00 78 7/2/18 20:00 100 7/2/18 19:45 77 32 99/35 99 Mechanical Ventilator 35 7/2/18 19:30 76 32 103/37 99 Mechanical Ventilator 35 7/2/18 19:15 76 32 99/41 97 Mechanical Ventilator 35 7/2/18 19:00 100.4 77 32 96/42 99 Mechanical Ventilator 35 100.4 7/2/18 19:00 96/42 7/2/18 18:41 78 29 100 7/2/18 18:00 92/41 7/2/18 17:25 74 33 100 7/2/18 17:06 98.2 81 31 95/38 100 Mechanical Ventilator 100 98.2 7/2/18 17:05 95/38 7/2/18 17:00 82/40 7/2/18 16:50 98.2 74 31 95/43 100 Mechanical Ventilator 100 98.2 7/2/18 15:44 98.2 74 31 95/43 100 Mechanical Ventilator 100 98.2 7/2/18 15:44 95/43 7/2/18 15:25 76 31 100 7/2/18 14:44 98.2 73 33 94/43 100 Mechanical Ventilator 100 98.2 7/2/18 14:26 94/42 7/2/18 14:26 98.2 81 31 94/42 100 Mechanical Ventilator 100 98.2 7/2/18 14:21 98.2 81 30 90/48 100 Mechanical Ventilator 100 98.2 7/2/18 14:21 90/48 7/2/18 14:16 98.2 76 28 83/42 100 Mechanical Ventilator 100 98.2 7/2/18 14:16 83/42 7/2/18 14:11 83/37 7/2/18 14:11 98.2 80 25 83/37 100 Mechanical Ventilator 100 98.2 7/2/18 14:06 98.2 79 26 91/39 100 Mechanical Ventilator 100 98.2 09/29/17 14:06 91/39 09/29/17 14:01 82/45 09/29/17 14:01 98.2 74 27 82/45 100 Mechanical Ventilator 100 98.2 09/29/17 13:56 87/40 09/29/17 13:56 98.2 76 25 87/40 100 Mechanical Ventilator 100 98.2 09/29/17 13:51 82/41 09/29/17 13:51 98.2 71 25 82/41 100 Mechanical Ventilator 100 98.2 09/29/17 13:46 98.2 81 25 75/38 100 Mechanical Ventilator 100 98.2 09/29/17 13:46 75/38 09/29/17 13:41 98.2 79 25 72/36 100 Mechanical Ventilator 100 98.2 09/29/17 13:41 72/36 09/29/17 13:39 98.2 79 25 67/35 100 Mechanical Ventilator 100 98.2 09/29/17 13:36 67/35 09/29/17 13:30 56/32 09/29/17 13:05 78 27 100 09/29/17 13:00 Mechanical Ventilator 100 09/29/17 12:18 98.2 89 25 66/39 100 Trach Collar 100 98.2 09/29/17 12:15 100 09/29/17 11:54 98.2 89 24 61/39 100 Trach Collar 100 98.2 09/29/17 11:30 92 27 Mechanical Ventilator 100 09/29/17 11:30 92 27 100 09/29/17 11:27 88 24 58/40 100 100 Intake and Output 09/29/17 09/30/17 19:00 07:00 Intake Total 460.0 ml 2281.86 ml Output Total 30 ml 155 ml Balance 430.0 ml 2126.86 ml Intake Oral 0 ml IV Total 460.0 ml 1981.86 ml Blood Product 300 ml Output Urine Total 30 ml 155 ml # Bowel Movements 51 Laboratory Tests 09/29/17 11:30: White Blood Count 38.0*H, Red Blood Count 2.93L, Hemoglobin 7.5L, Hematocrit 25.4L, Mean Corpuscular Volume 86, Mean Corpuscular Hemoglobin 25.6L, Mean Corpuscular Hemoglobin Concent 29.6L, Red Cell Distribution Width 19.4H, Platelet Count 267, Mean Platelet Volume 6.2L, Neutrophils (%) (Auto) , Lymphocytes (%) (Auto) , Monocytes (%) (Auto) , Eosinophils (%) (Auto) , Basophils (%) (Auto) , Differential Total Cells Counted 100, Neutrophils % ( Manual) 53, Lymphocytes % (Manual) 17L, Monocytes % (Manual) 4, Eosinophils % ( Manual) 0, Basophils % (Manual) 0, Metamyelocytes % 6H, Myelocytes % 1H, Band Neutrophils 19H, Nucleated Red Blood Cells 1, Platelet Estimate Adequate, Platelet Morphology Normal, Hypochromasia 2+, Anisocytosis 2+, Prothrombin Time 13.7H, Prothromb Time International Ratio 1.3H, Activated Partial Thromboplast Time 38H, Sodium Level 127L, Potassium Level 4.1, Chloride Level 94L, Carbon Dioxide Level 15L, Anion Gap 18H, Blood Urea Nitrogen 104H, Creatinine 1.7H, Estimat Glomerular Filtration Rate , Glucose Level 118H, Lactic Acid Level 12.30H, Calcium Level 8.2L, Phosphorus Level 5.3H, Magnesium Level 2.0, Total Bilirubin 0.2, Aspartate Amino Transf (AST/SGOT) 60H, Alanine Aminotransferase ( ALT/SGPT) 32, Alkaline Phosphatase 253H, Total Creatine Kinase 118, Creatine Kinase MB 2.2, Creatine Kinase MB Relative Index 1.8, Troponin I 0.000, Total Protein 6.5, Albumin 0.9L, Globulin 5.6, Albumin/Globulin Ratio 0.2L 09/29/17 13:10: Lactic Acid Level 10.60H 09/29/17 16:26: Urine Color Pale yellow, Urine Appearance Slightly cloudy, Urine pH 5, Urine Specific [place] 1.015, Urine Protein 4+H, Urine Glucose (UA) Negative, Urine Ketones 1+H, Urine Occult Blood 4+H, Urine Nitrite Negative, Urine Bilirubin Negative, Urine Urobilinogen Normal, Urine Leukocyte Esterase 3+H, Urine RBC 5- 10H, Urine WBC TntcH, Urine Squamous Epithelial Cells None, Urine Amorphous Sediment ModerateH, Urine Bacteria ManyH, Urine Yeast FewH 09/29/17 20:20: Lactic Acid Level 6.20H 09/30/17 08:20: White Blood Count 41.8*H, Red Blood Count 3.57L, Hemoglobin 9.3L, Hematocrit 29.4L, Mean Corpuscular Volume 82, Mean Corpuscular Hemoglobin 26.0L, Mean Corpuscular Hemoglobin Concent 31.6L, Red Cell Distribution Width 18.4H, Platelet Count 155, Mean Platelet Volume 6.7, Neutrophils (%) (Auto) , Lymphocytes (%) (Auto) , Monocytes (%) (Auto) , Eosinophils (%) (Auto) , Basophils (%) (Auto) , Neutrophils % (Manual) [Pending], Lymphocytes % (Manual) [Pending], Platelet Estimate [Pending], Platelet Morphology [Pending], Sodium Level [Pending], Potassium Level [Pending], Chloride Level [Pending], Carbon Dioxide Level [Pending], Blood Urea Nitrogen [Pending], Creatinine [Pending], Estimat Glomerular Filtration Rate [Pending], Glucose Level [Pending], Calcium Level [Pending], Total Bilirubin [Pending], Aspartate Amino Transf (AST/SGOT) [ Pending], Alanine Aminotransferase (ALT/SGPT) [Pending], Alkaline Phosphatase [ Pending], Total Protein [Pending], Albumin [Pending], Globulin [Pending] Height (Feet): 5 Height (Inches): 10.00 Weight (Pounds): 177 [place] MD Sep 30, 2017 08:53
[2017-09-30 09:01] LABS: ALANINE AMINOTRANSFERASE 68 U/L (12-78); ALBUMIN 0.8 G/DL (3.4-5.0); ALBUMIN/GLOBULIN RATIO 0.2 (1.0-2.7); ALKALINE PHOSPHATASE 146 U/L (46-116); ANION GAP 16 mmol/L (5-15); ASPARTATE AMINO TRANSFERASE 165 U/L (15-37); BILIRUBIN,TOTAL 0.3 MG/DL (0.2-1.0); BLOOD UREA NITROGEN 102 mg/dL (7-18); CALCIUM 7.2 MG/DL (8.5-10.1); CARBON DIOXIDE 15 MMOL/L (21-32); CHLORIDE 98 MMOL/L (98-107); CREATININE 1.5 MG/DL (0.55-1.30); POTASSIUM 3.8 MMOL/L (3.5-5.1); SODIUM 129 MMOL/L (136-145)
[2017-09-30] MEDS ORDERED: Vancomycin 1500mg IVPB SCH (10:00)
--- NOTE | 2017-09-30 12:00 | Operative Note - Dictated ---
DATE OF OPERATION: 09/30/2017 SURGEON: Trace Travis M.D. PREOPERATIVE DIAGNOSIS: Necrotic left ischial tuberosity pressure ulcer, stage IV sacral ulcer. POSTOPERATIVE DIAGNOSIS: Necrotic left ischial tuberosity pressure ulcer, stage IV sacral ulcer. PROCEDURES: Sharp excisional debridement of left ischial tuberosity pressure ulcer and sacral ulcer down to the level of bone for the sacrum and muscle to the tuberosity ulcer. OPERATIVE INDICATIONS: This is a 77-year-old male, who has had a history of large stage IV pressure ulcers of the sacrum and trochanters and ischial tuberosities. [facility]2017 with white blood cell count of 38,000. He is in the intensive care unit with sepsis and on pressors. had been debrided prior admission by co for similar ulcers. On evaluation, he was noted to have necrotic left ischial tuberosity ulcer with loose gangrenous eschar tissue as well as some slough and fibrotic tissue in the sacral ulcer. Despite this, given the nature of the wounds and the fact that though these wounds are not solely responsible for his leukocytosis that they would benefit from urgent debridement. The decision was made to do a bedside debridement given the patient's hemodynamic instability and inability to tolerate general anesthesia. OPERATIVE PROCEDURE: The patient was placed in the right lateral decubitus position and the area was prepped out. Both the sacral and left ischial tuberosity ulcers were visible and using scissors and forceps the nonviable tissue was removed down the level of muscle on the ischial tuberosity and then to the level of bone on the sacral ulcer. The total measurement of the sacral ulcer ended up being 13 x 12 x 1.8 cm, which was debrided sharply down to the level of bone and of the ischial tuberosity ulcer on the left was 5 x 6 x 1.2 cm, which was debrided down the muscle. There is hemostasis, which was controlled with pressure and dressings were then re-applied. The patient tolerated procedure well. Remained hemodynamically stable throughout the procedure. Trace Travis M.D. DR: LEE ANN/ERICA JOB#: [id number] CC:
--- NOTE | 2017-09-30 14:07 | Diagnostic Imaging Report ---
APPROVED REPORT CPT Code: 90666 Present Symptoms Shortness of breath BILATERAL: Imaging reveals a patent deep venous system bilaterally. There is no evidence of thrombus within the femoral, popliteal or tibial segments. The greater saphenous veins are also within normal limits. Doppler indicates normal spontaneous flow within these segments.
--- NOTE | 2017-09-30 15:30 | Consultation ---
DATE OF CONSULTATION: 09/30/2017 PULMONARY CONSULTATION CONSULTING PHYSICIAN: Kj Blackman M.D. REASON FOR CONSULTATION: Respiratory failure. HISTORY OF PRESENT ILLNESS: This is an unfortunate 77-year-old male, who has had multiple admissions to the [facility]. The patient is a chronic assisted patient. The patient presents with sepsis and shock. The patient is poorly responsive and appears to be tachypneic, is on a ventilator, and a chronic tracheostomy present. Does have a history of underlying COPD. The patient admitted for further care and management. He is to be started on IV antibiotics. White cell count significantly elevated. The patient also noted to be hypotensive. The patient also with significantly elevated lactic acid. The patient was pancultured, admitted on 09/29/2017. The patient is a Do Not Resuscitate. This was confirmed. The patient is on broad-spectrum antibiotics at present and I was called to assist to evaluate further and recommend from a Pulmonary standpoint and assess further from a ventilatory management. Currently, the patient is on pressors and comfortable and hemodynamics remained fairly stable. The patient's events reviewed. correction notes were reviewed. PAST MEDICAL HISTORY: Notable for anoxia, chronic respiratory failure, COPD, hypertension, anemia, prior history of acute NC, history of renal insufficiency, multiple pressure ulcers, prior history of sepsis, prior history of leukocytosis, history of wound debridement, history of tracheostomy, and history of G-tube. MEDICATIONS: Reviewed. ALLERGIES: Reviewed. SOCIAL HISTORY: Nonsmoker and nondrinker. The patient is a Do Not Resuscitate. He is a assisted patient. REVIEW OF SYSTEMS: Unobtainable. PHYSICAL EXAMINATION: GENERAL: A well-developed patient, chronically ill, tachypneic. VITAL SIGNS: Blood pressure 98/46, pulse 97, saturation 98%, FiO2 100, temperature 98.3, and respiratory rate is 30 to 40. HEENT: Overall negative. The patient's pupils are poorly reactive. Tracheostomy is in midline. NECK: Supple. LUNGS: Scattered rhonchi. Moderate air entry. CARDIAC: Normal S1, S2. Slightly tachycardic. Without clear murmurs, rubs, or gallops. ABDOMEN: Soft, nontender, nondistended. G-tube in place. EXTREMITIES: No cyanosis or clubbing. No significant contractures. NEUROLOGIC: Poorly responsive. The patient is nonverbal. LABORATORY AND DIAGNOSTIC DATA: Lab data reviewed. Chest x-ray with significant infiltrates bilaterally. White cell count 41.8, hemoglobin 9.3, hematocrit 29, and platelets 155. Chemistries noted. The lactic acid was significantly elevated, now down to 6.2. Sodium 127, potassium 4.1, BUN 104, creatinine 1.7. Albumin is 0.9. The coagulation factors, INR is 1.3 and PTT 38. IMPRESSION: 1. Multiorgan disease. 2. Coagulopathy. 3. Acute on chronic renal failure. 4. Hyponatremia. 5. Severe protein-calorie malnutrition. 6. Leukocytosis. 7. Sepsis. 8. Shock. 9. Anemia. 10. Respiratory failure. 11. Evidence of bilateral pneumonia. 12. Possible noncardiogenic pulmonary edema. 13. Acute on chronic encephalopathy. RECOMMENDATIONS: Supportive care. IV antibiotics. ID evaluation. Pressors as needed. Renal evaluation. Hydration with caution. Monitor clinically for further changes. Surgical followup and recommendation. Prognosis poor. I agree with Do Not Resuscitate and we will assess clinically for further changes and intervention. Kj Blackman M.D. DR: EVERARDO JOB#: [id number] CC: DANNA
--- NOTE | 2017-09-30 16:45 | Diagnostic Imaging Report ---
Indication: superintendent terminal venous access Findings: After the indications, procedure, risks, complications, and alternatives of the procedure were explained, written informed consent was obtained. The right upper extremity was prepped with alcohol. All elements of maximal sterile barrier technique were followed including usage of a cap, mask, sterile gown, sterile gloves, hand hygiene and a large sterile sheet. Sonographic evaluation of the upper extremity was performed demonstrating a patent and compressible basilic vein. Access was obtained under real-time ultrasound guidance (with utilization of sterile gel and sterile probe cover) and digital image was saved and archived. An .018 wire was introduced. Needle exchanged for a 5 [place] peel-away sheath. Measurements were obtained. A 5 [place] dual-lumen Power PICC line catheter was cut to 35 cm and introduced over the wire. Peel-away sheath and wire were removed.Catheter was secured to the skin using 2-0 Prolene suture. Both ports aspirate and flush easily. Post procedure chest x-ray demonstrates good position of the PICC line catheter within the SVC. Impression: Successful placement of an upper extremity PICC line catheter
[2017-09-30] MEDS: Phenylephrine 50 MG in D5W 245 ML IV PRN (19:41)
[2017-09-30] MEDS ORDERED: Dyna-Hex 2% Top Sol 2oz TOPIC SCH (20:00)
[2017-09-30] MEDS ORDERED: Tubing IV Secondary IV ONE (21:11)
[2017-10-01] VITALS (16 sets, daily range): BP systolic 74–86; BP diastolic 33–58
--- NOTE | 2017-10-01 00:37 | Cardiology Report ---
APPROVED REPORT EKG Measurement Heart [id number] Sinus rhythm with premature atrial complexes Left anterior fascicular block Septal infarct, age undetermined Possible Lateral infarct, age undetermined Abnormal ECG
[2017-10-01] MEDS: Phenylephrine 50 MG in D5W 245 ML IV PRN (03:12)
--- NOTE | 2017-10-01 03:30 | Progress Note ---
DATE: 09/30/2017 CARDIOLOGY PROGRESS NOTE SUBJECTIVE: Condition is deteriorating and remains critical. He remains in the intensive care unit with guarded prognosis. The patient is on pressors at maximum doses with low range blood pressure readings and is on full ventilator support via tracheostomy. OBJECTIVE: VITAL SIGNS: Blood pressure 83/51, heart rate 91, respirations 40, and afebrile. Oxygen saturation 91% on 100% FiO2. LUNGS: Bilateral breath sounds. Rhonchi. HEART: Regular rhythm and rate. Normal S1, S2. ABDOMEN: Soft. Hypoactive bowel sounds. Multiple wounds have dressing in place. EXTREMITIES: Trace edema. LABORATORY DATA: White count 41 and hemoglobin 9.3. Sodium 129 and potassium 3.8. Lactic acid 6.2. BUN 102 and creatinine 1.5. Albumin 0.8. IMPRESSION: 1. Severe sepsis with shock. 2. Multiorgan system failure. 3. Grave prognosis. PLAN: 1. Ventilator support. 2. Broad-spectrum antibiotics. 3. Skin care. 4. Volume resuscitation. 5. Pressors to maintain adequate perfusion distally. 6. Hold feedings. 7. Comfort measures. Keith Reeves M.D. DR: ANNE JOB#: [id number] CC:
[2017-10-01] MEDS: Piperacillin/Tazobactam 3.375 GM in D5W 110 ML IVPB SCH (05:45)
[2017-10-01] MEDS: NovoLOG Insulin Flexpen SUBQ SCH (06:30)
[2017-10-01] MEDS ORDERED: Tubing IV Secondary IV ONE ×2 (09:07)
[2017-10-01] MEDS ORDERED: NS 500ML ONE (09:07)
[2017-10-01] MEDS ORDERED: Tubing IV Blood Pump IV ONE (09:07)
[2017-10-01] MEDS ORDERED: Tubing Blood Filter IV ONE (09:07)
--- NOTE | 2017-10-01 18:00 | Discharge Summary ---
DATE OF ADMISSION: 09/29/2017 DATE OF DISCHARGE: 10/01/2017 SUMMARY CAUSE OF : 1. Cardiopulmonary arrest. 2. Sepsis secondary to urinary tract infection. HOSPITAL COURSE: The patient is an unfortunate male with history of anoxic encephalopathy, chronic respiratory failure. He was admitted with complaints of septic shock. He received broad-spectrum IV antibiotics. He was on multiple pressors. Despite aggressive therapy, the patient did not improve and eventually . He has no family to contact, only a friend. [place] M.D. DR: MANISHA JOB#: [id number] CC:
--- NOTE | 2017-10-02 05:45 | Progress Note ---
DATE: 10/01/2017 CARDIOLOGY PROGRESS NOTE TIME SEEN: At 1 a.m. SUBJECTIVE: The patient remains critical. Prognosis guarded. He is in the intensive care unit. Case discussed with ICU staff. They are concerned over his low blood pressure and maximal pressors. He is on ventilator support. He is also on IV fluids. OBJECTIVE: VITAL SIGNS: Blood pressure 70/50, pulse 90, respiratory rate 18 to 24, he is afebrile. HEENT: Temporal wasting, unresponsive. Thick trach secretions by tracheostomy site. LUNGS: Coarse breath sounds, rhonchi. CARDIAC: Regular rhythm and rate. Normal S1, S2. ABDOMEN: Soft, distended. G-tube intact. SKIN: Wounds are pictured. LABORATORY DATA: Reviewed. ASSESSMENT AND PLAN: 1. Discussed with staff. DNR appropriate. Prognosis is grave. 2. To continue antibiotics, wound care. 3. Volume resuscitation. 4. Pressor support with taper if clinical condition improves. 5. DVT and stress ulcer prophylaxis. 6. Little to add at this time and the patient is on maximal therapy. Keith Reeves M.D. DR: [place] JOB#: [id number] CC:
== END 2017-10-01 09:08 | disposition expired | DRG 853 ==
LOC: EDBD 11:32 → EDBEDREQ 12:03 → EMR 12:28 → ICU 12:36 → EDBEDREQ 12:58
PROC: 5A1945Z Respiratory Ventilation, 24-96 Consecutive Hours (ICD-10-PCS; principal; 2017-09-29)
PROC: 0KBP0ZZ Excision of Left Hip Muscle, Open Approach (ICD-10-PCS; 2017-09-30)
PROC: 02HV33Z Insertion of Infusion Device into Superior Vena Cava, Percutaneous Approach (ICD-10-PCS; 2017-09-30)
PROC: 0QB10ZZ Excision of Sacrum, Open Approach (ICD-10-PCS; 2017-09-30)
DX: A41.9 Sepsis, unspecified organism (principal); L89.324 Pressure ulcer of left buttock, stage 4; L89.154 Pressure ulcer of sacral region, stage 4; L89.224 Pressure ulcer of left hip, stage 4; L89.214 Pressure ulcer of right hip, stage 4; L89.504 Pressure ulcer of unspecified ankle, stage 4; R65.21 Severe sepsis with septic shock; E43 Unspecified severe protein-calorie malnutrition; G93.40 Encephalopathy, unspecified; J18.9 Pneumonia, unspecified organism; N39.0 Urinary tract infection, site not specified; G93.1 Anoxic brain damage, not elsewhere classified; J96.10 Chronic respiratory failure, unspecified whether with hypoxia or hypercapnia; N17.9 Acute kidney failure, unspecified; Z99.11 Dependence on respirator [ventilator] status; E87.1 Hypo-osmolality and hyponatremia; Z43.1 Encounter for attention to gastrostomy; I96 Gangrene, not elsewhere classified; K92.2 Gastrointestinal hemorrhage, unspecified; G82.20 Paraplegia, unspecified; Z66 Do not resuscitate; D64.9 Anemia, unspecified; I25.10 Atherosclerotic heart disease of native coronary artery without angina pectoris; I11.9 Hypertensive heart disease without heart failure; E11.9 Type 2 diabetes mellitus without complications; I69.318 Other symptoms and signs involving cognitive functions following cerebral infarction; F03.90 Unspecified dementia, unspecified severity, without behavioral disturbance, psychotic disturbance, mood disturbance, and anxiety; E03.9 Hypothyroidism, unspecified; E86.1 Hypovolemia; E86.0 Dehydration; E87.8 Other disorders of electrolyte and fluid balance, not elsewhere classified; Z43.0 Encounter for attention to tracheostomy; I25.2 Old myocardial infarction; N18.9 Chronic kidney disease, unspecified; R13.10 Dysphagia, unspecified
CPT/HCPCS: 36415; 36569; 71045; 76937; 80053; 81003; 82550; 82553; 82962; 83605; 83735; 84100; 84484; 85007; 85025; 85610; 85730; 86850; 86900; 86901; 86920; 87040; 87070; 87081; 87086; 87181; 87205; 93005; 93970; 94002; 94003; 94664; 99291; J1815; J2370